=== PATIENT | female | born 1990 | race African-American/Black ===

== ENCOUNTER 2016-03-27 11:50 | Emergency (ER) | payer OTHER ==
[2016-03-27] MEDS ORDERED: ONDANSETRON 4MG/2ML VIAL (J2405) As Ordered ONE ×2 (12:36→14:13)
[2016-03-27] MEDS ORDERED: KETOROLAC 30 MG/ML VIAL (J1885) As Ordered ONE (12:36)
[2016-03-27 12:37] LABS: BASO % 0.3 % (0.0-1.0); EOS # 0.4 K/mm3 (0.0-0.50); EOS % 2.6 % (0.0-3.0); LARGE UNSTAINED CELL # 0.1 K/mm3 (0.0-0.4); LARGE UNSTAINED CELL % 0.9 % (0.0-4.0); LYMPH # 2.3 K/mm3 (1.5-6.5); LYMPH % 16.1 % (24.0-44.0); MEAN CORPUSCULAR HGB CONC 33.2 g/dl (32.0-36.5); MEAN CORPUSCULAR VOLUME 84.2 fl (80.0-96.0); MONO # 0.5 K/mm3 (0.0-0.8); MONO % 3.5 % (0.0-5.0); NEUTROPHILS % 76.8 % (36.0-66.0); PLATELET COUNT, AUTOMATED 315 k/mm3 (150-450); RED CELL DISTRIBUTION WIDTH 13.2 % (11.5-14.5); WHITE BLOOD COUNT 14.3 K/mm3 (4.0-10.0)
[2016-03-27 12:59] LABS: ALBUMIN 3.8 GM/DL (3.2-5.2); ALBUMIN/GLOBULIN RATIO 1.06 (1.00-1.93); ALKALINE PHOSPHATASE 76 U/L (45-117); ALT/SGPT 15 U/L (12-78); ANION GAP 9 MEQ/L (8-16); AST/SGOT 14 U/L (15-37); BILIRUBIN,DIRECT < 0.1 MG/DL (0.0-0.2); BILIRUBIN,TOTAL 0.2 MG/DL (0.2-1.0); BLOOD UREA NITROGEN 16 MG/DL (7-18); CARBON DIOXIDE LEVEL 25 MEQ/L (21-32); CHLORIDE LEVEL 108 MEQ/L (98-107); CREATININE FOR GFR 0.92 MG/DL (0.55-1.02); GLOMERULAR FILTRATION RATE > 60.0 (>60); GLUCOSE, FASTING 122 MG/DL (70-105); POTASSIUM SERUM 4.3 MEQ/L (3.5-5.1); SODIUM LEVEL 142 MEQ/L (136-145); TOTAL PROTEIN 7.4 GM/DL (6.4-8.2)
[2016-03-27] MEDS ORDERED: METOCLOPRAMIDE INJ 10MG/2ML VIAL (J2765) As Ordered ONE (13:33)
[2016-03-27] MEDS ORDERED: diphenhydrAMINE INJ 50MG/ML VIAL (J1200) As Ordered ONE (13:34)
[2016-03-27] MEDS ORDERED: ISOVUE-370 76% 100ML VIAL (Q9967) As Ordered ONE (14:10)
--- NOTE | 2016-03-27 15:43 | EDDOCDS ---
Physician Documentation [facility] Name: Jean Escalante Age: 26 yrs Sex: Female : 1990 Arrival Date: 03/27/2016 Time: 11:50 Bed I4 / M4 Private MD: Thao Carnes Disposition: 03/27/16 15:21 Discharged to Home/Self Care. Impression: Nausea and vomiting, Diarrhea, unspecified. - Condition is Stable. - Discharge Instructions: Diarrhea, Irritable Bowel Syndrome, Adult, Nausea and Vomiting. - Prescriptions for Compazine 10 mg Oral Tablet - take 1 tablet by ORAL route every 8 hours As needed; 20 tablet. - Medication Reconciliation, Local Pharmacy Hours form. - Follow up: Emergency Department; When: As needed. Follow up: Thao Carnes; When: Call to arrange an appointment; Reason: Wound/Symptom Recheck, Recheck today's complaints, Worsening of conditions, Continuance of care. - Problem is an acute exacerbation. - Symptoms have improved. Historical: - Allergies: Latex; - Home Meds: 1. Reglan 10 mg Oral tab 1 tab as needed (Last dose: 03/27/2016 08:30) 2. Singulair 10 mg Oral tab 1 tab once daily (Last dose: 03/27/2016 08:30) 3. Zofran (as hydrochloride) 4 mg Oral tab as needed (Last dose: 03/27/2016 08:00) 4. Zyrtec 10 mg Oral cap 10 mg daily (Last dose: 03/27/2016 08:30) 5. Ventolin INH daily (Last dose: Unknown) - PMHx: Bipolar disorder; Celiac disease; IBS; Scoliosis; Seasonal Allergies; Asthma; - PSHx: none; - Social history: Smoking status: Patient states was never smoker of tobacco. No barriers to communication noted, The patient speaks fluent Italian, Speaks appropriately for age. - Family history: Not pertinent. - : The pt / caregiver states he / she is not on anticoagulants. Home medication list is obtained from family members. - Exposure Risk Screening:: None identified. 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 3 in. (160.02 cm) (R); Pain 10/10; 15:30 BP 119 / 77; Pulse 64; Resp 18; Temp 98.0(TE); Pulse Ox 100% ; Pain 10/10; rn1 11:52 Body Mass Index 35.43 (90.72 kg, 160.02 cm) dem1 MDM: 12:18 NS 0.9% 1000 ml IV at bolus once ordered. cc10 12:18 Ondansetron 4 mg IVP once ordered. cc10 12:18 ketorolac 30 mg IVP once ordered. cc10 12:18 IV Saline Lock ordered. cc10 12:18 Undress patient appropriately for examination ordered. cc10 12:19 Basic Metabolic Profile Ordered. EDMS 12:19 CBC with Diff Ordered. EDMS 12:19 Lipase Ordered. EDMS 12:19 Liver Profile Ordered. EDMS 12:19 Urinalysis Ordered. EDMS 12:19 NOTHING BY MOUTH+DIET ordered. EDMS 12:26 Financial registration complete. jp5 12:38 [facility] Payment Agreement was scanned into [employer] and attached to record. jp5 13:32 Basic Metabolic Profile Reviewed. cc10 13:32 CBC with Diff Reviewed. cc10 13:32 Liver Profile Reviewed. cc10 13:32 Urinalysis Reviewed. cc10 13:32 Lipase Reviewed. cc10 13:33 diphenhydrAMINE 25 mg IVP once ordered. cc10 13:33 Metoclopramide 10 mg IV at 40 mg/hr once over 15 mins ordered. cc10 13:34 CT ABD & PELVIS: IV Contrast Only Ordered. EDMS 14:07 Ondansetron 8 mg IVP once ordered. cc10 Administered Medications: 12:44 Drug: NS 0.9% 1000 ml [sodium chloride 0.9 % intravenous solution] Route: IV; Rate: rs3 bolus; Site: right antecubital; 15:39 Follow up: IV Status: Completed infusion rs3 12:44 Drug: Ondansetron 4 mg [ondansetron HCl 2 mg/mL intravenous solution (2 mL)] Route: rs3 IVP; Site: right antecubital; 12:44 Drug: ketorolac 30 mg [ketorolac 30 mg/mL (1 mL) injection solution (1 mL)] Route: IVP; rs3 Site: right antecubital; 15:39 Follow up: Response: No significant change. rs3 13:35 Drug: diphenhydrAMINE 25 mg [diphenhydramine 50 mg/mL injection solution (0.5 mL)] ttb Route: IVP; Site: right antecubital; 13:40 Drug: Metoclopramide 10 mg [metoclopramide 5 mg/mL injection solution] Route: IV; Rate: ttb 40 mg/hr; Infused Over: 15 mins; Site: right antecubital; Delivery: Syringe pump; 15:39 Follow up: IV Status: Completed infusion rs3 14:28 Drug: Ondansetron 8 mg [ondansetron HCl 2 mg/mL intravenous solution (3.75 mL)] Route: ttb IVP; Site: right antecubital; Signatures: Dispatcher [employer] Lauren Kang RN RN rs3 Aisha Flores RN RN dsf Conner, Teresa, RN RN ttb Jose Elizondo PA-C PASandi cc10 Jorge Gil jp5 The chart was reviewed and I authenticate all verbal orders and agree with the evaluation and treatment provided.Attachments: 12:38 [facility] Payment Agreement jp5 MTDD
--- NOTE | 2016-03-27 15:43 | EDDOCDS ---
Nurse's Notes [facility] Name: Jean Escalante Age: 26 yrs Sex: Female : 1990 Arrival Date: 03/27/2016 Time: 11:50 Bed I4 / M4 Private MD: Thao Carnes Diagnosis: Nausea and vomiting;Diarrhea, unspecified Presentation: 03/27 11:55 Presenting complaint: Significant other states: pt has celiac disease. pt has been dsf vomiting, dry heaves, abdominal pain and diarrhea for the past 3-4 hours. Adult Sepsis Screening: The patient does not have new or worsening altered mentation. Patient's respiratory rate is less than 22. Systolic blood pressure is greater than 100. Patient has a qSOFA score of 0- Negative Sepsis Screen. Suicide/Homicide risk assessment- the patient denies having any suicidal and/or homicidal ideations and does not present with any other emotional, behavioral or mental health complaints. Status: Patient is not a slitter service and setter or dependent. Transition of care: patient was not received from another setting of care. 11:55 Acuity: [place] Level 3 dsf 11:55 Method Of Arrival: Wheelchair dsf Triage Assessment: 11:57 General: Appears distressed, ill, uncomfortable, Behavior is crying. Pain: Location: dsf abdomen Pain currently is 10 out of 10 on a pain scale. HIV screening NA for this visit Offered previously. GI: Reports diarrhea, nausea, vomiting, Pain is 10 out of 10 on a pain scale. 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 Reglan 10 mg Oral tab 1 tab as needed (Last dose: 03/27/2016 08:30) 2. Singulair 10 mg Oral tab 1 tab once daily (Last dose: 03/27/2016 08:30) 3. Zofran (as hydrochloride) 4 mg Oral tab as needed (Last dose: 03/27/2016 08:00) 4. Zyrtec 10 mg Oral cap 10 mg daily (Last dose: 03/27/2016 08:30) 5. Ventolin INH daily (Last dose: Unknown) - PMHx: Bipolar disorder; Celiac disease; IBS; Scoliosis; Seasonal Allergies; Asthma; - PSHx: none; - Social history: Smoking status: Patient states was never smoker of tobacco. No barriers to communication noted, The patient speaks fluent Nicaraguan, Speaks appropriately for age. - Family history: Not pertinent. - : The pt / caregiver states he / she is not on anticoagulants. Home medication list is obtained from family members. - Exposure Risk Screening:: None identified. Screenin:28 Screening information is obtained from the patient. Fall risk: No risks identified. ttb Assistance ADL's: requires no assistance with activities of daily living. Abuse/DV Screen: The patient / caregiver reports he/she is: not in a situation that causes fear, pain or injury. Nutritional screening: No deficits noted. Advance Directives: Currently, there is no health care proxy. home support is adequate. Assessment: 12:32 General: Appears in no apparent distress, Behavior is appropriate for age, cooperative. rs3 Pain: Location: abdomen. GI: Abdomen is non- distended Bowel sounds present X 4 quads. Abd is soft and non tender X 4 quads. Reports upper abd pain, nausea. Derm: Skin is pink, warm & dry. 13:41 Reassessment: Patient states symptoms have not improved. pt continues to lay on ttb stretcher, moaning and facing the wall. Pt encouraged to talk to me to given name and ....pt did with encouragement. Meds given. No active vomiting noted.. Neurological: Level of Consciousness is awake, alert. Respiratory: No deficits noted. Airway is patent Respiratory effort is even, unlabored. 14:28 Reassessment: Patient states symptoms have not improved. pt continues to roll around on ttb stretcher, dry heaving, stating it is from the pain. When asked what pt usually gets for pain -- she states, "dilautin". Pt aware she is getting zofran for nausea and is encouraged to relax. Friend at bedside. . Pain: Location: upper abd. Neurological: Level of Consciousness is awake, alert. Cardiovascular: Chest pain is denied. Respiratory: No deficits noted. Airway is patent Respiratory effort is even, unlabored. GI: other dry heaving -- no vomit noted. 15:39 Reassessment: Patient appears in no apparent distress at this time. Patient states rs3 feeling better. Patient states symptoms have improved. Vital Signs: 11:52 BP 126 / 98; Pulse 82; Resp 16; Temp 96.7(T); Pulse Ox 100% on R/A; Weight 90.72 kg dem1 (R); Height 5 ft. 3 in. (160.02 cm) (R); Pain 10/10; 15:30 BP 119 / 77; Pulse 64; Resp 18; Temp 98.0(TE); Pulse Ox 100% ; Pain 10/10; rn1 11:52 Body Mass Index 35.43 (90.72 kg, 160.02 cm) [facility] Vitals: 11:52 Log In Time: March 27, 2016 at 11:50. [facility] ED Course: 11:52 Patient visited by Katelin Cruz. dem1 11:52 Thao Canres is Private Physician. dem1 11:52 Patient moved to Waiting dem1 11:54 Patient moved to Pre RCE dem1 11:56 Triage Initiated dsf 11:58 Patient moved to I4 / M4 dsf 11:59 Jose Elizondo PA-C is [facility]. cc10 11:59 Tesha Grullon MD is Attending Physician. cc10 11:59 Patient visited by Jose Elizondo PA-C. cc10 11:59 Patient visited by Jose Elizondo PA-C. cc10 12:31 Patient visited by Lauren Junior RN. rs3 12:31 Liver Profile Sent. rs3 12:31 Lipase Sent. rs3 12:31 CBC with Diff Sent. rs3 12:31 Basic Metabolic Profile Sent. rs3 12:38 [facility] [place] was scanned into [employer] and attached to record. jp5 12:40 Inserted saline lock: 20 gauge in right antecubital area and blood collected. The rs3 patient tolerated the procedure well. 12:45 Urinalysis Sent. rs3 13:19 Patient visited by Lauren Junior,VALERIE. rs3 13:42 Patient visited by Madhavi Guidry RN. ttb 14:28 The patient / caregiver is instructed regarding the plan of care and ED course. ttb Accompanied by Friend, Patient has correct armband on for positive identification. Placed in gown. Bed in low position. Call light in reach. Side rails up X 1. 14:28 Labs drawn. (by ED staff). Urine collected. Clean catch specimen. ttb 14:31 Patient visited by Madhavi Guidry RN. ttb 15:20 Thao Carnes is Referral Physician. cc10 15:39 No procedures done that require assistance. rs3 Administered Medications: 12:44 Drug: NS 0.9% 1000 ml [sodium chloride 0.9 % intravenous solution] Route: IV; Rate: rs3 bolus; Site: right antecubital; 15:39 Follow up: IV Status: Completed infusion rs3 12:44 Drug: Ondansetron 4 mg [ondansetron HCl 2 mg/mL intravenous solution (2 mL)] Route: rs3 IVP; Site: right antecubital; 12:44 Drug: ketorolac 30 mg [ketorolac 30 mg/mL (1 mL) injection solution (1 mL)] Route: IVP; rs3 Site: right antecubital; 15:39 Follow up: Response: No significant change. rs3 13:35 Drug: diphenhydrAMINE 25 mg [diphenhydramine 50 mg/mL injection solution (0.5 mL)] ttb Route: IVP; Site: right antecubital; 13:40 Drug: Metoclopramide 10 mg [metoclopramide 5 mg/mL injection solution] Route: IV; Rate: ttb 40 mg/hr; Infused Over: 15 mins; Site: right antecubital; Delivery: Syringe pump; 15:39 Follow up: IV Status: Completed infusion rs3 14:28 Drug: Ondansetron 8 mg [ondansetron HCl 2 mg/mL intravenous solution (3.75 mL)] Route: ttb IVP; Site: right antecubital; Order Results: Lab Order: Basic Metabolic Profile; SPEC'M 03/27/16 12:29 Test: GLUCOSE, FASTING; Value: 122; Range: 70-105; Abnormal: Above high normal; Units: MG/DL; Status: F Test: BLOOD UREA NITROGEN; Value: 16; Range: 7-18; Units: MG/DL; Status: F Test: CREATININE FOR GFR; Value: 0.92; Range: 0.55-1.02; Units: MG/DL; Status: F Test: GLOMERULAR FILTRATION RATE; Value: > 60.0; Range: >60; Status: F Test: SODIUM LEVEL; Value: 142; Range: 136-145; Units: MEQ/L; Status: F Test: POTASSIUM SERUM; Value: 4.3; Range: 3.5-5.1; Units: MEQ/L; Status: F Test: CHLORIDE LEVEL; Value: 108; Range: 98-107; Abnormal: Above high normal; Units: MEQ/L; Status: F Test: CARBON DIOXIDE LEVEL; Value: 25; Range: 21-32; Units: MEQ/L; Status: F Test: ANION GAP; Value: 9; Range: 8-16; Units: MEQ/L; Status: F Test: CALCIUM LEVEL; Value: 9.0; Range: 8.5-10.1; Units: MG/DL; Status: F Test Note: ; Units are mL/min/1.73 m2 Chronic Kidney Disease Staging per NKF: Stage I & II GFR >=60 Normal to Mildly Decreased Stage III GFR 30-59 Moderately Decreased Stage IV GFR 15-29 Severely Decreased Stage V GFR <15 Very Little GFR Left ESRD GFR <15 on CUSTOMER RESOURCE SPECIALIST Lab Order: CBC with Diff; SPEC'M 03/27/16 12:29 Test: WHITE BLOOD COUNT; Value: 14.3; Range: 4.0-10.0; Abnormal: Above high normal; Units: K/mm3; Status: F Test: RED BLOOD COUNT; Value: 4.80; Range: 4.00-5.40; Units: M/mm3; Status: F Test: HEMOGLOBIN; Value: 13.4; Range: 12.0-16.0; Units: g/dl; Status: F Test: HEMATOCRIT; Value: 40.4; Range: 36.0-47.0; Units: %; Status: F Test: MEAN CORPUSCULAR VOLUME; Value: 84.2; Range: 80.0-96.0; Units: fl; Status: F Test: MEAN CORPUSCULAR HEMOGLOBIN; Value: 28.0; Range: 27.0-33.0; Units: pg; Status: F Test: MEAN CORPUSCULAR HGB CONC; Value: 33.2; Range: 32.0-36.5; Units: g/dl; Status: F Test: RED CELL DISTRIBUTION WIDTH; Value: 13.2; Range: 11.5-14.5; Units: %; Status: F Test: PLATELET COUNT, AUTOMATED; Value: 315; Range: 150-450; Units: k/mm3; Status: F Test: NEUTROPHILS %; Value: 76.8; Range: 36.0-66.0; Abnormal: Above high normal; Units: %; Status: F Test: LYMPH %; Value: 16.1; Range: 24.0-44.0; Abnormal: Below low normal; Units: %; Status: F Test: MONO %; Value: 3.5; Range: 0.0-5.0; Units: %; Status: F Test: EOS %; Value: 2.6; Range: 0.0-3.0; Units: %; Status: F Test: BASO %; Value: 0.3; Range: 0.0-1.0; Units: %; Status: F Test: LARGE UNSTAINED CELL %; Value: 0.9; Range: 0.0-4.0; Units: %; Status: F Test: NEUTROPHILS #; Value: 11.0; Range: 1.8-7.7; Abnormal: Above high normal; Units: K/mm3; Status: F Test: LYMPH #; Value: 2.3; Range: 1.5-6.5; Units: K/mm3; Status: F Test: MONO #; Value: 0.5; Range: 0.0-0.8; Units: K/mm3; Status: F Test: EOS #; Value: 0.4; Range: 0.0-0.50; Units: K/mm3; Status: F Test: BASO #; Value: 0.0; Range: 0.0-0.2; Units: K/mm3; Status: F Test: LARGE UNSTAINED CELL #; Value: 0.1; Range: 0.0-0.4; Units: K/mm3; Status: F Lab Order: Lipase; SPEC'M 03/27/16 12:29 Test: LIPASE; Value: 88; Range: 73-393; Units: U/L; Status: F Lab Order: Liver Profile; SPEC'M 03/27/16 12:29 Test: AST/SGOT; Value: 14; Range: 15-37; Abnormal: Below low normal; Units: U/L; Status: F Test: ALT/SGPT; Value: 15; Range: 12-78; Units: U/L; Status: F Test: ALKALINE PHOSPHATASE; Value: 76; Range: 45-117; Units: U/L; Status: F Test: BILIRUBIN,TOTAL; Value: 0.2; Range: 0.2-1.0; Units: MG/DL; Status: F Test: BILIRUBIN,DIRECT; Value: < 0.1; Range: 0.0-0.2; Units: MG/DL; Status: F Test: TOTAL PROTEIN; Value: 7.4; Range: 6.4-8.2; Units: GM/DL; Status: F Test: ALBUMIN; Value: 3.8; Range: 3.2-5.2; Units: GM/DL; Status: F Test: ALBUMIN/GLOBULIN RATIO; Value: 1.06; Range: 1.00-1.93; Status: F Lab Order: Urinalysis; SPEC'M 03/27/16 12:42 Test: APPEARANCE, URINE; Value: CLEAR; Range: CLEAR; Status: F Test: COLOR, URINE; Value: YELLOW; Range: YELLOW; Status: F Test: PH,URINE; Value: 9.0; Range: 5.0-9.0; Units: UNITS; Status: F Test: SPECIFIC GRAVITY URINE AUTO; Value: 1.023; Range: 1.002-1.035; Status: F Test: PROTEIN, URINE AUTO; Value: 1+; Range: NEGATIVE; Abnormal: Above high normal; Units: mg/dL; Status: F Test: GLUCOSE, URINE (UA) AUTO; Value: NEGATIVE; Range: NEGATIVE; Units: mg/dL; Status: F Test: KETONE, URINE AUTO; Value: TRACE; Range: NEGATIVE; Abnormal: Above high normal; Units: mg/dL; Status: F Test: UROBILINOGEN, URINE AUTO; Value: 0.2; Range: 0.0-2.0; Units: mg/dL; Status: F Test: BILIRUBIN, URINE AUTO; Value: NEGATIVE; Range: NEGATIVE; Status: F Test: NITRITE, URINE AUTO; Value: NEGATIVE; Range: NEGATIVE; Status: F Test: LEUKOCYTE ESTERASE, URINE AUTO; Value: NEGATIVE; Range: NEGATIVE; Status: F Test: BLOOD, URINE BLOOD; Value: NEGATIVE; Range: NEGATIVE; Status: F Test: WBC, URINE AUTO; Value: 0; Range: 0-3; Units: /HPF; Status: F Test: RBC, URINE AUTO; Value: 3; Range: 0-3; Units: /HPF; Status: F Test: BACTERIA, URINE AUTO; Value: NEGATIVE; Range: NEGATIVE; Status: F Test: SQUAMOUS EPITHELIAL CELL UR AU; Value: 2; Range: 0-6; Units: /HPF; Status: F Test: HYALINE CAST, URINE AUTO; Value: 0; Range: 0-1; Units: /LPF; Status: F Outcome: 14:28 CT Study completed. ttb 15:21 Discharge ordered by Provider. cc10 15:41 Discharge Assessment: patient administered narcotics - no. The following High Risk rs3 Discharge criteria are identified: None. Discharged to home with family. Condition: stable. Discharge instructions given to patient, Instructed on discharge instructions, follow up and referral plans. medication usage, Demonstrated understanding of instructions, medications, Pt was receptive of discharge instructions/ teaching. Prescriptions given X 1. Property :Personal belongings accompany Pt. 15:42 Patient left the ED. rs3 Signatures: Lauren JuniorRN RN rs3 Aisha Flores,RN RN dsKatelin Mitchell Teresa RN RN ttb Jose Elizondo, PA-C PA-C Jordan Frederick rn1 Jorge Gil jp5 MTDD
--- NOTE | 2016-03-29 14:26 | REP ---
CT of abdomen and pelvis with IV contrast 03/27/2016 Indication: Abdominal pain Comparison: CT abdomen pelvis 12/04/2015 performed with IV contrast Technique: Following IV injection of 100 ml Isovue 370 mg/ml, 3 mm continuous spiral axial sections were performed through the abdomen and pelvis Findings: Lung bases are clear bilaterally. The liver spleen pancreas gallbladder adrenal glands are normal. Kidneys are without hydronephrosis or obstructing ureteral calculi bilaterally. There are no intrarenal masses or cysts. The stomach and small bowel are within normal limits. The terminal ileum and appendix are without inflammation. Abdominal aorta is of normal course and caliber.. Contrast is identified within the common iliac and external iliac veins, left greater than right Bladder, uterus and adnexa are within normal limits. There is generalized under distension seen throughout the entire colon as can be seen with spasm. Mild colitis may be considered in the appropriate clinical setting. There is no free air or ascites. Impression: Generalized under distension seen throughout the entire colon as can be seen with spasm. Mild colitis may be considered in the appropriate clinical setting. Mild asymmetric perfusion within the common and external iliac veins, left greater than right. This likely is secondary to flow related artifact. Pelvic DVT involving the right side would be considered much less likely. Signed by Irish Whaley MD 03/29/2016 02:17 P
--- NOTE | 2016-03-29 16:42 | EDDOCDS ---
Physician Documentation [facility] Name: Jean Escalante Age: 26 yrs Sex: Female : 1990 Arrival Date: 03/27/2016 Time: 11:50 Bed I4 / M4 Private MD: Thao Carnes Disposition: 03/27/16 15:21 Discharged to Home/Self Care. Impression: Nausea and vomiting, Diarrhea, unspecified. - Condition is Stable. - Discharge Instructions: Diarrhea, Irritable Bowel Syndrome, Adult, Nausea and Vomiting. - Prescriptions for Compazine 10 mg Oral Tablet - take 1 tablet by ORAL route every 8 hours As needed; 20 tablet. - Medication Reconciliation, Local Pharmacy Hours form. - Follow up: Emergency Department; When: As needed. Follow up: Thao Carnes; When: Call to arrange an appointment; Reason: Wound/Symptom Recheck, Recheck today's complaints, Worsening of conditions, Continuance of care. - Problem is an acute exacerbation. - Symptoms have improved. Historical: - Allergies: Latex; - Home Meds: 1. Reglan 10 mg Oral tab 1 tab as needed (Last dose: 03/27/2016 08:30) 2. Singulair 10 mg Oral tab 1 tab once daily (Last dose: 03/27/2016 08:30) 3. Zofran (as hydrochloride) 4 mg Oral tab as needed (Last dose: 03/27/2016 08:00) 4. Zyrtec 10 mg Oral cap 10 mg daily (Last dose: 03/27/2016 08:30) 5. Ventolin INH daily (Last dose: Unknown) - PMHx: Bipolar disorder; Celiac disease; IBS; Scoliosis; Seasonal Allergies; Asthma; - PSHx: none; - Social history: Smoking status: Patient states was never smoker of tobacco. No barriers to communication noted, The patient speaks fluent Maltese, Speaks appropriately for age. - Family history: Not pertinent. - : The pt / caregiver states he / she is not on anticoagulants. Home medication list is obtained from family members. - Exposure Risk Screening:: None identified. 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 3 in. (160.02 cm) (R); Pain 10/10; 15:30 BP 119 / 77; Pulse 64; Resp 18; Temp 98.0(TE); Pulse Ox 100% ; Pain 10/10; rn1 11:52 Body Mass Index 35.43 (90.72 kg, 160.02 cm) dem1 MDM: 12:18 NS 0.9% 1000 ml IV at bolus once ordered. cc10 12:18 Ondansetron 4 mg IVP once ordered. cc10 12:18 ketorolac 30 mg IVP once ordered. cc10 12:18 IV Saline Lock ordered. cc10 12:18 Undress patient appropriately for examination ordered. cc10 12:19 Basic Metabolic Profile Ordered. EDMS 12:19 CBC with Diff Ordered. EDMS 12:19 Lipase Ordered. EDMS 12:19 Liver Profile Ordered. EDMS 12:19 Urinalysis Ordered. EDMS 12:19 NOTHING BY MOUTH+DIET ordered. EDMS 12:26 Financial registration complete. jp5 12:38 [facility] Payment Agreement was scanned into [employer] and attached to record. jp5 13:32 Basic Metabolic Profile Reviewed. cc10 13:32 CBC with Diff Reviewed. cc10 13:32 Liver Profile Reviewed. cc10 13:32 Urinalysis Reviewed. cc10 13:32 Lipase Reviewed. cc10 13:33 diphenhydrAMINE 25 mg IVP once ordered. cc10 13:33 Metoclopramide 10 mg IV at 40 mg/hr once over 15 mins ordered. cc10 13:34 CT ABD & PELVIS: IV Contrast Only Ordered. EDMS 14:07 Ondansetron 8 mg IVP once ordered. cc10 03/28 07:04 T-Sheet-- Draft Copy was scanned into [employer] and attached to record. gb Administered Medications: 03/27 12:44 Drug: NS 0.9% 1000 ml [sodium chloride 0.9 % intravenous solution] Route: IV; Rate: rs3 bolus; Site: right antecubital; 15:39 Follow up: IV Status: Completed infusion rs3 12:44 Drug: Ondansetron 4 mg [ondansetron HCl 2 mg/mL intravenous solution (2 mL)] Route: rs3 IVP; Site: right antecubital; 12:44 Drug: ketorolac 30 mg [ketorolac 30 mg/mL (1 mL) injection solution (1 mL)] Route: IVP; rs3 Site: right antecubital; 15:39 Follow up: Response: No significant change. rs3 13:35 Drug: diphenhydrAMINE 25 mg [diphenhydramine 50 mg/mL injection solution (0.5 mL)] ttb Route: IVP; Site: right antecubital; 13:40 Drug: Metoclopramide 10 mg [metoclopramide 5 mg/mL injection solution] Route: IV; Rate: ttb 40 mg/hr; Infused Over: 15 mins; Site: right antecubital; Delivery: Syringe pump; 15:39 Follow up: IV Status: Completed infusion rs3 14:28 Drug: Ondansetron 8 mg [ondansetron HCl 2 mg/mL intravenous solution (3.75 mL)] Route: ttb IVP; Site: right antecubital; Signatures: Dispatcher [employer] EDShari Abdalla, Reg Reg Lauren Ruffin RN RN rs3 Aisha Flores RN RN dsMadhavi Mccullough RN RN ttb Jose Elizondo PA-C PASandi cc10 Jorge Gil jp5 The chart was reviewed and I authenticate all verbal orders and agree with the evaluation and treatment provided.Attachments: 12:38 [facility] Payment Agreement jp5 03/28 07:04 T-Sheet-- Draft Copy gb Chart Complete MTDD
--- NOTE | 2016-03-29 16:43 | EDDOCDS ---
[facility]ation [facility] Name: Jean Escalante Age: 26 yrs Sex: Female : 1990 Arrival Date: 03/27/2016 Time: 11:50 Bed I4 / M4 Private MD: Thao Carnes Disposition: 03/27/16 15:21 Discharged to Home/Self Care. Impression: Nausea and vomiting, Diarrhea, unspecified. - Condition is Stable. - Discharge Instructions: Diarrhea, Irritable Bowel Syndrome, Adult, Nausea and Vomiting. - Prescriptions for Compazine 10 mg Oral Tablet - take 1 tablet by ORAL route every 8 hours As needed; 20 tablet. - Medication Reconciliation, Local Pharmacy Hours form. - Follow up: Emergency Department; When: As needed. Follow up: Thao Carnes; When: Call to arrange an appointment; Reason: Wound/Symptom Recheck, Recheck today's complaints, Worsening of conditions, Continuance of care. - Problem is an acute exacerbation. - Symptoms have improved. Historical: - Allergies: Latex; - Home Meds: 1. Reglan 10 mg Oral tab 1 tab as needed (Last dose: 03/27/2016 08:30) 2. Singulair 10 mg Oral tab 1 tab once daily (Last dose: 03/27/2016 08:30) 3. Zofran (as hydrochloride) 4 mg Oral tab as needed (Last dose: 03/27/2016 08:00) 4. Zyrtec 10 mg Oral cap 10 mg daily (Last dose: 03/27/2016 08:30) 5. Ventolin INH daily (Last dose: Unknown) - PMHx: Bipolar disorder; Celiac disease; IBS; Scoliosis; Seasonal Allergies; Asthma; - PSHx: none; - Social history: Smoking status: Patient states was never smoker of tobacco. No barriers to communication noted, The patient speaks fluent Maori, Speaks appropriately for age. - Family history: Not pertinent. - : The pt / caregiver states he / she is not on anticoagulants. Home medication list is obtained from family members. - Exposure Risk Screening:: None identified. 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 3 in. (160.02 cm) (R); Pain 10/10; 15:30 BP 119 / 77; Pulse 64; Resp 18; Temp 98.0(TE); Pulse Ox 100% ; Pain 10/10; rn1 11:52 Body Mass Index 35.43 (90.72 kg, 160.02 cm) dem1 MDM: 12:18 NS 0.9% 1000 ml IV at bolus once ordered. cc10 12:18 Ondansetron 4 mg IVP once ordered. cc10 12:18 ketorolac 30 mg IVP once ordered. cc10 12:18 IV Saline Lock ordered. cc10 12:18 Undress patient appropriately for examination ordered. cc10 12:19 Basic Metabolic Profile Ordered. EDMS 12:19 CBC with Diff Ordered. EDMS 12:19 Lipase Ordered. EDMS 12:19 Liver Profile Ordered. EDMS 12:19 Urinalysis Ordered. EDMS 12:19 NOTHING BY MOUTH+DIET ordered. EDMS 12:26 Financial registration complete. jp5 12:38 [facility] Payment Agreement was scanned into [employer] and attached to record. jp5 13:32 Basic Metabolic Profile Reviewed. cc10 13:32 CBC with Diff Reviewed. cc10 13:32 Liver Profile Reviewed. cc10 13:32 Urinalysis Reviewed. cc10 13:32 Lipase Reviewed. cc10 13:33 diphenhydrAMINE 25 mg IVP once ordered. cc10 13:33 Metoclopramide 10 mg IV at 40 mg/hr once over 15 mins ordered. cc10 13:34 CT ABD & PELVIS: IV Contrast Only Ordered. EDMS 14:07 Ondansetron 8 mg IVP once ordered. cc10 03/28 07:04 T-Sheet-- Draft Copy was scanned into [employer] and attached to record. gb Administered Medications: 03/27 12:44 Drug: NS 0.9% 1000 ml [sodium chloride 0.9 % intravenous solution] Route: IV; Rate: rs3 bolus; Site: right antecubital; 15:39 Follow up: IV Status: Completed infusion rs3 12:44 Drug: Ondansetron 4 mg [ondansetron HCl 2 mg/mL intravenous solution (2 mL)] Route: rs3 IVP; Site: right antecubital; 12:44 Drug: ketorolac 30 mg [ketorolac 30 mg/mL (1 mL) injection solution (1 mL)] Route: IVP; rs3 Site: right antecubital; 15:39 Follow up: Response: No significant change. rs3 13:35 Drug: diphenhydrAMINE 25 mg [diphenhydramine 50 mg/mL injection solution (0.5 mL)] ttb Route: IVP; Site: right antecubital; 13:40 Drug: Metoclopramide 10 mg [metoclopramide 5 mg/mL injection solution] Route: IV; Rate: ttb 40 mg/hr; Infused Over: 15 mins; Site: right antecubital; Delivery: Syringe pump; 15:39 Follow up: IV Status: Completed infusion rs3 14:28 Drug: Ondansetron 8 mg [ondansetron HCl 2 mg/mL intravenous solution (3.75 mL)] Route: ttb IVP; Site: right antecubital; Signatures: Dispatcher [employer] EDShari Abdalla, Reg Reg Lauren Ruffin RN RN rs3 Aisha Flores RN RN dsMadhavi Mccullough RN RN ttb Jose Elizondo PA-C PASandi cc10 Jorge Gil jp5 The chart was reviewed and I authenticate all verbal orders and agree with the evaluation and treatment provided.Attachments: 12:38 [facility] Payment Agreement jp5 03/28 07:04 T-Sheet-- Draft Copy gb Chart Complete MTDD
--- NOTE | 2016-03-29 16:43 | EDDOCDS ---
Nurse's Notes [facility] Name: Jean Escalante Age: 26 yrs Sex: Female : 1990 Arrival Date: 03/27/2016 Time: 11:50 Bed I4 / M4 Private MD: Thao Carnes Diagnosis: Nausea and vomiting;Diarrhea, unspecified Presentation: 03/27 11:55 Presenting complaint: Significant other states: pt has celiac disease. pt has been dsf vomiting, dry heaves, abdominal pain and diarrhea for the past 3-4 hours. Adult Sepsis Screening: The patient does not have new or worsening altered mentation. Patient's respiratory rate is less than 22. Systolic blood pressure is greater than 100. Patient has a qSOFA score of 0- Negative Sepsis Screen. Suicide/Homicide risk assessment- the patient denies having any suicidal and/or homicidal ideations and does not present with any other emotional, behavioral or mental health complaints. Status: Patient is not a director financial services or dependent. Transition of care: patient was not received from another setting of care. 11:55 Acuity: [place] Level 3 dsf 11:55 Method Of Arrival: Wheelchair dsf Triage Assessment: 11:57 General: Appears distressed, ill, uncomfortable, Behavior is crying. Pain: Location: dsf abdomen Pain currently is 10 out of 10 on a pain scale. HIV screening NA for this visit Offered previously. GI: Reports diarrhea, nausea, vomiting, Pain is 10 out of 10 on a pain scale. 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 Reglan 10 mg Oral tab 1 tab as needed (Last dose: 03/27/2016 08:30) 2. Singulair 10 mg Oral tab 1 tab once daily (Last dose: 03/27/2016 08:30) 3. Zofran (as hydrochloride) 4 mg Oral tab as needed (Last dose: 03/27/2016 08:00) 4. Zyrtec 10 mg Oral cap 10 mg daily (Last dose: 03/27/2016 08:30) 5. Ventolin INH daily (Last dose: Unknown) - PMHx: Bipolar disorder; Celiac disease; IBS; Scoliosis; Seasonal Allergies; Asthma; - PSHx: none; - Social history: Smoking status: Patient states was never smoker of tobacco. No barriers to communication noted, The patient speaks fluent Nauruan, Speaks appropriately for age. - Family history: Not pertinent. - : The pt / caregiver states he / she is not on anticoagulants. Home medication list is obtained from family members. - Exposure Risk Screening:: None identified. Screenin:28 Screening information is obtained from the patient. Fall risk: No risks identified. ttb Assistance ADL's: requires no assistance with activities of daily living. Abuse/DV Screen: The patient / caregiver reports he/she is: not in a situation that causes fear, pain or injury. Nutritional screening: No deficits noted. Advance Directives: Currently, there is no health care proxy. home support is adequate. Assessment: 12:32 General: Appears in no apparent distress, Behavior is appropriate for age, cooperative. rs3 Pain: Location: abdomen. GI: Abdomen is non- distended Bowel sounds present X 4 quads. Abd is soft and non tender X 4 quads. Reports upper abd pain, nausea. Derm: Skin is pink, warm & dry. 13:41 Reassessment: Patient states symptoms have not improved. pt continues to lay on ttb stretcher, moaning and facing the wall. Pt encouraged to talk to me to given name and ....pt did with encouragement. Meds given. No active vomiting noted.. Neurological: Level of Consciousness is awake, alert. Respiratory: No deficits noted. Airway is patent Respiratory effort is even, unlabored. 14:28 Reassessment: Patient states symptoms have not improved. pt continues to roll around on ttb stretcher, dry heaving, stating it is from the pain. When asked what pt usually gets for pain -- she states, "dilautin". Pt aware she is getting zofran for nausea and is encouraged to relax. Friend at bedside. . Pain: Location: upper abd. Neurological: Level of Consciousness is awake, alert. Cardiovascular: Chest pain is denied. Respiratory: No deficits noted. Airway is patent Respiratory effort is even, unlabored. GI: other dry heaving -- no vomit noted. 15:39 Reassessment: Patient appears in no apparent distress at this time. Patient states rs3 feeling better. Patient states symptoms have improved. Vital Signs: 11:52 BP 126 / 98; Pulse 82; Resp 16; Temp 96.7(T); Pulse Ox 100% on R/A; Weight 90.72 kg dem1 (R); Height 5 ft. 3 in. (160.02 cm) (R); Pain 10/10; 15:30 BP 119 / 77; Pulse 64; Resp 18; Temp 98.0(TE); Pulse Ox 100% ; Pain 10/10; rn1 11:52 Body Mass Index 35.43 (90.72 kg, 160.02 cm) [facility] Vitals: 11:52 Log In Time: March 27, 2016 at 11:50. [facility] ED Course: 11:52 Patient visited by Katelin Cruz. dem1 11:52 Thao Carnse is Private Physician. dem1 11:52 Patient moved to Waiting dem1 11:54 Patient moved to Pre RCE dem1 11:56 Triage Initiated dsf 11:58 Patient moved to I4 / M4 dsf 11:59 Jose Elizondo [facility] cc10 11:59 Tesha Grullon MD is Attending Physician. cc10 11:59 Patient visited by Jose Elizondo PA-C. cc10 11:59 Patient visited by Jose Elizondo PA-C. cc10 12:31 Patient visited by Lauren Junior RN. rs3 12:31 Liver Profile Sent. rs3 12:31 Lipase Sent. rs3 12:31 CBC with Diff Sent. rs3 12:31 Basic Metabolic Profile Sent. rs3 12:38 [facility] [place] was [place] into [employer] and attached to record. jp5 12:40 Inserted saline lock: 20 gauge in right antecubital area and blood collected. The rs3 patient tolerated the procedure well. 12:45 Urinalysis Sent. rs3 13:19 Patient visited by Lauren Junior,VALERIE. rs3 13:42 Patient visited by Madhavi Guidry RN. ttb 14:28 The patient / caregiver is instructed regarding the plan of care and ED course. ttb Accompanied by Friend, Patient has correct armband on for positive identification. Placed in gown. Bed in low position. Call light in reach. Side rails up X 1. 14:28 Labs drawn. (by ED staff). Urine collected. Clean catch specimen. ttb 14:31 Patient visited by Madhavi Guidry RN. ttb 15:20 Thao Carnes is Referral Physician. cc10 15:39 No procedures done that require assistance. rs3 03/28 07:04 T-Sheet-- Draft Copy was scanned into [employer] and attached to record. gb 03/29 14:30 CT ABD & PELVIS: IV Contrast Only Returned. EDMS Administered Medications: 03/27 12:44 Drug: NS 0.9% 1000 ml [sodium chloride 0.9 % intravenous solution] Route: IV; Rate: rs3 bolus; Site: right antecubital; 15:39 Follow up: IV Status: Completed infusion rs3 12:44 Drug: Ondansetron 4 mg [ondansetron HCl 2 mg/mL intravenous solution (2 mL)] Route: rs3 IVP; Site: right antecubital; 12:44 Drug: ketorolac 30 mg [ketorolac 30 mg/mL (1 mL) injection solution (1 mL)] Route: IVP; rs3 Site: right antecubital; 15:39 Follow up: Response: No significant change. rs3 13:35 Drug: diphenhydrAMINE 25 mg [diphenhydramine 50 mg/mL injection solution (0.5 mL)] ttb Route: IVP; Site: right antecubital; 13:40 Drug: Metoclopramide 10 mg [metoclopramide 5 mg/mL injection solution] Route: IV; Rate: ttb 40 mg/hr; Infused Over: 15 mins; Site: right antecubital; Delivery: Syringe pump; 15:39 Follow up: IV Status: Completed infusion rs3 14:28 Drug: Ondansetron 8 mg [ondansetron HCl 2 mg/mL intravenous solution (3.75 mL)] Route: ttb IVP; Site: right antecubital; Order Results: Lab Order: Basic Metabolic Profile; SPEC'M 03/27/16 12:29 Test: GLUCOSE, FASTING; Value: 122; Range: 70-105; Abnormal: Above high normal; Units: MG/DL; Status: F Test: BLOOD UREA NITROGEN; Value: 16; Range: 7-18; Units: MG/DL; Status: F Test: CREATININE FOR GFR; Value: 0.92; Range: 0.55-1.02; Units: MG/DL; Status: F Test: GLOMERULAR FILTRATION RATE; Value: > 60.0; Range: >60; Status: F Test: SODIUM LEVEL; Value: 142; Range: 136-145; Units: MEQ/L; Status: F Test: POTASSIUM SERUM; Value: 4.3; Range: 3.5-5.1; Units: MEQ/L; Status: F Test: CHLORIDE LEVEL; Value: 108; Range: 98-107; Abnormal: Above high normal; Units: MEQ/L; Status: F Test: CARBON DIOXIDE LEVEL; Value: 25; Range: 21-32; Units: MEQ/L; Status: F Test: ANION GAP; Value: 9; Range: 8-16; Units: MEQ/L; Status: F Test: CALCIUM LEVEL; Value: 9.0; Range: 8.5-10.1; Units: MG/DL; Status: F Test Note: ; Units are mL/min/1.73 m2 Chronic Kidney Disease Staging per NKF: Stage I & II GFR >=60 Normal to Mildly Decreased Stage III GFR 30-59 Moderately Decreased Stage IV GFR 15-29 Severely Decreased Stage V GFR <15 Very Little GFR Left ESRD GFR <15 on [employer] Lab Order: CBC with Diff; SPEC'M 03/27/16 12:29 Test: WHITE BLOOD COUNT; Value: 14.3; Range: 4.0-10.0; Abnormal: Above high normal; Units: K/mm3; Status: F Test: RED BLOOD COUNT; Value: 4.80; Range: 4.00-5.40; Units: M/mm3; Status: F Test: HEMOGLOBIN; Value: 13.4; Range: 12.0-16.0; Units: g/dl; Status: F Test: HEMATOCRIT; Value: 40.4; Range: 36.0-47.0; Units: %; Status: F Test: MEAN CORPUSCULAR VOLUME; Value: 84.2; Range: 80.0-96.0; Units: fl; Status: F Test: MEAN CORPUSCULAR HEMOGLOBIN; Value: 28.0; Range: 27.0-33.0; Units: pg; Status: F Test: MEAN CORPUSCULAR HGB CONC; Value: 33.2; Range: 32.0-36.5; Units: g/dl; Status: F Test: RED CELL DISTRIBUTION WIDTH; Value: 13.2; Range: 11.5-14.5; Units: %; Status: F Test: PLATELET COUNT, AUTOMATED; Value: 315; Range: 150-450; Units: k/mm3; Status: F Test: NEUTROPHILS %; Value: 76.8; Range: 36.0-66.0; Abnormal: Above high normal; Units: %; Status: F Test: LYMPH %; Value: 16.1; Range: 24.0-44.0; Abnormal: Below low normal; Units: %; Status: F Test: MONO %; Value: 3.5; Range: 0.0-5.0; Units: %; Status: F Test: EOS %; Value: 2.6; Range: 0.0-3.0; Units: %; Status: F Test: BASO %; Value: 0.3; Range: 0.0-1.0; Units: %; Status: F Test: LARGE UNSTAINED CELL %; Value: 0.9; Range: 0.0-4.0; Units: %; Status: F Test: NEUTROPHILS #; Value: 11.0; Range: 1.8-7.7; Abnormal: Above high normal; Units: K/mm3; Status: F Test: LYMPH #; Value: 2.3; Range: 1.5-6.5; Units: K/mm3; Status: F Test: MONO #; Value: 0.5; Range: 0.0-0.8; Units: K/mm3; Status: F Test: EOS #; Value: 0.4; Range: 0.0-0.50; Units: K/mm3; Status: F Test: BASO #; Value: 0.0; Range: 0.0-0.2; Units: K/mm3; Status: F Test: LARGE UNSTAINED CELL #; Value: 0.1; Range: 0.0-0.4; Units: K/mm3; Status: F Lab Order: Lipase; SPEC'M 03/27/16 12:29 Test: LIPASE; Value: 88; Range: 73-393; Units: U/L; Status: F Lab Order: Liver Profile; SPEC'M 03/27/16 12:29 Test: AST/SGOT; Value: 14; Range: 15-37; Abnormal: Below low normal; Units: U/L; Status: F Test: ALT/SGPT; Value: 15; Range: 12-78; Units: U/L; Status: F Test: ALKALINE PHOSPHATASE; Value: 76; Range: 45-117; Units: U/L; Status: F Test: BILIRUBIN,TOTAL; Value: 0.2; Range: 0.2-1.0; Units: MG/DL; Status: F Test: BILIRUBIN,DIRECT; Value: < 0.1; Range: 0.0-0.2; Units: MG/DL; Status: F Test: TOTAL PROTEIN; Value: 7.4; Range: 6.4-8.2; Units: GM/DL; Status: F Test: ALBUMIN; Value: 3.8; Range: 3.2-5.2; Units: GM/DL; Status: F Test: ALBUMIN/GLOBULIN RATIO; Value: 1.06; Range: 1.00-1.93; Status: F Lab Order: Urinalysis; SPEC'M 03/27/16 12:42 Test: APPEARANCE, URINE; Value: CLEAR; Range: CLEAR; Status: F Test: COLOR, URINE; Value: YELLOW; Range: YELLOW; Status: F Test: PH,URINE; Value: 9.0; Range: 5.0-9.0; Units: UNITS; Status: F Test: SPECIFIC GRAVITY URINE AUTO; Value: 1.023; Range: 1.002-1.035; Status: F Test: PROTEIN, URINE AUTO; Value: 1+; Range: NEGATIVE; Abnormal: Above high normal; Units: mg/dL; Status: F Test: GLUCOSE, URINE (UA) AUTO; Value: NEGATIVE; Range: NEGATIVE; Units: mg/dL; Status: F Test: KETONE, URINE AUTO; Value: TRACE; Range: NEGATIVE; Abnormal: Above high normal; Units: mg/dL; Status: F Test: UROBILINOGEN, URINE AUTO; Value: 0.2; Range: 0.0-2.0; Units: mg/dL; Status: F Test: BILIRUBIN, URINE AUTO; Value: NEGATIVE; Range: NEGATIVE; Status: F Test: NITRITE, URINE AUTO; Value: NEGATIVE; Range: NEGATIVE; Status: F Test: LEUKOCYTE ESTERASE, URINE AUTO; Value: NEGATIVE; Range: NEGATIVE; Status: F Test: BLOOD, URINE BLOOD; Value: NEGATIVE; Range: NEGATIVE; Status: F Test: WBC, URINE AUTO; Value: 0; Range: 0-3; Units: /HPF; Status: F Test: RBC, URINE AUTO; Value: 3; Range: 0-3; Units: /HPF; Status: F Test: BACTERIA, URINE AUTO; Value: NEGATIVE; Range: NEGATIVE; Status: F Test: SQUAMOUS EPITHELIAL CELL UR AU; Value: 2; Range: 0-6; Units: /HPF; Status: F Test: HYALINE CAST, URINE AUTO; Value: 0; Range: 0-1; Units: /LPF; Status: F Radiology Order: CT ABD & PELVIS: IV Contrast Only Test: CT ABD & PELVIS: IV Contrast Only REASON FOR EXAMINATION: Abdomen Pain; CT of abdomen and pelvis with IV contrast 03/27/2016; ; Indication: Abdominal pain; ; Comparison: CT abdomen pelvis 12/04/2015 performed with IV contrast; ; Technique: Following IV injection of 100 ml Isovue 370 mg/ml, 3 mm continuous; spiral axial sections were performed through the abdomen and pelvis; ; Findings: Lung bases are clear bilaterally. The liver spleen pancreas; gallbladder adrenal glands are normal. Kidneys are without hydronephrosis or; obstructing ureteral calculi bilaterally. There are no intrarenal masses or; cysts. The stomach and small bowel are within normal limits. The terminal ileum; and appendix are without inflammation. Abdominal aorta is of normal course and; caliber.. Contrast is identified within the common iliac and external iliac; veins, left greater than right; ; Bladder, uterus and adnexa are within normal limits. There is generalized under; distension seen throughout the entire colon as can be seen with spasm. Mild; colitis may be considered in the appropriate clinical setting.; ; There is no free air or ascites.; ; Impression:; ; Generalized under distension seen throughout the entire colon as can be seen with; spasm. Mild colitis may be considered in the appropriate clinical setting.; ; Mild asymmetric perfusion within the common and external iliac veins, left; greater than right. This likely is secondary to flow related artifact. Pelvic; DVT involving the right side would be considered much less likely.; ; ; Signed by; Irish Whaley MD 03/29/2016 02:17 P; Outcome: 14:28 CT Study completed. ttb 15:21 Discharge ordered by Provider. cc10 15:41 Discharge Assessment: patient administered narcotics - no. The following High Risk rs3 Discharge criteria are identified: None. Discharged to home with family. Condition: stable. Discharge instructions given to patient, Instructed on discharge instructions, follow up and referral plans. medication usage, Demonstrated understanding of instructions, medications, Pt was receptive of discharge instructions/ teaching. Prescriptions given X 1. Property :Personal belongings accompany Pt. 15:42 Patient left the ED. rs3 Signatures: Dispatcher [employer] EDMS Shari Vitale, Reg Reg gb Lauren Junior,RN RN rs3 Aisha FloresRN RN dsf Katelin Cruz1 Madhavi Guidry RN RN yanyb Jose Elizondo PA-C PASandi poon10 Jordan Leija rn1 Jorge Gil jp5 Chart Complete MTDNeris
== END 2016-03-27 15:42 | disposition home or self-care (01) ==
LOC: M ED 11:50
DX: R11.2 Nausea with vomiting, unspecified (principal); K58.0 Irritable bowel syndrome with diarrhea; K90.0 Celiac disease; F31.9 Bipolar disorder, unspecified; J45.909 Unspecified asthma, uncomplicated; M41.9 Scoliosis, unspecified; Z79.51 Long term (current) use of inhaled steroids; Z79.899 Other long term (current) drug therapy; Z91.040 Latex allergy status
CPT/HCPCS: 36415; 74177; 80048; 80076; 81001; 83690; 85025; 96361; 96365; 96366; 96375; 96376; 99284; J1200; J1885; J2405; J2765; Q9967

== ENCOUNTER 2016-04-25 12:45 | Emergency (ER) | payer OTHER ==
[2016-04-25] MEDS ORDERED: PROMETHAZINE INJ 25 MG/ML VIAL (J2550) As Ordered ONE (13:59)
[2016-04-25] MEDS ORDERED: DICYCLOMINE INJ 20MG/2ML (J0500) As Ordered ONE (13:59)
[2016-04-25 14:05] LABS: BASO % 0.1 % (0.0-1.0); EOS # 0.1 K/mm3 (0.0-0.50); EOS % 0.7 % (0.0-3.0); LARGE UNSTAINED CELL # 0.1 K/mm3 (0.0-0.4); LARGE UNSTAINED CELL % 0.7 % (0.0-4.0); LYMPH # 1.7 K/mm3 (1.5-6.5); LYMPH % 12.5 % (24.0-44.0); MEAN CORPUSCULAR HEMOGLOBIN 27.6 pg (27.0-33.0); MEAN CORPUSCULAR HGB CONC 32.9 g/dl (32.0-36.5); MEAN CORPUSCULAR VOLUME 83.8 fl (80.0-96.0); MONO # 0.5 K/mm3 (0.0-0.8); MONO % 3.4 % (0.0-5.0); NEUTROPHILS % 82.6 % (36.0-66.0); PLATELET COUNT, AUTOMATED 339 k/mm3 (150-450); RED CELL DISTRIBUTION WIDTH 13.4 % (11.5-14.5); WHITE BLOOD COUNT 13.4 K/mm3 (4.0-10.0)
[2016-04-25 14:25] LABS: ALBUMIN/GLOBULIN RATIO 1.11 (1.00-1.93); ALKALINE PHOSPHATASE 65 U/L (45-117); ALT/SGPT 20 U/L (12-78); AMYLASE 32 U/L (25-115); ANION GAP 9 MEQ/L (8-16); AST/SGOT 13 U/L (15-37); BILIRUBIN,DIRECT 0.1 MG/DL (0.0-0.2); BILIRUBIN,TOTAL 0.4 MG/DL (0.2-1.0); BLOOD UREA NITROGEN 8 MG/DL (7-18); CALCIUM LEVEL 8.8 MG/DL (8.5-10.1); CARBON DIOXIDE LEVEL 26 MEQ/L (21-32); CHLORIDE LEVEL 101 MEQ/L (98-107); GLOMERULAR FILTRATION RATE > 60.0 (>60); GLUCOSE, FASTING 109 MG/DL (70-105); POTASSIUM SERUM 3.1 MEQ/L (3.5-5.1); SODIUM LEVEL 136 MEQ/L (136-145); TOTAL PROTEIN 7.6 GM/DL (6.4-8.2)
[2016-04-25] MEDS ORDERED: POTASSIUM CHLORIDE 10 MEQ SR TABLET As Ordered ONE (15:15)
--- NOTE | 2016-04-25 15:26 | EDDOCDS ---
Physician Documentation [facility] Name: Jean Escalante Age: 26 yrs Sex: Female : 1990 Arrival Date: 04/25/2016 Time: 12:45 Bed I4 / M4 Private MD: Thao Carnes Disposition: 04/25/16 14:51 Discharged to Home/Self Care. Impression: Nausea and vomiting, Irritable bowel syndrome, Hypokalemia - mild. - Condition is Stable. - Discharge Instructions: Irritable Bowel Syndrome, Adult, Nausea and Vomiting, Hypokalemia. - Prescriptions for Bentyl 20 mg Oral Tablet - take 1 tablet by ORAL route every 6 hours As needed; 20 tablet. Prilosec 20 mg Oral Capsule - take 1 capsule by ORAL route once daily; 10 capsule. promethazine 25 mg Oral Tablet - take 1 tablet by ORAL route every 6 hours As needed; 12 tablet. - Medication Reconciliation, Local Pharmacy Hours form. - Follow up: Thao Carnes; When: Call to arrange an appointment; Reason: Recheck today's complaints, Continuance of care. Follow up: David Kent; When: Call to arrange an appointment; Reason: To establish care. - Problem is new. - Symptoms have improved. - Notes: recommend follow up appointment with gastroenterology due to frequency and length of reported symptoms for further evaluation Historical: - Allergies: Latex; - Home Meds: 1. Reglan 10 mg Oral tab 1 tab as needed 2. Singulair 10 mg Oral tab 1 tab once daily 3. Ventolin INH daily 4. Zofran (as hydrochloride) 4 mg Oral tab as needed 5. Zyrtec 10 mg Oral cap 10 mg daily - PMHx: Asthma; Bipolar disorder; Celiac disease; IBS; Scoliosis; Seasonal Allergies; - PSHx: Tonsillectomy; Adenoidectomy; - Social history: Smoking status: Patient states was never smoker of tobacco. No barriers to communication noted, The patient speaks fluent [place] Citizen. - Family history: Not pertinent. - : The pt / caregiver states he / she is not on anticoagulants. Home medication list is obtained from the patient, [employer] import data. - Exposure Risk Screening:: None identified. 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 3 in. (160.02 cm) (R); Pain 10/10; 14:54 BP 112 / 65; Pulse 88; Resp 18; Temp 97.6(T); Pulse Ox 100% on R/A; Pain 7/10; dem1 12:47 Body Mass Index 33.66 (86.18 kg, 160.02 cm) ct3 MDM: 13:21 IV Saline Lock ordered. ar2 13:21 Undress patient appropriately for examination ordered. ar2 13:21 Promethazine 25 mg IM once ordered. ar2 13:21 NS 0.9% 1000 ml IV at bolus once ordered. ar2 13:21 UCG by Nursing ordered. ar2 13:23 Amylase Ordered. EDMS 13:23 Basic Metabolic Profile Ordered. EDMS 13:23 CBC with Diff Ordered. EDMS 13:23 Lipase Ordered. EDMS 13:23 Liver Profile Ordered. EDMS 13:23 UA Ordered. EDMS 13:26 NOTHING BY MOUTH+DIET ordered. EDMS 13:27 Bentyl 20 mg IM once ordered. ar2 14:01 Financial registration complete. lg 14:17 [facility] [place] Agreement was scanned into [employer] and attached to record. lg 14:35 Basic Metabolic Profile Reviewed. ar2 14:35 CBC with Diff Reviewed. ar2 14:35 Liver Profile Reviewed. ar2 14:35 UA Reviewed. ar2 14:35 Amylase Reviewed. ar2 14:35 Lipase Reviewed. ar2 14:55 Potassium Chloride Extended Release Tablet 40 mEq PO once ordered. ar2 15:00 Urine Culture Ordered. EDMS Point of Care Testing: Urine : 13:41 hCG Reading: Negative; Control Reading: Positive; jb5 Ranges: Administered Medications: 14:07 Drug: Promethazine 25 mg [promethazine 25 mg/mL injection solution (1 mL)] Route: IM; srm Site: right deltoid; 14:07 Drug: NS 0.9% 1000 ml [sodium chloride 0.9 % intravenous solution] Route: IV; Rate: srm bolus; Site: right antecubital; 14:08 Drug: Bentyl 20 mg [Bentyl 10 mg/mL intramuscular solution (2 mL)] Route: IM; Site: [facility] left deltoid; 15:23 Drug: Potassium Chloride 40 mEq [potassium chloride ER 10 mEq tablet,extended release kc3 (4 tabs)] Route: PO; Signatures: Dispatcher [employer] EDJessica Perez, RN RN srm Belinda Devlin, Reg Reg lg Joseph Robledo, PASammC PASandi ar2 Angeles Enamorado RN RN [id number] Rose Marie Liz RN RN kc3 The chart was reviewed and I authenticate all verbal orders and agree with the evaluation and treatment provided.Attachments: 14:17 [facility] Payment Agreement lg MTDD
--- NOTE | 2016-04-25 15:26 | EDDOCDS ---
Nurse's Notes [facility] Name: Jean Escalante Age: 26 yrs Sex: Female : 1990 Arrival Date: 04/25/2016 Time: 12:45 Bed I4 / M4 Private MD: Thao Carnes Diagnosis: Nausea and vomiting;Irritable bowel syndrome;Hypokalemia-mild Presentation: 04/25 12:49 Presenting complaint: Mother states: that the pt has been vomiting for 5 days. Pt is ms18 shaking with pain at this time, mother states that the pt can't stop retching. Adult Sepsis Screening: The patient does not have new or worsening altered mentation. Patient's respiratory rate is less than 22. Systolic blood pressure is greater than 100. Patient has a qSOFA score of 0- Negative Sepsis Screen. Suicide/Homicide risk assessment- the patient denies having any suicidal and/or homicidal ideations and does not present with any other emotional, behavioral or mental health complaints. Status: Patient is not a regional extension service specialist or dependent. Transition of care: patient was not received from another setting of care. 12:49 Acuity: LINCOL[place] Level 3 ms18 12:49 Method Of Arrival: Walkin/Carried/Asstd ms18 Triage Assessment: 12:52 General: Appears distressed, uncomfortable, Behavior is cooperative, crying. Pain: ms18 Location: abdomen Pain currently is 10 out of 10 on a pain scale. HIV screening NA for this visit Offered previously. Neurological: Level of Consciousness is awake, alert, obeys commands. Respiratory: Airway is patent Respiratory effort is even, unlabored. GI: Abdomen is non- distended Pt is actively vomiting bright red blood, Reports diarrhea, nausea, vomiting. Derm: Skin is pink, warm & dry. 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 Reglan 10 mg Oral tab 1 tab as needed 2. Singulair 10 mg Oral tab 1 tab once daily 3. Ventolin INH daily 4. Zofran (as hydrochloride) 4 mg Oral tab as needed 5. Zyrtec 10 mg Oral cap 10 mg daily - PMHx: Asthma; Bipolar disorder; Celiac disease; IBS; Scoliosis; Seasonal Allergies; - PSHx: Tonsillectomy; Adenoidectomy; - Social history: Smoking status: Patient states was never smoker of tobacco. No barriers to communication noted, The patient speaks fluent Martiniquais. - Family history: Not pertinent. - : The pt / caregiver states he / she is not on anticoagulants. Home medication list is obtained from the patient, [employer] [facility] import data. - Exposure Risk Screening:: None identified. Screenin:11 Screening information is obtained from the patient. Fall risk: No risks identified. srm Assistance ADL's: requires no assistance with activities of daily living. Abuse/DV Screen: The patient / caregiver reports he/she is: not in a situation that causes fear, pain or injury. Nutritional screening: No deficits noted. Advance Directives: There is no active DNR order. home support is adequate. Assessment: 14:11 General: Appears uncomfortable, Behavior is appropriate for age, cooperative. srm Neurological: No deficits noted. Respiratory: Airway is patent Respiratory effort is even, unlabored, Breath sounds are clear bilaterally. GI: Bowel sounds present X 4 quads. Abd is soft X 4 quads Abd is tender to palpation in epigastric area, right upper quadrant and left upper quadrant. Derm: Skin is pale. 15:23 General: Appears in no apparent distress, comfortable, Behavior is appropriate for age, kc3 cooperative. Neurological: No deficits noted. Respiratory: Airway is patent Respiratory effort is even, unlabored. GI: No deficits noted. Derm: Skin is pink, warm & dry. Vital Signs: 12:47 BP 134 / 86; Pulse 81; Resp 18; Temp 97.9(TE); Pulse Ox 100% on R/A; Weight 86.18 kg ct3 (R); Height 5 ft. 3 in. (160.02 cm) (R); Pain 10/10; 14:54 BP 112 / 65; Pulse 88; Resp 18; Temp 97.6(T); Pulse Ox 100% on R/A; Pain 7/10; dem1 12:47 Body Mass Index 33.66 (86.18 kg, 160.02 cm) ct3 Vitals: 12:47 Log In Time: April 25, 2016 at 12:45. ct3 12:47 RN notified that patient meets Red Flag criteria. ct3 ED Course: 12:46 Patient visited by Madelyn Cabrera PCA. ct3 12:46 Patient moved to Waiting ct3 12:47 Thao Carnes is Private Physician. ct3 12:49 Patient visited by Madelyn Cabrera PCA. ct3 12:49 Angeles Enamorado,RN is Primary Nurse. ms18 12:49 Patient moved to Pre RCE ct3 12:51 Triage Initiated ms18 12:54 Patient visited by Angeles Enamorado,VALERIE. ms18 12:59 Patient moved to Triage 2 ttb 13:06 Joseph Robledo PA-C is PHCP. ar2 13:07 Shaka Pandya MD is Attending Physician. ar2 13:07 Patient visited by Joseph Robledo PA-C. ar2 13:33 Patient moved to I4 / M4 jb5 13:39 UA Sent. jb5 13:40 Patient visited by Natty Sales PCA. jb5 13:41 Patient visited by Natty Sales PCA. jb5 13:56 The patient / caregiver is instructed regarding the plan of care and ED course. srm Accompanied by Family Member, Patient has correct armband on for positive identification. Placed in gown. Bed in low position. Call light in reach. 13:56 Inserted saline lock: 20 gauge in right antecubital area and blood collected. srm 13:57 Amylase Sent. srm 13:57 Basic Metabolic Profile Sent. srm 13:57 CBC with Diff Sent. srm 13:57 Lipase Sent. srm 13:57 Liver Profile Sent. srm 14:13 Patient visited by Jessica Michelle RN. srm 14:17 [facility] Payment Agreement was scanned into [email or web address] and attached to record. lg 14:50 Thao Carnes is Referral Physician. ar2 14:51 David Kent is Referral Physician. ar2 14:55 Patient visited by Katelin Cruz. dem1 15:24 Discontinued IV lock intact, bleeding controlled, pressure dressing applied, No kc3 redness/swelling at site. No procedures done that require assistance. Administered Medications: 14:07 Drug: Promethazine 25 mg [promethazine 25 mg/mL injection solution (1 mL)] Route: IM; srm Site: right deltoid; 14:07 Drug: NS 0.9% 1000 ml [sodium chloride 0.9 % intravenous solution] Route: IV; Rate: srm bolus; Site: right antecubital; 14:08 Drug: Bentyl 20 mg [Bentyl 10 mg/mL intramuscular solution (2 mL)] Route: IM; Site: [facility] left deltoid; 15:23 Drug: Potassium Chloride 40 mEq [potassium chloride ER 10 mEq tablet,extended release kc3 (4 tabs)] Route: PO; Point of Care Testing: Urine : 13:41 hCG Reading: Negative; Control Reading: Positive; jb5 Ranges: Order Results: Lab Order: Amylase; SPEC'M 04/25/16 13:56 Test: AMYLASE; Value: 32; Range: 25-115; Units: U/L; Status: F Lab Order: Basic Metabolic Profile; SPEC'M 04/25/16 13:56 Test: GLUCOSE, FASTING; Value: 109; Range: 70-105; Abnormal: Above high normal; Units: MG/DL; Status: F Test: BLOOD UREA NITROGEN; Value: 8; Range: 7-18; Units: MG/DL; Status: F Test: CREATININE FOR GFR; Value: 0.80; Range: 0.55-1.02; Units: MG/DL; Status: F Test: GLOMERULAR FILTRATION RATE; Value: > 60.0; Range: >60; Status: F Test: SODIUM LEVEL; Value: 136; Range: 136-145; Units: MEQ/L; Status: F Test: POTASSIUM SERUM; Value: 3.1; Range: 3.5-5.1; Abnormal: Below low normal; Units: MEQ/L; Status: F Test: CHLORIDE LEVEL; Value: 101; Range: 98-107; Units: MEQ/L; Status: F Test: CARBON DIOXIDE LEVEL; Value: 26; Range: 21-32; Units: MEQ/L; Status: F Test: ANION GAP; Value: 9; Range: 8-16; Units: MEQ/L; Status: F Test: CALCIUM LEVEL; Value: 8.8; Range: 8.5-10.1; Units: MG/DL; Status: F Test Note: ; Units are mL/min/1.73 m2 Chronic Kidney Disease Staging per NKF: Stage I & II GFR >=60 Normal to Mildly Decreased Stage III GFR 30-59 Moderately Decreased Stage IV GFR 15-29 Severely Decreased Stage V GFR <15 Very Little GFR Left ESRD GFR <15 on LOGISTICS TEAM LEADER Lab Order: CBC with Diff; SPEC'M 02/03/17 13:56 Test: WHITE BLOOD COUNT; Value: 13.4; Range: 4.0-10.0; Abnormal: Above high normal; Units: K/mm3; Status: F Test: RED BLOOD COUNT; Value: 4.90; Range: 4.00-5.40; Units: M/mm3; Status: F Test: HEMOGLOBIN; Value: 13.5; Range: 12.0-16.0; Units: g/dl; Status: F Test: HEMATOCRIT; Value: 41.1; Range: 36.0-47.0; Units: %; Status: F Test: MEAN CORPUSCULAR VOLUME; Value: 83.8; Range: 80.0-96.0; Units: fl; Status: F Test: MEAN CORPUSCULAR HEMOGLOBIN; Value: 27.6; Range: 27.0-33.0; Units: pg; Status: F Test: MEAN CORPUSCULAR HGB CONC; Value: 32.9; Range: 32.0-36.5; Units: g/dl; Status: F Test: RED CELL DISTRIBUTION WIDTH; Value: 13.4; Range: 11.5-14.5; Units: %; Status: F Test: PLATELET COUNT, AUTOMATED; Value: 339; Range: 150-450; Units: k/mm3; Status: F Test: NEUTROPHILS %; Value: 82.6; Range: 36.0-66.0; Abnormal: Above high normal; Units: %; Status: F Test: LYMPH %; Value: 12.5; Range: 24.0-44.0; Abnormal: Below low normal; Units: %; Status: F Test: MONO %; Value: 3.4; Range: 0.0-5.0; Units: %; Status: F Test: EOS %; Value: 0.7; Range: 0.0-3.0; Units: %; Status: F Test: BASO %; Value: 0.1; Range: 0.0-1.0; Units: %; Status: F Test: LARGE UNSTAINED CELL %; Value: 0.7; Range: 0.0-4.0; Units: %; Status: F Test: NEUTROPHILS #; Value: 11.0; Range: 1.8-7.7; Abnormal: Above high normal; Units: K/mm3; Status: F Test: LYMPH #; Value: 1.7; Range: 1.5-6.5; Units: K/mm3; Status: F Test: MONO #; Value: 0.5; Range: 0.0-0.8; Units: K/mm3; Status: F Test: EOS #; Value: 0.1; Range: 0.0-0.50; Units: K/mm3; Status: F Test: BASO #; Value: 0.0; Range: 0.0-0.2; Units: K/mm3; Status: F Test: LARGE UNSTAINED CELL #; Value: 0.1; Range: 0.0-0.4; Units: K/mm3; Status: F Lab Order: Lipase; [facility] 04/25/16 13:56 Test: LIPASE; Value: 156; Range: 73-393; Units: U/L; Status: F Lab Order: Liver Profile; [facility] 04/25/16 13:56 Test: AST/SGOT; Value: 13; Range: 15-37; Abnormal: Below low normal; Units: U/L; Status: F Test: ALT/SGPT; Value: 20; Range: 12-78; Units: U/L; Status: F Test: ALKALINE PHOSPHATASE; Value: 65; Range: 45-117; Units: U/L; Status: F Test: BILIRUBIN,TOTAL; Value: 0.4; Range: 0.2-1.0; Units: MG/DL; Status: F Test: BILIRUBIN,DIRECT; Value: 0.1; Range: 0.0-0.2; Units: MG/DL; Status: F Test: TOTAL PROTEIN; Value: 7.6; Range: 6.4-8.2; Units: GM/DL; Status: F Test: ALBUMIN; Value: 4.0; Range: 3.2-5.2; Units: GM/DL; Status: F Test: ALBUMIN/GLOBULIN RATIO; Value: 1.11; Range: 1.00-1.93; Status: F Lab Order: UA; [facility] 04/25/16 13:35 Test: APPEARANCE, URINE; Value: HAZY; Range: CLEAR; Status: F Test: COLOR, URINE; Value: YELLOW; Range: YELLOW; Status: F Test: PH,URINE; Value: 6.0; Range: 5.0-9.0; Units: UNITS; Status: F Test: SPECIFIC GRAVITY URINE AUTO; Value: 1.023; Range: 1.002-1.035; Status: F Test: PROTEIN, URINE AUTO; Value: 2+; Range: NEGATIVE; Abnormal: Above high normal; Units: mg/dL; Status: F Test: GLUCOSE, URINE (UA) AUTO; Value: NEGATIVE; Range: NEGATIVE; Units: mg/dL; Status: F Test: KETONE, URINE AUTO; Value: 2+; Range: NEGATIVE; Abnormal: Above high normal; Units: mg/dL; Status: F Test: UROBILINOGEN, URINE AUTO; Value: 2.0; Range: 0.0-2.0; Abnormal: Above high normal; Units: mg/dL; Status: F Test: BILIRUBIN, URINE AUTO; Value: NEGATIVE; Range: NEGATIVE; Status: F Test: NITRITE, URINE AUTO; Value: NEGATIVE; Range: NEGATIVE; Status: F Test: LEUKOCYTE ESTERASE, URINE AUTO; Value: 2+; Range: NEGATIVE; Abnormal: Above high normal; Status: F Test: BLOOD, URINE BLOOD; Value: 3+; Range: NEGATIVE; Abnormal: Above high normal; Status: F Test: WBC, URINE AUTO; Value: 16; Range: 0-3; Abnormal: Above high normal; Units: /HPF; Status: F Test: RBC, URINE AUTO; Value: 79; Range: 0-3; Abnormal: Above high normal; Units: /HPF; Status: F Test: BACTERIA, URINE AUTO; Value: NEGATIVE; Range: NEGATIVE; Status: F Test: SQUAMOUS EPITHELIAL CELL UR AU; Value: 7; Range: 0-6; Units: /HPF; Status: F Test: MUCUS, URINE; Value: SMALL; Range: NEGATIVE; Status: F Test: HYALINE CAST, URINE AUTO; Value: 0; Range: 0-1; Units: /LPF; Status: F Outcome: 14:51 Discharge ordered by Provider. ar2 15:24 Discharge Assessment: Patient awake, alert and oriented x 3. No cognitive and/or kc3 functional deficits noted. Patient verbalized understanding of disposition instructions. patient administered narcotics - no. The following High Risk Discharge criteria are identified: None. Discharged to home ambulatory. Condition: stable. Discharge instructions given to patient, Instructed on discharge instructions, follow up and referral plans. medication usage, Demonstrated understanding of instructions, medications, Pt was receptive of discharge instructions/ teaching. Prescriptions given X 3. No special radiology studies were completed. Property :Personal belongings accompany Pt. 15:25 Patient left the ED. kc3 Signatures: Jessica Michelle, RN RN srm Belinda Devlin, Reg Reg lg Natty Sales, TACK CUTTER TACK CUTTER jb5 Joseph Robledo, PASandi PASandi ar2 Madelyn Cabrera, TACK CUTTER TACK CUTTER ct3 Katelin Cruz1 Madhavi Guidry RN RN ttb Angeles Enamorado RN RN ms18 Rose Marie Liz RN RN kc3 Corrections: (The following items were deleted from the chart) 12:52 12:47 BP 134 / 86; Pulse 81bpm; Resp 18bpm; Pulse Ox 100% RA; 86.18 kg Reported; Height ct3 5 ft. 3 in. Reported; BMI: 33.6; Pain 10/10; ct3 MTDD
--- NOTE | 2016-04-27 16:26 | EDDOCDS ---
Physician Documentation [facility] Name: Jean Escalante Age: 26 yrs Sex: Female : 1990 Arrival Date: 04/25/2016 Time: 12:45 Bed I4 / M4 Private MD: Thao Carnes Disposition: 04/25/16 14:51 Discharged to Home/Self Care. Impression: Nausea and vomiting, Irritable bowel syndrome, Hypokalemia - mild. - Condition is Stable. - Discharge Instructions: Irritable Bowel Syndrome, Adult, Nausea and Vomiting, Hypokalemia. - Prescriptions for Bentyl 20 mg Oral Tablet - take 1 tablet by ORAL route every 6 hours As needed; 20 tablet. Prilosec 20 mg Oral Capsule - take 1 capsule by ORAL route once daily; 10 capsule. promethazine 25 mg Oral Tablet - take 1 tablet by ORAL route every 6 hours As needed; 12 tablet. - Medication Reconciliation, Local Pharmacy Hours form. - Follow up: Thao Carnes; When: Call to arrange an appointment; Reason: Recheck today's complaints, Continuance of care. Follow up: David Kent; When: Call to arrange an appointment; Reason: To establish care. - Problem is new. - Symptoms have improved. - Notes: recommend follow up appointment with gastroenterology due to frequency and length of reported symptoms for further evaluation Historical: - Allergies: Latex; - Home Meds: 1. Reglan 10 mg Oral tab 1 tab as needed 2. Singulair 10 mg Oral tab 1 tab once daily 3. Ventolin INH daily 4. Zofran (as hydrochloride) 4 mg Oral tab as needed 5. Zyrtec 10 mg Oral cap 10 mg daily - PMHx: Asthma; Bipolar disorder; Celiac disease; IBS; Scoliosis; Seasonal Allergies; - PSHx: Tonsillectomy; Adenoidectomy; - Social history: Smoking status: Patient states was never smoker of tobacco. No barriers to communication noted, The patient speaks fluent Stateless. - Family history: Not pertinent. - : The pt / caregiver states he / she is not on anticoagulants. Home medication list is obtained from the patient, [employer] import data. - Exposure Risk Screening:: None identified. 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 3 in. (160.02 cm) (R); Pain 10/10; 14:54 BP 112 / 65; Pulse 88; Resp 18; Temp 97.6(T); Pulse Ox 100% on R/A; Pain 7/10; dem1 12:47 Body Mass Index 33.66 (86.18 kg, 160.02 cm) ct3 MDM: 13:21 IV Saline Lock ordered. ar2 13:21 Undress patient appropriately for examination ordered. ar2 13:21 Promethazine 25 mg IM once ordered. ar2 13:21 NS 0.9% 1000 ml IV at bolus once ordered. ar2 13:21 UCG by Nursing ordered. ar2 13:23 Amylase Ordered. EDMS 13:23 Basic Metabolic Profile Ordered. EDMS 13:23 CBC with Diff Ordered. EDMS 13:23 Lipase Ordered. EDMS 13:23 Liver Profile Ordered. EDMS 13:23 UA Ordered. EDMS 13:26 NOTHING BY MOUTH+DIET ordered. EDMS 13:27 Bentyl 20 mg IM once ordered. ar2 14:01 Financial registration complete. lg 14:17 [facility] [place] was [place] into [employer] and attached to record. lg 14:35 Basic Metabolic Profile Reviewed. ar2 14:35 CBC with Diff Reviewed. ar2 14:35 Liver Profile Reviewed. ar2 14:35 UA Reviewed. ar2 14:35 Amylase Reviewed. ar2 14:35 Lipase Reviewed. ar2 14:55 Potassium Chloride Extended Release Tablet 40 mEq PO once ordered. ar2 15:00 Urine Culture Ordered. EDMS 17:19 T-Sheet-- Draft Copy was scanned into [employer] and attached to record. klr Point of Care Testing: Urine : 13:41 hCG Reading: Negative; Control Reading: Positive; jb5 Ranges: Administered Medications: 14:07 Drug: Promethazine 25 mg [promethazine 25 mg/mL injection solution (1 mL)] Route: IM; srm Site: right deltoid; 14:07 Drug: NS 0.9% 1000 ml [sodium chloride 0.9 % intravenous solution] Route: IV; Rate: srm bolus; Site: right antecubital; 14:08 Drug: Bentyl 20 mg [Bentyl 10 mg/mL intramuscular solution (2 mL)] Route: IM; Site: [facility] left deltoid; 15:23 Drug: Potassium Chloride 40 mEq [potassium chloride ER 10 mEq tablet,extended release kc3 (4 tabs)] Route: PO; Signatures: Dispatcher [employer] EDJessica Perez RN RN srm Belinda Devlin, Reg Reg lg Joseph Robledo PA-C PASandi ar2 Angeles Enamorado RN RN ms18 Rose Marie Liz RN RN kc3 Shayna Bowen klr The chart was reviewed and I authenticate all verbal orders and agree with the evaluation and treatment provided.Attachments: 14:17 [facility] [place] Agreement lg 17:19 T-Sheet-- Draft Copy klr Chart Complete MTDD
--- NOTE | 2016-04-27 16:26 | EDDOCDS ---
Physician Documentation [facility] Name: Jean Escalante Age: 26 yrs Sex: Female : 1990 Arrival Date: 04/25/2016 Time: 12:45 Bed I4 / M4 Private MD: Thao Carnes Disposition: 04/25/16 14:51 Discharged to Home/Self Care. Impression: Nausea and vomiting, Irritable bowel syndrome, Hypokalemia - mild. - Condition is Stable. - Discharge Instructions: Irritable Bowel Syndrome, Adult, Nausea and Vomiting, Hypokalemia. - Prescriptions for Bentyl 20 mg Oral Tablet - take 1 tablet by ORAL route every 6 hours As needed; 20 tablet. Prilosec 20 mg Oral Capsule - take 1 capsule by ORAL route once daily; 10 capsule. promethazine 25 mg Oral Tablet - take 1 tablet by ORAL route every 6 hours As needed; 12 tablet. - Medication Reconciliation, Local Pharmacy Hours form. - Follow up: Thao Carnes; When: Call to arrange an appointment; Reason: Recheck today's complaints, Continuance of care. Follow up: David Kent; When: Call to arrange an appointment; Reason: To establish care. - Problem is new. - Symptoms have improved. - Notes: recommend follow up appointment with gastroenterology due to frequency and length of reported symptoms for further evaluation Historical: - Allergies: Latex; - Home Meds: 1. Reglan 10 mg Oral tab 1 tab as needed 2. Singulair 10 mg Oral tab 1 tab once daily 3. Ventolin INH daily 4. Zofran (as hydrochloride) 4 mg Oral tab as needed 5. Zyrtec 10 mg Oral cap 10 mg daily - PMHx: Asthma; Bipolar disorder; Celiac disease; IBS; Scoliosis; Seasonal Allergies; - PSHx: Tonsillectomy; Adenoidectomy; - Social history: Smoking status: Patient states was never smoker of tobacco. No barriers to communication noted, The patient speaks fluent Indian. - Family history: Not pertinent. - : The pt / caregiver states he / she is not on anticoagulants. Home medication list is obtained from the patient, [employer] import data. - Exposure Risk Screening:: None identified. 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 3 in. (160.02 cm) (R); Pain 10/10; 14:54 BP 112 / 65; Pulse 88; Resp 18; Temp 97.6(T); Pulse Ox 100% on R/A; Pain 7/10; dem1 12:47 Body Mass Index 33.66 (86.18 kg, 160.02 cm) ct3 MDM: 13:21 IV Saline Lock ordered. ar2 13:21 Undress patient appropriately for examination ordered. ar2 13:21 Promethazine 25 mg IM once ordered. ar2 13:21 NS 0.9% 1000 ml IV at bolus once ordered. ar2 13:21 UCG by Nursing ordered. ar2 13:23 Amylase Ordered. EDMS 13:23 Basic Metabolic Profile Ordered. EDMS 13:23 CBC with Diff Ordered. EDMS 13:23 Lipase Ordered. EDMS 13:23 Liver Profile Ordered. EDMS 13:23 UA Ordered. EDMS 13:26 NOTHING BY MOUTH+DIET ordered. EDMS 13:27 Bentyl 20 mg IM once ordered. ar2 14:01 Financial registration complete. lg 14:17 [facility] [place] was scanned into [employer] and attached to record. lg 14:35 Basic Metabolic Profile Reviewed. ar2 14:35 CBC with Diff Reviewed. ar2 14:35 Liver Profile Reviewed. ar2 14:35 UA Reviewed. ar2 14:35 Amylase Reviewed. ar2 14:35 Lipase Reviewed. ar2 14:55 Potassium Chloride Extended Release Tablet 40 mEq PO once ordered. ar2 15:00 Urine Culture Ordered. EDMS 17:19 T-Sheet-- Draft Copy was scanned into [employer] and attached to record. klr Point of Care Testing: Urine : 13:41 hCG Reading: Negative; Control Reading: Positive; jb5 Ranges: Administered Medications: 14:07 Drug: Promethazine 25 mg [promethazine 25 mg/mL injection solution (1 mL)] Route: IM; srm Site: right deltoid; 14:07 Drug: NS 0.9% 1000 ml [sodium chloride 0.9 % intravenous solution] Route: IV; Rate: srm bolus; Site: right antecubital; 14:08 Drug: Bentyl 20 mg [Bentyl 10 mg/mL intramuscular solution (2 mL)] Route: IM; Site: [facility] left deltoid; 15:23 Drug: Potassium Chloride 40 mEq [potassium chloride ER 10 mEq tablet,extended release kc3 (4 tabs)] Route: PO; Signatures: Dispatcher [employer] EDJessica Perez RN RN srm Belinda Devlin, Reg Reg lg Joseph Robledo PA-C PASandi ar2 Angeles Enamorado RN RN ms18 Rose Marie Liz RN RN kc3 Shayna Bowen klr The chart was reviewed and I authenticate all verbal orders and agree with the evaluation and treatment provided.Attachments: 14:17 [place] [place] lg 17:19 T-Sheet-- Draft Copy klr Chart Complete MTDD
--- NOTE | 2016-04-27 16:26 | EDDOCDS ---
Nurse's Notes [facility] Name: Jean Escalante Age: 26 yrs Sex: Female : 1990 Arrival Date: 04/25/2016 Time: 12:45 Bed I4 / M4 Private MD: Thao Carnes Diagnosis: Nausea and vomiting;Irritable bowel syndrome;Hypokalemia-mild Presentation: 04/25 12:49 Presenting complaint: Mother states: that the pt has been vomiting for 5 days. Pt is ms18 shaking with pain at this time, mother states that the pt can't stop retching. Adult Sepsis Screening: The patient does not have new or worsening altered mentation. Patient's respiratory rate is less than 22. Systolic blood pressure is greater than 100. Patient has a qSOFA score of 0- Negative Sepsis Screen. Suicide/Homicide risk assessment- the patient denies having any suicidal and/or homicidal ideations and does not present with any other emotional, behavioral or mental health complaints. 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 Transition of care: patient was not received from another setting of care. 12:49 Acuity: [place]COL[place] Level 3 ms18 12:49 Method Of Arrival: Walkin/Carried/Asstd ms18 Triage Assessment: 12:52 General: Appears distressed, uncomfortable, Behavior is cooperative, crying. Pain: ms18 Location: abdomen Pain currently is 10 out of 10 on a pain scale. HIV screening NA for this visit Offered previously. Neurological: Level of Consciousness is awake, alert, obeys commands. Respiratory: Airway is patent Respiratory effort is even, unlabored. GI: Abdomen is non- distended Pt is actively vomiting bright red blood, Reports diarrhea, nausea, vomiting. Derm: Skin is pink, warm & dry. HANDS PARTER: 12:52 LMP N/A - Irregular menses ms18 Historical: - Allergies: Latex; - Home Meds: 1. Reglan 10 mg Oral tab 1 tab as needed 2. Singulair 10 mg Oral tab 1 tab once daily 3. Ventolin INH daily 4. Zofran (as hydrochloride) 4 mg Oral tab as needed 5. Zyrtec 10 mg Oral cap 10 mg daily - PMHx: Asthma; Bipolar disorder; Celiac disease; IBS; Scoliosis; Seasonal Allergies; - PSHx: Tonsillectomy; Adenoidectomy; - Social history: Smoking status: Patient states was never smoker of tobacco. No barriers to communication noted, The patient speaks fluent Malian. - Family history: Not pertinent. - : The pt / caregiver states he / she is not on anticoagulants. Home medication list is obtained from the patient, Travel [employer] import data. - Exposure Risk Screening:: None identified. Screenin:11 Screening information is obtained from the patient. Fall risk: No risks identified. srm Assistance ADL's: requires no assistance with activities of daily living. Abuse/DV Screen: The patient / caregiver reports he/she is: not in a situation that causes fear, pain or injury. Nutritional screening: No deficits noted. Advance Directives: There is no active DNR order. home support is adequate. Assessment: 14:11 General: Appears uncomfortable, Behavior is appropriate for age, cooperative. srm Neurological: No deficits noted. Respiratory: Airway is patent Respiratory effort is even, unlabored, Breath sounds are clear bilaterally. GI: Bowel sounds present X 4 quads. Abd is soft X 4 quads Abd is tender to palpation in epigastric area, right upper quadrant and left upper quadrant. Derm: Skin is pale. 15:23 General: Appears in no apparent distress, comfortable, Behavior is appropriate for age, kc3 cooperative. Neurological: No deficits noted. Respiratory: Airway is patent Respiratory effort is even, unlabored. GI: No deficits noted. Derm: Skin is pink, warm & dry. Vital Signs: 12:47 BP 134 / 86; Pulse 81; Resp 18; Temp 97.9(TE); Pulse Ox 100% on R/A; Weight 86.18 kg ct3 (R); Height 5 ft. 3 in. (160.02 cm) (R); Pain 10/10; 14:54 BP 112 / 65; Pulse 88; Resp 18; Temp 97.6(T); Pulse Ox 100% on R/A; Pain 7/10; dem1 12:47 Body Mass Index 33.66 (86.18 kg, 160.02 cm) ct3 Vitals: 12:47 Log In Time: April 25, 2016 at 12:45. ct3 12:47 RN notified that patient meets Red Flag criteria. ct3 ED Course: 12:46 Patient visited by Madelyn Cabrera PCA. ct3 12:46 Patient moved to Waiting ct3 12:47 Thao Carnes is Private Physician. ct3 12:49 Patient visited by Madelyn Cabrera PCA. ct3 12:49 Angeles Enamorado,RN is Primary Nurse. ms18 12:49 Patient moved to Pre RCE ct3 12:51 Triage Initiated ms18 12:54 Patient visited by Angeles Enamorado,VALERIE. ms18 12:59 Patient moved to Triage 2 ttb 13:06 Joseph Robledo PA-C is PHCP. ar2 13:07 Shaka Pandya MD is Attending Physician. ar2 13:07 Patient visited by Joseph Robledo PA-C. ar2 13:33 Patient moved to I4 / M4 jb5 13:39 UA Sent. jb5 13:40 Patient visited by Natty Sales PCA. jb5 13:41 Patient visited by Natty Sales PCA. jb5 13:56 The patient / caregiver is instructed regarding the plan of care and ED course. srm Accompanied by Family Member, Patient has correct armband on for positive identification. Placed in gown. Bed in low position. Call light in reach. 13:56 Inserted saline lock: 20 gauge in right antecubital area and blood collected. srm 13:57 Amylase Sent. srm 13:57 Basic Metabolic Profile Sent. srm 13:57 CBC with Diff Sent. srm 13:57 Lipase Sent. srm 13:57 Liver Profile Sent. srm 14:13 Patient visited by Jessica Michelle RN. srm 14:17 [facility] Payment Agreement was scanned into [employer] and attached to record. lg 14:50 Thao Carnes is Referral Physician. ar2 14:51 David Kent is Referral Physician. ar2 14:55 Patient visited by Katelin Cruz. dem1 15:24 Discontinued IV lock intact, bleeding controlled, pressure dressing applied, No kc3 redness/swelling at site. No procedures done that require assistance. 17:19 T-Sheet-- Draft Copy was scanned into [employer] and attached to record. klr Administered Medications: 14:07 Drug: Promethazine 25 mg [promethazine 25 mg/mL injection solution (1 mL)] Route: IM; srm Site: right deltoid; 14:07 Drug: NS 0.9% 1000 ml [sodium chloride 0.9 % intravenous solution] Route: IV; Rate: srm bolus; Site: right antecubital; 14:08 Drug: Bentyl 20 mg [Bentyl 10 mg/mL intramuscular solution (2 mL)] Route: IM; Site: [facility] left deltoid; 15:23 Drug: Potassium Chloride 40 mEq [potassium chloride ER 10 mEq tablet,extended release kc3 (4 tabs)] Route: PO; Point of Care Testing: Urine : 13:41 hCG Reading: Negative; Control Reading: Positive; jb5 Ranges: Order Results: Lab Order: Amylase; SPEC'M 04/25/16 13:56 Test: AMYLASE; Value: 32; Range: 25-115; Units: U/L; Status: F Lab Order: Basic Metabolic Profile; SPEC'M 04/25/16 13:56 Test: GLUCOSE, FASTING; Value: 109; Range: 70-105; Abnormal: Above high normal; Units: MG/DL; Status: F Test: BLOOD UREA NITROGEN; Value: 8; Range: 7-18; Units: MG/DL; Status: F Test: CREATININE FOR GFR; Value: 0.80; Range: 0.55-1.02; Units: MG/DL; Status: F Test: GLOMERULAR FILTRATION RATE; Value: > 60.0; Range: >60; Status: F Test: SODIUM LEVEL; Value: 136; Range: 136-145; Units: MEQ/L; Status: F Test: POTASSIUM SERUM; Value: 3.1; Range: 3.5-5.1; Abnormal: Below low normal; Units: MEQ/L; Status: F Test: CHLORIDE LEVEL; Value: 101; Range: 98-107; Units: MEQ/L; Status: F Test: CARBON DIOXIDE LEVEL; Value: 26; Range: 21-32; Units: MEQ/L; Status: F Test: ANION GAP; Value: 9; Range: 8-16; Units: MEQ/L; Status: F Test: CALCIUM LEVEL; Value: 8.8; Range: 8.5-10.1; Units: MG/DL; Status: F Test Note: ; Units are mL/min/1.73 m2 Chronic Kidney Disease Staging per NKF: Stage I & II GFR >=60 Normal to Mildly Decreased Stage III GFR 30-59 Moderately Decreased Stage IV GFR 15-29 Severely Decreased Stage V GFR <15 Very Little GFR Left ESRD GFR <15 on COAL TRAM DRIVER Lab Order: CBC with Diff; TEDDY'Judit 04/25/16 13:56 Test: WHITE BLOOD COUNT; Value: 13.4; Range: 4.0-10.0; Abnormal: Above high normal; Units: K/mm3; Status: F Test: RED BLOOD COUNT; Value: 4.90; Range: 4.00-5.40; Units: M/mm3; Status: F Test: HEMOGLOBIN; Value: 13.5; Range: 12.0-16.0; Units: g/dl; Status: F Test: HEMATOCRIT; Value: 41.1; Range: 36.0-47.0; Units: %; Status: F Test: MEAN CORPUSCULAR VOLUME; Value: 83.8; Range: 80.0-96.0; Units: fl; Status: F Test: MEAN CORPUSCULAR HEMOGLOBIN; Value: 27.6; Range: 27.0-33.0; Units: pg; Status: F Test: MEAN CORPUSCULAR HGB CONC; Value: 32.9; Range: 32.0-36.5; Units: g/dl; Status: F Test: RED CELL DISTRIBUTION WIDTH; Value: 13.4; Range: 11.5-14.5; Units: %; Status: F Test: PLATELET COUNT, AUTOMATED; Value: 339; Range: 150-450; Units: k/mm3; Status: F Test: NEUTROPHILS %; Value: 82.6; Range: 36.0-66.0; Abnormal: Above high normal; Units: %; Status: F Test: LYMPH %; Value: 12.5; Range: 24.0-44.0; Abnormal: Below low normal; Units: %; Status: F Test: MONO %; Value: 3.4; Range: 0.0-5.0; Units: %; Status: F Test: EOS %; Value: 0.7; Range: 0.0-3.0; Units: %; Status: F Test: BASO %; Value: 0.1; Range: 0.0-1.0; Units: %; Status: F Test: LARGE UNSTAINED CELL %; Value: 0.7; Range: 0.0-4.0; Units: %; Status: F Test: NEUTROPHILS #; Value: 11.0; Range: 1.8-7.7; Abnormal: Above high normal; Units: K/mm3; Status: F Test: LYMPH #; Value: 1.7; Range: 1.5-6.5; Units: K/mm3; Status: F Test: MONO #; Value: 0.5; Range: 0.0-0.8; Units: K/mm3; Status: F Test: EOS #; Value: 0.1; Range: 0.0-0.50; Units: K/mm3; Status: F Test: BASO #; Value: 0.0; Range: 0.0-0.2; Units: K/mm3; Status: F Test: LARGE UNSTAINED CELL #; Value: 0.1; Range: 0.0-0.4; Units: K/mm3; Status: F Lab Order: Lipase; [facility] 04/25/16 13:56 Test: LIPASE; Value: 156; Range: 73-393; Units: U/L; Status: F Lab Order: Liver Profile; [facility] 04/25/16 13:56 Test: AST/SGOT; Value: 13; Range: 15-37; Abnormal: Below low normal; Units: U/L; Status: F Test: ALT/SGPT; Value: 20; Range: 12-78; Units: U/L; Status: F Test: ALKALINE PHOSPHATASE; Value: 65; Range: 45-117; Units: U/L; Status: F Test: BILIRUBIN,TOTAL; Value: 0.4; Range: 0.2-1.0; Units: MG/DL; Status: F Test: BILIRUBIN,DIRECT; Value: 0.1; Range: 0.0-0.2; Units: MG/DL; Status: F Test: TOTAL PROTEIN; Value: 7.6; Range: 6.4-8.2; Units: GM/DL; Status: F Test: ALBUMIN; Value: 4.0; Range: 3.2-5.2; Units: GM/DL; Status: F Test: ALBUMIN/GLOBULIN RATIO; Value: 1.11; Range: 1.00-1.93; Status: F Lab Order: UA; [facility] 04/25/16 13:35 Test: APPEARANCE, URINE; Value: HAZY; Range: CLEAR; Status: F Test: COLOR, URINE; Value: YELLOW; Range: YELLOW; Status: F Test: PH,URINE; Value: 6.0; Range: 5.0-9.0; Units: UNITS; Status: F Test: SPECIFIC GRAVITY URINE AUTO; Value: 1.023; Range: 1.002-1.035; Status: F Test: PROTEIN, URINE AUTO; Value: 2+; Range: NEGATIVE; Abnormal: Above high normal; Units: mg/dL; Status: F Test: GLUCOSE, URINE (UA) AUTO; Value: NEGATIVE; Range: NEGATIVE; Units: mg/dL; Status: F Test: KETONE, URINE AUTO; Value: 2+; Range: NEGATIVE; Abnormal: Above high normal; Units: mg/dL; Status: F Test: UROBILINOGEN, URINE AUTO; Value: 2.0; Range: 0.0-2.0; Abnormal: Above high normal; Units: mg/dL; Status: F Test: BILIRUBIN, URINE AUTO; Value: NEGATIVE; Range: NEGATIVE; Status: F Test: NITRITE, URINE AUTO; Value: NEGATIVE; Range: NEGATIVE; Status: F Test: LEUKOCYTE ESTERASE, URINE AUTO; Value: 2+; Range: NEGATIVE; Abnormal: Above high normal; Status: F Test: BLOOD, URINE BLOOD; Value: 3+; Range: NEGATIVE; Abnormal: Above high normal; Status: F Test: WBC, URINE AUTO; Value: 16; Range: 0-3; Abnormal: Above high normal; Units: /HPF; Status: F Test: RBC, URINE AUTO; Value: 79; Range: 0-3; Abnormal: Above high normal; Units: /HPF; Status: F Test: BACTERIA, URINE AUTO; Value: NEGATIVE; Range: NEGATIVE; Status: F Test: SQUAMOUS EPITHELIAL CELL UR AU; Value: 7; Range: 0-6; Units: /HPF; Status: F Test: MUCUS, URINE; Value: SMALL; Range: NEGATIVE; Status: F Test: HYALINE CAST, URINE AUTO; Value: 0; Range: 0-1; Units: /LPF; Status: F Lab Order: Urine Culture; SPEC'M 04/25/16 13:32 Test: URINE CULTURE; Value: <EXTERNAL COMMENT eCWMed> FULL REPORT IN LAB NOTES (eCW and Medent).; Status: F Test: URINE CULTURE; Value: URINE CULTURE RESULT NO GROWTH; Status: F Outcome: 14:51 Discharge ordered by Provider. ar2 15:24 Discharge Assessment: Patient awake, alert and oriented x 3. No cognitive and/or kc3 functional deficits noted. Patient verbalized understanding of disposition instructions. patient administered narcotics - no. The following High Risk Discharge criteria are identified: None. Discharged to home ambulatory. Condition: stable. Discharge instructions given to patient, Instructed on discharge instructions, follow up and referral plans. medication usage, Demonstrated understanding of instructions, medications, Pt was receptive of discharge instructions/ teaching. Prescriptions given X 3. No special radiology studies were completed. Property :Personal belongings accompany Pt. 15:25 Patient left the ED. kc3 Signatures: Jessica Michelle, RN RN srm Claus, Belinda, Reg Reg lg Natty Sales, OPEN END SPINNING OPERATOR OPEN END SPINNING OPERATOR jb5 Joseph Robledo PA-C PA-C ar2 Madelyn Cabrera, OPEN END SPINNING OPERATOR OPEN END SPINNING OPERATOR ct3 Katelin Cruz dem1 Madhavi Guidry RN RN yanyb Angeles Enamorado RN RN ms18 Rose Marie Liz RN RN kc3 Shayna Bowen Corrections: (The following items were deleted from the chart) 12:52 12:47 BP 134 / 86; Pulse 81bpm; Resp 18bpm; Pulse Ox 100% RA; 86.18 kg Reported; Height ct3 5 ft. 3 in. Reported; BMI: 33.6; Pain 10/10; ct3 Chart Complete MTDD
== END 2016-04-25 15:25 | disposition home or self-care (01) ==
LOC: M ED 12:45
DX: K58.9 Irritable bowel syndrome, unspecified (principal); R11.2 Nausea with vomiting, unspecified; R19.7 Diarrhea, unspecified; E87.6 Hypokalemia; J45.909 Unspecified asthma, uncomplicated; F31.9 Bipolar disorder, unspecified; K90.0 Celiac disease; M41.9 Scoliosis, unspecified; Z79.899 Other long term (current) drug therapy; Z91.040 Latex allergy status
CPT/HCPCS: 36415; 80048; 80076; 81001; 81025; 82150; 83690; 85025; 87086; 96372; 99284; J0500

== ENCOUNTER → 2016-06-19 | Outpatient (CLI) | payer OTHER ==
[2016-06-19 14:42] LABS: ALBUMIN 3.8 GM/DL (3.2-5.2); ALBUMIN/GLOBULIN RATIO 1.15 (1.00-1.93); ALKALINE PHOSPHATASE 68 U/L (45-117); ALT/SGPT 20 U/L (12-78); ANION GAP 5 MEQ/L (8-16); AST/SGOT 14 U/L (15-37); BILIRUBIN,TOTAL 0.2 MG/DL (0.2-1.0); BLOOD UREA NITROGEN 5 MG/DL (7-18); CALCIUM LEVEL 8.7 MG/DL (8.5-10.1); CARBON DIOXIDE LEVEL 30 MEQ/L (21-32); CHLORIDE LEVEL 107 MEQ/L (98-107); CHOLESTEROL LEVEL 153 MG/DL (<200); CREATININE FOR GFR 0.82 MG/DL (0.55-1.02); GLOMERULAR FILTRATION RATE > 60.0 (>60); GLUCOSE, FASTING 104 MG/DL (70-105); POTASSIUM SERUM 4.1 MEQ/L (3.5-5.1); SODIUM LEVEL 142 MEQ/L (136-145); TOTAL PROTEIN 7.1 GM/DL (6.4-8.2); TRIGLYCERIDES LEVEL 58 MG/DL (<150)
[2016-06-19 14:43] LABS: BASO % 0.3 % (0.0-1.0); EOS # 0.4 K/mm3 (0.0-0.50); EOS % 4.8 % (0.0-3.0); LARGE UNSTAINED CELL # 0.2 K/mm3 (0.0-0.4); LARGE UNSTAINED CELL % 1.9 % (0.0-4.0); LYMPH # 2.7 K/mm3 (1.5-6.5); LYMPH % 29.6 % (24.0-44.0); MEAN CORPUSCULAR HEMOGLOBIN 27.6 pg (27.0-33.0); MEAN CORPUSCULAR HGB CONC 31.4 g/dl (32.0-36.5); MONO # 0.5 K/mm3 (0.0-0.8); MONO % 5.2 % (0.0-5.0); NEUTROPHILS # 5.2 K/mm3 (1.8-7.7); NEUTROPHILS % 58.1 % (36.0-66.0); PLATELET COUNT, AUTOMATED 338 k/mm3 (150-450); RED CELL DISTRIBUTION WIDTH 13.6 % (11.5-14.5)
== END ==
LOC: M LAB 13:04
DX: F64.9 Gender identity disorder, unspecified (principal)

== ENCOUNTER 2016-10-19 05:31 | Observation (INO) | payer OTHER ==
[~2016-10-19] VITALS: Ht 160 cm; Wt 80.5 kg
[2016-10-19] MEDS ORDERED: BENT10CA PO (05:45)
[2016-10-19] MEDS ORDERED: SUCR1TA PO (05:45)
[2016-10-19] MEDS ORDERED: TEST1INJ3 IM (05:47)
[2016-10-19] MEDS ORDERED: LORazepam 2 MG/ML VIAL (J2060) IV STA (06:19)
[2016-10-19] MEDS ORDERED: PROMETHAZINE INJ 25 MG/ML VIAL (J2550) IV ONE (06:30)
[2016-10-19] MEDS ORDERED: DICYCLOMINE INJ 20MG/2ML (J0500) IM ONE (06:30)
[2016-10-19] MEDS ORDERED: NS 500 ML IV ONE (06:30)
[2016-10-19] MEDS ORDERED: PANTOPRAZOLE 40MG INJ (PROTONIX) (C9113) IV ONE (06:30)
[2016-10-19 06:35] LABS: BASO % 0.2 % (0.0-1.0); EOS # 0.1 K/mm3 (0.0-0.50); EOS % 0.6 % (0.0-3.0); LARGE UNSTAINED CELL # 0.1 K/mm3 (0.0-0.4); LARGE UNSTAINED CELL % 0.5 % (0.0-4.0); LYMPH # 1.7 K/mm3 (1.5-6.5); LYMPH % 7.4 % (24.0-44.0); MEAN CORPUSCULAR HEMOGLOBIN 26.9 pg (27.0-33.0); MEAN CORPUSCULAR HGB CONC 32.6 g/dl (32.0-36.5); MEAN CORPUSCULAR VOLUME 82.6 fl (80.0-96.0); MONO # 0.5 K/mm3 (0.0-0.8); MONO % 2.2 % (0.0-5.0); NEUTROPHILS # 18.9 K/mm3 (1.8-7.7); NEUTROPHILS % 89.2 % (36.0-66.0); PLATELET COUNT, AUTOMATED 395 k/mm3 (150-450); WHITE BLOOD COUNT 21.2 K/mm3 (4.0-10.0)
[2016-10-19 06:43] LABS: ALKALINE PHOSPHATASE 75 U/L (45-117); ALT/SGPT 24 U/L (12-78); ANION GAP 12 MEQ/L (8-16); AST/SGOT 17 U/L (15-37); BILIRUBIN,DIRECT < 0.1 MG/DL (0.0-0.2); BILIRUBIN,TOTAL 0.2 MG/DL (0.2-1.0); BLOOD UREA NITROGEN 9 MG/DL (7-18); CALCIUM LEVEL 9.4 MG/DL (8.5-10.1); CARBON DIOXIDE LEVEL 24 MEQ/L (21-32); CHLORIDE LEVEL 107 MEQ/L (98-107); CREATININE FOR GFR 0.85 MG/DL (0.55-1.02); GLOMERULAR FILTRATION RATE > 60.0 (>60); GLUCOSE, FASTING 111 MG/DL (70-105); POTASSIUM SERUM 4.1 MEQ/L (3.5-5.1); SODIUM LEVEL 143 MEQ/L (136-145)
[2016-10-19] MEDS ORDERED: NS 1,000 ML IV ONE ×3 (07:15→19:00)
[2016-10-19] MEDS ORDERED: MORPHINE 4 MG/ML 1ML SYRINGE IV ONE (07:15)
[2016-10-19] MEDS ORDERED: MORPHINE 2 MG/ML 1ML SYRINGE IV ONE (08:00)
[2016-10-19] MEDS ORDERED: PANTOPRAZOLE 40MG INJ (PROTONIX) (C9113) IV SCH (09:00)
[2016-10-19 09:31] LABS: BASO % 0.1 % (0.0-1.0); EOS # 0.1 K/mm3 (0.0-0.50); EOS % 0.5 % (0.0-3.0); LARGE UNSTAINED CELL # 0.1 K/mm3 (0.0-0.4); LARGE UNSTAINED CELL % 0.4 % (0.0-4.0); LYMPH # 1.2 K/mm3 (1.5-6.5); LYMPH % 6.9 % (24.0-44.0); MEAN CORPUSCULAR HEMOGLOBIN 27.3 pg (27.0-33.0); MEAN CORPUSCULAR HGB CONC 32.9 g/dl (32.0-36.5); MEAN CORPUSCULAR VOLUME 82.9 fl (80.0-96.0); MONO # 0.4 K/mm3 (0.0-0.8); MONO % 2.1 % (0.0-5.0); NEUTROPHILS # 15.7 K/mm3 (1.8-7.7); NEUTROPHILS % 90.1 % (36.0-66.0); WHITE BLOOD COUNT 17.4 K/mm3 (4.0-10.0)
[2016-10-19 09:46] LABS: PLATELET COUNT, AUTOMATED 292 k/mm3 (150-450)
[2016-10-19] MEDS ORDERED: ONDANSETRON 4MG/2ML VIAL (J2405) IV ONE (10:15)
[2016-10-19] MEDS ORDERED: D5W/0.45% SODIUM CHLORIDE 1,000 ML IV ONE (10:15)
[2016-10-19] MEDS ORDERED: ISOVUE-370 76% 100ML VIAL (Q9967) As Ordered ONE (10:25)
[2016-10-19] MEDS ORDERED: CETI10TA PO (11:20)
[2016-10-19] MEDS ORDERED: QUET1TAB10 PO (11:20)
[2016-10-19] MEDS ORDERED: RANI150T PO (11:20)
[2016-10-19] MEDS ORDERED: LORA10TA2 PO (11:20)
[2016-10-19] MEDS ORDERED: OMEP40CA2 PO (11:20)
[2016-10-19] MEDS ORDERED: ALBUTEROL SULFATE 2.5 MG/0.5 ML INH NEB SOLN NEB PRN (11:30)
[2016-10-19] MEDS ORDERED: diphenhydrAMINE INJ 50MG/ML VIAL (J1200) IV PRN (12:00)
--- NOTE | 2016-10-19 12:02 | REP ---
REASON: Abdominal pain and leukocytosis. COMPARISON: 08/10/2016 The lung bases show minimal subsegmental atelectatic changes in the dependent portions. There are no pleural or pericardial effusions. The liver, gallbladder, spleen, pancreas, adrenal glands, and kidneys are normal. The abdominal aorta and para-aortic regions are normal. The bowel loops and their mesenteries are within normal limits. There is no free fluid or free air in the abdomen. There is no intra-abdominal mass or adenopathy. CT PELVIS: The bowel loops and their mesenteries are within normal limits. There is no mass or adenopathy. There is no free fluid or free air. The osseous structures are stable and intact. IMPRESSION: CT findings are within normal limits. Signed by Johnson Luis DO 10/19/2016 12:42 P
[2016-10-19] MEDS: METOCLOPRAMIDE INJ 10MG/2ML VIAL (J2765) IV SCH ×3 (12:06→21:12)
[2016-10-19] MEDS: NS 1,000 ML IV SCH ×2 (12:06→22:48)
[2016-10-19 12:34] VITALS: BP 117/63
[2016-10-19] MEDS ORDERED: DICYCLOMINE 10 MG CAP PO PRN (13:45)
[2016-10-19] MEDS: PROCHLORPERAZINE 10 MG/2 ML VIAL (J0780) IV SCH ×2 (14:14→18:08)
[2016-10-19] MEDS: SUCRALFATE 1 GM TAB PO SCH ×4 (14:15→22:48)
[2016-10-19] MEDS: PANTOPRAZOLE 40MG INJ (PROTONIX) (C9113) IV SCH (18:08)
[2016-10-19 18:29] VITALS: BP 178/99
[2016-10-19 20:00] VITALS: BP 135/93
--- NOTE | 2016-10-19 20:09 | HPE ---
DATE OF ADMISSION: 10/19/2016 PRIMARY CARE PROVIDER: Jose Carnes MD CHIEF COMPLAINT: Intractable nausea, vomiting and abdominal pain. Unable to keep anything down by mouth. PAST MEDICAL HISTORY: 1. Irritable bowel syndrome. 2. Mild persistent asthma . 3. 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 4. Chronic marijuana use. HISTORY OF PRESENT ILLNESS: This is a 26-year-old female to male transgender patient presented to the emergency room with one day history of intractable vomiting, retching, nausea and abdominal pain and diarrhea. The patient had a CT scan of the abdomen done, which was negative for acute pathology. The patient was given Phenergan, dicyclomine, lorazepam, morphine and IV fluids and Zofran in the emergency room without resolution of symptoms, so the patient is being admitted to the hospitalist service for intractable nausea and vomiting. PAST SURGICAL HISTORY: Surgery for transgender from female to male. Endoscopy and colonoscopy in the past. ALLERGIES: AMOXICILLIN AND LATEX. HOME MEDICATIONS: - Phenergan 10 mg by mouth daily - dicyclomine 10 mg by mouth every 6 hours as needed pain - loratadine 10 mg by mouth daily - omeprazole 40 mg by mouth twice a day - quetiapine 300 mg at bedtime - ranitidine one tablet by mouth twice a day - sucralfate 1 gram by mouth before meals (ac) and at bedtime (hs) - testosterone 25 mg injection intramuscular (IM) once a week on Fridays REVIEW OF SYSTEMS: A 10-point review of systems was negative except those mentioned in the history of present illness. SOCIAL HISTORY: The patient is a transgender female to male. Does not smoke, but uses marijuana. No history of drug abuse FAMILY HISTORY: Nothing significant. PHYSICAL EXAMINATION: VITAL SIGNS: Temperature 90.6, pulse 93, respiratory rate 18, blood pressure 117/63, pulse oximetry 98% on room air. GENERAL: The patient awake, alert, oriented times three, lying down in bed in no acute. HEENT: Normocephalic, atraumatic. Moist mucous membranes. Anicteric eyes. CHEST: Clear to auscultation. CARDIOVASCULAR: S1, S2 regular. No rub, murmur or gallop. ABDOMEN: Soft, mildly tender, generalized. Bowel sounds present. EXTREMITIES: No edema. LABORATORY DATA: White blood count (WBC) 17.4, hemoglobin 12.7, platelets 292. Sodium 143, potassium 4.1, chloride 107, bicarbonate 24, BUN 9, creatine 0.8, glucose 111, calcium 9.4. Liver function tests are normal. Lipase 58. CT of abdomen and pelvis: No acute abnormalities detected. ASSESSMENT AND PLAN: This is a 26-year-old transgender male admitted for intractable nausea, vomiting, abdominal pain and diarrhea, possibly related to irritable bowel syndrome flareup. 1. Irritable bowel syndrome. Will continue the patient on prochlorperazine and Reglan for nausea and vomiting. Will continue with dicyclomine if the patient has abdominal pain and diarrhea. Will monitor for diarrhea. The patient should be fibers at home. The patient will probably need a referral to software tools engineer on discharge. The patient did have an endoscopy and a colonoscopy done in 2014, which was negative for celiac disease. Did reveal a few diverticula. 2. Mild persistent asthma. Will continue the patient on albuterol as needed. 3. Small hiatal hernia. Will continue the patient on pantoprazole. 4. Deep vein thrombosis (DVT) prophylaxis has been ordered. 5. Gastrointestinal (GI) prophylaxis has been ordered.
[2016-10-19] MEDS ORDERED: QUEtiapine FUMARATE 100 MG TAB PO SCH (21:00)
[2016-10-20] MEDS: NS 1,000 ML IV SCH (05:51)
[2016-10-20] MEDS: PANTOPRAZOLE 40MG INJ (PROTONIX) (C9113) IV SCH (05:51)
[2016-10-20 06:00] VITALS: BP 117/67
[2016-10-20] MEDS: SUCRALFATE 1 GM TAB PO SCH ×2 (08:47→15:08)
[2016-10-20] MEDS: METOCLOPRAMIDE INJ 10MG/2ML VIAL (J2765) IV SCH (08:47)
[2016-10-20] MEDS: PROCHLORPERAZINE 10 MG/2 ML VIAL (J0780) IV SCH (08:47)
[2016-10-20 09:34] LABS: BASO % 0.2 % (0.0-1.0); EOS # 0.1 K/mm3 (0.0-0.50); EOS % 0.6 % (0.0-3.0); LARGE UNSTAINED CELL # 0.2 K/mm3 (0.0-0.4); LARGE UNSTAINED CELL % 1.3 % (0.0-4.0); LYMPH # 3.7 K/mm3 (1.5-6.5); LYMPH % 26.2 % (24.0-44.0); MEAN CORPUSCULAR HEMOGLOBIN 27.1 pg (27.0-33.0); MEAN CORPUSCULAR HGB CONC 32.7 g/dl (32.0-36.5); MEAN CORPUSCULAR VOLUME 82.9 fl (80.0-96.0); MONO # 0.6 K/mm3 (0.0-0.8); MONO % 4.5 % (0.0-5.0); NEUTROPHILS # 9.5 K/mm3 (1.8-7.7); NEUTROPHILS % 67.1 % (36.0-66.0); PLATELET COUNT, AUTOMATED 301 k/mm3 (150-450); RED CELL DISTRIBUTION WIDTH 14.1 % (11.5-14.5); WHITE BLOOD COUNT 14.1 K/mm3 (4.0-10.0)
[2016-10-20 10:03] LABS: ANION GAP 10 MEQ/L (8-16); BLOOD UREA NITROGEN 6 MG/DL (7-18); CALCIUM LEVEL 8.3 MG/DL (8.5-10.1); CARBON DIOXIDE LEVEL 26 MEQ/L (21-32); CHLORIDE LEVEL 109 MEQ/L (98-107); CREATININE FOR GFR 0.82 MG/DL (0.55-1.02); GLOMERULAR FILTRATION RATE > 60.0 (>60); GLUCOSE, FASTING 102 MG/DL (70-105); POTASSIUM SERUM 3.5 MEQ/L (3.5-5.1); SODIUM LEVEL 145 MEQ/L (136-145)
--- NOTE | 2016-10-20 10:26 | IPNPDOC ---
Subjective Date Seen The patient was seen on 10/20/16. Subjective Chief Complaint/HPI The patient is a 26-year-old female admitted with a reason for visit of Leukocytosis,Nauea And Vomiting. Events since last encounter last vomiting last evening , no further nausea or vomiting this am . continues to have abdominal pain but that is chronic he says not any worse than usual. no fever or chills, no chest pain or sob. tolerated full liquids which he says is mostly waht he takes at home , Wants to go home and wants to do the gastric emptying study as an outpatient. Patient advised to follow up with Dr Mullins. Pateint will be discharged home today. Objective Physical Examination General Exam: Positive: Alert, Cooperative, No Acute Distress Eye Exam: Positive: PERRLA, Conjunctiva & lids normal, EOMI, Negative: Sclera icteric ENT Exam: Positive: Atraumatic, Mucous membr. moist/pink, Pharynx Normal Neck Exam: Positive: Supple, Negative: JVD, thyromegaly Chest Exam: Positive: Clear to auscultation, Normal air movement Heart Exam: Positive: Rate Normal, Regular Rhythm, Normal S1, Normal S2, Negative: Murmurs, Rubs Abdomen Exam: Positive: Normal bowel sounds, Soft, Negative: Tenderness, Hepatospenomegaly Extremity Exam: Positive: Normal pulses, Negative: Clubbing, Cyanosis, Edema Skin Exam: Positive: Nl turgor and temperature, Negative: Rash, Breakdown Assessment /Plan Problems (1) IBS (irritable bowel syndrome) Status: Resolved Problem Text: acute episode of vomiting , diarrhea and abdominal pain now improving will continue with reglan and prochorperazine will get gastric emptying study Had egd and colonoscopy in 2014 small bowel biopsy was negative for celiac disease. (2) Excessive weight loss Status: Acute Problem Text: says has loss 60 lbs over the last 6 months unintentionally Needs to follow up with GI as outpatient Had EGD and colonoscopy in 2015 with no major findings. (3) Transgender Status: Chronic Problem Text: female to male (4) Nausea and vomiting Status: Resolved (5) Abdominal pain Status: Chronic Problem Text: continue dicyclomine (6) Leukocytosis Status: Acute Response to Treatment: Improving Problem Text: reactive improving. no signs of infection Plan/VTE VTE Prophylaxis Ordered?: Yes Disposition discharge home. VS, I&O, 24H, [facility] Vital Signs/I&O Vital Signs Date Time Temp Pulse Resp B/P (MAP) Pulse Ox O2 Delivery O2 Flow Rate FiO2 10/20/16 06:00 98.3 75 19 117/67 (84) 98 Room Air I&O- Last 24 Hours up to 6 AM 10/20/16 06:00 Intake Total 4545 ml Output Total 400 ml Balance 4145 ml Laboratory Data 24H LABS Laboratory Tests 2 10/20/16 09:17: White Blood Count 14.1H, Red Blood Count 4.57, Hemoglobin 12.4, Hematocrit 37.9 , Mean Corpuscular Volume 82.9, Mean Corpuscular Hemoglobin 27.1, Mean Corpuscular Hemoglobin Concent 32.7, Red Cell Distribution Width 14.1, Platelet Count 301, Neutrophils (%) (Auto) 67.1H, Lymphocytes (%) (Auto) 26.2, Monocytes (%) (Auto) 4.5, Eosinophils (%) (Auto) 0.6, Basophils (%) (Auto) 0.2, Neutrophils # (Auto) 9.5H, Lymphocytes # (Auto) 3.7, Monocytes # (Auto) 0.6, Eosinophils # (Auto) 0.1, Basophils # (Auto) 0.0, Large Unclassified Cells % 1.3 , Large Unclassified Cells # 0.2, Anion Gap 10, Glomerular Filtration Rate > 60.0, Blood Urea Nitrogen 6L, Creatinine 0.82, Sodium Level 145, Potassium Level 3.5, Chloride Level 109H, Carbon Dioxide Level 26, Calcium Level 8.3L CBC/BMP Laboratory Tests 10/20/16 09:17 Red Blood Count 4.57, Mean Corpuscular Volume 82.9, Mean Corpuscular Hemoglobin 27.1, Mean Corpuscular Hemoglobin Concent 32.7, Red Cell Distribution Width 14.1 , Neutrophils (%) (Auto) 67.1 H, Lymphocytes (%) (Auto) 26.2, Monocytes (%) ( Auto) 4.5, Eosinophils (%) (Auto) 0.6, Basophils (%) (Auto) 0.2, Neutrophils # ( Auto) 9.5 H, Lymphocytes # (Auto) 3.7, Monocytes # (Auto) 0.6, Eosinophils # ( Auto) 0.1, Basophils # (Auto) 0.0, Calcium Level 8.3 L MARA SORENSEN MD Oct 20, 2016 10:26
[2016-10-20] MEDS ORDERED: METO10TA2 PO (13:04)
[2016-10-20] MEDS: METOCLOPRAMIDE 10 MG TAB PO SCH ×2 (13:09→15:22)
[2016-10-20 14:00] VITALS: BP 136/73
[2016-10-20] MEDS: PROCHLORPERAZINE 5 MG TAB (S0183) PO SCH ×2 (15:09→15:23)
[2016-10-20] MEDS ORDERED: PANTOPRAZOLE 40MG TAB (PROTONIX) PO SCH (21:00)
== END 2016-10-20 16:22 | disposition home or self-care (01) ==
LOC: M ED 05:31 → M ED INP 11:17 → M MSPAV 12:50
PROVIDERS: ADMIT Internal Medicine Nephrology; ATTEND Internal Medicine Nephrology
DX: K58.0 Irritable bowel syndrome with diarrhea (principal); R11.2 Nausea with vomiting, unspecified; R10.9 Unspecified abdominal pain; G89.29 Other chronic pain; R63.4 Abnormal weight loss; D72.829 Elevated white blood cell count, unspecified; J45.30 Mild persistent asthma, uncomplicated; F12.90 Cannabis use, unspecified, uncomplicated; F64.0 Transsexualism; Z87.890 Personal history of sex reassignment; K44.9 Diaphragmatic hernia without obstruction or gangrene; Z79.899 Other long term (current) drug therapy; Z88.0 Allergy status to penicillin; Z91.040 Latex allergy status
CPT/HCPCS: 36415; 74177; 80048; 80076; 83690; 85025; 94640; 96361; 96372; 96374; 96375; 96376; 99284; C9113; J0500; J0780; J2060; J2405; J2765; Q9967

== ENCOUNTER → 2017-02-04 | Outpatient (CLI) | payer OTHER ==
[~2017-02-04] MED LIST: BENT10CA PO; CETI10TA PO; LORA10TA2 PO; METO10TA2 PO; OMEP40CA2 PO; QUET1TAB10 PO; RANI150T PO; SUCR1TA PO; TEST1INJ3 IM
[2017-02-04 12:49] LABS: BASO % 0.3 % (0.0-1.0); EOS # 0.5 10^3/uL (0.0-0.50); EOS % 5.1 % (0.0-3.0); IMMATURE GRANULOCYTE % 0.3 % (0-0); LYMPH # 2.5 10^3/uL (1.5-6.5); LYMPH % 27.2 % (24.0-44.0); MEAN CORPUSCULAR HEMOGLOBIN 26.8 pg (27.0-33.0); MEAN CORPUSCULAR HGB CONC 31.4 g/dl (32.0-36.5); MEAN CORPUSCULAR VOLUME 85.4 fl (80.0-96.0); MONO # 0.6 10^3/uL (0.0-0.8); MONO % 6.5 % (0.0-5.0); NEUTROPHILS # 5.5 10^3/uL (1.8-7.7); NEUTROPHILS % 60.6 % (36.0-66.0); PLATELET COUNT, AUTOMATED 287 10^3/uL (150-450); RED CELL DISTRIBUTION WIDTH 14.4 % (11.5-14.5); WHITE BLOOD COUNT 9.1 10^3/uL (4.0-10.0)
[2017-02-04 13:18] LABS: VITAMIN B12 LEVEL 336 PG/ML (247-911)
[2017-02-04 13:24] LABS: ALBUMIN 3.6 GM/DL (3.2-5.2); ALBUMIN/GLOBULIN RATIO 1.03 (1.00-1.93); ALKALINE PHOSPHATASE 73 U/L (45-117); ALT/SGPT 17 U/L (12-78); ANION GAP 5 MEQ/L (8-16); AST/SGOT 6 U/L (7-37); BILIRUBIN,TOTAL 0.3 MG/DL (0.2-1.0); BLOOD UREA NITROGEN 8 MG/DL (7-18); CALCIUM LEVEL 8.5 MG/DL (8.5-10.1); CARBON DIOXIDE LEVEL 30 MEQ/L (21-32); CHLORIDE LEVEL 107 MEQ/L (98-107); CHOLESTEROL LEVEL 154 MG/DL (<200); CREATININE FOR GFR 0.85 MG/DL (0.55-1.02); GLOMERULAR FILTRATION RATE > 60.0 (>60); GLUCOSE, FASTING 85 MG/DL (70-105); POTASSIUM SERUM 4.1 MEQ/L (3.5-5.1); SODIUM LEVEL 142 MEQ/L (136-145); TOTAL PROTEIN 7.1 GM/DL (6.4-8.2); TRIGLYCERIDES LEVEL 59 MG/DL (<150)
== END ==
LOC: M LAB 12:05
PROVIDERS: ATTEND Registered Nurse Psychiatric/Mental Health
DX: F06.4 Anxiety disorder due to known physiological condition (principal)

== ENCOUNTER → 2017-06-23 | Outpatient (REF) | payer OTHER ==
[2017-06-23 19:39] LABS: TESTOSTERONE 34 NG/DL (14-76)
[2017-06-23 19:40] LABS: ALBUMIN 3.9 GM/DL (3.2-5.2); ALBUMIN/GLOBULIN RATIO 1.05 (1.00-1.93); ALKALINE PHOSPHATASE 79 U/L (45-117); ALT/SGPT 15 U/L (12-78); ANION GAP 4 MEQ/L (8-16); AST/SGOT 12 U/L (7-37); BILIRUBIN,TOTAL 0.3 MG/DL (0.2-1.0); BLOOD UREA NITROGEN 8 MG/DL (7-18); CALCIUM LEVEL 8.8 MG/DL (8.5-10.1); CARBON DIOXIDE LEVEL 29 MEQ/L (21-32); CHLORIDE LEVEL 109 MEQ/L (98-107); GLOMERULAR FILTRATION RATE > 60.0 (>60); GLUCOSE, FASTING 86 MG/DL (70-100); POTASSIUM SERUM 3.9 MEQ/L (3.5-5.1); SODIUM LEVEL 142 MEQ/L (136-145); TOTAL PROTEIN 7.6 GM/DL (6.4-8.2)
== END ==
LOC: M LAB REF 18:48
DX: Z79.890 Hormone replacement therapy (principal)

== ENCOUNTER → 2017-09-29 | Outpatient (REF) | payer OTHER, MEDICAID ==
[2017-09-29 14:39] LABS: TESTOSTERONE 324 NG/DL (14-76)
== END ==
LOC: M LAB REF 13:47
DX: Z51.81 Encounter for therapeutic drug level monitoring (principal); Z79.890 Hormone replacement therapy
CPT/HCPCS: 84403

== ENCOUNTER → 2018-02-03 | Outpatient (REF) | payer OTHER, MEDICAID ==
[2018-02-03 18:29] LABS: ALBUMIN 3.5 GM/DL (3.2-5.2); ALBUMIN/GLOBULIN RATIO 1.06 (1.00-1.93); ALKALINE PHOSPHATASE 81 U/L (45-117); ALT/SGPT 22 U/L (12-78); ANION GAP 4 MEQ/L (8-16); AST/SGOT 13 U/L (7-37); BILIRUBIN,TOTAL 0.2 MG/DL (0.2-1.0); BLOOD UREA NITROGEN 13 MG/DL (7-18); CALCIUM LEVEL 8.9 MG/DL (8.5-10.1); CARBON DIOXIDE LEVEL 30 MEQ/L (21-32); CHLORIDE LEVEL 104 MEQ/L (98-107); CREATININE FOR GFR 1.01 MG/DL (0.55-1.30); GLOMERULAR FILTRATION RATE > 60.0 (>60); GLUCOSE, FASTING 97 MG/DL (70-100); POTASSIUM SERUM 4.3 MEQ/L (3.5-5.1); SODIUM LEVEL 138 MEQ/L (136-145); TOTAL PROTEIN 6.8 GM/DL (6.4-8.2)
[2018-02-03 18:38] LABS: TESTOSTERONE 187 NG/DL (14-76)
[2018-02-03 18:48] LABS: RUBELLA IgG QUALITATIVE IMMUNE (IMMUNE)
[2018-02-03 19:18] LABS: HIV 1&2 SCREEN CENTAUR NEGATIVE (NEGATIVE)
[2018-02-05 08:06] LABS: HEPATITIS A IgG TOTAL Negative (Negative); MUMPS VIRUS IgG ANTIBODY 94.3 AU/mL (Immune >10.9); RUBEOLA IgG ANTIBODY >300.0 AU/mL (Immune >29.9)
[2018-02-05 08:06] LABS: HERPES ZOSTER, VARICELLA IgG 285 index (Immune >165)
[2018-02-05 09:40] LABS: HEPATITIS B SURFACE ANTIBODY POSITIVE (POSITIVE)
[2018-02-05 09:51] LABS: HEPATITIS B SURFACE ANTIGEN NEGATIVE (NEGATIVE)
== END ==
LOC: M LAB REF 17:38
DX: Z01.84 Encounter for antibody response examination (principal)

== ENCOUNTER → 2018-07-02 | Outpatient (CLI) | payer OTHER ==
[~2018-07-02] MED LIST changes: +DICY1CAP8 PO; +HYDR-643 PO; +LORA-243 PO; -LORA10TA2 PO; +SING10TA32 PO; +TRAM50TA2 PO
--- NOTE | 2018-07-02 12:01 | REP ---
CHEST: Two views. There is no evidence of acute infiltrate. No pleural effusion is seen. The heart is normal in size. The mediastinal silhouette is unremarkable. The visualized osseous structures are intact. IMPRESSION: No acute pulmonary disease. Electronically Signed by Rafa Solis MD 07/02/2018 05:03 P
[2018-07-02 12:12] LABS: BASO # 0.1 10^3/uL (0.0-0.2); BASO % 0.5 % (0.0-1.0); EOS # 0.5 10^3/uL (0.0-0.50); EOS % 5.6 % (0.0-3.0); HEMATOCRIT 48.2 % (42.0-52.0); HEMOGLOBIN 15.2 g/dl (13.5-17.5); LYMPH # 2.7 10^3/uL (1.5-6.5); LYMPH % 27.6 % (24.0-44.0); MEAN CORPUSCULAR HEMOGLOBIN 27.4 pg (27.0-33.0); MEAN CORPUSCULAR HGB CONC 31.5 g/dl (32.0-36.5); MEAN CORPUSCULAR VOLUME 86.8 fl (80.0-96.0); MONO # 0.7 10^3/uL (0.0-0.8); NEUTROPHILS # 5.7 10^3/uL (1.8-7.7); NEUTROPHILS % 58.9 % (36.0-66.0); PLATELET COUNT, AUTOMATED 291 10^3/uL (150-450); RED BLOOD COUNT 5.55 10^6/uL (4.30-6.10); WHITE BLOOD COUNT 9.7 10^3/uL (4.0-10.0)
[2018-07-02 12:21] LABS: INR 1.05; PROTHROMBIN TIME 13.8 SECONDS (12.1-14.4)
[2018-07-02 12:22] LABS: PARTIAL THROMBOPLASTIN TIME 33.7 SECONDS (25.4-37.6)
[2018-07-02 12:34] LABS: ALBUMIN 3.9 GM/DL (3.2-5.2); ALT/SGPT 21 U/L (12-78); BILIRUBIN,TOTAL 0.3 MG/DL (0.2-1.0); BLOOD UREA NITROGEN 9 MG/DL (7-18); CALCIUM LEVEL 8.8 MG/DL (8.5-10.1); CARBON DIOXIDE LEVEL 30 MEQ/L (21-32); CHLORIDE LEVEL 105 MEQ/L (98-107); CREATININE FOR GFR 1.02 MG/DL (0.70-1.30); GLOMERULAR FILTRATION RATE > 60.0 (>60); GLUCOSE, FASTING 82 MG/DL (70-100); POTASSIUM SERUM 4.1 MEQ/L (3.5-5.1); SODIUM LEVEL 141 MEQ/L (136-145); TESTOSTERONE 679 NG/DL (241-827); TOTAL PROTEIN 7.2 GM/DL (6.4-8.2)
[2018-07-02 14:54] LABS: HCG, SERUM QUALITATIVE NEGATIVE
--- NOTE | 2018-07-02 17:00 | ECGEPIP ---
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
== END ==
LOC: EDSEX → MERGE 10:15 → EDSEX 10:15 → M LAB 10:15
PROVIDERS: ATTEND Nurse Practitioner Adult Health
DX: Z01.818 Encounter for other preprocedural examination (principal); J45.30 Mild persistent asthma, uncomplicated; Z79.890 Hormone replacement therapy; F64.0 Transsexualism

== ENCOUNTER 2018-07-20 08:04 | Observation (INO) | payer OTHER ==
[~2018-07-20] VITALS: Ht 160 cm; Wt 92.0 kg
[2018-07-20] VITALS (7 sets, daily range): BP systolic 133–165; BP diastolic 84–90
[2018-07-20] MEDS ORDERED: CLINDAMYCIN 600 MG in APPROPRIATE DILUENT 1 EA IV ONE (08:45)
[2018-07-20] MEDS ORDERED: LR 1,000 ML IV ONE (09:15)
[2018-07-20] MEDS ORDERED: fentaNYL 250 MCG/5 ML INJECTION (J3010) As Ordered ONE (09:26)
[2018-07-20] MEDS ORDERED: ONDANSETRON 4MG/2ML VIAL (J2405) As Ordered ONE ×2 (09:26→13:08)
[2018-07-20] MEDS ORDERED: ROCURONIUM BROMIDE 50 MG/5 ML VIAL As Ordered ONE ×2 (09:26→11:31)
[2018-07-20] MEDS ORDERED: PROPOFOL 200 MG/20 ML VIAL As Ordered ONE (09:26)
[2018-07-20] MEDS ORDERED: MIDAZOLAM INJ 2 MG/2 ML VIAL (J2250) As Ordered ONE (09:26)
[2018-07-20] MEDS ORDERED: dexameTHASONE 4 MG/ML 1ML VIAL (J1100) As Ordered ONE (09:26)
[2018-07-20] MEDS ORDERED: LIDOCAINE 2% INJ 100 MG/5 ML SDV (FOR ANES.) As Ordered ONE (09:26)
[2018-07-20] MEDS ORDERED: BACITRACIN PWD 50,000 UNITS VIAL As Ordered ONE (09:28)
[2018-07-20] MEDS ORDERED: LIDOCAINE 1% MDV 20ML VIAL As Ordered ONE (09:28)
[2018-07-20] MEDS ORDERED: EPINEPHrine INJ 1 MG/ML 1ML AMP As Ordered ONE (09:28)
[2018-07-20] MEDS ORDERED: ACETAMINOPHEN 1000MG 100ML IV BTL (OFIRMEV) (J0131 PER 10MG) As Ordered ONE (11:27)
[2018-07-20] MEDS ORDERED: HYDROmorphone HCL 2 MG/ML 1ML VIAL (J1170) As Ordered ONE (11:45)
[2018-07-20] MEDS ORDERED: GLYCOPYRROLATE INJ 0.2 MG/ML 2 ML VIAL As Ordered ONE (12:15)
[2018-07-20] MEDS ORDERED: NEOSTIGMINE 10 MG/10 ML VIAL (J2710) As Ordered ONE (12:15)
[2018-07-20] MEDS ORDERED: KETOROLAC 60 MG/2 ML VIAL (J1885) As Ordered ONE (13:08)
[2018-07-20] MEDS ORDERED: METOCLOPRAMIDE INJ 10MG/2ML VIAL (J2765) As Ordered ONE (13:10)
--- NOTE | 2018-07-20 14:08 | POST-OPPD ---
Postoperative Procedure Note Date Of Procedure: Jul 20, 2018 PREOPERATIVE DIAGNOSIS: Female chest, gender dysphoria POSTOPERATIVE DIAGNOSIS: same FINDINGS: Large ptotic breasts. PROCEDURE: Chest masculinization through subcutaneous mastectomies, suction assisted lipectomy and free nipple graft. SURGEON: Dr Escobar ANESTHESIA: general SPECIMENS: right breast, left breast, liposuction contents 400cc ESTIMATED BLOOD LOSS: 100cc REPLACED: none DRAINS: 10 mm GATO x 2 COMPLICATIONS: none POSTOPERATIVE CONDITION: stable BRITTANI ESCOBAR DO Jul 20, 2018 14:08
[2018-07-20] MEDS ORDERED: LR 1,000 ML IV SCH (14:45)
[2018-07-20] MEDS ORDERED: MORPHINE 4 MG/ML 1ML VIAL/SYRINGE (J2270) IV PRN (14:45)
[2018-07-20] MEDS ORDERED: fentaNYL 100 MCG/2 ML INJECTION (J3010) IV PRN (14:45)
[2018-07-20] MEDS ORDERED: HYDROMORPHONE HCL 0.5 MG/ 0.5 ML SYRINGE (J1170 PER 1) IV PRN (14:45)
[2018-07-20] MEDS ORDERED: ONDANSETRON 4MG/2ML VIAL (J2405) IV PRN ×2 (14:45)
[2018-07-20] MEDS ORDERED: PERCOCET 5MG/325MG TAB PO PRN (14:45)
[2018-07-20] MEDS: PERCOCET 5MG/325MG TAB PO PRN ×2 (14:55→20:47)
[2018-07-20] MEDS: HumuLIN R (REGULAR) INSULIN (NovoLIN R) **100U/ML** PER UNIT SC SCH (17:30)
[2018-07-20] MEDS: LR 1,000 ML IV SCH ×2 (18:01→20:48)
[2018-07-20] MEDS ORDERED: ENTER DRUG NAME HERE (PATIENT'S OWN MED) PO PRN ×3 (18:45)
[2018-07-20] MEDS: SUCRALFATE 1 GM TAB PO SCH (20:46)
[2018-07-20] MEDS: DICYCLOMINE 10 MG CAP PO PRN (20:46)
[2018-07-20] MEDS ORDERED: HumuLIN R (REGULAR) INSULIN (NovoLIN R) **100U/ML** PER UNIT SC SCH (21:00)
[2018-07-21 02:00] VITALS: BP 148/90
[2018-07-21] MEDS: PROMETHAZINE 25 MG TAB PO PRN ×2 (02:11→07:40)
[2018-07-21 06:00] VITALS: BP 123/74
[2018-07-21] MEDS: HumuLIN R (REGULAR) INSULIN (NovoLIN R) **100U/ML** PER UNIT SC SCH (07:30)
[2018-07-21] MEDS: DICYCLOMINE 10 MG CAP PO PRN (07:40)
[2018-07-21] MEDS: SUCRALFATE 1 GM TAB PO SCH (07:40)
[2018-07-21] MEDS: PERCOCET 5MG/325MG TAB PO PRN (07:41)
--- NOTE | 2018-07-21 08:11 | IPNPDOC ---
Subjective General Date/Time Seen The patient was seen on 07/21/18 at 08:08. Subject Chief Complaint/History The patient is a 28-year-old male admitted with a reason for visit of Vinh Breast Hypertrophy, Gender Identity Disorder. Here s/p chest masculinization procedure. POD 1. Doing well. Current Medications Current Medications Current Medications Dicyclomine HCl (Bentyl) 10 mg QIDP PRN PO CRAMPS Last administered on 07/21/18at 07:40; Start 07/20/18 at 19:15 Fentanyl Citrate (Sublimaze) 25 mcg Q5MP PRN IV MODERATE PAIN (PS 4-7); Start 07/20/18 at 14:45; Stop 07/20/18 at 15:45; Status DC Hydromorphone HCl (Dilaudid) 0.4 mg Q5MP PRN IV MODERATE/SEVERE PAIN (PS 5-10); Start 07/20/18 at 14:45; Stop 07/20/18 at 15:45; Status DC Insulin Human Regular (HumuLIN R INSULIN) SEE SLIDING SCALE AC SC ; Start 07/20/18 at 17:30 Insulin Human Regular (HumuLIN R INSULIN) SEE SLIDING SCALE QHS SC ; Start 07/20/18 at 21:00 Lactated Ringer's 1,000 ml @ 75 mls/hr [id number] IV Last administered on 07/20/18at 20:48; Start 07/20/18 at 14:45 Lactated Ringer's 1,000 ml @ 100 mls/hr Q10H IV ; Start 07/20/18 at 14:45; Stop 07/20/18 at 15:45; Status DC Morphine Sulfate (Morphine Sulfate Inj) 4 mg Q4H PRN IV PAIN Last administered on 07/21/18at 02:12; Start 07/20/18 at 14:45 Ondansetron HCl (ZOFRAN INJection) 4 mg Q4HP PRN IV NAUSEA OR VOMITING; Start 07/20/18 at 14:45; Stop 07/20/18 at 15:45; Status DC Ondansetron HCl (ZOFRAN INJection) 4 mg Q6H PRN IV NAUSEA; Start 07/20/18 at 14:45 Oxycodone/ Acetaminophen (Percocet 5mg/ 325mg Tablet) 1 tab ASDIRECTED PRN PO MILD/MODERATE PAIN (PS 1-7); Start 07/20/18 at 14:45; Stop 07/20/18 at 15:45; Status DC Oxycodone/ Acetaminophen (Percocet 5mg/ 325mg Tablet) 2 tab Q4H PRN PO MODERATE PAIN (PS 5-7) Last administered on 07/21/18at 07:41; Start 07/20/18 at 14:45 Patient Own Medication (Patient'S Own Med) dicyclomine 10 po mg qid ... QIDP PRN PO cramping; Start 07/20/18 at 18:45; Stop 07/20/18 at 19:09; Status DC Patient Own Medication (Patient'S Own Med) patient may take ... QIDP PRN PO stomach cramps; Start 07/20/18 at 18:45; Stop 07/20/18 at 19:09; Status DC Patient Own Medication (Patient'S Own Med) promethazine 25 mg po qid ... QIDP PRN PO nausea; Start 07/20/18 at 18:45; Stop 07/20/18 at 19:09; Status DC Promethazine HCl (Phenergan) 25 mg QIDP PRN PO NAUSEA OR VOMITING Last administered on 07/21/18at 07:40; Start 07/20/18 at 19:15 Sucralfate (Carafate) 1 gm ACHS PO Last administered on 07/21/18at 07:40; Start 07/20/18 at 21:00 Allergies Coded Allergies: bee venom protein (honey bee) (Verified Allergy, Severe, anaphylaxis, 07/05/18) latex (Verified Allergy, Severe, resp issues, 07/05/18) amoxicillin (Verified Allergy, Intermediate, infections, rash, 07/05/18) Objective Physical Examination Examination GENERAL APPEARANCE:Patient seen, laying in bed, awake, alert, and oriented. Comfortable, in no acute distress. SKIN: Warm and moist. Breast: flaps viable, warm. Post op ecchymosis lateral eric st. NAC with bolster dressings. HEENT: Normocephalic, atraumatic. [place] palpebral conjunctiva, anicteric sclerae. Lips and mucosa appear moist. NECK: Supple, no thyromegaly. No obvious jugular venous distention. LUNGS: Clear to auscultation bilaterally. No wheezing appreciated. HEART: No chest wall abnormalities. Regular rate and rhythm with no murmurs appreciated. Vital Signs Vital Signs Date Time Temp Pulse Resp B/P (MAP) Pulse Ox O2 Delivery O2 Flow Rate FiO2 07/21/18 07:41 18 07/21/18 06:00 97.4 82 123/74 (90) 96 07/20/18 14:15 2 I&Os I&O- Last 24 Hours up to 6 AM 07/21/18 06:00 Intake Total 2260 ml Output Total 180 ml Balance 2080 ml Laboratory Data Labs 24H Laboratory Tests 2 07/20/18 17:28: Bedside Glucose (Misc Panel) 116H 07/20/18 20:34: Bedside Glucose (Misc Panel) 128H A-FIB/CHADSVASC A-FIB History Current/History of A-Fib/PAF?: No Current Oral Anticoagulant The: No Impression S/p chest masculinization procedure. Tolerating diet, liquids, ambulating. Pain controlled with PO meds Stable for discharge Monitor GATO F/up plastic surgery Instructions given Plan / VTE VTE Prophylaxis Ordered?: Yes BRITTANI ESCOBAR DO July 21, 2018 08:11
[2018-07-21] MEDS ORDERED: PERCOCET PO (08:15)
--- NOTE | 2018-07-21 13:09 | RO ---
DATE OF PROCEDURE: 07/20/2018 PREOPERATIVE DIAGNOSIS: Female chest, gender dysphoria. POSTOPERATIVE DIAGNOSIS: Female chest, gender dysphoria. PROCEDURE: Chest masculinization through subcutaneous mastectomies, suction-assisted lipectomy and free nipple graft. GENERAL SURGEON: Dr. De La Rosa PUNCH PRESS SETTER: ANESTHESIA: General. SPECIMENS SENT: Right and left breast, liposuction contents. ESTIMATED BLOOD LOSS: 100 mL. REPLACEMENT: None. DRAINS: 10 mm GATO drains times two. COMPLICATIONS: No complications. PROCEDURE: This is a 28-year-old transgender male who was seen in our office complaining of significant ptosis bilateral breasts. The patient has full grown breasts and he would like to have the chest masculinization procedure done. The risks and benefits were discussed with the patient in detail. He is a good candidate, so he was scheduled to have masculinization procedure done. On the day of surgery, all the risks and benefits and alternatives were discussed with the patient again and he was marked in an upright position in the preop holding area. He was brought into the operating room, placed in supine position. Preoperative antibiotics were given. Sequential stockings placed on the lower calves. We have given 5000 units of subcu heparin and we will start our procedures on the right side. General anesthesia is induced. He was prepped and draped in the usual sterile fashion. We started our procedure on the right side. A small stab incision was made in the lateral chest. Tumescent solution was infiltrated to the lateral chest, 300 mL, then the ultrasound assisted lipectomy was done for 3 minutes, then a conventional liposuction was utilized to remove the remaining liposuction fluid. Then we made our incision, which we are doing a single incision mastectomy, so the inferior IMF crease incision was carried out as well as the corresponding superior incision. The breast tissue was excised using electrocautery. Superior portion of the chest had a minimal amount of fat and no breast tissue. So we did not need to undermine all the way up to the clavicle. After the breast was removed, the flap was then tailored to the inframammary line and was loosely closed and suction assisted lipectomy dry was done for the superior pole of the chest. Then continued closing with interrupted #0 Vicryl and #3-0 Monocryl sutures to close the incision, which closed without any excess skin. A 10 mm Enrike-Baumann drain was placed through a separate stab incision. Total breast on the right 850 grams. Then we turned out attention to the left side which is in addition to the right side. The nipple areolar complex was underlying at 28 mm in diameter and there it was removed from the specimen and it was left on the back table in sterile condition in a moist lap. Then we did the left side which was a mirror procedure to the right. The single mastectomy incision was made along the inframammary line. The breast was removed using electrocautery. Hemostasis was obtained. The superior pole was not undermined and left in place. Then after the initial sutures were placed with #0 Vicryl along the inframammary line for closing the flap, dissection assisted lipectomy was done through the superior portion to even out the chest. Then a 10 mm Enrike-Baumann drain was placed through a separate stab incision, sutured in place and then we continued the closure of the inframammary line. Again, the nipple areolar complex from the left breast was also marked out at 20 mm in diameter. It was removed off the specimen and kept on the back table. Now, at this point, we have made two 28 mm in diameter openings for the new nipple areolar complex which was outlined and then the dermis was removed using a 10 blade and then the nipple areolar complex which was previously deepithelialized by Sharma scissors was sutured in place with running #4-0 chromic suture, and then the same procedure done on the right side. The nipple areolar complex new area was marked out at 28 mm in diameter and the dermis was excised and deepithelized and the nipple areolar complex was sutured in place with #4-0 chromic sutures. Both dressings were applied, pressure dressings, and Toni dressings. The patient was extubated in the operating room without any difficulties and transferred to the recovery room in stable condition. Edited 07/21/2018 @ [id number] reese
== END 2018-07-21 09:40 | disposition home or self-care (01) ==
LOC: EDSEX → M SDC 08:04 → MERGE 10:00 → M MS5PR 15:30 → M SDC 15:30 → M MS5PR 15:30 → M SDC 07-21 09:40
PROVIDERS: ADMIT Plastic Surgery Surgery of the Hand; ATTEND Plastic Surgery Surgery of the Hand
DX: F64.9 Gender identity disorder, unspecified (principal); N62 Hypertrophy of breast; F32.9 Major depressive disorder, single episode, unspecified; J45.909 Unspecified asthma, uncomplicated; G43.909 Migraine, unspecified, not intractable, without status migrainosus; K21.9 Gastro-esophageal reflux disease without esophagitis; K50.90 Crohn's disease, unspecified, without complications; M19.041 Primary osteoarthritis, right hand; F41.9 Anxiety disorder, unspecified; Z91.040 Latex allergy status; Z88.0 Allergy status to penicillin; Z91.030 Bee allergy status; Z79.899 Other long term (current) drug therapy; Z79.51 Long term (current) use of inhaled steroids; Z79.890 Hormone replacement therapy; Z80.3 Family history of malignant neoplasm of breast
CPT/HCPCS: 19304; 88300; 88305; 96374; J0131; J1100; J1170; J1885; J2250; J2270; J2405; J2710; J2765; J3010

== ENCOUNTER 2018-12-08 14:43 | Emergency (ER) | payer OTHER ==
[~2018-12-08] VITALS: Ht 162.6 cm; Wt 86.4 kg
[~2018-12-08 14:43] MED LIST changes: +PERCOCET PO
[2018-12-08 16:20] LABS: BASO # 0.1 10^3/uL (0.0-0.2); BASO % 0.4 % (0.0-1.0); EOS # 0.3 10^3/uL (0.0-0.5); EOS % 1.6 % (0.0-3.0); HEMATOCRIT 40.9 % (42.0-52.0); HEMOGLOBIN 13.6 g/dl (13.5-17.5); LYMPH # 1.9 10^3/uL (1.5-5.0); LYMPH % 11.6 % (24.0-44.0); MEAN CORPUSCULAR HEMOGLOBIN 27.7 pg (27.0-33.0); MEAN CORPUSCULAR HGB CONC 33.3 g/dl (32.0-36.5); MEAN CORPUSCULAR VOLUME 83.3 fl (80.0-96.0); MONO # 0.8 10^3/uL (0.0-0.8); NEUTROPHILS # 13.4 10^3/uL (1.5-8.5); PLATELET COUNT, AUTOMATED 333 10^3/uL (150-450); RED BLOOD COUNT 4.91 10^6/uL (4.30-6.10); WHITE BLOOD COUNT 16.5 10^3/uL (4.0-10.0)
[2018-12-08] MEDS ORDERED: PROMETHAZINE INJ 25 MG/ML VIAL (J2550) IV ONE (16:30)
[2018-12-08] MEDS: HYDROMORPHONE HCL 0.5 MG/ 0.5 ML SYRINGE (J1170 PER 1) IV PRN ×2 (16:37→17:18)
[2018-12-08 16:48] LABS: ALBUMIN 3.9 GM/DL (3.2-5.2); ALT/SGPT 19 U/L (12-78); AMYLASE 44 U/L (25-115); BILIRUBIN,DIRECT < 0.1 MG/DL (0.0-0.2); BILIRUBIN,TOTAL 0.2 MG/DL (0.2-1.0); BLOOD UREA NITROGEN 5 MG/DL (7-18); CALCIUM LEVEL 9.2 MG/DL (8.5-10.1); CARBON DIOXIDE LEVEL 25 MEQ/L (21-32); CHLORIDE LEVEL 109 MEQ/L (98-107); CREATININE FOR GFR 1.03 MG/DL (0.70-1.30); GLOMERULAR FILTRATION RATE > 60.0 (>60); GLUCOSE, FASTING 107 MG/DL (70-100); LIPASE 61 U/L (73-393); POTASSIUM SERUM 3.6 MEQ/L (3.5-5.1); SODIUM LEVEL 141 MEQ/L (136-145); TOTAL PROTEIN 6.9 GM/DL (6.4-8.2)
[2018-12-08] MEDS ORDERED: ISOVUE-370 76% 100ML VIAL (Q9967) As Ordered ONE (16:59)
--- NOTE | 2018-12-08 17:35 | REPVR ---
PROCEDURE INFORMATION: Exam: CT Abdomen and Pelvis With Contrast Exam date and time: 12/08/2018 5:15 PM Clinical history: 28 years old, female; Abdominal pain; Additional info: Pain/n/v/d TECHNIQUE: Imaging protocol: Computed tomography of the abdomen and pelvis with intravenous contrast. Radiation optimization: All CT scans at this facility use at least one of these dose optimization techniques: automated exposure control; mA and/or kV adjustment per patient size (includes targeted exams where dose is matched to clinical indication); or iterative reconstruction. Contrast material: ISO 370; Contrast volume: 100 ml; Contrast route: IV; COMPARISON: CT ABD PELVIS WITH CONTRAST 10/19/2016 10:42 AM FINDINGS: Liver: There is a diffuse decrease in hepatic parenchymal density, consistent with fatty infiltration. Gallbladder and bile ducts: Normal. No calcified stones. No ductal dilation. Pancreas: Normal. No ductal dilation. Spleen: Normal. No splenomegaly. Adrenals: Normal. No mass. Kidneys and ureters: Normal. No hydronephrosis. Stomach and bowel: Lobular gastric contour without a visible lumen likely related to nondistention. Mild diverticulosis is present in the distal colon. No diverticulitis. Appendix: No evidence of appendicitis. Intraperitoneal space: Unremarkable. No free air. No significant fluid collection. Vasculature: Unremarkable. No abdominal aortic aneurysm. Lymph nodes: Unremarkable. No enlarged lymph nodes. Bladder: Unremarkable as visualized. Reproductive: Unremarkable as visualized. Bones/joints: Unremarkable. No acute fracture. Soft tissues: Unremarkable. IMPRESSION: 1. There is a diffuse decrease in hepatic parenchymal density, consistent with fatty infiltration. 2. Lobular gastric contour without a visible lumen likely related to nondistention. Clinical correlation to exclude other pathology suggested. 3. Mild diverticulosis is present in the distal colon. No diverticulitis. Electronically signed by: Aguilar May On 12/08/2018 17:35:19 PM
[2018-12-08] MEDS ORDERED: PROC10TA4 PO (19:21)
[2018-12-08] MEDS ORDERED: OXYC1TAB23 PO ×2 (19:21→19:23)
[2018-12-08 19:45] VITALS: BP 136/73
== END 2018-12-08 19:59 | disposition home or self-care (01) ==
LOC: EDBD 14:43 → M ED 14:43
DX: K58.0 Irritable bowel syndrome with diarrhea (principal); R10.9 Unspecified abdominal pain; R11.2 Nausea with vomiting, unspecified; F32.9 Major depressive disorder, single episode, unspecified; J45.909 Unspecified asthma, uncomplicated; G43.909 Migraine, unspecified, not intractable, without status migrainosus; Z88.0 Allergy status to penicillin; Z91.040 Latex allergy status; Z91.030 Bee allergy status; Z79.899 Other long term (current) drug therapy
CPT/HCPCS: 74177; 80048; 80076; 82150; 83690; 85025; 87507; 93041; 96374; 96375; 96376; 99284; J1170; Q9967

== ENCOUNTER → 2019-01-12 | Outpatient (REF) | payer OTHER ==
[~2019-01-12] MED LIST changes: -OMEP40CA2 PO; +OMEP40CA97 PO; +OXYC1TAB23 PO; +PROC10TA4 PO
[2019-01-12 17:42] LABS: BASO % 0.3 % (0.0-1.0); EOS # 0.3 10^3/uL (0.0-0.5); EOS % 2.8 % (0.0-3.0); HEMATOCRIT 45.9 % (42.0-52.0); HEMOGLOBIN 14.4 g/dl (13.5-17.5); LYMPH # 2.8 10^3/uL (1.5-5.0); LYMPH % 23.8 % (24.0-44.0); MEAN CORPUSCULAR HEMOGLOBIN 27.2 pg (27.0-33.0); MEAN CORPUSCULAR HGB CONC 31.4 g/dl (32.0-36.5); MEAN CORPUSCULAR VOLUME 86.8 fl (80.0-96.0); MONO # 0.7 10^3/uL (0.0-0.8); MONO % 5.5 % (0.0-5.0); NEUTROPHILS % 67.3 % (36.0-66.0); PLATELET COUNT, AUTOMATED 351 10^3/uL (150-450); RED BLOOD COUNT 5.29 10^6/uL (4.30-6.10); WHITE BLOOD COUNT 11.9 10^3/uL (4.0-10.0)
[2019-01-12 17:54] LABS: HEMOGLOBIN A1c 5.7 %
[2019-01-12 17:56] LABS: ALBUMIN 3.9 GM/DL (3.2-5.2); ALT/SGPT 27 U/L (12-78); BILIRUBIN,TOTAL 0.2 MG/DL (0.2-1.0); BLOOD UREA NITROGEN 8 MG/DL (7-18); CARBON DIOXIDE LEVEL 29 MEQ/L (21-32); CHLORIDE LEVEL 108 MEQ/L (98-107); CHOLESTEROL LEVEL 190 MG/DL (<200); CHOLESTEROL RISK RATIO 4.634 (<5); CREATININE FOR GFR 1.08 MG/DL (0.70-1.30); GLOMERULAR FILTRATION RATE > 60.0 (>60); GLUCOSE, FASTING 94 MG/DL (70-100); HDL CHOLESTEROL 41 MG/DL (>40); LDL CHOLESTEROL 132 MG/DL (<100); NON-HDL-C 149 MG/DL; POTASSIUM SERUM 4.5 MEQ/L (3.5-5.1); SODIUM LEVEL 142 MEQ/L (136-145); TESTOSTERONE 407 NG/DL (241-827); TOTAL PROTEIN 7.5 GM/DL (6.4-8.2); TRIGLYCERIDES LEVEL 87 MG/DL (<150)
== END ==
LOC: M LAB REF 16:44
PROVIDERS: ATTEND Nurse Practitioner Adult Health
DX: Z79.890 Hormone replacement therapy (principal)

== ENCOUNTER 2019-03-25 00:52 | Observation (INO) | payer OTHER, SELFPAY ==
[~2019-03-25] VITALS: Ht 162.6 cm; Wt 81.8 kg
[2019-03-25 01:42] LABS: BASO # 0.1 10^3/uL (0.0-0.2); BASO % 0.4 % (0.0-1.0); EOS # 0.6 10^3/uL (0.0-0.5); EOS % 4.6 % (0.0-3.0); HEMATOCRIT 45.8 % (42.0-52.0); HEMOGLOBIN 14.4 g/dl (13.5-17.5); LYMPH # 3.8 10^3/uL (1.5-5.0); LYMPH % 29.3 % (24.0-44.0); MEAN CORPUSCULAR HEMOGLOBIN 26.9 pg (27.0-33.0); MEAN CORPUSCULAR HGB CONC 31.4 g/dl (32.0-36.5); MEAN CORPUSCULAR VOLUME 85.4 fl (80.0-96.0); MONO # 0.7 10^3/uL (0.0-0.8); MONO % 5.4 % (0.0-5.0); NEUTROPHILS # 7.7 10^3/uL (1.5-8.5); NEUTROPHILS % 59.8 % (36.0-66.0); PLATELET COUNT, AUTOMATED 261 10^3/uL (150-450); RED BLOOD COUNT 5.36 10^6/uL (4.30-6.10); WHITE BLOOD COUNT 12.8 10^3/uL (4.0-10.0)
[2019-03-25 02:07] LABS: ALT/SGPT 20 U/L (12-78); BILIRUBIN,DIRECT 0.1 MG/DL (0.0-0.2); BILIRUBIN,TOTAL 0.2 MG/DL (0.2-1.0); BLOOD UREA NITROGEN 11 MG/DL (7-18); CALCIUM LEVEL 9.5 MG/DL (8.5-10.1); CARBON DIOXIDE LEVEL 23 MEQ/L (21-32); CHLORIDE LEVEL 106 MEQ/L (98-107); CREATININE FOR GFR 1.17 MG/DL (0.70-1.30); GLOMERULAR FILTRATION RATE > 60.0 (>60); GLUCOSE, FASTING 99 MG/DL (70-100); LIPASE 92 U/L (73-393); POTASSIUM SERUM 3.7 MEQ/L (3.5-5.1); SODIUM LEVEL 141 MEQ/L (136-145); TOTAL PROTEIN 7.7 GM/DL (6.4-8.2)
[2019-03-25] MEDS ORDERED: PROMETHAZINE INJ 25 MG/ML VIAL (J2550) IV ONE ×2 (02:45→19:00)
[2019-03-25] MEDS ORDERED: ISOVUE-370 76% 100ML VIAL (Q9967) As Ordered ONE (02:49)
[2019-03-25] MEDS ORDERED: NS 1,000 ML IV ONE (03:45)
[2019-03-25] MEDS: MORPHINE 4 MG/ML 1ML VIAL/SYRINGE (J2270) IV PRN ×2 (03:45→06:34)
[2019-03-25 04:50] LABS: AMPHETAMINES LEVEL URINE NEGATIVE (NEGATIVE); BARBITURATES URINE NEGATIVE (NEGATIVE); BENZODIAZEPINES URINE NEGATIVE (NEGATIVE); CANNABINOIDS URINE POSITIVE (NEGATIVE); COCAINE METABOLITE URINE NEGATIVE (NEGATIVE); METHADONE URINE NEGATIVE (NEGATIVE); OPIATES URINE POSITIVE (NEGATIVE); PHENCYCLIDINE URINE NEGATIVE (NEGATIVE)
[2019-03-25] MEDS ORDERED: HALOPERIDOL 5 MG/ML VIAL (J1630) IV ONE ×2 (06:00→18:15)
--- NOTE | 2019-03-25 06:08 | REPVR ---
PROCEDURE INFORMATION: Exam: CT Abdomen And Pelvis With Contrast Exam date and time: 03/25/2019 2:43 AM Age: 29 years old Clinical indication: Vomiting; Additional info: Generalized abd pain, intractable vomiting TECHNIQUE: Imaging protocol: Computed tomography of the abdomen and pelvis with intravenous contrast. Radiation optimization: All CT scans at this facility use at least one of these dose optimization techniques: automated exposure control; mA and/or kV adjustment per patient size (includes targeted exams where dose is matched to clinical indication); or iterative reconstruction. Contrast material: ISO; Contrast volume: 100 ml; Contrast route: HAND; COMPARISON: CT ABD/PEL W/IV CONTRAST ONLY 2018-12-08 17:03 FINDINGS: Liver: Normal. No mass. Gallbladder and bile ducts: Normal. No calcified stones. No ductal dilation. Pancreas: Normal. No ductal dilation. Spleen: Normal. No splenomegaly. Adrenals: Normal. No mass. Kidneys and ureters: Normal. No hydronephrosis. Stomach and bowel: Irregular and thickened gastric cardia region with apparent mass measuring 6.6 x 4 cm near the gastroesophageal junction with contraction of the stomach, recommend upper GI fluoroscopic study and GI consultation. Subtly irregular gastroesophageal junction. Couple small colonic diverticula. Appendix: No evidence of appendicitis. Intraperitoneal space: Unremarkable. No free air. No significant fluid collection. Vasculature: Unremarkable. No abdominal aortic aneurysm. Lymph nodes: Unremarkable. No enlarged lymph nodes. Bladder: Unremarkable as visualized. Reproductive: Unremarkable as visualized. Bones/joints: Small L5-S1 central disc extrusion. Soft tissues: Unremarkable. IMPRESSION: Irregular and thickened gastric cardia region with apparent mass measuring 6.6 x 4 cm near the gastroesophageal junction with contraction of the stomach, recommend upper GI fluoroscopic study and GI consultation. Electronically signed by: Christian Jones On 03/25/2019 06:07:29 AM
[2019-03-25] MEDS ORDERED: TEST200I14 IM (07:27)
[2019-03-25] MEDS ORDERED: ONDA4TAB5 PO (07:58)
[2019-03-25] MEDS ORDERED: VENTAER INH (07:58)
[2019-03-25] MEDS ORDERED: PROM25TA12 PO (07:58)
[2019-03-25] MEDS ORDERED: OMEP-172 PO (07:58)
[2019-03-25] MEDS ORDERED: PROC10TA4 PO (09:20)
[2019-03-25] MEDS ORDERED: QUET200T2 PO (09:20)
[2019-03-25] MEDS ORDERED: QUET1TAB8 PO (09:20)
[2019-03-25] MEDS ORDERED: PROCHLORPERAZINE 5 MG TAB (S0183) PO PRN (10:00)
[2019-03-25] MEDS: NS 1,000 ML IV SCH ×2 (10:33→20:09)
[2019-03-25] MEDS: DICYCLOMINE 10 MG CAP PO SCH ×4 (10:33→20:08)
[2019-03-25] MEDS: METOCLOPRAMIDE INJ 10MG/2ML VIAL (J2765) IV SCH ×2 (11:00→16:37)
[2019-03-25] MEDS ORDERED: E-Z-GAS II EFFERVESCENT PACKET (SODIUM BICARB./CITRIC ACID/SIMETHICONE) As Ordered ONE (11:10)
[2019-03-25] MEDS ORDERED: E-Z-PAQUE 96% w/w SUSP 176GM BTL As Ordered ONE (11:10)
[2019-03-25] MEDS ORDERED: E-Z-HD 98% w/w 340GM SUSP BTL As Ordered ONE (11:11)
--- NOTE | 2019-03-25 11:44 | HPEPDOC ---
[facility] Medical History & Physical Date of Admission Mar 25, 2019 Date of Service: Mar 25, 2019 Attending Physician: VERA GÓMEZ MD History and Physical CHIEF COMPLAINT: abdominal pain, nausea/vomiting/diarrhea HISTORY OF PRESENT ILLNESS: Matthew Escalante is a 29 YO transgender F to M with history of Crohn's disease and current marijuana use who presents with about 4-5 days of abdominal pain, intractable vomiting, nausea and diarrhea. He reports that he was seen at [facility] on the 03/21/19 where he had an abdominal CT scan which was found to be normal. He has not been able to keep any food or drink down and he reports that the pain in his belly is 10/10 at its worst. He has tried taking Zofran at home, which does not work for him. He denies any fevers, chills at this time. He does report that he seldom gets Crohn's flares (his last was over a year ago) and he treats these flares with marijuana and hot baths. PAST MEDICAL HISTORY: 1. Crohn's disease 2. Celiac disease 3. Lactose intolerance 4. Asthma 5. Bipolar disorder 6. Depression/Anxiety 7. PTSD PAST SURGICAL HISTORY: 1. Tonsillectomy 2. Adenoidectomy 3. Chest masculinization procedure (July 2018) SOCIAL HISTORY: Smokes marijuana 3-4x/week Denies EtOH Denies other drug use FAMILY HISTORY: Maternal aunt with Inflammatory bowel disease, unspecified ALLERGIES: Please see below. REVIEW OF SYSTEMS: CONSTITUTIONAL: feels subjectively warm/sweaty HEENT: denies vision changes, no sinus problems, denies any trouble swallowing CARDIOVASCULAR: no palpitations RESPIRATORY: Denies any shortness of breath GENITOURINARY: No dysuria MUSCULOSKELETAL: Denies any joint/muscle pain GASTROINTESTINAL: Reports abdominal pain and nausea, diarrhea SKIN: No new rashes or lesions NEUROLOGICAL: No loss of sensation PSYCHIATRIC: Reports normal mood, no delusions or hallucinations ENDOCRINE: No hot/cold intolerance HEMATOLOGIC/LYMPHATIC: No easy bruising, no lumps/bumps ALLERGIC/IMMUNOLOGIC: No sinus symptoms HOME MEDICATIONS: Please see below. PHYSICAL EXAMINATION: VITAL SIGNS: Please see below. GENERAL APPEARANCE: Laying in bed, appears stated age, no acute distress, calm, cooperative HEENT: EOMI, PERRLA, neck is supple with no thyromegaly or lymphadenopathy, patient has nose and lip rings RESPIRATORY: Lungs are clear to auscultation bilaterally with no adventitious breath sounds appreciated CARDIOVASCULAR: no JVD, RRR,no murmurs/rubs/gallops ABDOMEN: Soft, nontender to deep palpation in all four quadrants, no masses/o rganomegaly, +BS EXTREMITIES: no clubbing, cyanosis or edema noted NEUROLOGICAL: No obvious focal deficits PSYCHIATRIC: normal mood/affect Skin: No rashes or ulcers. LN: No significant cervical or inguinal lymphadenopathy LABORATORY DATA: See below. IMAGING: CT ABD/PEL W/IV CONTRAST (03/25/2019): IMPRESSION: Irregular and thickened gastric cardia region with apparent mass measuring 6.6 x 4 cm near the gastroesophageal junction with contraction of the stomach, recommend upper GI fluoroscopic study and GI consultation. MICROBIOLOGY: Please see below. ASSESSMENT: This is a 29-year-old male with history of Crohn's disease and marijuana use who presents with intractable nausea, vomiting, likely secondary to Crohn's flare versus cyclic vomiting syndrome for marijuana use. . PLAN: 1. Intractable nausea/vomiting: Patient reports marijuana use 3-4 times per week and was found to be positive on tox screen. His last Crohn's flare was over a year ago. He does not currently follow with any GI doctor in [facility]. -CT abdomen performed in ED, concerning for thickening at the GE junction with contraction of the stomach. This is been discussed with Dr. Carmona of general surgery, and plan is to have upper GI and small bowel follow-through for further evaluation. -Patient will be started on IV fluids, Bentyl, Reglan for symptomatic control -Will upgrade diet as tolerated -Minimally elevated white blood cell count at 12.8. We will trend no indication for antibiotic treatment at this time -Metabolic panel within normal limits 2. Crohn's disease: -Patient needs to reestablish with gastroenterology after discharge for possible EGD/colonoscopy -He is not currently on any maintenance medication for his Crohn's disease, but does experience flares, which she treats symptomatically 3. Marijuana use and possible cyclic vomiting syndrome: -Will need to be educated on signs and symptoms of disease, will follow with gastroenterology DVT ppx: TEDs/SCDs DISPO: Pending result of abdominal x-ray with small bowel follow-through, tolerance of diet. Vital Signs Vital Signs Date Time Temp Pulse Resp B/P (MAP) Pulse Ox O2 Delivery O2 Flow Rate FiO2 03/25/19 10:38 100 20 133/81 (98) 100 Room Air 03/25/19 07:45 97.0 Laboratory Data Labs 24H Laboratory Tests 2 03/25/19 01:28: Immature Granulocyte % (Auto) 0.5, Neutrophils (%) (Auto) 59.8, Lymphocytes (%) (Auto) 29.3, Monocytes (%) (Auto) 5.4H, Eosinophils (%) (Auto) 4.6H, Basophils (%) (Auto) 0.4, Neutrophils # (Auto) 7.7, Lymphocytes # (Auto) 3.8, Monocytes # (Auto) 0.7, Eosinophils # (Auto) 0.6H, Basophils # (Auto) 0.1, Nucleated Red Blood Cells % (auto) 0.0, Anion Gap 12, Glomerular Filtration Rate > 60.0, Calcium Level 9.5, Total Bilirubin 0.2, Direct Bilirubin 0.1, Aspartate Amino Transf (AST/SGOT) 20, Alanine Aminotransferase (ALT/SGPT) 20, Alkaline Phosphatase 87, Total Protein 7.7, Albumin 4.0, Albumin/Globulin Ratio 1.08, Lipase 92 03/25/19 04:10: Urine Color STRAW, Urine Appearance CLEAR, Urine pH 9.0, Urine Specific [place] 1.048, Urine Protein NEGATIVE, Urine Glucose (UA) NEGATIVE, Urine Ketones 1+H, Urine Blood NEGATIVE, Urine Nitrite NEGATIVE, Urine Bilirubin NEGATIVE, Urine Urobilinogen 0.2, Urine Leukocyte Esterase NEGATIVE, Urine WBC (Auto) 1, Urine RBC (Auto) 1, Urine Hyaline Casts (Auto) 0, Urine Bacteria (Auto) NEGATIVE, Urine Squamous Epithelial Cells 1, Urine Mucus (Auto) SMALL, Urine Sperm (Auto) , Urine Opiates Screen POSITIVEH, Urine Methadone Screen NEGATIVE, Urine Barbiturates Screen NEGATIVE, Urine Phencyclidine Screen NEGATIVE, Urine Amphetamines Screen NEGATIVE, Urine Benzodiazepines Screen NEGATIVE, Urine Cocaine Metabolite Screen NEGATIVE, Urine Cannabinoids Screen POSITIVEH 03/25/19 05:40: POC Beta HCG, Quantitative < 5.0 CBC/BMP Laboratory Tests 03/25/19 01:28 Home Medications Scheduled Cetirizine HCl (Cetirizine HCl) 10 Mg Tab, 10 MG PO DAILY PT TAKES WITH LORATADINE Dicyclomine HCl (Dicyclomine HCl) 10 Mg Capsule, 10 MG PO QID Loratadine (Loratadine) 10 Mg Tab, 10 MG PO DAILY PT TAKES WITH CETIRIZINE Montelukast Sodium (Singulair) 10 Mg Tablet, 10 MG PO DAILY Omeprazole (Omeprazole) 20 Mg Capsule.dr, 20 MG PO BID Quetiapine Fumarate (Quetiapine Fumarate) 200 Mg Tablet, 200 MG PO QHS TAKES WITH 100MG DOSE FOR 300MG TOTAL AT HS Quetiapine Fumarate (Quetiapine Fumarate) 100 Mg Tablet, 100 MG PO QHS TAKES WITH 200MG DOSE FOR 300MG TOTAL AT HS Sucralfate (Sucralfate) 1 Gm Tab, 1 GM PO ACHS Testosterone Cypionate (Testosterone Cypionate) 200 Mg/1 Ml Vial, 0.5 M IM QWEEK WEDNESDAYS Scheduled PRN Albuterol Sulfate (Ventolin Hfa) 18 Gm Hfa.aer.ad, 2 PUFF INH QID PRN for SHORTNESS OF BREATH Hydroxyzine HCl (Hydroxyzine HCl) 10 Mg Tablet, 10 MG PO BID PRN for ANXIETY Ondansetron HCl (Ondansetron HCl) 4 Mg Tablet, 4 MG PO Q8H PRN for NAUSEA OR VOMITING Prochlorperazine Maleate (Prochlorperazine Maleate) 10 Mg Tablet, 10 MG PO Q6H PRN for NAUSEA OR VOMITING Promethazine HCl (Promethazine HCl) 25 Mg Tablet, 25 MG PO Q6HP PRN for NAUSEA Allergies Coded Allergies: bee venom protein (honey bee) (Verified Allergy, Severe, anaphylaxis, 07/05/18) latex (Verified Allergy, Severe, resp issues, 07/05/18) amoxicillin (Verified Allergy, Intermediate, infections, rash, 07/05/18) A-FIB/CHADSVASC A-FIB History Current/History of A-Fib/PAF?: No GME ATTESTATION GME ATTESTATION My faculty preceptor for this patient encounter was physically present during the encounter and was fully available. All aspects of the patient interview, examination, medical decision making process, and medical care plan development were reviewed and approved by the faculty preceptor. The faculty preceptor is aware and concurs with the plan as stated in the body of this note and will attest to such by his/her cosignature. ATTENDING NOTE I, Vera Gómez, have independently examined this patient and performed my own physical exam, as well as reviewed the documentation and edited where necessary. I have discussed in detail with the resident / student the findings and plan of treatment as documented by the resident / student and edited their note. I agree with their findings and treatment plan and have edited their documentation. I will continue to follow the patient during this hospital stay. FRANNY XIAO MD Mar 25, 2019 11:44 VERA GÓMEZ MD Mar 26, 2019 12:59
[2019-03-25] MEDS ORDERED: MORPHINE 4 MG/ML 1ML VIAL/SYRINGE (J2270) IV PRN (13:45)
[2019-03-25 14:04] VITALS: BP 130/78
[2019-03-25] MEDS ORDERED: METOCLOPRAMIDE INJ 10MG/2ML VIAL (J2765) IV PRN (18:00)
[2019-03-25] MEDS ORDERED: ONDANSETRON 4MG/2ML VIAL (J2405) IV PRN (18:45)
--- NOTE | 2019-03-25 18:53 | REP ---
Upper GI Air Contrast with SBFT The procedure was performed by VANE Frost, under the the direct supervision of [ ]. The images were reviewed with [ ]. The junk removal specialist film shows no organomegaly or pathological masses. The intestinal gas pattern appears normal. Liquid barium and gas producing crystals were given in the erect position as well as liquid barium in the prone position in order to perform a double contrast upper GI examination. The oral and pharyngeal stages of deglutition were unremarkable. Esophageal transport is efficient and there is no esophagitis, stricture, or mucosal ring noted. There is no hiatal hernia. Gastroesophageal reflux as visualized to the level the hanna. The stomach andrews are normally outlined. The rugal folds are smooth and regular. There is no gastritis, neoplasm, or ulcer disease noted. The duodenal andrews are normally outlined. The mucosal folds are smooth and regular. There is no duodenitis, peptic ulcer disease, or neoplasm noted. The visualized portion of the proximal small bowel appears normal in course and caliber. The barium column was followed through the small bowel to the level of the terminal ileum. Small bowel transit time was approximately 220 minutes. During fluoroscopy gentle palpation shows all loops are freely mobile and pliable. There are no fixed or angulated loops. The small bowel mucosal pattern is normal in course and caliber. There is no transition to set suggest a partial small-bowel obstruction. Spot filming of the terminal ileum shows it to be unremarkable. Impression: 1. Gastroesophageal reflux to the level of the hanna. 1.0 minutes of fluoroscopy time was utilized for this procedure. Some fluoroscopic images are performed with last image hold technology. These images require no additional radiation. Reviewed by VANE Aparicio 03/25/2019 05:27 P Electronically Signed by Jude Tate MD 03/25/2019 06:44 P
[2019-03-25 22:00] VITALS: BP 137/84
[2019-03-26 06:00] VITALS: BP 144/87
[2019-03-26 08:14] LABS: BASO # 0.1 10^3/uL (0.0-0.2); BASO % 0.4 % (0.0-1.0); EOS # 0.2 10^3/uL (0.0-0.5); EOS % 1.7 % (0.0-3.0); HEMATOCRIT 46.3 % (42.0-52.0); LYMPH # 3.1 10^3/uL (1.5-5.0); LYMPH % 24.3 % (24.0-44.0); MEAN CORPUSCULAR HGB CONC 32.4 g/dl (32.0-36.5); MEAN CORPUSCULAR VOLUME 86.4 fl (80.0-96.0); MONO # 0.8 10^3/uL (0.0-0.8); MONO % 6.1 % (0.0-5.0); NEUTROPHILS # 8.4 10^3/uL (1.5-8.5); NEUTROPHILS % 66.9 % (36.0-66.0); PLATELET COUNT, AUTOMATED 283 10^3/uL (150-450); RED BLOOD COUNT 5.36 10^6/uL (4.30-6.10); WHITE BLOOD COUNT 12.6 10^3/uL (4.0-10.0)
[2019-03-26 08:39] LABS: BLOOD UREA NITROGEN 8 MG/DL (7-18); CALCIUM LEVEL 8.6 MG/DL (8.5-10.1); CARBON DIOXIDE LEVEL 25 MEQ/L (21-32); CHLORIDE LEVEL 107 MEQ/L (98-107); CREATININE FOR GFR 0.98 MG/DL (0.70-1.30); GLOMERULAR FILTRATION RATE > 60.0 (>60); GLUCOSE, FASTING 108 MG/DL (70-100); POTASSIUM SERUM 3.7 MEQ/L (3.5-5.1); SODIUM LEVEL 139 MEQ/L (136-145)
[2019-03-26] MEDS: DICYCLOMINE 10 MG CAP PO SCH (08:43)
--- NOTE | 2019-03-26 10:23 | DS.PDOC ---
Discharge Summary General Date of Admission Mar 25, 2019 at 00:53 Date of Discharge March 26, 2019 Attending Physician: VERA MARIN MD Discharge Summary PROCEDURES PERFORMED DURING STAY: NONE ADMITTING DIAGNOSES: 1. Intractable nausea/vomiting 2. Crohns disease DISCHARGE DIAGNOSES: 1. Possible cyclic vomiting syndrome 2. Crohns disease COMPLICATIONS/CHIEF COMPLAINT: Cyclic Vomiting Syndrome. HISTORY OF PRESENT ILLNESS: Matthew Escalante is a 29 YO transgender F to M with history of Crohn's disease and current marijuana use who presents with about 4-5 days of abdominal pain, intractable vomiting, nausea and diarrhea. He reports that he was seen at [facility] on the 03/21/19 where he had an abdominal CT scan which was found to be normal. He has not been able to keep any food or drink down and he reports that the pain in his belly is 10/10 at its worst. He has tried taking Zofran at home, which does not work for him. He denies any fevers, chills at this time. He does report that he seldom gets Crohn's flares (his last was over a year ago) and he treats these flares with marijuana and hot baths. HOSPITAL COURSE: Patient was admitted for symptomatic treatment of cyclic vomiting syndrome vs crohns flare. He was started on IV morphine for pain, Bentyl, reglan, compazine, and IVF with bowel rest. His initial CT abd/pelvis read was concerning for mass at the GE junction so case and imaging were reviewed with General surgery attending senior sustainability consultant. An upper GI XR with small bowel follow through was ordered and was found to be normal. The patient did have some abdominal pain and nausea on hospital day #1 which was relieved by aforementioned medications. On hospital day #2 the patient was tolerating a full diet and no longer complained of abdominal pain or nausea. He was sent home with plan to follow up with Gastroenterology within 2 weeks. DISCHARGE MEDICATIONS: Please see below. ALLERGIES: Please see below. PHYSICAL EXAMINATION ON DISCHARGE: GENERAL APPEARANCE: Laying in bed, appears stated age, no acute distress, calm, cooperative HEENT: EOMI, PERRLA, neck is supple with no thyromegaly or lymphadenopathy, patient has nose and lip rings RESPIRATORY: Lungs are clear to auscultation bilaterally with no adventitious breath sounds appreciated CARDIOVASCULAR: no JVD, RRR,no murmurs/rubs/gallops ABDOMEN: Soft, nontender to deep palpation in all four quadrants, no masses/organomegaly, +BS EXTREMITIES: no clubbing, cyanosis or edema noted NEUROLOGICAL: No obvious focal deficits PSYCHIATRIC: normal mood/affect Skin: No rashes or ulcers. LN: No significant cervical or inguinal lymphadenopathy LABORATORY DATA: Please see below. IMAGING: CT ABD/PEL W/IV CONTRAST (03/25/2019): IMPRESSION: Irregular and thickened gastric cardia region with apparent mass measuring 6.6 x 4 cm near the gastroesophageal junction with contraction of the stomach, recommend upper GI fluoroscopic study and GI consultation. UPPER GI & SMALL BOWEL XR (03/25/19): The barium column was followed through the small bowel to the level of the terminal ileum. Small bowel transit time was approximately 220 minutes. During fluoroscopy gentle palpation shows all loops are freely mobile and pliable. There are no fixed or angulated loops. The small bowel mucosal pattern is normal in course and caliber. There is no transition to set suggest a partial small-bowel obstruction. Spot filming of the terminal ileum shows it to be unremarkable. Impression: 1. Gastroesophageal reflux to the level of the hanna. PROGNOSIS: fair ACTIVITY: [As tolerated]. DIET: as tolerated DISCHARGE PLAN: Home DISPOSITION: 01 Home, Self-Care. DISCHARGE INSTRUCTIONS: 1. Follow up with GI within 2 weeks 2. Return to the ER if you experience any problems ITEMS TO FOLLOWUP ON ON OUTPATIENT: 1. none DISCHARGE CONDITION: [Stable]. Vital Signs/I&Os Vital Signs Date Time Temp Pulse Resp B/P (MAP) Pulse Ox O2 Delivery O2 Flow Rate FiO2 03/26/19 06:00 98.5 65 19 144/87 (106) 98 Room Air I&O- Last 24 Hours up to 6 AM 03/26/19 05:59 Intake Total 1630 ml Output Total 500 ml Balance 1130 ml Laboratory Data Labs 24H Laboratory Tests 2 03/26/19 08:01: Immature Granulocyte % (Auto) 0.6, Neutrophils (%) (Auto) 66.9H, Lymphocytes (%) (Auto) 24.3, Monocytes (%) (Auto) 6.1H, Eosinophils (%) (Auto) 1.7, Basophils (%) (Auto) 0.4, Neutrophils # (Auto) 8.4, Lymphocytes # (Auto) 3.1, Monocytes # (Auto) 0.8, Eosinophils # (Auto) 0.2, Basophils # (Auto) 0.1, Nucleated Red Blood Cells % (auto) 0.0, Anion Gap 7L, Glomerular Filtration Rate > 60.0, Calcium Level 8.6 CBC/BMP Laboratory Tests 03/26/19 08:01 Discharge Medications Scheduled Cetirizine HCl (Cetirizine HCl) 10 Mg Tab, 10 MG PO DAILY, (Reported) PT TAKES WITH LORATADINE Dicyclomine HCl (Dicyclomine HCl) 10 Mg Capsule, 10 MG PO QID, (Reported) Loratadine (Loratadine) 10 Mg Tab, 10 MG PO DAILY, (Reported) PT TAKES WITH CETIRIZINE Montelukast Sodium (Singulair) 10 Mg Tablet, 10 MG PO DAILY, (Reported) Omeprazole (Omeprazole) 20 Mg Capsule.dr, 20 MG PO BID, (Reported) Quetiapine Fumarate (Quetiapine Fumarate) 200 Mg Tablet, 200 MG PO QHS, (Reported) TAKES WITH 100MG DOSE FOR 300MG TOTAL AT HS Quetiapine Fumarate (Quetiapine Fumarate) 100 Mg Tablet, 100 MG PO QHS, (Reported) TAKES WITH 200MG DOSE FOR 300MG TOTAL AT HS Sucralfate (Sucralfate) 1 Gm Tab, 1 GM PO ACHS, (Reported) Testosterone Cypionate (Testosterone Cypionate) 200 Mg/1 Ml Vial, 0.5 M IM QWEEK, (Reported) WEDNESDAYS Scheduled PRN Albuterol Sulfate (Ventolin Hfa) 18 Gm Hfa.aer.ad, 2 PUFF INH QID PRN for SHORTNESS OF BREATH, (Reported) Hydroxyzine HCl (Hydroxyzine HCl) 10 Mg Tablet, 10 MG PO BID PRN for ANXIETY, (Reported) Ondansetron HCl (Ondansetron HCl) 4 Mg Tablet, 4 MG PO Q8H PRN for NAUSEA OR VOMITING, (Reported) Prochlorperazine Maleate (Prochlorperazine Maleate) 10 Mg Tablet, 10 MG PO Q6H PRN for NAUSEA OR VOMITING, (Reported) Promethazine HCl (Promethazine HCl) 25 Mg Tablet, 25 MG PO Q6HP PRN for NAUSEA, (Reported) Allergies Coded Allergies: bee venom protein (honey bee) (Verified Allergy, Severe, anaphylaxis, 07/05/18) latex (Verified Allergy, Severe, resp issues, 07/05/18) amoxicillin (Verified Allergy, Intermediate, infections, rash, 07/05/18) GME ATTESTATION GME ATTESTATION My faculty preceptor for this patient encounter was physically present during the encounter and was fully available. All aspects of the patient interview, e xamination, medical decision making process, and medical care plan development were reviewed and approved by the faculty preceptor. The faculty preceptor is aware and concurs with the plan as stated in the body of this note and will attest to such by his/her cosignature. ATTENDING NOTE I, Vera Marin, have independently examined this patient and performed my own physical exam, as well as reviewed the documentation and edited where necessary. I have discussed in detail with the resident / student the findings and plan of treatment as documented by the resident / student and edited their note. I agree with their findings and treatment plan and have edited their documentation. I will continue to follow the patient during this hospital stay. Time spent on discharge 23 minutes FRANNY XIAO MD Mar 26, 2019 10:22 VERA MARIN MD Mar 26, 2019 13:17
== END 2019-03-26 10:00 | disposition home or self-care (01) ==
LOC: M ED 00:52 → M ED INP 00:53 → ENRESERV 10:36 → M MS5PR 13:36
PROVIDERS: ADMIT Internal Medicine; ATTEND Internal Medicine
DX: R11.15 Cyclical vomiting syndrome unrelated to migraine (principal); K50.90 Crohn's disease, unspecified, without complications; F12.10 Cannabis abuse, uncomplicated; K90.0 Celiac disease; E73.9 Lactose intolerance, unspecified; J45.909 Unspecified asthma, uncomplicated; F31.9 Bipolar disorder, unspecified; F43.10 Post-traumatic stress disorder, unspecified; Z91.030 Bee allergy status; Z91.040 Latex allergy status; Z79.899 Other long term (current) drug therapy
CPT/HCPCS: 36415; 74177; 74248; 80048; 80076; 80307; 81001; 83690; 84702; 85025; 96361; 96374; 96375; 96376; 99285; J1630; J2270; J2765; Q9967

== ENCOUNTER 2019-04-12 23:05 | Emergency (ER) | payer SELFPAY ==
[~2019-04-12] VITALS: Ht 162.6 cm; Wt 83.6 kg
[~2019-04-12 23:05] MED LIST changes: +OMEP1CAP73 PO; +ONDA-83 PO; +PROM25TA12 PO; +QUET1TAB8 PO; +QUET200T2 PO; +TEST200I14 IM; +VENTAER INH
[2019-04-13] MEDS ORDERED: MORPHINE 4 MG/ML 1ML VIAL/SYRINGE (J2270) IV ONE (03:45)
[2019-04-13 04:14] VITALS: BP 122/67
== END 2019-04-13 04:16 | disposition home or self-care (01) ==
LOC: M ED 23:05
DX: G43.909 Migraine, unspecified, not intractable, without status migrainosus (principal); J45.909 Unspecified asthma, uncomplicated; F31.9 Bipolar disorder, unspecified; Z79.899 Other long term (current) drug therapy; Z88.0 Allergy status to penicillin; Z91.030 Bee allergy status; Z91.040 Latex allergy status
CPT/HCPCS: 96374; 99283; J2270

== ENCOUNTER 2019-05-23 14:39 | Emergency (ER) | payer MEDICAID, SELFPAY ==
[~2019-05-23] VITALS: Ht 162.6 cm; Wt 87.1 kg
[~2019-05-23 14:39] MED LIST changes: +QUET100T2 PO; -QUET1TAB8 PO
[2019-05-23 15:22] LABS: BASO % 0.2 % (0.0-1.0); EOS # 0.1 10^3/uL (0.0-0.5); EOS % 0.5 % (0.0-3.0); HEMATOCRIT 43.3 % (42.0-52.0); HEMOGLOBIN 14.3 g/dl (13.5-17.5); LYMPH # 1.5 10^3/uL (1.5-5.0); LYMPH % 11.8 % (24.0-44.0); MEAN CORPUSCULAR HEMOGLOBIN 28.5 pg (27.0-33.0); MEAN CORPUSCULAR VOLUME 86.3 fl (80.0-96.0); MONO # 0.5 10^3/uL (0.0-0.8); MONO % 3.8 % (0.0-5.0); NEUTROPHILS # 10.4 10^3/uL (1.5-8.5); NEUTROPHILS % 83.2 % (36.0-66.0); PLATELET COUNT, AUTOMATED 250 10^3/uL (150-450); RED BLOOD COUNT 5.02 10^6/uL (4.30-6.10); WHITE BLOOD COUNT 12.5 10^3/uL (4.0-10.0)
[2019-05-23] MEDS ORDERED: ONDANSETRON 4MG/2ML VIAL (J2405) IV ONE (15:45)
[2019-05-23] MEDS ORDERED: NS 1,000 ML IV ONE (15:45)
[2019-05-23 15:51] LABS: AMORPHOUS SEDIMENT SMALL (NEGATIVE); APPEARANCE, URINE CLOUDY (CLEAR); BACTERIA, URINE AUTO 1+ (NEGATIVE); BILIRUBIN, URINE AUTO NEGATIVE (NEGATIVE); BLOOD, URINE BLOOD NEGATIVE (NEGATIVE); COLOR, URINE YELLOW (YELLOW); GLUCOSE, URINE (UA) AUTO NEGATIVE (NEGATIVE); KETONE, URINE AUTO NEGATIVE (NEGATIVE); LEUKOCYTE ESTERASE, URINE AUTO TRACE (NEGATIVE); NITRITE, URINE AUTO NEGATIVE (NEGATIVE); PROTEIN, URINE AUTO 1+ mg/dL (NEGATIVE); RBC, URINE AUTO 5 /HPF (0-3); SPECIFIC GRAVITY URINE AUTO 1.027 (1.002-1.035); SQUAMOUS EPITHELIAL CELL UR AU 11 /HPF (0-6); UROBILINOGEN, URINE AUTO 0.2 mg/dL (0.0-2.0); WBC, URINE AUTO 0 /HPF (0-3)
[2019-05-23 15:54] LABS: ALBUMIN 3.9 GM/DL (3.2-5.2); ALT/SGPT 21 U/L (12-78); BILIRUBIN,DIRECT < 0.1 MG/DL (0.0-0.2); BILIRUBIN,TOTAL 0.3 MG/DL (0.2-1.0); BLOOD UREA NITROGEN 12 MG/DL (7-18); CARBON DIOXIDE LEVEL 24 MEQ/L (21-32); CHLORIDE LEVEL 110 MEQ/L (98-107); CREATININE FOR GFR 0.94 MG/DL (0.70-1.30); GLOMERULAR FILTRATION RATE > 60.0 (>60); GLUCOSE, FASTING 89 MG/DL (70-100); LIPASE 58 U/L (73-393); POTASSIUM SERUM 4.8 MEQ/L (3.5-5.1); SODIUM LEVEL 139 MEQ/L (136-145); TOTAL PROTEIN 7.4 GM/DL (6.4-8.2)
[2019-05-23] MEDS ORDERED: KETOROLAC 30 MG/ML VIAL (J1885) IV ONE (17:00)
[2019-05-23] MEDS ORDERED: DICYCLOMINE INJ 20MG/2ML (J0500) IM ONE (17:30)
[2019-05-23] MEDS ORDERED: ONDA4TAB6 PO (18:05)
[2019-05-23] MEDS ORDERED: DICY20TA11 PO (18:05)
[2019-05-23 18:19] VITALS: BP 131/75
[2019-05-24] MEDS ORDERED: PROC5TA PO (21:58)
[2019-05-24] MEDS ORDERED: FLAG500T PO (21:58)
[2019-05-24] MEDS ORDERED: CIPR-249 PO (21:58)
== END 2019-05-23 18:20 | disposition home or self-care (01) ==
LOC: M ED 14:39
DX: K52.9 Noninfective gastroenteritis and colitis, unspecified (principal); R11.2 Nausea with vomiting, unspecified; R19.7 Diarrhea, unspecified; J45.909 Unspecified asthma, uncomplicated; Z79.890 Hormone replacement therapy; Z79.899 Other long term (current) drug therapy; Z88.0 Allergy status to penicillin; Z91.040 Latex allergy status; Z91.030 Bee allergy status
CPT/HCPCS: 36415; 80048; 80076; 81001; 83690; 85025; 87507; 96361; 96372; 96374; 96375; 99284; J0500; J1885; J2405

== ENCOUNTER 2019-05-24 16:52 | Emergency (ER) | payer MEDICAID ==
[~2019-05-24] VITALS: Ht 160 cm; Wt 84.1 kg
[~2019-05-24 16:52] MED LIST changes: +DICY20TA11 PO; +ONDA4TAB6 PO
[2019-05-24] MEDS ORDERED: PANTOPRAZOLE 40MG INJ (PROTONIX) (C9113) IV ONE (17:15)
[2019-05-24] MEDS ORDERED: NS 1,000 ML IV ONE ×2 (17:15→18:45)
[2019-05-24] MEDS ORDERED: ONDANSETRON 4MG/2ML VIAL (J2405) IV ONE (17:15)
[2019-05-24] MEDS ORDERED: MORPHINE 4 MG/ML 1ML VIAL/SYRINGE (J2270) IV ONE ×2 (17:15→19:30)
[2019-05-24] MEDS ORDERED: fentaNYL 100 MCG/2 ML INJECTION (J3010) IV ONE (18:15)
[2019-05-24 18:16] LABS: BASO % 0.3 % (0.0-1.0); EOS # 0.1 10^3/uL (0.0-0.5); EOS % 0.7 % (0.0-3.0); HEMATOCRIT 42.1 % (42.0-52.0); HEMOGLOBIN 13.8 g/dl (13.5-17.5); LYMPH # 2.3 10^3/uL (1.5-5.0); LYMPH % 15.5 % (24.0-44.0); MEAN CORPUSCULAR HEMOGLOBIN 28.1 pg (27.0-33.0); MEAN CORPUSCULAR HGB CONC 32.8 g/dl (32.0-36.5); MEAN CORPUSCULAR VOLUME 85.7 fl (80.0-96.0); MONO # 0.5 10^3/uL (0.0-0.8); MONO % 3.2 % (0.0-5.0); NEUTROPHILS # 11.8 10^3/uL (1.5-8.5); NEUTROPHILS % 79.8 % (36.0-66.0); PLATELET COUNT, AUTOMATED 284 10^3/uL (150-450); RED BLOOD COUNT 4.91 10^6/uL (4.30-6.10); WHITE BLOOD COUNT 14.8 10^3/uL (4.0-10.0)
[2019-05-24] MEDS ORDERED: ISOVUE-370 76% 100ML VIAL (Q9967) As Ordered ONE (18:23)
[2019-05-24] MEDS ORDERED: PROCHLORPERAZINE 10 MG/2 ML VIAL (J0780) IV STA (18:38)
[2019-05-24 18:49] LABS: ALBUMIN 4.1 GM/DL (3.2-5.2); ALT/SGPT 25 U/L (12-78); BILIRUBIN,DIRECT 0.1 MG/DL (0.0-0.2); BILIRUBIN,TOTAL 0.3 MG/DL (0.2-1.0); CPK CREATINE PHOSPHOKINASE 1270 U/L (39-308); LIPASE 148 U/L (73-393); MB/CK RELATIVE INDEX 0.16 (< OR =4); TOTAL PROTEIN 7.4 GM/DL (6.4-8.2); TROPONIN I < 0.02 NG/ML (< 0.10)
[2019-05-24 20:42] LABS: INFLUENZA A AMPLIFICATION NEGATIVE (NEGATIVE); INFLUENZA B AMPLIFICATION NEGATIVE (NEGATIVE)
[2019-05-24] MEDS ORDERED: FLAG500T PO (21:58)
[2019-05-24] MEDS ORDERED: PROC5TA PO (21:58)
[2019-05-24] MEDS ORDERED: CIPR-249 PO (21:58)
[2019-05-24] MEDS ORDERED: CIPROFLOXACIN 500 MG TAB PO ONE (22:15)
[2019-05-24] MEDS ORDERED: metroNIDAZOLE (FLAGYL) 500 MG TAB PO ONE (22:15)
[2019-05-24 22:26] VITALS: BP 131/79
--- NOTE | 2019-05-25 09:41 | REP ---
CT ABDOMEN AND PELVIS WITH IV CONTRAST BUT WITHOUT ORAL CONTRAST: REPEAT DICTATION. HISTORY: Abdomen pain generalized. Nausea/vomiting. History of celiac disease. Preliminary report is provided at the time of exam by [facility]. Comparison CT study is from March 25, 2019. CT CONTRAST DOSE: 100 mL of intravenous Isovue [address] FINDINGS: Preliminary digital experimental display builder radiograph demonstrates an unremarkable bowel gas pattern. The lung bases are clear. There is mild diffuse fatty infiltration of the liver. No focal liver lesion is seen. Spleen is unremarkable. Normal adrenal glands are observed. No abnormality is noted in the pancreas or in the gallbladder. No retroperitoneal mass or adenopathy is seen. There is a radiopaque undigested capsule in the cecum lumen. Small and large bowel loops are unremarkable in the upper abdomen. Normal appendix is visible in the right lower quadrant. No abdominal wall defect is seen. No uterine or ovarian abnormality is observed in this transgender male. A sliver of fluid is seen in the cul-de-sac likely physiologic. Urinary bladder is unremarkable. No pelvic mass or adenopathy is seen. Bone window settings show no bony destructive lesion. IMPRESSION: Mild fatty infiltration of the liver. Sliver of physiologic fluid in the cul-de-sac. No acute intra-abdominal or pelvic abnormality. Electronically Signed by Jude Tate MD 05/25/2019 02:28 P
--- NOTE | 2019-05-26 06:35 | ECGEPIP ---
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
== END 2019-05-24 22:30 | disposition home or self-care (01) ==
LOC: M ED 16:52
DX: K52.9 Noninfective gastroenteritis and colitis, unspecified (principal); R79.89 Other specified abnormal findings of blood chemistry; D72.829 Elevated white blood cell count, unspecified; K90.0 Celiac disease; M41.9 Scoliosis, unspecified; Z79.899 Other long term (current) drug therapy; Z88.0 Allergy status to penicillin; Z91.030 Bee allergy status; Z91.040 Latex allergy status
CPT/HCPCS: 36415; 74177; 80047; 80076; 81001; 82550; 82553; 83605; 83690; 84702; 85025; 87040; 87502; 93005; 94760; 96361; 96374; 96375; 96376; 99284; C9113; J0780; J2270; J2405; J3010; Q9967

== ENCOUNTER 2019-05-27 08:19 | Emergency (ER) | payer MEDICAID ==
[~2019-05-27] VITALS: Ht 162.6 cm; Wt 84.1 kg
[~2019-05-27 08:19] MED LIST changes: +CIPR-249 PO; +FLAG500T PO; +PROC5TA PO
[2019-05-27] MEDS ORDERED: diphenhydrAMINE INJ 50MG/ML VIAL (J1200) IV ONE (08:45)
[2019-05-27] MEDS ORDERED: FAMOTIDINE INJ 20MG/2ML VIAL (S0028) IVP ONE (08:45)
[2019-05-27] MEDS ORDERED: methylPREDNISolone INJ 125 MG/2 ML VIAL (J2930) IV ONE (08:45)
[2019-05-27] MEDS ORDERED: HALOPERIDOL 5 MG/ML VIAL (J1630) IV ONE (09:30)
[2019-05-27 10:35] VITALS: BP 127/72
== END 2019-05-27 10:39 | disposition home or self-care (01) ==
LOC: M ED 08:19 → EDBD 08:19 → M ED 10:39
DX: T78.40XA Allergy, unspecified, initial encounter (principal); G43.A0 Cyclical vomiting, in migraine, not intractable; K58.9 Irritable bowel syndrome, unspecified; Z79.890 Hormone replacement therapy; Z79.899 Other long term (current) drug therapy; Z88.0 Allergy status to penicillin; Z91.030 Bee allergy status; Z91.040 Latex allergy status
CPT/HCPCS: 96374; 96375; 99284; J1200; J1630; J2930

== ENCOUNTER 2019-06-02 09:59 | Emergency (ER) | payer MEDICAID, OTHER ==
[~2019-06-02] VITALS: Ht 162.6 cm; Wt 82.2 kg
[2019-06-02] MEDS ORDERED: REGL10TA6 PO (10:11)
[2019-06-02] MEDS ORDERED: SERO1TAB PO (10:11)
[2019-06-02] MEDS ORDERED: ACETAMINOPHEN 325 MG TAB PO ONE (11:00)
[2019-06-02] MEDS ORDERED: ONDANSETRON 4MG/2ML VIAL (J2405) IV ONE (11:00)
[2019-06-02 11:58] LABS: BASO % 0.3 % (0.0-1.0); EOS # 0.3 10^3/uL (0.0-0.5); EOS % 2.4 % (0.0-3.0); HEMATOCRIT 44.2 % (42.0-52.0); HEMOGLOBIN 14.5 g/dl (13.5-17.5); LYMPH % 24.3 % (24.0-44.0); MEAN CORPUSCULAR HEMOGLOBIN 28.4 pg (27.0-33.0); MEAN CORPUSCULAR HGB CONC 32.8 g/dl (32.0-36.5); MEAN CORPUSCULAR VOLUME 86.5 fl (80.0-96.0); MONO # 0.7 10^3/uL (0.0-0.8); MONO % 5.3 % (0.0-5.0); NEUTROPHILS # 8.3 10^3/uL (1.5-8.5); NEUTROPHILS % 67.2 % (36.0-66.0); PLATELET COUNT, AUTOMATED 339 10^3/uL (150-450); RED BLOOD COUNT 5.11 10^6/uL (4.30-6.10); WHITE BLOOD COUNT 12.3 10^3/uL (4.0-10.0)
[2019-06-02] MEDS: GASTROGRAFIN SOLUTION 30ML PO SCH ×2 (12:02→12:43)
[2019-06-02 12:18] LABS: INR 1.04; PROTHROMBIN TIME 13.3 SECONDS (11.8-14.0)
[2019-06-02 12:23] LABS: ALBUMIN 3.9 GM/DL (3.2-5.2); ALT/SGPT 20 U/L (12-78); BILIRUBIN,DIRECT < 0.1 MG/DL (0.0-0.2); BILIRUBIN,TOTAL 0.3 MG/DL (0.2-1.0); BLOOD UREA NITROGEN 11 MG/DL (7-18); CARBON DIOXIDE LEVEL 25 MEQ/L (21-32); CHLORIDE LEVEL 108 MEQ/L (98-107); CREATININE FOR GFR 0.79 MG/DL (0.70-1.30); GLOMERULAR FILTRATION RATE > 60.0 (>60); GLUCOSE, FASTING 95 MG/DL (70-100); LIPASE 84 U/L (73-393); POTASSIUM SERUM 5.1 MEQ/L (3.5-5.1); SODIUM LEVEL 140 MEQ/L (136-145); TOTAL PROTEIN 7.4 GM/DL (6.4-8.2)
[2019-06-02] MEDS ORDERED: ISOVUE-370 76% 100ML VIAL (Q9967) As Ordered ONE (12:45)
--- NOTE | 2019-06-02 13:40 | REP ---
CT abdomen and pelvis. The the the The head and 98 bowel contrast: Comparison is 05/24/2019. The visualized lung rea are unremarkable. The hepatic parenchyma, gallbladder, pancreas and spleen are unremarkable. The adrenals, kidneys and abdominal aorta are unremarkable. There is no periaortic adenopathy or mass. There is wall thickening of the proximal portion of the duodenal loop. This is nonspecific and could be inflammation or neoplasm. There is no bowel distension or wall thickening., otherwise. The terminal ileum is unremarkable. There is no ascites or adenopathy. Pelvis: The appendix and terminal ileum are unremarkable. There are 2 or 3 diverticula in the descending colon without CT evidence of diverticulitis. There is mild wall thickening of the descending colon and sigmoid colon. This is nonspecific but could represent infectious versus inflammatory colitis in the appropriate clinical setting. The uterus, adnexa and bladder are unremarkable. There is no ascites or adenopathy. Impression: There is wall thickening of the proximal portion of the duodenal loop, nonspecific, inflammation versus neoplasm. There is wall thickening of the descending colon and sigmoid colon, nonspecific, could represent infectious versus inflammatory colitis in the appropriate clinical setting. There are two or three diverticula in the descending colon without CT evidence of diverticulitis. There is no ascites, adenopathy or mass. Otherwise, negative CT of the abdomen and pelvis. Electronically Signed by Rafa Jurado MD 06/02/2019 01:32 P
[2019-06-02] MEDS ORDERED: IBUP200C29 PO (14:18)
[2019-06-02] MEDS ORDERED: PRED20TA PO (18:22)
[2019-06-02 18:37] VITALS: BP 122/77
--- NOTE | 2019-06-05 19:00 | ED PDOC ---
Post-Departure Follow-Up mago garland and dr vincent faxed formal report of ct abd/p for fu Suman Marroquin MD Jun 05, 2019 19:00
== END 2019-06-02 18:51 | disposition home or self-care (01) ==
LOC: M ED 09:59
DX: K92.1 Melena (principal); R19.7 Diarrhea, unspecified; K64.9 Unspecified hemorrhoids; K27.9 Peptic ulcer, site unspecified, unspecified as acute or chronic, without hemorrhage or perforation; J45.909 Unspecified asthma, uncomplicated; G43.909 Migraine, unspecified, not intractable, without status migrainosus; F41.9 Anxiety disorder, unspecified; F32.9 Major depressive disorder, single episode, unspecified; K90.0 Celiac disease; K58.9 Irritable bowel syndrome, unspecified; Z88.0 Allergy status to penicillin; Z91.030 Bee allergy status; Z91.040 Latex allergy status; Z79.899 Other long term (current) drug therapy
CPT/HCPCS: 74177; 80048; 80076; 83690; 85025; 85610; 85730; 86850; 86900; 86901; 87040; 87507; 96374; 99284; J2405; Q9963; Q9967

== ENCOUNTER 2019-06-17 02:31 | Emergency (ER) | payer MEDICAID ==
[~2019-06-17] VITALS: Ht 162.6 cm; Wt 86.4 kg
[~2019-06-17 02:31] MED LIST changes: +IBUP200C29 PO; +PRED20TA PO; +REGL10TA6 PO; +SERO1TAB PO
[2019-06-17 02:45] VITALS: BP 144/66
[2019-06-17 02:53] LABS: BASO # 0.1 10^3/uL (0.0-0.2); BASO % 0.4 % (0.0-1.0); EOS # 0.6 10^3/uL (0.0-0.5); EOS % 3.6 % (0.0-3.0); HEMATOCRIT 41.3 % (42.0-52.0); HEMOGLOBIN 13.4 g/dl (13.5-17.5); LYMPH # 3.2 10^3/uL (1.5-5.0); LYMPH % 19.7 % (24.0-44.0); MEAN CORPUSCULAR HEMOGLOBIN 28.4 pg (27.0-33.0); MEAN CORPUSCULAR HGB CONC 32.4 g/dl (32.0-36.5); MEAN CORPUSCULAR VOLUME 87.5 fl (80.0-96.0); MONO % 5.9 % (0.0-5.0); NEUTROPHILS # 11.2 10^3/uL (1.5-8.5); PLATELET COUNT, AUTOMATED 275 10^3/uL (150-450); RED BLOOD COUNT 4.72 10^6/uL (4.30-6.10); WHITE BLOOD COUNT 16.1 10^3/uL (4.0-10.0)
[2019-06-17] MEDS ORDERED: NS 1,000 ML IV ONE (03:00)
[2019-06-17] MEDS ORDERED: HALOPERIDOL 5 MG/ML VIAL (J1630) IV ONE (03:00)
[2019-06-17 03:48] LABS: ALBUMIN 3.5 GM/DL (3.2-5.2); ALT/SGPT 24 U/L (12-78); BILIRUBIN,DIRECT < 0.1 MG/DL (0.0-0.2); BILIRUBIN,TOTAL 0.2 MG/DL (0.2-1.0); LIPASE 105 U/L (73-393)
[2019-06-17] MEDS ORDERED: LORazepam 2 MG/ML VIAL (J2060) IV STA (05:31)
== END 2019-06-17 06:48 | disposition home or self-care (01) ==
LOC: M ED 02:31
DX: R11.15 Cyclical vomiting syndrome unrelated to migraine (principal); R00.0 Tachycardia, unspecified; F41.9 Anxiety disorder, unspecified; Z79.899 Other long term (current) drug therapy; Z79.52 Long term (current) use of systemic steroids
CPT/HCPCS: 36415; 80047; 80076; 83690; 84702; 85025; 96374; 96375; 99284; J1630; J2060

== ENCOUNTER 2019-06-27 03:21 | Emergency (ER) | payer MEDICAID ==
[~2019-06-27] VITALS: Ht 162.6 cm; Wt 81.8 kg
[2019-06-27] MEDS ORDERED: NS 1,000 ML IV ONE (03:30)
[2019-06-27] MEDS ORDERED: KETOROLAC 30 MG/ML VIAL (J1885) IV ONE (03:30)
[2019-06-27] MEDS ORDERED: CAPSAICIN 0.025% CR 60 GM TOP ONE (03:30)
[2019-06-27] MEDS ORDERED: HALOPERIDOL 5 MG/ML VIAL (J1630) IV ONE (03:30)
[2019-06-27 03:47] LABS: BASO # 0.1 10^3/uL (0.0-0.2); BASO % 0.4 % (0.0-1.0); EOS # 0.4 10^3/uL (0.0-0.5); EOS % 2.2 % (0.0-3.0); HEMATOCRIT 42.2 % (42.0-52.0); HEMOGLOBIN 13.9 g/dl (13.5-17.5); LYMPH # 2.4 10^3/uL (1.5-5.0); LYMPH % 14.4 % (24.0-44.0); MEAN CORPUSCULAR HEMOGLOBIN 28.4 pg (27.0-33.0); MEAN CORPUSCULAR HGB CONC 32.9 g/dl (32.0-36.5); MEAN CORPUSCULAR VOLUME 86.1 fl (80.0-96.0); MONO # 0.8 10^3/uL (0.0-0.8); MONO % 4.6 % (0.0-5.0); PLATELET COUNT, AUTOMATED 333 10^3/uL (150-450); WHITE BLOOD COUNT 16.6 10^3/uL (4.0-10.0)
[2019-06-27 04:09] LABS: ALT/SGPT 17 U/L (12-78); BILIRUBIN,DIRECT < 0.1 MG/DL (0.0-0.2); BILIRUBIN,TOTAL 0.3 MG/DL (0.2-1.0); LIPASE 195 U/L (73-393); TOTAL PROTEIN 7.5 GM/DL (6.4-8.2)
[2019-06-27] MEDS ORDERED: ISOVUE-370 76% 100ML VIAL (Q9967) As Ordered ONE (04:21)
[2019-06-27 05:08] VITALS: BP 140/65
--- NOTE | 2019-06-27 08:50 | REP ---
REPEAT DICTATION CT ABDOMEN AND PELVIS WITH IV BUT WITHOUT ORAL CONTRAST: HISTORY: Abdomen pain. Intractable vomiting. Preliminary report is provided by [employer]. COMPARISON STUDY: June 02, 2019. CT CONTRAST DOSE: 100 mL of intravenous Isovue 370. CT FINDINGS: Preliminary digital circuit designer radiograph demonstrates an unremarkable bowel gas pattern. The lung bases are clear on axial CT images. The liver and the spleen are normal in size homogeneous in texture. No adrenal lesion is seen. Gallbladder and pancreas are unremarkable. The kidneys enhance symmetrically and are morphologically intact. Normal caliber aorta. No retroperitoneal mass is seen. Small and large intestinal bowel loops are unremarkable in the upper abdomen. There are several right lower quadrant mesenteric lymph nodes. These may be very slightly more prominent than on the most recent prior study of June 02, 2019. The largest of these measures 9 mm in short axis dimension, previously 7.6 mm. There is no CT evidence of appendicitis. No mass or abscess is seen. No uterine or ovarian abnormality is seen. Scattered left colonic diverticulosis is again seen. IMPRESSION: No acute intra-abdominal abnormality. Electronically Signed by Jude Tate MD 06/27/2019 09:13 A
== END 2019-06-27 05:12 | disposition home or self-care (01) ==
LOC: M ED 03:21 → EDBD 03:21 → M ED 05:12
DX: R11.15 Cyclical vomiting syndrome unrelated to migraine (principal); K50.90 Crohn's disease, unspecified, without complications; K90.0 Celiac disease; F17.200 Nicotine dependence, unspecified, uncomplicated; Z91.030 Bee allergy status; Z88.0 Allergy status to penicillin; Z91.040 Latex allergy status; Z90.13 Acquired absence of bilateral breasts and nipples; Z79.899 Other long term (current) drug therapy; Z79.52 Long term (current) use of systemic steroids; F12.90 Cannabis use, unspecified, uncomplicated
CPT/HCPCS: 74177; 80047; 80076; 83690; 84702; 85025; 96374; 96375; 99284; J1630; J1885; Q9967

== ENCOUNTER → 2019-08-24 | Outpatient (REF) | payer OTHER ==
[2019-08-24 16:53] LABS: BASO % 0.6 % (0.0-1.0); EOS # 0.4 10^3/uL (0.0-0.5); EOS % 5.8 % (0.0-3.0); HEMOGLOBIN 13.9 g/dl (13.5-17.5); LYMPH # 2.5 10^3/uL (1.5-5.0); LYMPH % 34.6 % (24.0-44.0); MEAN CORPUSCULAR HGB CONC 31.6 g/dl (32.0-36.5); MEAN CORPUSCULAR VOLUME 88.7 fl (80.0-96.0); MONO # 0.6 10^3/uL (0.0-0.8); MONO % 7.6 % (0.0-5.0); NEUTROPHILS # 3.7 10^3/uL (1.5-8.5); NEUTROPHILS % 51.1 % (36.0-66.0); PLATELET COUNT, AUTOMATED 282 10^3/uL (150-450); RED BLOOD COUNT 4.96 10^6/uL (4.30-6.10); WHITE BLOOD COUNT 7.2 10^3/uL (4.0-10.0)
[2019-08-24 16:56] LABS: ALBUMIN 3.7 GM/DL (3.2-5.2); ALT/SGPT 21 U/L (12-78); BILIRUBIN,TOTAL 0.3 MG/DL (0.2-1.0); BLOOD UREA NITROGEN 7 MG/DL (7-18); CALCIUM LEVEL 8.5 MG/DL (8.5-10.1); CARBON DIOXIDE LEVEL 28 MEQ/L (21-32); CHLORIDE LEVEL 105 MEQ/L (98-107); CHOLESTEROL LEVEL 186 MG/DL (<200); CREATININE FOR GFR 0.94 MG/DL (0.70-1.30); GLOMERULAR FILTRATION RATE > 60.0 (>60); GLUCOSE, FASTING 85 MG/DL (70-100); HDL CHOLESTEROL 31 MG/DL (>40); LDL CHOLESTEROL 117 MG/DL (<100); NON-HDL-C 155 MG/DL; POTASSIUM SERUM 3.9 MEQ/L (3.5-5.1); SODIUM LEVEL 140 MEQ/L (136-145); TOTAL PROTEIN 6.9 GM/DL (6.4-8.2); TRIGLYCERIDES LEVEL 190 MG/DL (<150)
[2019-08-24 17:04] LABS: TESTOSTERONE 415 NG/DL (241-827)
[2019-08-24 17:11] LABS: HEMOGLOBIN A1c 5.4 %
== END ==
LOC: M LAB REF 16:12
PROVIDERS: ATTEND Nurse Practitioner Adult Health
DX: Z79.890 Hormone replacement therapy (principal)

== ENCOUNTER 2019-09-13 01:10 | Emergency (ER) | payer OTHER ==
[~2019-09-13] VITALS: Ht 162.6 cm; Wt 86.4 kg
[2019-09-13] MEDS ORDERED: NS 1,000 ML IV ONE (01:45)
[2019-09-13 01:50] LABS: BASO # 0.1 10^3/uL (0.0-0.2); BASO % 0.3 % (0.0-1.0); EOS # 0.2 10^3/uL (0.0-0.5); EOS % 0.9 % (0.0-3.0); HEMATOCRIT 42.9 % (42.0-52.0); HEMOGLOBIN 13.7 g/dl (13.5-17.5); LYMPH # 2.9 10^3/uL (1.5-5.0); LYMPH % 12.1 % (24.0-44.0); MEAN CORPUSCULAR HEMOGLOBIN 27.9 pg (27.0-33.0); MEAN CORPUSCULAR HGB CONC 31.9 g/dl (32.0-36.5); MEAN CORPUSCULAR VOLUME 87.4 fl (80.0-96.0); MONO # 1.1 10^3/uL (0.0-0.8); MONO % 4.7 % (0.0-5.0); NEUTROPHILS # 19.5 10^3/uL (1.5-8.5); NEUTROPHILS % 81.4 % (36.0-66.0); PLATELET COUNT, AUTOMATED 398 10^3/uL (150-450); RED BLOOD COUNT 4.91 10^6/uL (4.30-6.10)
[2019-09-13] MEDS ORDERED: CAPSAICIN 0.025% CR 60 GM TOP ONE (02:00)
[2019-09-13] MEDS ORDERED: HALOPERIDOL 5MG/ML VIAL (J1630 PER 1) IV ONE (02:00)
[2019-09-13] MEDS ORDERED: KETOROLAC 30 MG/ML 1ML VIAL IV ONE (02:00)
[2019-09-13 02:20] LABS: ALBUMIN 4.2 GM/DL (3.2-5.2); BILIRUBIN,DIRECT 0.1 MG/DL (0.0-0.2); BILIRUBIN,TOTAL 0.3 MG/DL (0.2-1.0); TOTAL PROTEIN 7.5 GM/DL (6.4-8.2)
[2019-09-13 05:46] VITALS: BP 135/90
== END 2019-09-13 05:56 | disposition home or self-care (01) ==
LOC: M ED 01:10
DX: R11.15 Cyclical vomiting syndrome unrelated to migraine (principal); F12.188 Cannabis abuse with other cannabis-induced disorder; Z88.1 Allergy status to other antibiotic agents; Z91.030 Bee allergy status; Z91.040 Latex allergy status; Z79.899 Other long term (current) drug therapy
CPT/HCPCS: 80047; 80076; 83690; 84702; 85025; 93041; 96361; 96374; 96375; 99285; J1630; J1885

== ENCOUNTER 2019-09-30 19:14 | Emergency (ER) | payer OTHER ==
[~2019-09-30] VITALS: Ht 160 cm; Wt 86.4 kg
[~2019-09-30 19:14] MED LIST changes: -PROC5TA PO; +PROC5TAB57 PO
[2019-09-30] MEDS ORDERED: KETOROLAC 30 MG/ML 1ML VIAL IV ONE (20:00)
[2019-09-30] MEDS ORDERED: HALOPERIDOL 5MG/ML VIAL (J1630 PER 1) IV ONE (20:00)
[2019-09-30] MEDS ORDERED: NS 1,000 ML IV ONE (20:00)
[2019-09-30 20:44] LABS: BASO # 0.1 10^3/uL (0.0-0.2); BASO % 0.3 % (0.0-1.0); EOS # 0.4 10^3/uL (0.0-0.5); EOS % 2.1 % (0.0-3.0); HEMATOCRIT 42.8 % (42.0-52.0); HEMOGLOBIN 13.9 g/dl (13.5-17.5); LYMPH # 2.7 10^3/uL (1.5-5.0); MEAN CORPUSCULAR HEMOGLOBIN 28.3 pg (27.0-33.0); MEAN CORPUSCULAR HGB CONC 32.5 g/dl (32.0-36.5); MONO # 1.2 10^3/uL (0.0-0.8); MONO % 6.3 % (0.0-5.0); NEUTROPHILS # 14.5 10^3/uL (1.5-8.5); NEUTROPHILS % 76.7 % (36.0-66.0); PLATELET COUNT, AUTOMATED 330 10^3/uL (150-450); RED BLOOD COUNT 4.92 10^6/uL (4.30-6.10)
[2019-09-30 21:09] LABS: ALBUMIN 4.2 GM/DL (3.2-5.2); ALT/SGPT 24 U/L (12-78); BILIRUBIN,DIRECT < 0.1 MG/DL (0.0-0.2); BILIRUBIN,TOTAL 0.2 MG/DL (0.2-1.0); BLOOD UREA NITROGEN 6 MG/DL (7-18); CALCIUM LEVEL 9.5 MG/DL (8.5-10.1); CARBON DIOXIDE LEVEL 23 MEQ/L (21-32); CHLORIDE LEVEL 107 MEQ/L (98-107); CREATININE FOR GFR 1.04 MG/DL (0.70-1.30); GLOMERULAR FILTRATION RATE > 60.0 (>60); GLUCOSE, FASTING 100 MG/DL (70-100); LIPASE 201 U/L (73-393); POTASSIUM SERUM 3.6 MEQ/L (3.5-5.1); SODIUM LEVEL 137 MEQ/L (136-145); TOTAL PROTEIN 7.5 GM/DL (6.4-8.2)
[2019-09-30 22:00] VITALS: BP 105/55
== END 2019-09-30 22:08 | disposition home or self-care (01) ==
LOC: M ED 19:14
DX: R11.15 Cyclical vomiting syndrome unrelated to migraine (principal); J45.909 Unspecified asthma, uncomplicated; Z79.51 Long term (current) use of inhaled steroids; Z79.890 Hormone replacement therapy; Z79.899 Other long term (current) drug therapy; Z88.1 Allergy status to other antibiotic agents; Z91.030 Bee allergy status; Z91.040 Latex allergy status
CPT/HCPCS: 80048; 80076; 83690; 85025; 96361; 96374; 99284; J1630; J1885

== ENCOUNTER 2019-10-07 00:14 | Emergency (ER) | payer OTHER ==
[~2019-10-07] VITALS: Ht 160 cm; Wt 86.4 kg
[2019-10-07] MEDS ORDERED: KETOROLAC 30 MG/ML 1ML VIAL IV ONE (01:45)
[2019-10-07] MEDS ORDERED: HALOPERIDOL 5MG/ML VIAL (J1630 PER 1) IV ONE (01:45)
[2019-10-07 01:56] LABS: BASO # 0.1 10^3/uL (0.0-0.2); BASO % 0.4 % (0.0-1.0); EOS # 0.8 10^3/uL (0.0-0.5); EOS % 3.9 % (0.0-3.0); HEMATOCRIT 44.7 % (42.0-52.0); HEMOGLOBIN 14.8 g/dl (13.5-17.5); LYMPH # 3.5 10^3/uL (1.5-5.0); LYMPH % 17.7 % (24.0-44.0); MEAN CORPUSCULAR HEMOGLOBIN 28.8 pg (27.0-33.0); MEAN CORPUSCULAR HGB CONC 33.1 g/dl (32.0-36.5); MONO % 5.2 % (0.0-5.0); NEUTROPHILS # 14.5 10^3/uL (1.5-8.5); NEUTROPHILS % 72.4 % (36.0-66.0); PLATELET COUNT, AUTOMATED 367 10^3/uL (150-450); RED BLOOD COUNT 5.14 10^6/uL (4.30-6.10)
[2019-10-07 02:45] LABS: ALBUMIN 4.3 GM/DL (3.2-5.2); ALT/SGPT 20 U/L (12-78); BILIRUBIN,DIRECT < 0.1 MG/DL (0.0-0.2); BILIRUBIN,TOTAL 0.2 MG/DL (0.2-1.0); LIPASE 160 U/L (73-393)
[2019-10-07 05:30] VITALS: BP 134/83
== END 2019-10-07 05:35 | disposition home or self-care (01) ==
LOC: M ED 00:14
DX: G43.A0 Cyclical vomiting, in migraine, not intractable (principal); K90.0 Celiac disease; F64.0 Transsexualism; F17.200 Nicotine dependence, unspecified, uncomplicated; Z98.890 Other specified postprocedural states
CPT/HCPCS: 80047; 80076; 83690; 84702; 85025; 93041; 96374; 96375; 99285; J1630; J1885

== ENCOUNTER 2019-11-15 03:44 | Emergency (ER) | payer OTHER ==
[2019-11-15] MEDS ORDERED: ONDANSETRON 4MG/2ML VIAL IV ONE ×2 (04:00→06:45)
[2019-11-15] MEDS ORDERED: ONDANSETRON 4MG/2ML VIAL As Ordered ONE (04:01)
[2019-11-15 04:14] LABS: BASO # 0.1 10^3/uL (0.0-0.2); BASO % 0.2 % (0.0-1.0); EOS # 0.3 10^3/uL (0.0-0.5); EOS % 1.6 % (0.0-3.0); HEMATOCRIT 41.5 % (42.0-52.0); LYMPH # 3.3 10^3/uL (1.5-5.0); LYMPH % 15.9 % (24.0-44.0); MEAN CORPUSCULAR HEMOGLOBIN 29.5 pg (27.0-33.0); MEAN CORPUSCULAR HGB CONC 33.7 g/dl (32.0-36.5); MEAN CORPUSCULAR VOLUME 87.4 fl (80.0-96.0); NEUTROPHILS # 15.8 10^3/uL (1.5-8.5); NEUTROPHILS % 76.8 % (36.0-66.0); PLATELET COUNT, AUTOMATED 355 10^3/uL (150-450); RED BLOOD COUNT 4.75 10^6/uL (4.30-6.10); WHITE BLOOD COUNT 20.6 10^3/uL (4.0-10.0)
[2019-11-15 04:47] LABS: ALBUMIN 4.2 GM/DL (3.2-5.2); ALT/SGPT 20 U/L (12-78); BILIRUBIN,DIRECT 0.1 MG/DL (0.0-0.2); BILIRUBIN,TOTAL 0.2 MG/DL (0.2-1.0); BLOOD UREA NITROGEN 8 MG/DL (7-18); CALCIUM LEVEL 8.9 MG/DL (8.5-10.1); CARBON DIOXIDE LEVEL 26 MEQ/L (21-32); CHLORIDE LEVEL 109 MEQ/L (98-107); CREATININE FOR GFR 0.87 MG/DL (0.70-1.30); GLOMERULAR FILTRATION RATE > 60.0 (>60); GLUCOSE, FASTING 114 MG/DL (70-100); LIPASE 98 U/L (73-393); POTASSIUM SERUM 3.8 MEQ/L (3.5-5.1); SODIUM LEVEL 144 MEQ/L (136-145); TOTAL PROTEIN 7.7 GM/DL (6.4-8.2)
[2019-11-15] MEDS ORDERED: NS 1,000 ML IV ONE ×2 (05:00→07:30)
[2019-11-15] MEDS ORDERED: HALOPERIDOL 5MG/ML VIAL (J1630 PER 1) IV ONE (05:00)
[2019-11-15] MEDS ORDERED: diphenhydrAMINE 50MG/ML VIAL (J1200) IV ONE (05:00)
[2019-11-15] MEDS ORDERED: ISOVUE-370 76% 100ML VIAL As Ordered ONE (05:03)
--- NOTE | 2019-11-15 05:57 | REPVR ---
PROCEDURE INFORMATION: Exam: CT Abdomen And Pelvis With Contrast Exam date and time: 11/15/2019 4:55 AM Age: 29 years old Clinical indication: Abdominal pain; Generalized; Additional info: Gen abd pain/vomiting TECHNIQUE: Imaging protocol: Computed tomography of the abdomen and pelvis with intravenous contrast. Radiation optimization: All CT scans at this facility use at least one of these dose optimization techniques: automated exposure control; mA and/or kV adjustment per patient size (includes targeted exams where dose is matched to clinical indication); or iterative reconstruction. Contrast material: ISO; Contrast volume: 100 ml; Contrast route: INTRAVENOUS (IV); COMPARISON: 1. CT ABD/PEL W/IV CONTRAST ONLY 06/27/2019 4:[address] ABD/PEL W/IV ORAL CONTRAS 06/02/2019 12:48:19 PM FINDINGS: Lungs: There is a small amount of focal, somewhat rounded ground-glass opacity in the left lung base. Liver: There are no focal liver lesions present. Gallbladder and bile ducts: The gallbladder is normal with no stones or biliary ductal dilation. Pancreas: The pancreas is normal with no ductal dilation. Spleen: The spleen is normal. Adrenals: The adrenal glands are normal. Kidneys and ureters: The kidneys are unremarkable. There are no ureteral stones or hydronephrosis. Stomach and bowel: A few diverticula are again seen within the left colon and sigmoid colon.There is no dilation or thickening of the colon. The small bowel appears unremarkable. Appendix: A normal appendix is identified. Intraperitoneal space: There is no evidence of free intraperitoneal or pelvic fluid. There is no free intraperitoneal air. Vasculature: No aortic aneurysm. Lymph nodes: There are mildly enlarged mesenteric lymph nodes in the right lower quadrant, which appear similar to the prior exams. No lymphadenopathy is seen otherwise. Bladder: The bladder is unremarkable. No stones identified. Reproductive: The prostate gland appears normal. Bones/joints: No suspicious osseous lesions. No acute fractures or dislocations. Soft tissues: The soft tissues appear unremarkable. IMPRESSION: 1. No definite acute abnormality identified in the abdomen and pelvis. 2. Mildly enlarged mesenteric lymph nodes in the right lower quadrant are nonspecific and appear similar to the 2 prior exams. 3. No evidence of appendicitis. 4. Small amount of focal, somewhat rounded ground-glass opacity in the left lower lobe, not present previously. Imaging features can be seen with COVID-19 pneumonia, though are nonspecific and can occur with a variety of infectious and noninfectious processes. REFERENCES: Zachary Dave, et al., [employer] Society of [place] Expert Consensus Statement on Reporting Chest CT Findings Related to COVID-19. Endorsed by the Society of Thoracic Radiology, the [place], and RSNA. Published June 15, 2019. Electronically signed by: Carmina Zuniga On 11/15/2019 05:58:26 AM
[2019-11-15 08:25] VITALS: BP 135/71
== END 2019-11-15 08:26 | disposition home or self-care (01) ==
LOC: M ED 03:44
DX: R11.10 Vomiting, unspecified (principal); R10.9 Unspecified abdominal pain; D72.829 Elevated white blood cell count, unspecified; K50.90 Crohn's disease, unspecified, without complications; K90.0 Celiac disease; J45.909 Unspecified asthma, uncomplicated; F32.9 Major depressive disorder, single episode, unspecified; F43.10 Post-traumatic stress disorder, unspecified; Z91.011 Allergy to milk products; Z88.0 Allergy status to penicillin; Z91.030 Bee allergy status; Z91.040 Latex allergy status; Z79.899 Other long term (current) drug therapy
CPT/HCPCS: 74177; 80048; 80076; 83690; 85025; 87486; 87581; 87633; 87798; 93041; 96361; 96374; 96375; 96376; 99284; J1200; J1630; J2405; Q9967

== ENCOUNTER → 2019-11-24 | Outpatient (REF) | payer OTHER ==
[2019-11-24 18:59] LABS: BASO % 0.4 % (0.0-1.0); EOS # 0.8 10^3/uL (0.0-0.5); EOS % 7.3 % (0.0-3.0); HEMATOCRIT 46.9 % (42.0-52.0); HEMOGLOBIN 14.8 g/dl (13.5-17.5); LYMPH # 2.8 10^3/uL (1.5-5.0); LYMPH % 26.7 % (24.0-44.0); MEAN CORPUSCULAR HEMOGLOBIN 28.7 pg (27.0-33.0); MEAN CORPUSCULAR HGB CONC 31.6 g/dl (32.0-36.5); MEAN CORPUSCULAR VOLUME 90.9 fl (80.0-96.0); MONO # 0.6 10^3/uL (0.0-0.8); MONO % 5.6 % (0.0-5.0); NEUTROPHILS # 6.2 10^3/uL (1.5-8.5); NEUTROPHILS % 59.5 % (36.0-66.0); PLATELET COUNT, AUTOMATED 282 10^3/uL (150-450); RED BLOOD COUNT 5.16 10^6/uL (4.30-6.10); WHITE BLOOD COUNT 10.4 10^3/uL (4.0-10.0)
== END ==
LOC: M LAB REF 15:27 → M LABDRWAD 15:27
PROVIDERS: ATTEND Nurse Practitioner Adult Health
DX: D72.829 Elevated white blood cell count, unspecified (principal)

== ENCOUNTER 2020-02-21 06:01 | Emergency (ER) | payer OTHER ==
[~2020-02-21] VITALS: Ht 160 cm; Wt 86.5 kg
[2020-02-21] MEDS ORDERED: HALOPERIDOL 5MG/ML VIAL (J1630 PER 1) IM STA (06:08)
[2020-02-21] MEDS ORDERED: ONDANSETRON 4MG/2ML VIAL IV ONE (06:15)
[2020-02-21] MEDS ORDERED: NS 1,000 ML IV ONE (06:15)
[2020-02-21] MEDS ORDERED: FAMOTIDINE INJ 20MG/2ML VIAL (S0028 PER 1) IVP ONE (06:15)
[2020-02-21 06:37] LABS: BASO # 0.1 10^3/uL (0.0-0.2); BASO % 0.5 % (0.0-1.0); EOS # 0.8 10^3/uL (0.0-0.5); EOS % 6.1 % (0.0-3.0); HEMATOCRIT 44.4 % (42.0-52.0); HEMOGLOBIN 14.4 g/dl (13.5-17.5); LYMPH # 2.8 10^3/uL (1.5-5.0); LYMPH % 21.3 % (24.0-44.0); MEAN CORPUSCULAR HEMOGLOBIN 29.5 pg (27.0-33.0); MEAN CORPUSCULAR HGB CONC 32.4 g/dl (32.0-36.5); MONO # 0.7 10^3/uL (0.0-0.8); MONO % 5.3 % (0.0-5.0); NEUTROPHILS # 8.7 10^3/uL (1.5-8.5); NEUTROPHILS % 66.3 % (36.0-66.0); RED BLOOD COUNT 4.88 10^6/uL (4.30-6.10); WHITE BLOOD COUNT 13.1 10^3/uL (4.0-10.0)
[2020-02-21 06:55] LABS: ALBUMIN 3.8 GM/DL (3.2-5.2); ALT/SGPT 16 U/L (12-78); BILIRUBIN,TOTAL 0.1 MG/DL (0.2-1.0); BLOOD UREA NITROGEN 12 MG/DL (7-18); CALCIUM LEVEL 8.6 MG/DL (8.5-10.1); CARBON DIOXIDE LEVEL 23 MEQ/L (21-32); CHLORIDE LEVEL 108 MEQ/L (98-107); CREATININE FOR GFR 0.96 MG/DL (0.70-1.30); GLOMERULAR FILTRATION RATE > 60.0 (>60); GLUCOSE, FASTING 110 MG/DL (70-100); POTASSIUM SERUM 4.1 MEQ/L (3.5-5.1); SODIUM LEVEL 139 MEQ/L (136-145); TOTAL PROTEIN 7.1 GM/DL (6.4-8.2)
[2020-02-21 07:08] LABS: AMPHETAMINES LEVEL URINE NEGATIVE (NEGATIVE); BARBITURATES URINE NEGATIVE (NEGATIVE); BENZODIAZEPINES URINE NEGATIVE (NEGATIVE); CANNABINOIDS URINE POSITIVE (NEGATIVE); COCAINE METABOLITE URINE NEGATIVE (NEGATIVE); METHADONE URINE NEGATIVE (NEGATIVE); OPIATES URINE NEGATIVE (NEGATIVE); PHENCYCLIDINE URINE NEGATIVE (NEGATIVE)
[2020-02-21] MEDS ORDERED: KETOROLAC 30 MG/ML 1ML VIAL IV ONE (07:30)
[2020-02-21] MEDS ORDERED: ONDA4TAB6 PO (09:17)
[2020-02-21] MEDS ORDERED: PROMETHAZINE INJ 25 MG/ML VIAL (J2550) IV ONE (09:45)
[2020-02-21 10:29] VITALS: BP 115/62
== END 2020-02-21 10:32 | disposition home or self-care (01) ==
LOC: M ED 06:01
DX: R11.15 Cyclical vomiting syndrome unrelated to migraine (principal); K50.90 Crohn's disease, unspecified, without complications; F12.10 Cannabis abuse, uncomplicated; J45.909 Unspecified asthma, uncomplicated; F31.9 Bipolar disorder, unspecified; F43.10 Post-traumatic stress disorder, unspecified; Z79.899 Other long term (current) drug therapy; Z88.0 Allergy status to penicillin; Z91.030 Bee allergy status; Z91.040 Latex allergy status
CPT/HCPCS: 80053; 80307; 85025; 96361; 96372; 96374; 96375; 99284; J1630; J1885; J2405

== ENCOUNTER 2020-03-15 04:05 | Emergency (ER) | payer OTHER ==
[~2020-03-15] VITALS: Ht 160 cm; Wt 81.8 kg
[2020-03-15] MEDS ORDERED: HALOPERIDOL 5MG/ML VIAL (J1630 PER 1) IM STA (04:26)
[2020-03-15 04:34] LABS: HEMATOCRIT 43.3 % (42.0-52.0); HEMOGLOBIN 14.1 g/dl (13.5-17.5); MEAN CORPUSCULAR HGB CONC 32.6 g/dl (32.0-36.5); MEAN CORPUSCULAR VOLUME 89.1 fl (80.0-96.0); PLATELET COUNT, AUTOMATED 280 10^3/uL (150-450); RED BLOOD COUNT 4.86 10^6/uL (4.30-6.10); WHITE BLOOD COUNT 16.4 10^3/uL (4.0-10.0)
[2020-03-15 04:57] LABS: ALT/SGPT 24 U/L (12-78); BILIRUBIN,TOTAL 0.1 MG/DL (0.2-1.0); BLOOD UREA NITROGEN 17 MG/DL (7-18); CALCIUM LEVEL 8.6 MG/DL (8.5-10.1); CARBON DIOXIDE LEVEL 23 MEQ/L (21-32); CHLORIDE LEVEL 107 MEQ/L (98-107); CREATININE FOR GFR 1.13 MG/DL (0.70-1.30); GLOMERULAR FILTRATION RATE > 60.0 (>60); GLUCOSE, FASTING 110 MG/DL (70-100); POTASSIUM SERUM 3.7 MEQ/L (3.5-5.1); SODIUM LEVEL 140 MEQ/L (136-145); TOTAL PROTEIN 7.3 GM/DL (6.4-8.2)
[2020-03-15 07:45] VITALS: BP 128/85
[2020-03-15] MEDS ORDERED: PROM25SU3 PR (20:04)
== END 2020-03-15 07:50 | disposition home or self-care (01) ==
LOC: M ED 04:05
DX: R11.10 Vomiting, unspecified (principal); F31.9 Bipolar disorder, unspecified; F43.10 Post-traumatic stress disorder, unspecified; J45.909 Unspecified asthma, uncomplicated; K50.90 Crohn's disease, unspecified, without complications; K90.0 Celiac disease; Z88.0 Allergy status to penicillin; Z91.030 Bee allergy status; Z91.040 Latex allergy status; Z79.899 Other long term (current) drug therapy
CPT/HCPCS: 36415; 80053; 85027; 96372; 99284; J1630

== ENCOUNTER 2020-03-15 16:58 | Emergency (ER) | payer OTHER ==
[~2020-03-15] VITALS: Ht 170.2 cm; Wt 77.3 kg
[2020-03-15] MEDS ORDERED: PROMETHAZINE INJ 25 MG/ML VIAL (J2550) IV ONE (18:15)
[2020-03-15] MEDS ORDERED: PROMETHAZINE 25MG SUPP PR ONE ×2 (18:30→20:15)
[2020-03-15 19:24] LABS: BASO % 0.1 % (0.0-1.0); EOS % 0.1 % (0.0-3.0); HEMOGLOBIN 14.4 g/dl (13.5-17.5); LYMPH # 1.6 10^3/uL (1.5-5.0); LYMPH % 9.6 % (24.0-44.0); MEAN CORPUSCULAR HEMOGLOBIN 28.6 pg (27.0-33.0); MEAN CORPUSCULAR VOLUME 89.5 fl (80.0-96.0); MONO # 0.5 10^3/uL (0.0-0.8); MONO % 2.8 % (0.0-5.0); NEUTROPHILS # 14.2 10^3/uL (1.5-8.5); NEUTROPHILS % 86.9 % (36.0-66.0); PLATELET COUNT, AUTOMATED 336 10^3/uL (150-450); RED BLOOD COUNT 5.03 10^6/uL (4.30-6.10); WHITE BLOOD COUNT 16.3 10^3/uL (4.0-10.0)
[2020-03-15 19:52] LABS: BLOOD UREA NITROGEN 12 MG/DL (7-18); CARBON DIOXIDE LEVEL 25 MEQ/L (21-32); CHLORIDE LEVEL 106 MEQ/L (98-107); CREATININE FOR GFR 0.81 MG/DL (0.70-1.30); GLOMERULAR FILTRATION RATE > 60.0 (>60); GLUCOSE, FASTING 100 MG/DL (70-100); POTASSIUM SERUM 3.8 MEQ/L (3.5-5.1); SODIUM LEVEL 140 MEQ/L (136-145)
[2020-03-15] MEDS ORDERED: PROM25SU3 PR (20:04)
[2020-03-15 20:32] VITALS: BP 122/68
== END 2020-03-15 20:45 | disposition home or self-care (01) ==
LOC: M ED 16:58
DX: R11.2 Nausea with vomiting, unspecified (principal); D72.829 Elevated white blood cell count, unspecified; J45.909 Unspecified asthma, uncomplicated; R51.9 Headache, unspecified; K90.0 Celiac disease; Z88.0 Allergy status to penicillin; Z91.030 Bee allergy status; Z91.040 Latex allergy status; Z79.899 Other long term (current) drug therapy

== ENCOUNTER 2020-06-21 17:08 | Emergency (ER) | payer OTHER ==
[~2020-06-21] VITALS: Ht 162.6 cm; Wt 81.8 kg
[~2020-06-21 17:08] MED LIST changes: +PROM25SU3 PR; -QUET1TAB10 PO; +QUET300T2 PO
[2020-06-21] MEDS ORDERED: HALOPERIDOL 5MG/ML VIAL (J1630 PER 1) IV STA (17:19)
[2020-06-21] MEDS ORDERED: NS 1,000 ML IV ONE ×2 (17:20→19:10)
[2020-06-21 18:03] LABS: BASO # 0.1 10^3/uL (0.0-0.2); BASO % 0.4 % (0.0-1.0); EOS # 0.2 10^3/uL (0.0-0.5); EOS % 1.4 % (0.0-3.0); HEMATOCRIT 43.3 % (42.0-52.0); HEMOGLOBIN 14.2 g/dl (13.5-17.5); LYMPH # 2.1 10^3/uL (1.5-5.0); LYMPH % 12.8 % (24.0-44.0); MEAN CORPUSCULAR HEMOGLOBIN 28.6 pg (27.0-33.0); MEAN CORPUSCULAR HGB CONC 32.8 g/dl (32.0-36.5); MEAN CORPUSCULAR VOLUME 87.3 fl (80.0-96.0); MONO # 0.6 10^3/uL (0.0-0.8); MONO % 3.9 % (2.0-8.0); NEUTROPHILS # 13.1 10^3/uL (1.5-8.5); NEUTROPHILS % 80.9 % (36.0-66.0); PLATELET COUNT, AUTOMATED 313 10^3/uL (150-450); RED BLOOD COUNT 4.96 10^6/uL (4.30-6.10); WHITE BLOOD COUNT 16.2 10^3/uL (4.0-10.0)
[2020-06-21 18:26] LABS: ALBUMIN 4.6 GM/DL (3.2-5.2); BILIRUBIN,DIRECT 0.1 MG/DL (0.0-0.2); BILIRUBIN,TOTAL 0.3 MG/DL (0.2-1.0); TOTAL PROTEIN 7.8 GM/DL (6.4-8.2)
--- NOTE | 2020-06-21 20:05 | REP ---
INDICATION: abdominal pain; r/o obstruction. COMPARISON: CHEST 07/02/2018. TECHNIQUE: SUPINE AND ERECT VIEWS THE ABDOMEN, FRONTAL VIEW CHEST. FINDINGS: There is no evidence of free intraperitoneal air or obstructive bowel gas pattern. No dilated bowel loops are seen. No abnormal calcifications are seen. The visualized osseous structures are unremarkable. There is no acute infiltrate in either lung. The heart and mediastinum are within normal limits. IMPRESSION: Negative abdominal series. <Electronically signed by Rafa Solis > 06/21/202000
[2020-06-21] MEDS ORDERED: ONDANSETRON 4MG/2ML VIAL IV ONE (20:35)
[2020-06-21] MEDS ORDERED: ONDA4TAB6 PO (22:40)
[2020-06-21 22:52] VITALS: BP 129/74
== END 2020-06-21 23:04 | disposition home or self-care (01) ==
LOC: M ED 17:08
DX: F12.188 Cannabis abuse with other cannabis-induced disorder (principal); R11.10 Vomiting, unspecified; R10.9 Unspecified abdominal pain; Z88.1 Allergy status to other antibiotic agents; Z91.040 Latex allergy status; Z91.030 Bee allergy status
CPT/HCPCS: 74021; 80047; 80076; 83690; 85025; 93041; 96361; 96374; 96375; 99284; J1630; J2405

== ENCOUNTER 2020-06-27 00:53 | Emergency (ER) | payer OTHER ==
[2020-06-27 04:19] LABS: BASO # 0.1 10^3/uL (0.0-0.2); BASO % 0.3 % (0.0-1.0); EOS # 0.3 10^3/uL (0.0-0.5); EOS % 1.9 % (0.0-3.0); HEMATOCRIT 41.3 % (42.0-52.0); HEMOGLOBIN 13.6 g/dl (13.5-17.5); LYMPH # 2.3 10^3/uL (1.5-5.0); LYMPH % 15.3 % (24.0-44.0); MEAN CORPUSCULAR HEMOGLOBIN 28.4 pg (27.0-33.0); MEAN CORPUSCULAR HGB CONC 32.9 g/dl (32.0-36.5); MEAN CORPUSCULAR VOLUME 86.2 fl (80.0-96.0); MONO # 0.9 10^3/uL (0.0-0.8); MONO % 6.2 % (2.0-8.0); NEUTROPHILS # 11.3 10^3/uL (1.5-8.5); NEUTROPHILS % 75.8 % (36.0-66.0); PLATELET COUNT, AUTOMATED 325 10^3/uL (150-450); RED BLOOD COUNT 4.79 10^6/uL (4.30-6.10); WHITE BLOOD COUNT 14.9 10^3/uL (4.0-10.0)
[2020-06-27 04:21] LABS: ALBUMIN 4.2 GM/DL (3.2-5.2); ALT/SGPT 22 U/L (12-78); BILIRUBIN,DIRECT < 0.1 MG/DL (0.0-0.2); BILIRUBIN,TOTAL 0.2 MG/DL (0.2-1.0); BLOOD UREA NITROGEN 12 MG/DL (7-18); CALCIUM LEVEL 9.4 MG/DL (8.5-10.1); CARBON DIOXIDE LEVEL 22 MEQ/L (21-32); CHLORIDE LEVEL 108 MEQ/L (98-107); CREATININE FOR GFR 1.08 MG/DL (0.70-1.30); GLOMERULAR FILTRATION RATE > 60.0 (>60); GLUCOSE, FASTING 97 MG/DL (70-100); HCG, SERUM QUALITATIVE NEGATIVE; LIPASE 63 U/L (73-393); POTASSIUM SERUM 3.7 MEQ/L (3.5-5.1); SODIUM LEVEL 140 MEQ/L (136-145); TOTAL PROTEIN 7.5 GM/DL (6.4-8.2)
== END 2020-06-27 05:19 | disposition home or self-care (01) ==
LOC: M ED 00:53
DX: T40.7X1A Poisoning by cannabis (derivatives), accidental (unintentional), initial encounter (principal); R11.10 Vomiting, unspecified; Z79.899 Other long term (current) drug therapy; Z88.0 Allergy status to penicillin; Z91.040 Latex allergy status; Z91.030 Bee allergy status

== ENCOUNTER 2020-08-24 14:21 | Emergency (ER) | payer OTHER ==
[~2020-08-24] VITALS: Ht 160 cm; Wt 85.5 kg
[2020-08-24] MEDS ORDERED: HALOPERIDOL 5MG/ML VIAL (J1630 PER 1) IV ONE (15:15)
[2020-08-24 17:26] VITALS: BP 130/82
== END 2020-08-24 17:39 | disposition home or self-care (01) ==
LOC: EDBD 14:21 → M ED 14:21
DX: F12.188 Cannabis abuse with other cannabis-induced disorder (principal); R11.10 Vomiting, unspecified; Z88.1 Allergy status to other antibiotic agents; Z91.040 Latex allergy status; Z91.030 Bee allergy status
CPT/HCPCS: 80047; 96374; 99284; J1630

== ENCOUNTER 2020-11-04 12:57 | Inpatient (IN) | payer OTHER ==
[~2020-11-04] VITALS: Ht 160 cm; Wt 90.2 kg
[~2020-11-04 12:57] MED LIST changes: +OMEP40CA4 PO; -OMEP40CA97 PO
[2020-11-04] MEDS ORDERED: NS 1,000 ML IV ONE (13:25)
[2020-11-04] MEDS ORDERED: ONDANSETRON 4MG/2ML VIAL IV ONE ×2 (13:25→14:20)
[2020-11-04 13:32] LABS: BASO # 0.1 10^3/uL (0.0-0.2); BASO % 0.4 % (0.0-1.0); EOS # 0.4 10^3/uL (0.0-0.5); EOS % 2.2 % (0.0-3.0); HEMATOCRIT 45.7 % (42.0-52.0); LYMPH # 2.4 10^3/uL (1.5-5.0); MEAN CORPUSCULAR HEMOGLOBIN 28.7 pg (27.0-33.0); MEAN CORPUSCULAR HGB CONC 32.8 g/dl (32.0-36.5); MEAN CORPUSCULAR VOLUME 87.4 fl (80.0-96.0); MONO # 0.9 10^3/uL (0.0-0.8); MONO % 5.5 % (2.0-8.0); NEUTROPHILS # 12.3 10^3/uL (1.5-8.5); NEUTROPHILS % 76.3 % (36.0-66.0); PLATELET COUNT, AUTOMATED 312 10^3/uL (150-450); RED BLOOD COUNT 5.23 10^6/uL (4.30-6.10); WHITE BLOOD COUNT 16.1 10^3/uL (4.0-10.0)
[2020-11-04 13:58] LABS: ALBUMIN 4.1 GM/DL (3.2-5.2); ALT/SGPT 28 U/L (12-78); BILIRUBIN,DIRECT < 0.1 MG/DL (0.0-0.2); BILIRUBIN,TOTAL 0.2 MG/DL (0.2-1.0); BLOOD UREA NITROGEN 10 MG/DL (7-18); CALCIUM LEVEL 9.4 MG/DL (8.5-10.1); CARBON DIOXIDE LEVEL 23 MEQ/L (21-32); CHLORIDE LEVEL 107 MEQ/L (98-107); CREATININE FOR GFR 1.09 MG/DL (0.70-1.30); GLOMERULAR FILTRATION RATE > 60.0 (>60); GLUCOSE, FASTING 106 MG/DL (70-100); LIPASE 76 U/L (73-393); POTASSIUM SERUM 4.4 MEQ/L (3.5-5.1); SODIUM LEVEL 139 MEQ/L (136-145); TOTAL PROTEIN 7.7 GM/DL (6.4-8.2)
[2020-11-04] MEDS ORDERED: ISOVUE-370 76% 100ML VIAL As Ordered ONE (14:16)
[2020-11-04] MEDS ORDERED: PROMETHAZINE INJ 25 MG/ML VIAL (J2550) IV ONE (14:50)
[2020-11-04] MEDS ORDERED: LORazepam 2 MG/ML VIAL IV STA (15:46)
--- NOTE | 2020-11-04 16:51 | REP ---
INDICATION: gen abd pain vomiting. COMPARISON: None. TECHNIQUE: Scans were obtained during contrast administration. FINDINGS: The lower lungs are clear. The liver shows normal size and attenuation. There is no evidence of mass or biliary tract dilatation. The gallbladder is fluid filled without evidence of gallstone. The pancreas, spleen, aorta and adrenal glands are unremarkable. The kidneys show normal size, shape and history rivera of contrast. There is no evidence of hydronephrosis, mass, cyst or calculus. The large and small bowel are unremarkable. The appendix is identified and shows no abnormality. The uterus and ovaries are unremarkable. There is no mass, adenopathy or inflammatory change in the abdomen or pelvis. IMPRESSION: Negative CT of the abdomen and pelvis. <Electronically signed by Vamsi Lao > 11/04/20 [id number]
[2020-11-04] MEDS ORDERED: PROCHLORPERAZINE 5 MG TAB (S0183) PO PRN (17:30)
[2020-11-04] MEDS ORDERED: ONDANSETRON 4MG/2ML VIAL IV PRN (17:30)
[2020-11-04] MEDS ORDERED: SUMAtriptan SUCCINATE 6 MG/0.5 ML VIAL SC ONE (17:30)
[2020-11-04] MEDS ORDERED: KETOROLAC 30 MG/ML 1ML VIAL IV PRN (17:35)
[2020-11-04] MEDS ORDERED: diphenhydrAMINE 50MG/ML VIAL (J1200) IM PRN (17:45)
[2020-11-04] MEDS ORDERED: PANT40TA29 PO (18:17)
[2020-11-04] MEDS ORDERED: diphenhydrAMINE 50MG/ML VIAL (J1200) IV PRN (18:45)
[2020-11-04] MEDS ORDERED: ALBUTEROL SULFATE 2.5 MG/0.5 ML INH NEB SOLN NEB PRN (18:50)
--- NOTE | 2020-11-04 18:50 | HPEPDOC ---
General Date of Admission Nov 04, 2020 at 17:20 Date of Service: Nov 04, 2020 Chief Complaint The patient is a 30-year-old male admitted with a reason for visit of Cannabinoid Hyperemesis Syndrome,Cyclic Vomiting. History of Present Illness Mr. Escalante is a 30 year old female to male transgender with cyclic vomiting syndrome who is here with with persistent nausea and vomiting. When I saw the patient, he cannot tell me very much due to the pain, nausea, and dry heaving. He was in distress rolling back and forth and moaning. I was able to figure out that this started around 9 AM this morning. His last use of marijuana was yesterday. With a thumbs up or thumbs down, he is able to tell me he had abdominal pain, nausea, dry heaving, and sore throat. Denies any fever, changes in vision, or dysuria. Patient is unable to tolerate a diet. Otherwise, lipase was negative. Creatinine and potassium within normal limits. CT abdomen pelvis with IV contrast only was negative. Patient will be admitted for intractable nausea and vomiting and inability to tolerate diet Home Medications Scheduled Cetirizine HCl (Cetirizine HCl) 10 Mg Tab, 10 MG PO DAILY, (Reported) Montelukast Sodium (Singulair) 10 Mg Tablet, 10 MG PO DAILY, (Reported) Pantoprazole Sodium (Pantoprazole Sodium) 40 Mg Tablet.dr, 40 MG PO DAILY, (Reported) Sucralfate (Sucralfate) 1 Gm Tab, 1 GM PO ACHS, (Reported) Testosterone Cypionate (Testosterone Cypionate) 200 Mg/1 Ml Vial, 0.5 ML IM QWEEK, (Reported) WEDNESDAYS Scheduled PRN Albuterol Sulfate (Ventolin Hfa) 18 Gm Hfa.aer.ad, 2 PUFF INH QID PRN for SHORTNESS OF BREATH, (Reported) Allergies Coded Allergies: bee venom protein (honey bee) (Verified Allergy, Severe, anaphylaxis, 08/24/20) latex (Verified Allergy, Severe, resp issues, 08/24/20) amoxicillin (Verified Allergy, Intermediate, infections, rash, 08/24/20) Past Medical History Medical History 1. Crohn's disease 2. Celiac disease 3. Lactose intolerance 4. Asthma 5. Bipolar disorder 6. Depression/Anxiety 7. PTSD 8. Cyclic vomiting disease/cannabis hyperemesis Surgical History 1. Tonsillectomy 2. Adenoidectomy 3. Chest masculinization procedure (July 2018) Family History Mother: History of hypertension, DM, CAD, and carcinoma Social History * Smoker: Denies Alcohol: Denies Drugs: marijuana A-FIB/CHADSVASC A-FIB History Current/History of A-Fib/PAF?: No Review of Systems Constitutional: Denies: Fever Eyes: Denies: Vision change ENT: Reports: Sore Throat (From dry heaving) Skin: Denies: Rash Pulmonary: Denies: Dyspnea, Cough Cardiovascular: Denies: Chest Pain Gastrointestinal: Reports: Nausea, Vomiting, Abdominal Pain Genitourinary: Denies: Dysuria Other systems Patient is in severe distress and continues to dry heave. ROS limited Physical Examination General Exam: Positive: Moderate Distress Eye Exam: Negative: Sclera icteric Neck Exam: Negative: Supple Chest Exam: Positive: Clear to auscultation Heart Exam: Positive: Tachycardic, Regular Rhythm Abdomen Exam: Positive: Normal bowel sounds Extremity Exam: Negative: Edema Neuro Exam: Positive: Other (Patient was in distress and continues to dry heave, unable to perform neurologic exam) Psych Exam: Positive: Anxiety Vital Signs Vital Signs Date Time Temp Pulse Resp B/P (MAP) Pulse Ox O2 Delivery O2 Flow Rate FiO2 11/04/20 14:15 92 20 116/79 (91) 99 Room Air 11/04/20 13:30 98.3 Laboratory Data Labs 24H Laboratory Tests 2 11/04/20 13:13: Immature Granulocyte % (Auto) 0.6, Neutrophils (%) (Auto) 76.3H, Lymphocytes (%) (Auto) 15.0L, Monocytes (%) (Auto) 5.5, Eosinophils (%) (Auto) 2.2, Basophils (%) (Auto) 0.4, Neutrophils # (Auto) 12.3H, Lymphocytes # (Auto) 2.4, Monocytes # (Auto) 0.9H, Eosinophils # (Auto) 0.4, Basophils # (Auto) 0.1, Nucleated Red Blood Cells % (auto) 0.0, Anion Gap 9, Glomerular Filtration Rate > 60.0, Calcium Level 9.4, Total Bilirubin 0.2, Direct Bilirubin < 0.1, Aspartate Amino Transf (AST/SGOT) 31, Alanine Aminotransferase (ALT/SGPT) 28, Alkaline Phosphatase 80, Total Protein 7.7, Albumin 4.1, Albumin/Globulin Ratio 1.1, Lipase 76 CBC/BMP Laboratory Tests 11/04/20 13:13 Microbiology Microbiology 11/04/20 Gastrointestinal Tract Panel (PCR) - Final, Complete Assessment/Plan Mr. Escalante is a 30 year old female to male transgender with cyclic vomiting syndrome who is here with with persistent nausea and vomiting. Suspecting that this is from cannabis use. He last used cannabis yesterday. Will provide IV fluids and supportive care. I will try a dose of sumatriptan subcutaneous to abort the nausea. If that does not work, patient can have as needed Compazine or as needed Zofran. Patient may have some benefit from as needed diphenhydramine as it may help with the nausea and provide sedated effects. Plan / VTE VTE Prophylaxis Ordered?: Yes Plan Plan 1. Cyclic vomiting syndrome/cannabis hyperemesis Last used cannabis yesterday IV fluids and supportive care Clear liquid diet We will try to abort with subcutaneous sumatriptan As needed Compazine and as needed Zofran Patient may benefit from diphenhydramine as it can help with nausea and provide sedative effects 2. Asthma Not in asthma exacerbation Albuterol as needed We will hold montelukast as patient cannot take orals at this time 3. GERD Patient unlikely to take orals Hold Carafate Change pantoprazole from PO to IV 4. DVT prophylaxis SCDs and teds Disposition: Pending clinical improvement KENNETH RAMIREZ DO Nov 04, 2020 18:50
[2020-11-04] MEDS ORDERED: HOME MED LIST COMPLETE! XX SCH (19:00)
[2020-11-04 19:59] LABS: RSV AMPLIFICATION NEGATIVE (NEGATIVE)
[2020-11-04] MEDS: SUCRALFATE 1 GM TAB PO SCH (21:00)
[2020-11-04] MEDS: NS 1,000 ML IV SCH (23:17)
[2020-11-04 23:30] VITALS: BP 134/92
[2020-11-05] MEDS ORDERED: QUEtiapine FUMARATE 50MG TAB PO ONE (00:25)
[2020-11-05] MEDS ORDERED: MAALOX 30 ML SUSP *UDC PO PRN (01:45)
[2020-11-05 03:08] LABS: AMPHETAMINES URINE REFLEX NEGATIVE (NEGATIVE); BARBITURATES URINE REFLEX NEGATIVE (NEGATIVE); BENZODIAZEPINES URINE REFLEX NEGATIVE (NEGATIVE); COCAINE METABOLITE URINE REFLE NEGATIVE (NEGATIVE); METHADONE URINE REFLEX NEGATIVE (NEGATIVE); OPIATES URINE REFLEX NEGATIVE (NEGATIVE); PHENCYCLIDINE URINE REFLEX NEGATIVE (NEGATIVE)
[2020-11-05 04:55] LABS: CANNABINOIDS URINE REFLEX PENDING CONFIRMATION (NEGATIVE)
[2020-11-05 06:00] VITALS: BP 121/73
[2020-11-05 06:36] LABS: HEMATOCRIT 40.3 % (42.0-52.0); HEMOGLOBIN 13.4 g/dl (13.5-17.5); MEAN CORPUSCULAR HEMOGLOBIN 28.4 pg (27.0-33.0); MEAN CORPUSCULAR HGB CONC 33.3 g/dl (32.0-36.5); MEAN CORPUSCULAR VOLUME 85.4 fl (80.0-96.0); PLATELET COUNT, AUTOMATED 287 10^3/uL (150-450); RED BLOOD COUNT 4.72 10^6/uL (4.30-6.10)
[2020-11-05 07:02] LABS: BLOOD UREA NITROGEN 8 MG/DL (7-18); CALCIUM LEVEL 8.8 MG/DL (8.5-10.1); CARBON DIOXIDE LEVEL 25 MEQ/L (21-32); CHLORIDE LEVEL 109 MEQ/L (98-107); CREATININE FOR GFR 0.82 MG/DL (0.70-1.30); GLOMERULAR FILTRATION RATE > 60.0 (>60); GLUCOSE, FASTING 118 MG/DL (70-100); MAGNESIUM LEVEL 2.3 MG/DL (1.8-2.4); POTASSIUM SERUM 3.6 MEQ/L (3.5-5.1); SODIUM LEVEL 141 MEQ/L (136-145)
[2020-11-05] MEDS: SUCRALFATE 1 GM TAB PO SCH ×2 (07:59→11:59)
[2020-11-05] MEDS ORDERED: PANT40TA29 PO (08:02)
[2020-11-05] MEDS ORDERED: ONDA4TAB6 PO (08:02)
[2020-11-05] MEDS ORDERED: CETIRIZINE (ZyrTEC) 10 MG TAB PO SCH (09:00)
[2020-11-05] MEDS ORDERED: MONTELUKAST 10 MG TAB PO SCH (09:00)
[2020-11-05] MEDS ORDERED: PANTOPRAZOLE 40MG VIAL (C9113 PER 1) IV SCH (09:00)
[2020-11-05] MEDS: NS 1,000 ML IV SCH (11:51)
--- NOTE | 2020-11-05 13:28 | DS.PDOC ---
Discharge Summary General Date of Admission Nov 04, 2020 at 17:20 Date of Discharge Nov 05, 2020 Discharge Summary PROCEDURES PERFORMED DURING STAY: None ADMITTING DIAGNOSES: 1. Cyclic vomiting syndrome/cannabis hyperemesis none 2. Asthma 3. GERD DISCHARGE DIAGNOSES: 1. Cyclic vomiting syndrome/cannabis hyperemesis none 2. Asthma 3. GERD COMPLICATIONS/CHIEF COMPLAINT: Cannabinoid Hyperemesis Syndrome,Cyclic Vomiting. HISTORY OF PRESENT ILLNESS: Mr. Escalante is a 30 year old female to male trans gender with cyclic vomiting syndrome who is here with with persistent nausea and vomiting. When I saw the patient, he cannot tell me very much due to the pain, nausea, and dry heaving. He was in distress rolling back and forth and moaning. I was able to figure out that this started around 9 AM this morning. His last use of marijuana was yesterday. With a thumbs up or thumbs down, he is able to tell me he had abdominal pain, nausea, dry heaving, and sore throat. Denies any fever, changes in vision, or dysuria. Patient is unable to tolerate a diet. Otherwise, lipase was negative. Creatinine and potassium within normal limits. CT abdomen pelvis with IV contrast only was negative. Patient will be admitted for intractable nausea and vomiting and inability to tolerate diet. HOSPITAL COURSE: Last night patient did receive sumatriptan subq as an abortive agent, patient continued to have nausea. This morning, he looked well and recovered faster than expected. He tells me that he chronically has nausea, and will have it at least once a day. He follows with GI to help manage his cyclical vomiting syndrome. He tells me that cannabis helps him with solid food, otherwise he is only on a liquid diet. He often drinks shakes and supplements such as Ensure. He tells me that he only comes to the ED if he cannot stop vomiting. Otherwise a week ago he ran out of his Protonix. He feels like he has a lot of acid in his throat. He tells me that he is at his baseline and he feels ready for home. I sent a prescription for Protonix to his pharmacy patient. Patient was discharged home today. DISCHARGE MEDICATIONS: Please see below. ALLERGIES: Please see below. PHYSICAL EXAMINATION ON DISCHARGE: VITAL SIGNS: Please see below. GENERAL: Comfortable, in no apparent distress. HEENT: Sclera clear. NECK: Supple. RESPIRATORY: Lungs clear to auscultation bilaterally, no rales, wheeze or rhonchi. CARDIOVASCULAR: Mildly tachycardic, but regular. ABDOMEN: Normal bowel sounds. MUSCLE SKELETAL: Muscle strength 5/5 in all extremities. PSYCHOLOGICAL: Normal mood and affect LABORATORY DATA: Please see below. IMAGING: Radiologist interpretation CT abdomen pelvis with IV contrast only Negative CT of the abdomen and pelvis. PROGNOSIS: Good ACTIVITY: As tolerated. DIET: As tolerated (patient tells me he generally only tolerates a liquid diet) DISCHARGE PLAN: Home DISPOSITION: 01 Home, Self-Care. DISCHARGE INSTRUCTIONS: 1. Follow-up with PCP in 1 week. 2. Keep appointment with GI ITEMS TO FOLLOWUP ON ON OUTPATIENT: 1. Cyclic vomiting disease DISCHARGE CONDITION: Stable Total time spent on discharge planning, discharge summary, and medication reconciliation: 45 minutes Vital Signs/I&Os Vital Signs Date Time Temp Pulse Resp B/P (MAP) Pulse Ox O2 Delivery O2 Flow Rate FiO2 11/05/20 06:00 98.8 107 20 121/73 (89) 98 Room Air I&O- Last 24 Hours up to 6 AM 11/05/20 05:59 Intake Total 0 ml Balance 0 ml Laboratory Data Labs 24H Laboratory Tests 2 11/04/20 19:16: Coronavirus (COVID-19)(PCR) NEGATIVE, Influenza Type A (RT-PCR) NEGATIVE, Influenza Type B (RT-PCR) NEGATIVE, Respiratory Syncytial Virus (PCR) NEGATIVE 11/05/20 02:52: Urine Opiates Screen NEGATIVE, Urine Methadone Screen NEGATIVE, Urine Barbiturates Screen NEGATIVE, Urine Phencyclidine Screen NEGATIVE, Urine Amphetamines Screen NEGATIVE, Urine Benzodiazepines Screen NEGATIVE, Urine Cocaine Metabolite Screen NEGATIVE, Urine Cannabinoids Screen PENDING CONFIRMATIONH 11/05/20 06:11: Nucleated Red Blood Cells % (auto) 0.0, Anion Gap 7L, Glomerular Filtration Rate > 60.0, Calcium Level 8.8, Magnesium Level 2.3 CBC/BMP Laboratory Tests 11/05/20 06:11 Microbiology Microbiology 11/04/20 Gastrointestinal Tract Panel (PCR) - Final, Complete Discharge Medications Scheduled Cetirizine HCl (Cetirizine HCl) 10 Mg Tab, 10 MG PO DAILY, (Reported) Montelukast Sodium (Singulair) 10 Mg Tablet, 10 MG PO DAILY, (Reported) Pantoprazole Sodium (Pantoprazole Sodium) 40 Mg Tablet.dr, 40 MG PO DAILY Sucralfate (Sucralfate) 1 Gm Tab, 1 GM PO ACHS, (Reported) Testosterone Cypionate (Testosterone Cypionate) 200 Mg/1 Ml Vial, 0.5 ML IM QWEEK, (Reported) WEDNESDAYS Scheduled PRN Albuterol Sulfate (Ventolin Hfa) 18 Gm Hfa.aer.ad, 2 PUFF INH QID PRN for SHORTN ESS OF BREATH, (Reported) Ondansetron (Ondansetron Odt) 4 Mg Tab.rapdis, 4 MG PO Q6HP PRN for nausea/vomiting Allergies Coded Allergies: bee venom protein (honey bee) (Verified Allergy, Severe, anaphylaxis, 08/24/20) latex (Verified Allergy, Severe, resp issues, 08/24/20) amoxicillin (Verified Allergy, Intermediate, infections, rash, 08/24/20) KENNETH RAMIREZ DO Nov 05, 2020 13:28
--- NOTE | 2020-11-05 16:15 | ECGEPIP ---
[facility] Test Date: 2020-11-05 Pat Name: JANET YATES Department: Room: [place] [address] Gender: Male Animal Nurse: CHRIS : 1990 Requested By: KENNETH Jamison Order Number: [id number] Reading MD: Christian Rodgers Measurements Intervals [place] Rate: 101 P: 60 CA: 154 QRS: 49 QRSD: 98 T: 34 QT: 352 QTc: 456 Interpretive Statements Sinus tachycardia Poor R wave progression. Increased heart rate compared with 05/24/2019. Electronically Signed on 11-05-2020 16:14:50 EDT by Christian Rodgers
[2020-11-06] MEDS ORDERED: PANT40TA29 PO (00:49)
[2020-11-06] MEDS ORDERED: PROM25TA12 PO (00:49)
== END 2020-11-05 12:52 | disposition home or self-care (01) | DRG 249 ==
LOC: M ED 12:57 → EDBD 12:57 → M ED INP 17:20 → ENRESERV 21:56 → M MSPAV 23:05
PROVIDERS: ADMIT Internal Medicine; ATTEND Internal Medicine
DX: R11.15 Cyclical vomiting syndrome unrelated to migraine (principal); F12.188 Cannabis abuse with other cannabis-induced disorder; J45.909 Unspecified asthma, uncomplicated; K21.9 Gastro-esophageal reflux disease without esophagitis; Z79.899 Other long term (current) drug therapy; Z91.030 Bee allergy status; Z91.040 Latex allergy status; Z88.8 Allergy status to other drugs, medicaments and biological substances; F43.10 Post-traumatic stress disorder, unspecified; F31.9 Bipolar disorder, unspecified; F41.9 Anxiety disorder, unspecified

== ENCOUNTER 2020-11-05 22:59 | Observation (INO) | payer OTHER ==
[~2020-11-05] VITALS: Ht 160 cm; Wt 79.5 kg
[~2020-11-05 22:59] MED LIST changes: +PANT40TA29 PO
[2020-11-05] MEDS ORDERED: KETOROLAC 30 MG/ML 1ML VIAL IV ONE (23:55)
[2020-11-05] MEDS ORDERED: NS 1,000 ML IV ONE (23:55)
[2020-11-05] MEDS ORDERED: HALOPERIDOL 5MG/ML VIAL (J1630 PER 1) IV ONE (23:55)
[2020-11-06 00:17] LABS: BASO # 0.1 10^3/uL (0.0-0.2); BASO % 0.3 % (0.0-1.0); EOS # 0.2 10^3/uL (0.0-0.5); EOS % 0.9 % (0.0-3.0); HEMATOCRIT 41.9 % (42.0-52.0); LYMPH # 3.5 10^3/uL (1.5-5.0); LYMPH % 19.2 % (24.0-44.0); MEAN CORPUSCULAR HEMOGLOBIN 28.3 pg (27.0-33.0); MEAN CORPUSCULAR HGB CONC 33.4 g/dl (32.0-36.5); MEAN CORPUSCULAR VOLUME 84.8 fl (80.0-96.0); MONO # 1.4 10^3/uL (0.0-0.8); MONO % 7.8 % (2.0-8.0); NEUTROPHILS # 12.9 10^3/uL (1.5-8.5); NEUTROPHILS % 71.4 % (36.0-66.0); PLATELET COUNT, AUTOMATED 320 10^3/uL (150-450); RED BLOOD COUNT 4.94 10^6/uL (4.30-6.10); WHITE BLOOD COUNT 18.1 10^3/uL (4.0-10.0)
[2020-11-06 00:45] LABS: ALBUMIN 4.1 GM/DL (3.2-5.2); BILIRUBIN,DIRECT 0.1 MG/DL (0.0-0.2); BILIRUBIN,TOTAL 0.3 MG/DL (0.2-1.0); TOTAL PROTEIN 7.3 GM/DL (6.4-8.2)
[2020-11-06] MEDS ORDERED: PROM25TA12 PO (00:49)
[2020-11-06] MEDS ORDERED: PANT40TA29 PO (00:49)
[2020-11-06] MEDS ORDERED: HOME MED LIST COMPLETE! XX SCH (00:50)
[2020-11-06] MEDS ORDERED: CAPSAICIN 0.025% CR 60 GM TOP ONE (00:50)
[2020-11-06] MEDS ORDERED: HALOPERIDOL 5MG/ML VIAL (J1630 PER 1) IV ONE (00:50)
[2020-11-06] MEDS ORDERED: PANTOPRAZOLE 40MG VIAL (C9113 PER 1) IV ONE (00:55)
[2020-11-06 02:11] LABS: RSV AMPLIFICATION NEGATIVE (NEGATIVE)
[2020-11-06] MEDS ORDERED: ONDANSETRON 4MG/2ML VIAL IV PRN (03:20)
--- NOTE | 2020-11-06 03:21 | HPEPDOC ---
[facility] Medical History & Physical Date of Admission Nov 06, 2020 Date of Service: Nov 06, 2020 Other Provider Demarcus Chowdhury Attending Physician: WILLIE ROBLES MD History and Physical TIME OF SERVICE: 515am CHIEF COMPLAINT: abdominal pain HISTORY OF PRESENT ILLNESS: is a 30 yr old M who presented w c/o mid non-radiating burning 10/10 in severity abdominal pain associated with bloody emesis and bloody diarrhea, feeling hot and chills. He denies having fevers. He was admitted w similar c/o on Nov 04, diagnosed with cyclic vomiting syndrome and discharged on the . Shortly after being discharged home he begun vomiting again. REVIEW OF SYSTEMS: 10-point review of systems negative except as listed in HPI PAST MEDICAL/ SURGICAL HISTORY: Asthma, GERD, Celiac disease, Lactose intolerance, Chronic Asthma, Bipolar disorder, Depression/Anxiety, PTSD, Cyclic vomiting disease/cannabis hyperemesis, Tonsillectomy with Adenoidectomy, FMT Chest masculinzation (as a part of gender confirmation surgery) SOCIAL HISTORY: He doesnt use tobacco products or alcohol but does smoke THC products FAMILY HISTORY: Mother: History of hypertension, DM, CAD, and carcinoma ALLERGIES: Please see below. HOME MEDICATIONS: Please see below. PHYSICAL EXAMINATION: Vital Signs Date Time Temp Pulse Resp B/P (MAP) Pulse Ox O2 Delivery O2 Flow Rate FiO2 11/05/20 22:59 98.2 88 24 99 Room Air 11/06/20 01:18 135/72 (93) GENERAL APPEARANCE: well nourished and developed / having violent chills HEENT: EOMI / MMM&P CARDIOVASCULAR: RRR/NMRG LUNGS: lungs CTAB on room air ABDOMEN: flat / soft & NT MUSCULOSKELETAL: NCAT / RU x 4 INTEGUMENT: flat keloid scars from chest masculinization surgery / multiple tattoos and piercings NEUROLOGICAL: CN 2-12 grossly intact /speech not dysarthric PSYCHIATRIC: A&Ox 3 LABORATORY DATA: Immature Granulocyte % (Auto) 0.4, Neutrophils (%) (Auto) 71.4H, Lymphocytes (%) (Auto) 19.2L, Monocytes (%) (Auto) 7.8, Eosinophils (%) (Auto) 0.9, Basophils (%) (Auto) 0.3, Neutrophils # (Auto) 12.9H, Lymphocytes # (Auto) 3.5, Monocytes # (Auto) 1.4H, Eosinophils # (Auto) 0.2, Basophils # (Auto) 0.1, Nucleated Red Blood Cells % (auto) 0.0, Total Bilirubin 0.3, Direct Bilirubin 0.1, Aspartate Amino Transf (AST/SGOT) 38H, Alanine Aminotransferase (ALT/SGPT) 29, Alkaline Phosphatase 68, Total Protein 7.3, Albumin 4.1, Albumin/Globulin Ratio 1.3, Lipase 97 11/06/20 01:16: Coronavirus (COVID-19)(PCR) NEGATIVE, Influenza Type A (RT-PCR) NEGATIVE, Influenza Type B (RT-PCR) NEGATIVE, Respiratory Syncytial Virus (PCR) NEGATIVE IMAGING: CT abd/pelvis IMPRESSION: Negative CT of the abdomen and pelvis MICROBIOLOGY: GI panel is neg ASSESSMENT: is a 30 yr M w a hx of Asthma, GERD, Celiac disease, Lactose intolerance, Chronic Asthma, Bipolar disorder, Depression/Anxiety, PTSD, & Cyclic vomiting disease/cannabis hyperemesis who is admitted for evaluation of suspected Sepsis & n/v/d. PLAN: 1 Bloody emesis w bloody Possibly due to gastroenteritis vs cyclic vomiting syndrome GI panel is neg Plan: admit to medical floor/ f/u serial HG/ IV PPI, abx/ Carafate / c/w phenergan , add IV Zofran / the day time team may consider GI consult 2 Suspected Sepsis SIRS criteria include HR of 106 with WBC # of 18 Possibly GI source vs bacteremia Plan: bc he has chills and I am suspecting he has bacteremia we will start him on Vancomycin and Meropenum pending blood cx and lactic acid 3 Class 1 Obesity complicates care DVT px w TEDs/SCDs (Vibha score is 2 points = low risk) Dispo: home after at least 2 midnights stay Home Medications Scheduled Cetirizine HCl (Cetirizine HCl) 10 Mg Tab, 10 MG PO QHS Montelukast Sodium (Singulair) 10 Mg Tablet, 10 MG PO DAILY Pantoprazole Sodium (Pantoprazole Sodium) 40 Mg Tablet.dr, 40 MG PO DAILY Sucralfate (Sucralfate) 1 Gm Tab, 1 GM PO ACHS Testosterone Cypionate (Testosterone Cypionate) 200 Mg/1 Ml Vial, 0.5 ML IM QWEEK WEDNESDAYS Scheduled PRN Albuterol Sulfate (Ventolin Hfa) 18 Gm Hfa.aer.ad, 2 PUFF INH QID PRN for SHORTNESS OF BREATH Promethazine HCl (Promethazine HCl) 25 Mg Tablet, 25 MG PO QID PRN for NAUSEA OR VOMITING Allergies Coded Allergies: bee venom protein (honey bee) (Verified Allergy, Severe, anaphylaxis, 08/24) latex (Verified Allergy, Severe, resp issues, 08/24/20) amoxicillin (Verified Allergy, Intermediate, infections, rash, 08/24/20) A-FIB/CHADSVASC A-FIB History Current/History of A-Fib/PAF?: No Current PO Anticoag Therapy: No WILLIE ROBLES MD Nov 06, 2020 03:21
[2020-11-06] MEDS: NS 1,000 ML IV SCH ×2 (05:02→11:40)
[2020-11-06] MEDS ORDERED: SODIUM CHLORIDE 0.9% 1000ML IV STA (05:25)
[2020-11-06] MEDS ORDERED: VANCOMYCIN HCL 1,000 MG, VIAL MATE ADAPTER 1 EACH in NS 250 ML IV SCH (05:55)
[2020-11-06] MEDS ORDERED: MEROPENEM INJ 1 GM in IV 1 EA IV SCH (06:00)
[2020-11-06 06:33] VITALS: BP 134/72
[2020-11-06] MEDS ORDERED: ALBUTEROL 90 MCG/ACT 8GM HFA INHALER INH PRN (06:45)
[2020-11-06] MEDS ORDERED: PROMETHAZINE 25 MG TAB PO PRN (06:45)
[2020-11-06] MEDS: SUCRALFATE 1 GM TAB PO SCH ×2 (06:57→12:35)
[2020-11-06] MEDS ORDERED: VANCOMYCIN HCL 1,000 MG, VIAL MATE ADAPTER 1 EACH in NS 250 ML IV ONE (08:00)
[2020-11-06] MEDS ORDERED: PANTOPRAZOLE 40MG TAB (PROTONIX) PO SCH (09:00)
[2020-11-06] MEDS ORDERED: MONTELUKAST 10 MG TAB PO SCH (09:00)
[2020-11-06] MEDS ORDERED: VANCOMYCIN HCL 750 MG, VIAL MATE ADAPTER 1 EACH in NS 250 ML IV ONE (09:00)
--- NOTE | 2020-11-06 09:16 | IPNPDOC ---
Text Note Date of Service The patient was seen on 11/06/20. Subjective: Pt was admitted overnight for cyclic vomiting syndrome - he had been admitted on 11/05 and discharged for the same condition. Patient was seen today he was lying supine in his bed. Patient had intense tremors some hyperventilation and was in extreme discomfort. Patient says that he has been sheikh ving 10+ vomiting episodes a day. Patient says that since 11/04 when the cyclic vomiting started he hasn't slept except 2 hours on 11/05 when he was discharged from the hospital the first time. review of systems: Patient says that he has chronic headaches that have been present during his vomiting episodes, Pt has severe N/V, Patient has abdominal discomfort since 11/04. Pt denies chest pain, palpitations, SOB, dyspnea, numbness, and tingling. Physical exam: General: Patient has tremors and body discomfort/chills but no fever. Psych: Pt is alert and oriented HEENT: No visible thyroid enlargement or lymph node enlargement Heart: Normal S1 and S2. no murmurs or extra heart sounds Lung: Lung sounds are clear and BL. Neuro: No numbness or tingling Extremities: pedal and posterior tibial pulses were 2/4 BL. Assessment: 30 year old transgender male with past medical history of IBS, Asthma, and extensive allergies. Patient came to the hospital with complaints of many bouts of vomiting and diarrhea that were also causing tremors and pain all over his body. When patient came in he said his dicomfort was a 10/10 now the discomfort is a 8/10. Plan: 1. Cyclic vomiting syndrome - Patient is on IV fluids - cause is unknown - Differential includes - Estrogen induced cyclic vomiting syndrome, lymphoma, bacteremia, Cannibis induced. - Ordered - Zofran (ondansetron), femergin (promethazine) for symptomatic relief. If patient does not get better will consider adding Haldol. - patient is hypokalemic from recurrent vomiting and diarrhea - we will continue to monitor the value and if indicated give IV K+. 2. Asthma - Montelukast and Albuterol will be continued. 3. GERD - sucralfate and pantoprazole will be continued. 4. Seasonal Allergies - Cetirizine will be continued. 5. DVT prophylaxis - TEDs and SCDs - some concern for GI bleed. VS,Fishbone, I+O VS, Fishbone, I+O Laboratory Tests 11/06/20 00:08 Vital Signs Date Time Temp Pulse Resp B/P (MAP) Pulse Ox O2 Delivery O2 Flow Rate FiO2 11/06/20 06:33 98.4 93 16 134/72 (92) 94 Room Air I&O- Last 24 Hours up to 6 AM 11/06/20 06:00 Intake Total 1000 ml Balance 1000 ml NASEEM MARIE OMS-3 Nov 06, 2020 09:16
[2020-11-06 09:27] LABS: HEMATOCRIT 37.7 % (42.0-52.0); HEMOGLOBIN 12.3 g/dl (13.5-17.5); MEAN CORPUSCULAR HEMOGLOBIN 28.6 pg (27.0-33.0); MEAN CORPUSCULAR HGB CONC 32.6 g/dl (32.0-36.5); MEAN CORPUSCULAR VOLUME 87.7 fl (80.0-96.0); PLATELET COUNT, AUTOMATED 248 10^3/uL (150-450); WHITE BLOOD COUNT 14.8 10^3/uL (4.0-10.0)
[2020-11-06 09:46] LABS: BLOOD UREA NITROGEN 10 MG/DL (7-18); CARBON DIOXIDE LEVEL 22 MEQ/L (21-32); CHLORIDE LEVEL 113 MEQ/L (98-107); CREATININE FOR GFR 0.78 MG/DL (0.70-1.30); GLOMERULAR FILTRATION RATE > 60.0 (>60); GLUCOSE, FASTING 90 MG/DL (70-100); POTASSIUM SERUM 3.7 MEQ/L (3.5-5.1); SODIUM LEVEL 142 MEQ/L (136-145)
--- NOTE | 2020-11-06 10:47 | DS.PDOC ---
Discharge Summary General Date of Admission Nov 05, 2020 at 23:00 Date of Discharge 11/06/20 Attending Physician: AMBROSE MCCULLOUGH MD Discharge Summary PROCEDURES PERFORMED DURING STAY: [None]. ADMITTING DIAGNOSES: 1. Cyclic vomiting syndrome 2. Asthma 3. GERD 4. Seasonal Allergies DISCHARGE DIAGNOSES: 1. Cyclic vomiting syndrome 2. Asthma 3. GERD 4. Seasonal Allergies COMPLICATIONS/CHIEF COMPLAINT: Cyclic Vomiting Syndrome. HISTORY OF PRESENT ILLNESS: Pt was admitted overnight for cyclic vomiting syndrome. Had Diarrhea and vomiting that was pretty extreme HOSPITAL COURSE: Pt was admitted overnight for cyclic vomiting syndrome - he had been admitted on 11/05 and discharged for the same condition. Patient was seen today he was lying supine in his bed. Patient had intense tremors some hyperventilation and was in extreme discomfort. Patient says that he has been having 10+ vomiting episodes a day. Patient says that since 11/04 when the cyclic vomiting started he hasn't slept except 2 hours on 11/05 when he was discharged from the hospital the first time. K+ was low on initial labs but it corrected today in the morning. DISCHARGE MEDICATIONS: Please see below. ALLERGIES: Please see below. review of systems: Patient says that he has chronic headaches that have been present during his vomiting episodes, Pt has severe N/V, Patient has abdominal discomfort since 11/04. Pt denies chest pain, palpitations, SOB, dyspnea, numbness, and tingling. Physical exam: General: Patient has tremors and body discomfort/chills but no fever. Psych: Pt is alert and oriented HEENT: No visible thyroid enlargement or lymph node enlargement Heart: Normal S1 and S2. no murmurs or extra heart sounds Lung: Lung sounds are clear and BL. Neuro: No numbness or tingling Extremities: pedal and posterior tibial pulses were 2/4 BL. Assessment: 30 year old transgender male with past medical history of IBS, Asthma, and extensive allergies. Patient came to the hospital with complaints of many bouts of vomiting and diarrhea that were also causing tremors and pain all over his body. When patient came in he said his dicomfort was a 10/10 now the discomfort is a 8/10. LABORATORY DATA: Please see below. New IMAGING: None PROGNOSIS: Good ACTIVITY: As tolerated. DIET: As tolerated - small, light meals DISCHARGE PLAN: 1. Patient has been educated on the affect of marijuana on his cyclic vomiting. 2. Patient has been instructed to continue home meds. 3. Patient has been instructed Taper marijuana use. DISPOSITION: good. DISCHARGE INSTRUCTIONS: 1. Patient has been educated on the affect of marijuana on his cyclic vomiting. 2. Patient has been instructed to continue home meds. 3. Patient has been instructed Taper marijuana use. ITEMS TO FOLLOWUP ON ON OUTPATIENT: 1. Follow up with PCP within 7 days. DISCHARGE CONDITION: Stable. TIME SPENT ON DISCHARGE: 45 minutes. Vital Signs/I&Os Vital Signs Date Time Temp Pulse Resp B/P (MAP) Pulse Ox O2 Delivery O2 Flow Rate FiO2 11/06/20 06:33 98.4 93 16 134/72 (92) 94 Room Air I&O- Last 24 Hours up to 6 AM 11/06/20 06:00 Intake Total 1000 ml Balance 1000 ml Laboratory Data Labs 24H Laboratory Tests 2 11/05/20 23:41: POC Glucose (Misc Panel) 114H, POC Sodium (Misc Panel) 142, POC Potassium (Misc Panel) 3.3L, POC Chloride (Misc Panel) 105, POC Total CO2 (Misc Panel) 18.0L, POC Blood Urea Nitrogen (Misc Panel 13, POC Ionized Calcium (Misc Panel) 4.3L, POC Creatinine (Misc Panel) 0.9, POC Hematocrit (Misc Panel) 43.0 11/06/20 00:08: Immature Granulocyte % (Auto) 0.4, Neutrophils (%) (Auto) 71.4H, Lymphocytes (%) (Auto) 19.2L, Monocytes (%) (Auto) 7.8, Eosinophils (%) (Auto) 0.9, Basophils (%) (Auto) 0.3, Neutrophils # (Auto) 12.9H, Lymphocytes # (Auto) 3.5, Monocytes # (Auto) 1.4H, Eosinophils # (Auto) 0.2, Basophils # (Auto) 0.1, Nucleated Red Blood Cells % (auto) 0.0, Total Bilirubin 0.3, Direct Bilirubin 0.1, Aspartate Amino Transf (AST/SGOT) 38H, Alanine Aminotransferase (ALT/SGPT) 29, Alkaline Phosphatase 68, Total Protein 7.3, Albumin 4.1, Albumin/Globulin Ratio 1.3, Lipase 97 11/06/20 01:16: Coronavirus (COVID-19)(PCR) NEGATIVE, Influenza Type A (RT-PCR) NEGATIVE, Influenza Type B (RT-PCR) NEGATIVE, Respiratory Syncytial Virus (PCR) NEGATIVE 11/06/20 05:45: Lactic Acid Level 1.4 11/06/20 08:31: Nucleated Red Blood Cells % (auto) 0.0, Differential Slide Review Report, Peripheral Blood Smear Path Consult PERIPHERAL SMEAR, Anion Gap 7L, Glomerular Filtration Rate > 60.0, Calcium Level 8.0L CBC/BMP Laboratory Tests 11/06/20 00:08 11/06/20 08:31 Microbiology Microbiology 11/06/20 Blood Culture, Received Pending 11/06/20 Blood Culture, Received Pending 11/06/20 Gastrointestinal Tract Panel (PCR) - Final, Complete Discharge Medications Scheduled Cetirizine HCl (Cetirizine HCl) 10 Mg Tab, 10 MG PO QHS, (Reported) Montelukast Sodium (Singulair) 10 Mg Tablet, 10 MG PO DAILY, (Reported) Pantoprazole Sodium (Pantoprazole Sodium) 40 Mg Tablet.dr, 40 MG PO DAILY, (Reported) Sucralfate (Sucralfate) 1 Gm Tab, 1 GM PO ACHS, (Reported) Testosterone Cypionate (Testosterone Cypionate) 200 Mg/1 Ml Vial, 0.5 ML IM QWEEK, (Reported) WEDNESDAYS Scheduled PRN Albuterol Sulfate (Ventolin Hfa) 18 Gm Hfa.aer.ad, 2 PUFF INH QID PRN for SHORTNESS OF BREATH, (Reported) Promethazine HCl (Promethazine HCl) 25 Mg Tablet, 25 MG PO QID PRN for NAUSEA OR VOMITING, (Reported) Allergies Coded Allergies: bee venom protein (honey bee) (Verified Allergy, Severe, anaphylaxis, 08/24/20) latex (Verified Allergy, Severe, resp issues, 08/24/20) amoxicillin (Verified Allergy, Intermediate, infections, rash, 08/24/20) GME ATTESTATION GME ATTESTATION My faculty preceptor for this patient encounter was physically present during the encounter and was fully available. All aspects of the patient interview, examination, medical decision making process, and medical care plan development were reviewed and approved by the faculty preceptor. The faculty preceptor is a quevedo and concurs with the plan as stated in the body of this note and will attest to such by his/her cosignature. ATTENDING NOTE I, Ambrose Mccullough MD, have independently examined this patient and performed my own physical exam, as well as reviewed the documentation and edited where necessary. I have discussed in detail with the resident / student the findings and plan of treatment as documented by the resident / student and edited their note. I agree with their findings and treatment plan and have edited their documentation. Total time spent on this discharge including coordination of care, review of chart, documentation and actual patient contact is around 40 minutes NASEEM MARIE OMS-3 Nov 06, 2020 10:47 AMBROSE MCCULLOUGH MD Nov 08, 2020 11:07
[2020-11-06 12:54] LABS: HEMATOCRIT 39.9 % (42.0-52.0); HEMOGLOBIN 13.3 g/dl (13.5-17.5)
[2020-11-06] MEDS ORDERED: CETIRIZINE (ZyrTEC) 10 MG TAB PO SCH (21:00)
== END 2020-11-06 14:00 | disposition home or self-care (01) ==
LOC: M ED 22:59 → M ED INP 23:00 → M MSPAV 11-06 06:33
PROVIDERS: ADMIT Internal Medicine; ATTEND Internal Medicine
DX: T40.7X1A Poisoning by cannabis (derivatives), accidental (unintentional), initial encounter (principal); R11.2 Nausea with vomiting, unspecified; J45.909 Unspecified asthma, uncomplicated; K21.9 Gastro-esophageal reflux disease without esophagitis; R19.7 Diarrhea, unspecified; K90.0 Celiac disease; R06.4 Hyperventilation; R25.1 Tremor, unspecified; K58.9 Irritable bowel syndrome, unspecified; E73.9 Lactose intolerance, unspecified; F32.9 Major depressive disorder, single episode, unspecified; F41.9 Anxiety disorder, unspecified; E66.9 Obesity, unspecified; Z79.899 Other long term (current) drug therapy; Z79.890 Hormone replacement therapy; Z88.0 Allergy status to penicillin; Z91.040 Latex allergy status; Z91.030 Bee allergy status
CPT/HCPCS: 36415; 80047; 80048; 80076; 83605; 83690; 85014; 85018; 85025; 85027; 87040; 87505; 87631; 96361; 96365; 96375; 96376; 99285; C9113; J1630; J1885; J2185; J3370

== ENCOUNTER 2020-11-12 01:55 | Emergency (ER) | payer OTHER ==
[~2020-11-12] VITALS: Ht 160 cm; Wt 80.0 kg
[2020-11-12] MEDS ORDERED: NS 1,000 ML IV ONE (07:40)
[2020-11-12] MEDS ORDERED: KETOROLAC 30 MG/ML 1ML VIAL IV ONE (07:40)
[2020-11-12] MEDS ORDERED: ONDANSETRON 4MG/2ML VIAL IV ONE (07:40)
[2020-11-12] MEDS ORDERED: ONDANSETRON 4 MG ORAL DISINTEGRATING TAB PO ONE (08:45)
[2020-11-12 09:12] LABS: BASO % 0.1 % (0.0-1.0); HEMATOCRIT 42.6 % (42.0-52.0); HEMOGLOBIN 14.3 g/dl (13.5-17.5); LYMPH # 1.3 10^3/uL (1.5-5.0); LYMPH % 8.3 % (24.0-44.0); MEAN CORPUSCULAR HEMOGLOBIN 28.5 pg (27.0-33.0); MEAN CORPUSCULAR HGB CONC 33.6 g/dl (32.0-36.5); MONO # 0.5 10^3/uL (0.0-0.8); MONO % 3.1 % (2.0-8.0); NEUTROPHILS % 87.7 % (36.0-66.0); PLATELET COUNT, AUTOMATED 290 10^3/uL (150-450); RED BLOOD COUNT 5.01 10^6/uL (4.30-6.10)
[2020-11-12] MEDS ORDERED: HALOPERIDOL 5MG/ML VIAL (J1630 PER 1) IM ONE (09:45)
[2020-11-12] MEDS ORDERED: CAPSAICIN 0.025% CR 60 GM TOP ONE (09:45)
[2020-11-12 10:01] LABS: ALBUMIN 3.8 GM/DL (3.2-5.2); ALT/SGPT 29 U/L (12-78); AMYLASE 48 U/L (25-115); BILIRUBIN,DIRECT < 0.1 MG/DL (0.0-0.2); BILIRUBIN,TOTAL 0.4 MG/DL (0.2-1.0); BLOOD UREA NITROGEN 9 MG/DL (7-18); CALCIUM LEVEL 8.9 MG/DL (8.5-10.1); CARBON DIOXIDE LEVEL 24 MEQ/L (21-32); CHLORIDE LEVEL 107 MEQ/L (98-107); CREATININE FOR GFR 0.95 MG/DL (0.70-1.30); GLOMERULAR FILTRATION RATE > 60.0 (>60); GLUCOSE, FASTING 104 MG/DL (70-100); LIPASE 68 U/L (73-393); POTASSIUM SERUM 4.5 MEQ/L (3.5-5.1); SODIUM LEVEL 140 MEQ/L (136-145); TOTAL PROTEIN 7.4 GM/DL (6.4-8.2)
[2020-11-12] MEDS ORDERED: PROM25TA12 PO (10:31)
[2020-11-12 10:36] VITALS: BP 144/80
== END 2020-11-12 10:40 | disposition home or self-care (01) ==
LOC: M ED 01:55
DX: F12.188 Cannabis abuse with other cannabis-induced disorder (principal); R11.2 Nausea with vomiting, unspecified; F64.0 Transsexualism; G43.909 Migraine, unspecified, not intractable, without status migrainosus; J45.909 Unspecified asthma, uncomplicated; K90.0 Celiac disease; M41.9 Scoliosis, unspecified; F41.9 Anxiety disorder, unspecified; F32.9 Major depressive disorder, single episode, unspecified; Z79.890 Hormone replacement therapy; Z79.899 Other long term (current) drug therapy; Z88.0 Allergy status to penicillin; Z91.030 Bee allergy status; Z91.040 Latex allergy status
CPT/HCPCS: 80048; 80076; 82150; 83690; 85025; 96372; 99284; J1630; Q0162

== ENCOUNTER 2020-12-24 14:16 | Emergency (ER) | payer OTHER ==
[~2020-12-24] VITALS: Ht 160 cm; Wt 81.8 kg
[2020-12-24] MEDS ORDERED: HALOPERIDOL 5MG/ML VIAL (J1630 PER 1) IV ONE (14:50)
[2020-12-24 17:34] VITALS: BP 143/77
== END 2020-12-24 17:36 | disposition home or self-care (01) ==
LOC: M ED 14:16
DX: F12.188 Cannabis abuse with other cannabis-induced disorder (principal); K58.9 Irritable bowel syndrome, unspecified; F31.9 Bipolar disorder, unspecified; F64.0 Transsexualism; Z79.890 Hormone replacement therapy; Z79.899 Other long term (current) drug therapy; Z88.0 Allergy status to penicillin; Z91.040 Latex allergy status; Z91.030 Bee allergy status
CPT/HCPCS: 96374; 99284; J1630

== ENCOUNTER 2021-01-01 01:16 | Emergency (ER) | payer OTHER ==
[~2021-01-01] VITALS: Ht 172.7 cm; Wt 84.1 kg
[2021-01-01] MEDS ORDERED: MORPHINE 2 MG/ML 1ML VIAL (J2270) IV ONE (03:20)
[2021-01-01] MEDS ORDERED: HALOPERIDOL 5MG/ML VIAL (J1630 PER 1) IV ONE (03:20)
[2021-01-01] MEDS ORDERED: ISOVUE-370 76% 100ML VIAL As Ordered ONE (03:25)
[2021-01-01 03:54] LABS: BASO # 0.1 10^3/uL (0.0-0.2); BASO % 0.4 % (0.0-1.0); EOS # 0.2 10^3/uL (0.0-0.5); EOS % 0.7 % (0.0-3.0); HEMATOCRIT 43.8 % (42.0-52.0); HEMOGLOBIN 14.5 g/dl (13.5-17.5); LYMPH # 2.2 10^3/uL (1.5-5.0); LYMPH % 10.4 % (24.0-44.0); MEAN CORPUSCULAR HEMOGLOBIN 28.6 pg (27.0-33.0); MEAN CORPUSCULAR HGB CONC 33.1 g/dl (32.0-36.5); MEAN CORPUSCULAR VOLUME 86.4 fl (80.0-96.0); MONO # 1.2 10^3/uL (0.0-0.8); MONO % 5.5 % (2.0-8.0); NEUTROPHILS # 17.3 10^3/uL (1.5-8.5); NEUTROPHILS % 82.4 % (36.0-66.0); PLATELET COUNT, AUTOMATED 323 10^3/uL (150-450); RED BLOOD COUNT 5.07 10^6/uL (4.30-6.10)
[2021-01-01 04:38] LABS: ALBUMIN 4.2 GM/DL (3.2-5.2); ALT/SGPT 18 U/L (12-78); BILIRUBIN,DIRECT < 0.1 MG/DL (0.0-0.2); BILIRUBIN,TOTAL 0.3 MG/DL (0.2-1.0); TOTAL PROTEIN 7.6 GM/DL (6.4-8.2)
--- NOTE | 2021-01-01 05:22 | REPVR ---
PROCEDURE INFORMATION: Exam: CT Abdomen And Pelvis With Contrast Exam date and time: 01/01/2021 3:18 AM Age: 30 years old Clinical indication: Nausea; Abdominal pain; Localized; Lower; Additional info: Nausea, hemoptysis, lower abdominal pain TECHNIQUE: Imaging protocol: Computed tomography of the abdomen and pelvis with contrast. Radiation optimization: All CT scans at this facility use at least one of these dose optimization techniques: automated exposure control; mA and/or kV adjustment per patient size (includes targeted exams where dose is matched to clinical indication); or iterative reconstruction. Contrast material: ISO; Contrast volume: 100 ml; Contrast route: INTRAVENOUS (IV); COMPARISON: 1. CT ABD/PEL W/IV CONTRAST ONLY 11/04/2020 4:[address] ABD/PEL W/IV CONTRAST ONLY 11/15/2019 5:15:51 AM FINDINGS: Lungs: There is a small area of nonspecific mild ground-glass opacity in the right lung base, not present previously. Subtle ground-glass opacity previously seen in the left lung base is not currently identified. Liver: The liver appears normal. Gallbladder and bile ducts: The gallbladder is normal with no stones or biliary ductal dilation. Pancreas: The pancreas is normal with no ductal dilation. Spleen: The spleen is normal. Adrenal glands: The adrenal glands are normal. Kidneys and ureters: The kidneys are unremarkable. There are no ureteral stones or hydronephrosis. Stomach and bowel: The small bowel appears unremarkable. A few scattered diverticula are seen in the distal colon. There is no dilation or thickening of the colon. Appendix: A normal appendix is identified. Intraperitoneal space: There is no evidence of free intraperitoneal or pelvic fluid. There is no free intraperitoneal air. Vasculature: No aortic aneurysm. Lymph nodes: There are again a few mildly enlarged mesenteric lymph nodes in the right lower quadrant, which appear similar to the prior exams. Urinary bladder: The bladder is unremarkable. No stones identified. Reproductive: The uterus is unremarkable. Bones/joints: No suspicious osseous lesions. No acute fractures. Soft tissues: The soft tissues appear unremarkable. IMPRESSION: 1. No definite acute abnormality identified. 2. A few distal colon diverticula without evidence of acute diverticulitis. 3. Mildly enlarged mesenteric lymph nodes in the right lower quadrant, unchanged from the 2 prior exams. 4. No evidence of appendicitis. 5. Small focus of nonspecific ground-glass opacity in the right lung base. Electronically signed by: Carmina Zuniga On 01/01/2021 05:21:51 AM
[2021-01-01 07:26] VITALS: BP 153/87
[2021-01-01] MEDS ORDERED: ZOFR4TAB16 PO (07:34)
[2021-01-01] MEDS ORDERED: PRED20TA PO (07:34)
== END 2021-01-01 07:55 | disposition home or self-care (01) ==
LOC: M ED 01:16
DX: K52.9 Noninfective gastroenteritis and colitis, unspecified (principal); R10.9 Unspecified abdominal pain; R11.2 Nausea with vomiting, unspecified; K21.9 Gastro-esophageal reflux disease without esophagitis; J45.909 Unspecified asthma, uncomplicated; F64.0 Transsexualism; K57.32 Diverticulitis of large intestine without perforation or abscess without bleeding; R59.0 Localized enlarged lymph nodes; Z79.899 Other long term (current) drug therapy; Z88.0 Allergy status to penicillin; Z91.030 Bee allergy status; Z91.040 Latex allergy status
CPT/HCPCS: 74177; 80047; 80076; 85025; 96374; 96375; 99284; J1630; J2270; Q9967

== ENCOUNTER 2021-01-04 18:25 | Emergency (ER) | payer OTHER ==
[~2021-01-04 18:25] MED LIST changes: -DICY20TA11 PO; +DICY20TA20 PO; -PROC10TA4 PO; +PROC10TA5 PO; +ZOFR4TAB16 PO
[2021-01-04] MEDS ORDERED: ONDANSETRON 4MG/2ML VIAL IV ONE (19:15)
[2021-01-04] MEDS ORDERED: GI COCKTAIL 50ML BTL(HYOSCYAMINE/MAALOX/LIDOCAINE VISCOUS)(1:3:1) PO ONE (19:50)
[2021-01-04] MEDS ORDERED: MORPHINE 4 MG/ML 1ML VIAL/SYRINGE (J2270) IV ONE (19:50)
[2021-01-04] MEDS ORDERED: HALOPERIDOL 5MG/ML VIAL (J1630 PER 1) IV ONE (20:35)
[2021-01-04] MEDS ORDERED: PANTOPRAZOLE 40MG VIAL (C9113 PER 1) IV SCH (21:00)
[2021-01-04 21:21] LABS: BASO # 0.1 10^3/uL (0.0-0.2); BASO % 0.3 % (0.0-1.0); HEMATOCRIT 44.4 % (42.0-52.0); HEMOGLOBIN 14.8 g/dl (13.5-17.5); LYMPH # 2.8 10^3/uL (1.5-5.0); LYMPH % 14.6 % (24.0-44.0); MEAN CORPUSCULAR HEMOGLOBIN 28.8 pg (27.0-33.0); MEAN CORPUSCULAR HGB CONC 33.3 g/dl (32.0-36.5); MEAN CORPUSCULAR VOLUME 86.4 fl (80.0-96.0); MONO # 1.6 10^3/uL (0.0-0.8); MONO % 8.2 % (2.0-8.0); NEUTROPHILS # 14.5 10^3/uL (1.5-8.5); NEUTROPHILS % 76.1 % (36.0-66.0); PLATELET COUNT, AUTOMATED 333 10^3/uL (150-450); RED BLOOD COUNT 5.14 10^6/uL (4.30-6.10); WHITE BLOOD COUNT 19.1 10^3/uL (4.0-10.0)
[2021-01-04] MEDS: GASTROGRAFIN SOLUTION 30ML PO SCH ×2 (22:14→22:49)
[2021-01-04] MEDS ORDERED: LR 1,000 ML IV SCH (22:50)
[2021-01-04] MEDS ORDERED: MEROPENEM INJ 2 GM in NS 100 ML IV SCH (22:50)
[2021-01-04] MEDS ORDERED: MORPHINE 2 MG/ML 1ML VIAL (J2270) IV PRN (22:50)
[2021-01-04] MEDS ORDERED: ONDA-83 PO (23:26)
[2021-01-04] MEDS ORDERED: QUET50TA4 PO (23:26)
[2021-01-04] MEDS ORDERED: LEXA1TAB PO (23:26)
[2021-01-04] MEDS ORDERED: PRED20TA PO (23:26)
[2021-01-04] MEDS ORDERED: HOME MED LIST COMPLETE! XX SCH ×2 (23:30→23:35)
[2021-01-05] MEDS ORDERED: MEROPENEM INJ 1 GM in IV 1 EA IV SCH ×2
[2021-01-05] MEDS ORDERED: ISOVUE-370 76% 100ML VIAL As Ordered ONE (00:09)
[2021-01-05 00:16] LABS: INR 1.05; PROTHROMBIN TIME 14.1 SECONDS (12.7-14.5)
[2021-01-05 00:17] LABS: PARTIAL THROMBOPLASTIN TIME 25.9 SECONDS (25.9-37.0)
[2021-01-05 00:19] LABS: RSV AMPLIFICATION NEGATIVE (NEGATIVE)
[2021-01-05 00:29] LABS: ALBUMIN 4.1 GM/DL (3.2-5.2); ALT/SGPT 22 U/L (12-78); BILIRUBIN,TOTAL 0.3 MG/DL (0.2-1.0); BLOOD UREA NITROGEN 9 MG/DL (7-18); CALCIUM LEVEL 8.8 MG/DL (8.5-10.1); CARBON DIOXIDE LEVEL 29 MEQ/L (21-32); CHLORIDE LEVEL 105 MEQ/L (98-107); CREATININE FOR GFR 1.11 MG/DL (0.70-1.30); GLOMERULAR FILTRATION RATE > 60.0 (>60); GLUCOSE, FASTING 100 MG/DL (70-100); POTASSIUM SERUM 3.7 MEQ/L (3.5-5.1); SODIUM LEVEL 140 MEQ/L (136-145); TOTAL PROTEIN 7.6 GM/DL (6.4-8.2)
[2021-01-05 00:38] LABS: ALBUMIN 4.1 GM/DL (3.2-5.2); ALT/SGPT 21 U/L (12-78); BILIRUBIN,DIRECT < 0.1 MG/DL (0.0-0.2); BILIRUBIN,TOTAL 0.3 MG/DL (0.2-1.0); BLOOD UREA NITROGEN 9 MG/DL (7-18); CALCIUM LEVEL 8.8 MG/DL (8.5-10.1); CARBON DIOXIDE LEVEL 28 MEQ/L (21-32); CHLORIDE LEVEL 105 MEQ/L (98-107); CK-MB VALUE MASS 1.1 NG/ML (<3.6); CPK CREATINE PHOSPHOKINASE 266 U/L (39-308); CREATININE FOR GFR 1.13 MG/DL (0.70-1.30); GLOMERULAR FILTRATION RATE > 60.0 (>60); GLUCOSE, FASTING 98 MG/DL (70-100); MAGNESIUM LEVEL 1.8 MG/DL (1.8-2.4); MB/CK RELATIVE INDEX 0.41 (< OR =4); POTASSIUM SERUM 3.7 MEQ/L (3.5-5.1); SODIUM LEVEL 141 MEQ/L (136-145); TOTAL PROTEIN 7.5 GM/DL (6.4-8.2); TROPONIN I < 0.02 NG/ML (< 0.10)
[2021-01-05 03:54] LABS: AMPHETAMINES LEVEL URINE NEGATIVE (NEGATIVE); BARBITURATES URINE NEGATIVE (NEGATIVE); BENZODIAZEPINES URINE NEGATIVE (NEGATIVE); CANNABINOIDS URINE POSITIVE (NEGATIVE); COCAINE METABOLITE URINE NEGATIVE (NEGATIVE); METHADONE URINE NEGATIVE (NEGATIVE); OPIATES URINE POSITIVE (NEGATIVE); PHENCYCLIDINE URINE NEGATIVE (NEGATIVE)
[2021-01-05 04:45] VITALS: BP 142/88
== END 2021-01-05 05:01 | disposition home or self-care (01) ==
LOC: M ED 18:25 → M ED INP 22:50 → UNDOADMIN 22:50 → UNDODISIN 01-05 05:01
DX: F12.188 Cannabis abuse with other cannabis-induced disorder (principal); K21.9 Gastro-esophageal reflux disease without esophagitis; J45.909 Unspecified asthma, uncomplicated; K57.30 Diverticulosis of large intestine without perforation or abscess without bleeding; Z79.899 Other long term (current) drug therapy; Z88.0 Allergy status to penicillin; Z91.030 Bee allergy status; Z91.040 Latex allergy status
CPT/HCPCS: 71045; 74177; 80053; 80307; 81001; 82248; 82550; 82553; 83605; 83735; 85018; 85025; 85610; 85730; 86850; 86900; 86901; 87040; 87631; 93005; 99285; J1630; J2270; Q9963; Q9967

== ENCOUNTER 2021-06-18 15:33 | Emergency (ER) | payer OTHER ==
[~2021-06-18] VITALS: Ht 160 cm; Wt 81.8 kg
[~2021-06-18 15:33] MED LIST changes: +LEXA1TAB PO; +QUET50TA4 PO
[2021-06-18] MEDS ORDERED: HALOPERIDOL 5MG/ML VIAL (J1630 PER 1) IV ONE (15:45)
[2021-06-18] MEDS ORDERED: diphenhydrAMINE 50MG/ML VIAL (J1200) IV ONE (15:45)
[2021-06-18 18:26] VITALS: BP 138/82
== END 2021-06-18 18:31 | disposition home or self-care (01) ==
LOC: EDBD 15:33 → M ED 15:33
DX: F12.188 Cannabis abuse with other cannabis-induced disorder (principal); R11.10 Vomiting, unspecified; Z88.1 Allergy status to other antibiotic agents; Z91.030 Bee allergy status; Z91.040 Latex allergy status
CPT/HCPCS: 96374; 99284; J1200; J1630

== ENCOUNTER 2021-06-21 23:41 | Emergency (ER) | payer OTHER ==
[~2021-06-21] VITALS: Ht 160 cm; Wt 81.8 kg
[2021-06-22] MEDS ORDERED: KETOROLAC 30 MG/ML 1ML VIAL IV ONE (00:10)
[2021-06-22] MEDS ORDERED: HALOPERIDOL 5MG/ML VIAL (J1630 PER 1) IV ONE (00:10)
[2021-06-22 00:36] LABS: BASO # 0.1 10^3/uL (0.0-0.2); BASO % 0.5 % (0.0-1.0); EOS # 0.7 10^3/uL (0.0-0.5); EOS % 3.9 % (0.0-3.0); HEMOGLOBIN 14.2 g/dl (13.5-17.5); LYMPH # 3.2 10^3/uL (1.5-5.0); LYMPH % 18.3 % (24.0-44.0); MEAN CORPUSCULAR HEMOGLOBIN 28.9 pg (27.0-33.0); MEAN CORPUSCULAR HGB CONC 33.8 g/dl (32.0-36.5); MEAN CORPUSCULAR VOLUME 85.4 fl (80.0-96.0); MONO # 1.1 10^3/uL (0.0-0.8); MONO % 6.4 % (2.0-8.0); NEUTROPHILS # 12.4 10^3/uL (1.5-8.5); NEUTROPHILS % 70.4 % (36.0-66.0); PLATELET COUNT, AUTOMATED 337 10^3/uL (150-450); RED BLOOD COUNT 4.92 10^6/uL (4.30-6.10); WHITE BLOOD COUNT 17.6 10^3/uL (4.0-10.0)
[2021-06-22 01:12] LABS: ALBUMIN 4.2 GM/DL (3.2-5.2); BILIRUBIN,DIRECT 0.1 MG/DL (0.0-0.2); BILIRUBIN,TOTAL 0.3 MG/DL (0.2-1.0); TOTAL PROTEIN 7.3 GM/DL (6.4-8.2)
[2021-06-22] MEDS ORDERED: PROMETHAZINE 25MG/ML 1ML VIAL IV ONE (01:15)
[2021-06-22 05:40] VITALS: BP 136/88
== END 2021-06-22 05:50 | disposition home or self-care (01) ==
LOC: M ED 23:41
DX: F12.288 Cannabis dependence with other cannabis-induced disorder (principal); K58.8 Other irritable bowel syndrome; Z88.1 Allergy status to other antibiotic agents; Z91.030 Bee allergy status; Z91.040 Latex allergy status; Z79.899 Other long term (current) drug therapy
CPT/HCPCS: 80076; 83605; 83690; 84702; 85025; 93041; 96374; 96375; 99284; J1630; J1885; J2550

== ENCOUNTER 2021-08-05 12:26 | Emergency (ER) | payer OTHER ==
[~2021-08-05] VITALS: Ht 160 cm; Wt 77.3 kg
[2021-08-05] MEDS ORDERED: PROMETHAZINE 25MG SUPP PR ONE (12:55)
[2021-08-05 13:20] LABS: BASO % 0.3 % (0.0-1.0); EOS # 0.4 10^3/uL (0.0-0.5); EOS % 3.2 % (0.0-3.0); HEMATOCRIT 41.8 % (42.0-52.0); HEMOGLOBIN 13.9 g/dl (13.5-17.5); LYMPH # 2.1 10^3/uL (1.5-5.0); MEAN CORPUSCULAR HGB CONC 33.3 g/dl (32.0-36.5); MEAN CORPUSCULAR VOLUME 87.3 fl (80.0-96.0); MONO # 0.7 10^3/uL (0.0-0.8); MONO % 5.5 % (2.0-8.0); NEUTROPHILS # 9.9 10^3/uL (1.5-8.5); NEUTROPHILS % 74.5 % (36.0-66.0); PLATELET COUNT, AUTOMATED 305 10^3/uL (150-450); RED BLOOD COUNT 4.79 10^6/uL (4.30-6.10); WHITE BLOOD COUNT 13.3 10^3/uL (4.0-10.0)
[2021-08-05 14:12] LABS: ALT/SGPT 19 U/L (12-78); BILIRUBIN,DIRECT < 0.1 MG/DL (0.0-0.2); BILIRUBIN,TOTAL 0.2 MG/DL (0.2-1.0); LIPASE 76 U/L (73-393); TOTAL PROTEIN 7.1 GM/DL (6.4-8.2)
[2021-08-05] MEDS ORDERED: HALOPERIDOL 5MG/ML VIAL (J1630 PER 1) IV ONE ×2 (14:45→16:00)
[2021-08-05] MEDS ORDERED: ISOVUE-370 76% 100ML VIAL As Ordered ONE (15:39)
[2021-08-05 18:12] VITALS: BP 139/85
== END 2021-08-05 18:13 | disposition home or self-care (01) ==
LOC: M ED 12:26
DX: R11.2 Nausea with vomiting, unspecified (principal); R19.7 Diarrhea, unspecified; Z88.1 Allergy status to other antibiotic agents; Z91.030 Bee allergy status; Z91.040 Latex allergy status; J45.909 Unspecified asthma, uncomplicated; Z79.899 Other long term (current) drug therapy
CPT/HCPCS: 74177; 80047; 80076; 83605; 83690; 85025; 96374; 96376; 99284; J1630; Q9967

== ENCOUNTER 2021-09-30 12:50 | Emergency (ER) | payer OTHER ==
[2021-09-30] MEDS ORDERED: KETOROLAC 30 MG/ML 1ML VIAL IV ONE (15:10)
[2021-09-30] MEDS ORDERED: PROMETHAZINE 25MG/ML 1ML VIAL IV ONE (15:10)
[2021-09-30] MEDS ORDERED: NS 1,000 ML IV ONE (15:10)
[2021-09-30] MEDS ORDERED: HALOPERIDOL 5MG/ML VIAL (J1630 PER 1) IV ONE (15:15)
[2021-09-30] MEDS ORDERED: MORPHINE 2 MG/ML 1ML VIAL IV ONE (17:10)
[2021-09-30 17:45] LABS: ALBUMIN 4.1 GM/DL (3.2-5.2); ALT/SGPT 21 U/L (12-78); BILIRUBIN,DIRECT 0.1 MG/DL (0.0-0.2); BILIRUBIN,TOTAL 0.5 MG/DL (0.2-1.0); BLOOD UREA NITROGEN 8 MG/DL (7-18); CARBON DIOXIDE LEVEL 20 MEQ/L (21-32); CHLORIDE LEVEL 108 MEQ/L (98-107); GLOMERULAR FILTRATION RATE > 60.0 (>60); GLUCOSE, FASTING 105 MG/DL (70-100); LIPASE 56 U/L (73-393); POTASSIUM SERUM 4.5 MEQ/L (3.5-5.1); SODIUM LEVEL 136 MEQ/L (136-145); TOTAL PROTEIN 7.5 GM/DL (6.4-8.2)
[2021-09-30 18:23] LABS: BASO # 0.1 10^3/uL (0.0-0.2); BASO % 0.2 % (0.0-1.0); HEMATOCRIT 44.6 % (42.0-52.0); HEMOGLOBIN 14.4 g/dl (13.5-17.5); LYMPH # 1.2 10^3/uL (1.5-5.0); LYMPH % 5.7 % (24.0-44.0); MEAN CORPUSCULAR HEMOGLOBIN 28.5 pg (27.0-33.0); MEAN CORPUSCULAR HGB CONC 32.3 g/dl (32.0-36.5); MEAN CORPUSCULAR VOLUME 88.1 fl (80.0-96.0); MONO # 1.1 10^3/uL (0.0-0.8); NEUTROPHILS # 18.5 10^3/uL (1.5-8.5); NEUTROPHILS % 88.5 % (36.0-66.0); PLATELET COUNT, AUTOMATED 225 10^3/uL (150-450); RED BLOOD COUNT 5.06 10^6/uL (4.30-6.10); WHITE BLOOD COUNT 20.9 10^3/uL (4.0-10.0)
[2021-09-30] MEDS ORDERED: ONDANSETRON 4MG ORAL DISINTEGRATING TAB PO ONE (18:35)
[2021-09-30] MEDS ORDERED: ONDA4TAB6 PO (18:38)
[2021-09-30 18:39] VITALS: BP 140/88
== END 2021-09-30 19:24 | disposition home or self-care (01) ==
LOC: M ED 12:50
DX: F12.188 Cannabis abuse with other cannabis-induced disorder (principal); R11.10 Vomiting, unspecified; D72.829 Elevated white blood cell count, unspecified; Z63.4 Disappearance and death of family member; Z91.040 Latex allergy status; Z91.030 Bee allergy status; Z88.1 Allergy status to other antibiotic agents
CPT/HCPCS: 80048; 80076; 83605; 83690; 85025; 96361; 96374; 96375; 99284; J1630; J1885; J2550

== ENCOUNTER 2021-12-31 02:00 | Emergency (ER) | payer OTHER ==
[~2021-12-31] VITALS: Ht 160 cm; Wt 81.8 kg
[2021-12-31] MEDS ORDERED: PROMETHAZINE 25MG/ML 1ML VIAL IV ONE ×2 (02:15→04:30)
[2021-12-31] MEDS ORDERED: KETOROLAC 30 MG/ML 1ML VIAL IV ONE (02:15)
[2021-12-31] MEDS ORDERED: HALOPERIDOL 5MG/ML VIAL (J1630 PER 1) IV ONE ×2 (02:15→04:30)
[2021-12-31 02:31] LABS: BASO # 0.1 10^3/uL (0.0-0.2); BASO % 0.4 % (0.0-1.0); EOS # 0.4 10^3/uL (0.0-0.5); EOS % 1.6 % (0.0-3.0); HEMATOCRIT 42.5 % (42.0-52.0); LYMPH # 3.8 10^3/uL (1.5-5.0); LYMPH % 16.5 % (24.0-44.0); MEAN CORPUSCULAR HEMOGLOBIN 28.6 pg (27.0-33.0); MEAN CORPUSCULAR HGB CONC 32.9 g/dl (32.0-36.5); MEAN CORPUSCULAR VOLUME 86.7 fl (80.0-96.0); MONO # 1.4 10^3/uL (0.0-0.8); MONO % 5.9 % (2.0-8.0); NEUTROPHILS # 17.3 10^3/uL (1.5-8.5); NEUTROPHILS % 74.9 % (36.0-66.0); PLATELET COUNT, AUTOMATED 288 10^3/uL (150-450); WHITE BLOOD COUNT 23.1 10^3/uL (4.0-10.0)
[2021-12-31 03:01] LABS: ALBUMIN 3.9 GM/DL (3.2-5.2); ALT/SGPT 21 U/L (12-78); BILIRUBIN,DIRECT < 0.1 MG/DL (0.0-0.2); BILIRUBIN,TOTAL 0.3 MG/DL (0.2-1.0); BLOOD UREA NITROGEN 7 MG/DL (7-18); CARBON DIOXIDE LEVEL 26 MEQ/L (21-32); CHLORIDE LEVEL 106 MEQ/L (98-107); CREATININE FOR GFR 1.13 MG/DL (0.70-1.30); GLOMERULAR FILTRATION RATE > 60.0 (>60); GLUCOSE, FASTING 126 MG/DL (70-100); LIPASE 112 U/L (73-393); POTASSIUM SERUM 3.9 MEQ/L (3.5-5.1); SODIUM LEVEL 139 MEQ/L (136-145); TOTAL PROTEIN 7.1 GM/DL (6.4-8.2)
[2021-12-31] MEDS ORDERED: NS 1,000 ML IV ONE (04:50)
[2021-12-31 09:00] VITALS: BP 114/78
== END 2021-12-31 09:01 | disposition home or self-care (01) ==
LOC: M ED 02:00 → EDBD 02:00 → M ED 09:01
DX: R11.15 Cyclical vomiting syndrome unrelated to migraine (principal); F12.10 Cannabis abuse, uncomplicated; Z79.890 Hormone replacement therapy; Z79.899 Other long term (current) drug therapy; Z88.0 Allergy status to penicillin; Z91.040 Latex allergy status; Z91.030 Bee allergy status
CPT/HCPCS: 80048; 80076; 83690; 84702; 85025; 93041; 96361; 96374; 96375; 96376; 99285; J1630; J1885; J2550

== ENCOUNTER 2022-03-23 01:04 | Emergency (ER) | payer MEDICAID, OTHER ==
[~2022-03-23] VITALS: Ht 160 cm; Wt 75.0 kg
[2022-03-23 02:55] LABS: HEMATOCRIT 41.7 % (42.0-52.0); HEMOGLOBIN 13.8 g/dl (13.5-17.5); MEAN CORPUSCULAR HEMOGLOBIN 28.7 pg (27.0-33.0); MEAN CORPUSCULAR HGB CONC 33.1 g/dl (32.0-36.5); MEAN CORPUSCULAR VOLUME 86.7 fl (80.0-96.0); PLATELET COUNT, AUTOMATED 311 10^3/uL (150-450); RED BLOOD COUNT 4.81 10^6/uL (4.30-6.10); WHITE BLOOD COUNT 24.9 10^3/uL (4.0-10.0)
[2022-03-23 03:18] LABS: ALBUMIN 4.2 G/DL (3.2-5.2); ALKALINE PHOSPHATASE 66 U/L (46-116); ALT/SGPT 12 U/L (7.0-40); AST/SGOT 26 U/L (<34); BILIRUBIN,TOTAL 0.4 MG/DL (0.3-1.2); BLOOD UREA NITROGEN 8 MG/DL (9-23); CALCIUM LEVEL 9.2 MG/DL (8.5-10.1); CARBON DIOXIDE LEVEL 20 MMOL/L (20-31); CHLORIDE LEVEL 105 MMOL/L (98-107); CREATININE FOR GFR 0.87 MG/DL (0.70-1.30); GLOMERULAR FILTRATION RATE > 60.0 (>60); GLUCOSE, FASTING 106 MG/DL (60-100); POTASSIUM SERUM 3.8 MMOL/L (3.5-5.1); SODIUM LEVEL 139 MMOL/L (136-145)
[2022-03-23 05:01] LABS: APPEARANCE, URINE MANUAL CLEAR (CLEAR); COLOR, URINE MANUAL YELLOW (YELLOW); SPECIFIC GRAVITY,URINE MANUAL 1.024 (1.002-1.035)
[2022-03-23 05:03] LABS: BILIRUBIN, URINE MANUAL NEGATIVE (NEGATIVE); BLOOD URINE MANUAL NEGATIVE (NEGATIVE); GLUCOSE, URINE (UA) MANUAL NEGATIVE (NEGATIVE); KETONE, URINE MANUAL 3+ mg/dL (NEGATIVE); LEUKOCYTE ESTERASE, URINE MAN POSITIVE (NEGATIVE); NITRITE, URINE MANUAL NEGATIVE (NEGATIVE); PROTEIN, URINE MANUAL NEGATIVE (NEGATIVE); UROBILINOGEN, URINE MANUAL NORMAL (NORMAL)
[2022-03-23 05:12] LABS: SQUAMOUS EPITHELIAL CELL URINE MOD AMOUNT /hpf (SMALL AMT)
[2022-03-23 05:13] LABS: BACTERIA, URINE NONE SEEN; HYALINE CAST, URINE NONE SEEN /lpf (0-1); MUCUS, URINE MOD AMOUNT (NEGATIVE)
[2022-03-23 05:18] LABS: AMPHETAMINES LEVEL URINE NEGATIVE (NEGATIVE); BARBITURATES URINE NEGATIVE (NEGATIVE); BENZODIAZEPINES URINE NEGATIVE (NEGATIVE); COCAINE METABOLITE URINE NEGATIVE (NEGATIVE); METHADONE URINE NEGATIVE (NEGATIVE); OPIATES URINE NEGATIVE (NEGATIVE); PHENCYCLIDINE URINE NEGATIVE (NEGATIVE)
[2022-03-23 05:20] LABS: CANNABINOIDS URINE POSITIVE (NEGATIVE)
[2022-03-23] MEDS ORDERED: NS 1,000 ML IV ONE (07:00)
[2022-03-23] MEDS ORDERED: PROMETHAZINE 25MG/ML 1ML VIAL IV ONE (07:00)
[2022-03-23] MEDS ORDERED: HALOPERIDOL 5MG/ML 1ML VIAL IV ONE (07:00)
[2022-03-23 10:49] VITALS: BP 152/76
== END 2022-03-23 10:51 | disposition home or self-care (01) ==
LOC: M ED 01:04
DX: R11.2 Nausea with vomiting, unspecified (principal); R19.7 Diarrhea, unspecified; J45.909 Unspecified asthma, uncomplicated; F12.10 Cannabis abuse, uncomplicated; Z79.899 Other long term (current) drug therapy; Z88.0 Allergy status to penicillin; Z91.040 Latex allergy status; Z91.030 Bee allergy status
CPT/HCPCS: 80053; 80307; 81000; 81015; 85027; 96361; 96374; 96375; 99284; J1630; J2550

== ENCOUNTER → 2022-05-05 | Outpatient (REF) | payer OTHER ==
[2022-05-05 17:38] LABS: ALBUMIN 3.9 G/DL (3.2-5.2); ALKALINE PHOSPHATASE 64 U/L (46-116); ALT/SGPT 24 U/L (7.0-40); AST/SGOT 9 U/L (<34); BILIRUBIN,TOTAL 0.3 MG/DL (0.3-1.2); BLOOD UREA NITROGEN 6 MG/DL (9-23); CARBON DIOXIDE LEVEL 28 MMOL/L (20-31); CHLORIDE LEVEL 108 MMOL/L (98-107); CHOLESTEROL LEVEL 182 MG/DL (<200); CHOLESTEROL RISK RATIO 4.52 (<5); CREATININE FOR GFR 0.95 MG/DL (0.70-1.30); GLOMERULAR FILTRATION RATE > 60.0 (>60); GLUCOSE, FASTING 85 MG/DL (60-100); HDL CHOLESTEROL 40.2 MG/DL (>40); LDL CHOLESTEROL 121.4 MG/DL (<100); NON-HDL-C 142 MG/DL; POTASSIUM SERUM 4.6 MMOL/L (3.5-5.1); SODIUM LEVEL 140 MMOL/L (136-145); TOTAL PROTEIN 6.7 G/DL (5.7-8.2); TRIGLYCERIDES LEVEL 102 MG/DL (<150)
[2022-05-05 18:19] LABS: TESTOSTERONE 1624 NG/DL (241-827)
== END ==
LOC: M LAB REF 16:22
PROVIDERS: ATTEND Pediatrics
DX: E78.2 Mixed hyperlipidemia (principal); F64.0 Transsexualism

== ENCOUNTER 2022-06-02 03:40 | Emergency (ER) | payer OTHER ==
[~2022-06-02] VITALS: Ht 160 cm; Wt 80.0 kg
[~2022-06-02 03:40] MED LIST changes: +MONT-5 PO; -SING10TA32 PO
[2022-06-02] MEDS ORDERED: KETOROLAC 30 MG/ML 1ML VIAL IV ONE (03:55)
[2022-06-02] MEDS ORDERED: PROMETHAZINE 25MG/ML 1ML VIAL IV ONE ×2 (03:55→10:30)
[2022-06-02] MEDS ORDERED: HALOPERIDOL 5MG/ML 1ML VIAL IV ONE (03:55)
[2022-06-02 04:37] LABS: BASO # 0.1 10^3/uL (0.0-0.2); BASO % 0.5 % (0.0-1.0); EOS # 0.6 10^3/uL (0.0-0.5); EOS % 3.3 % (0.0-3.0); HEMOGLOBIN 14.1 g/dl (13.5-17.5); LYMPH # 2.7 10^3/uL (1.5-5.0); LYMPH % 15.9 % (24.0-44.0); MEAN CORPUSCULAR HEMOGLOBIN 28.6 pg (27.0-33.0); MEAN CORPUSCULAR HGB CONC 32.8 g/dl (32.0-36.5); MEAN CORPUSCULAR VOLUME 87.2 fl (80.0-96.0); MONO # 0.9 10^3/uL (0.0-0.8); MONO % 5.2 % (2.0-8.0); NEUTROPHILS # 12.8 10^3/uL (1.5-8.5); NEUTROPHILS % 74.7 % (36.0-66.0); PLATELET COUNT, AUTOMATED 294 10^3/uL (150-450); RED BLOOD COUNT 4.93 10^6/uL (4.30-6.10); WHITE BLOOD COUNT 17.1 10^3/uL (4.0-10.0)
[2022-06-02 05:01] LABS: LIPASE 30 U/L (12-53)
[2022-06-02 05:07] LABS: ALBUMIN 4.4 G/DL (3.2-5.2); ALKALINE PHOSPHATASE 70 U/L (46-116); ALT/SGPT 32 U/L (7.0-40); AST/SGOT 39 U/L (<34); BILIRUBIN,DIRECT 0.1 MG/DL (<0.4); BILIRUBIN,TOTAL 0.4 MG/DL (0.3-1.2); BLOOD UREA NITROGEN 8 MG/DL (9-23); CALCIUM LEVEL 9.2 MG/DL (8.5-10.1); CARBON DIOXIDE LEVEL 25 MMOL/L (20-31); CHLORIDE LEVEL 104 MMOL/L (98-107); CREATININE FOR GFR 0.95 MG/DL (0.70-1.30); GLOMERULAR FILTRATION RATE > 60.0 (>60); GLUCOSE, FASTING 107 MG/DL (60-100); SODIUM LEVEL 138 MMOL/L (136-145)
[2022-06-02 05:13] LABS: HCG, SERUM QUALITATIVE NEGATIVE
[2022-06-02] MEDS ORDERED: LORazepam 2 MG/ML 1ML VIAL IV STA (06:14)
[2022-06-02 08:23] LABS: AMPHETAMINES LEVEL URINE NEGATIVE (NEGATIVE); BARBITURATES URINE NEGATIVE (NEGATIVE); BENZODIAZEPINES URINE NEGATIVE (NEGATIVE); COCAINE METABOLITE URINE NEGATIVE (NEGATIVE); METHADONE URINE NEGATIVE (NEGATIVE); OPIATES URINE NEGATIVE (NEGATIVE); PHENCYCLIDINE URINE NEGATIVE (NEGATIVE)
[2022-06-02 08:33] LABS: CANNABINOIDS URINE POSITIVE (NEGATIVE)
[2022-06-02] MEDS ORDERED: ONDA4TAB6 PO (10:18)
[2022-06-02] MEDS ORDERED: CAPS42.54 TOP (10:18)
[2022-06-02 10:22] VITALS: BP 139/94
== END 2022-06-02 11:31 | disposition home or self-care (01) ==
LOC: M ED 03:40
DX: R11.10 Vomiting, unspecified (principal); T40.715A Adverse effect of cannabis, initial encounter; Z88.1 Allergy status to other antibiotic agents; Z91.040 Latex allergy status; Z91.030 Bee allergy status; Z79.899 Other long term (current) drug therapy
CPT/HCPCS: 80048; 80076; 80307; 81001; 83605; 83690; 84703; 85025; 93005; 93041; 96374; 96375; 96376; 99284; J1630; J1885; J2060; J2550

== ENCOUNTER 2022-07-28 06:39 | Emergency (ER) | payer OTHER ==
[~2022-07-28 06:39] MED LIST changes: +CAPS42.54 TOP
[2022-07-28] MEDS ORDERED: KETOROLAC 30 MG/ML 1ML VIAL IV ONE (06:45)
[2022-07-28] MEDS: ACETAMINOPHEN 500 MG TAB PO ONE ×2 (06:45→07:22)
[2022-07-28] MEDS ORDERED: diphenhydrAMINE 50MG/ML VIAL IV ONE (06:45)
[2022-07-28] MEDS ORDERED: NS 1,000 ML IV ONE (06:55)
[2022-07-28] MEDS ORDERED: HALOPERIDOL 5MG/ML 1ML VIAL IV ONE (07:00)
[2022-07-28 07:34] LABS: BASO # 0.1 10^3/uL (0.0-0.2); BASO % 0.5 % (0.0-1.0); EOS # 0.5 10^3/uL (0.0-0.5); EOS % 3.1 % (0.0-3.0); HEMATOCRIT 40.9 % (42.0-52.0); HEMOGLOBIN 14.1 g/dl (13.5-17.5); LYMPH # 2.7 10^3/uL (1.5-5.0); LYMPH % 18.3 % (24.0-44.0); MEAN CORPUSCULAR HEMOGLOBIN 29.4 pg (27.0-33.0); MEAN CORPUSCULAR HGB CONC 34.5 g/dl (32.0-36.5); MEAN CORPUSCULAR VOLUME 85.2 fl (80.0-96.0); MONO # 0.9 10^3/uL (0.0-0.8); MONO % 5.9 % (2.0-8.0); NEUTROPHILS # 10.5 10^3/uL (1.5-8.5); NEUTROPHILS % 71.9 % (36.0-66.0); PLATELET COUNT, AUTOMATED 301 10^3/uL (150-450); WHITE BLOOD COUNT 14.7 10^3/uL (4.0-10.0)
[2022-07-28] MEDS ORDERED: PANTOPRAZOLE 40MG VIAL IV ONE (07:40)
[2022-07-28 08:05] LABS: ALBUMIN 4.1 G/DL (3.2-5.2); ALKALINE PHOSPHATASE 62 U/L (46-116); ALT/SGPT 137 U/L (7.0-40); AST/SGOT 76 U/L (<34); BILIRUBIN,DIRECT 0.1 MG/DL (<0.4); BILIRUBIN,TOTAL 0.4 MG/DL (0.3-1.2); BLOOD UREA NITROGEN 10 MG/DL (9-23); CALCIUM LEVEL 9.4 MG/DL (8.5-10.1); CARBON DIOXIDE LEVEL 21 MMOL/L (20-31); CHLORIDE LEVEL 106 MMOL/L (98-107); CREATININE FOR GFR 0.96 MG/DL (0.70-1.30); GLOMERULAR FILTRATION RATE > 60.0 (>60); GLUCOSE, FASTING 119 MG/DL (60-100); LIPASE 28 U/L (12-53); POTASSIUM SERUM 4.8 MMOL/L (3.5-5.1); SODIUM LEVEL 138 MMOL/L (136-145)
[2022-07-28] MEDS ORDERED: ISOVUE-370 76% 100ML VIAL As Ordered ONE (08:19)
[2022-07-28 09:19] LABS: AMPHETAMINES LEVEL URINE NEGATIVE (NEGATIVE)
[2022-07-28 09:20] LABS: BARBITURATES URINE NEGATIVE (NEGATIVE); BENZODIAZEPINES URINE NEGATIVE (NEGATIVE); COCAINE METABOLITE URINE NEGATIVE (NEGATIVE); METHADONE URINE NEGATIVE (NEGATIVE); OPIATES URINE NEGATIVE (NEGATIVE); PHENCYCLIDINE URINE NEGATIVE (NEGATIVE)
[2022-07-28 09:21] LABS: CANNABINOIDS URINE POSITIVE (NEGATIVE)
[2022-07-28 11:00] VITALS: BP 168/77
[2022-07-28 11:15] LABS: ETHYL ALCOHOL (ETHANOL) 0.004 % (0.000-0.010)
[2022-07-28 11:16] LABS: ACETAMINOPHEN LEVEL < 2.0 UG/ML (10.0-20.0); SALICYLATE LEVEL < 3.0 MG/DL (<30)
== END 2022-07-28 11:12 | disposition left against medical advice (07) ==
LOC: M ED 06:39
DX: K92.0 Hematemesis (principal); F12.120 Cannabis abuse with intoxication, uncomplicated; F31.9 Bipolar disorder, unspecified; F32.A Depression, unspecified; F43.10 Post-traumatic stress disorder, unspecified; K21.9 Gastro-esophageal reflux disease without esophagitis; K90.0 Celiac disease; Z91.030 Bee allergy status; Z88.1 Allergy status to other antibiotic agents; Z91.040 Latex allergy status; Z79.899 Other long term (current) drug therapy; Z79.51 Long term (current) use of inhaled steroids
CPT/HCPCS: 74177; 80048; 80076; 80143; 80307; 81001; 82077; 83690; 84702; 85025; 86850; 86900; 86901; 87086; 93041; 96374; 96375; 99285; C9113; J1200; J1630; J1885; Q9967

== ENCOUNTER → 2022-09-17 | Outpatient (REF) | payer OTHER ==
[2022-09-17 18:36] LABS: BASO % 0.5 % (0.0-1.0); EOS # 0.6 10^3/uL (0.0-0.5); EOS % 7.3 % (0.0-3.0); HEMATOCRIT 44.2 % (42.0-52.0); HEMOGLOBIN 14.3 g/dl (13.5-17.5); LYMPH # 2.4 10^3/uL (1.5-5.0); LYMPH % 31.7 % (24.0-44.0); MEAN CORPUSCULAR HEMOGLOBIN 28.5 pg (27.0-33.0); MEAN CORPUSCULAR HGB CONC 32.4 g/dl (32.0-36.5); MEAN CORPUSCULAR VOLUME 88.2 fl (80.0-96.0); MONO # 0.6 10^3/uL (0.0-0.8); MONO % 7.4 % (2.0-8.0); PLATELET COUNT, AUTOMATED 288 10^3/uL (150-450); RED BLOOD COUNT 5.01 10^6/uL (4.30-6.10); WHITE BLOOD COUNT 7.6 10^3/uL (4.0-10.0)
[2022-09-17 18:38] LABS: CHOLESTEROL RISK RATIO 3.22 (<5); HDL CHOLESTEROL 39.7 MG/DL (>40); LDL CHOLESTEROL 75.7 MG/DL (<100); NON-HDL-C 88.3 MG/DL
== END ==
LOC: M LAB REF 16:23
PROVIDERS: ATTEND Pediatrics
DX: F64.0 Transsexualism (principal); E78.2 Mixed hyperlipidemia; K90.0 Celiac disease

== ENCOUNTER → 2022-10-20 | Outpatient (REF) | payer OTHER ==
[2022-10-20 17:19] LABS: FOLLICLE STIMULATING HORMONE 6.9 mIU/ML (1.4-18.1); HCG, SERUM QUALITATIVE NEGATIVE
[2022-10-20 17:20] LABS: TESTOSTERONE 95 NG/DL (241-827)
== END ==
LOC: M LAB REF 16:11
PROVIDERS: ATTEND Pediatrics
DX: F64.0 Transsexualism (principal)

== ENCOUNTER 2022-10-21 22:09 | Emergency (ER) | payer OTHER ==
[~2022-10-21] VITALS: Ht 160 cm; Wt 80.0 kg
[2022-10-21] MEDS ORDERED: NS 1,000 ML IV ONE (22:15)
[2022-10-21] MEDS ORDERED: HALOPERIDOL 5MG/ML 1ML VIAL IV ONE (22:15)
[2022-10-21 22:31] LABS: BASO # 0.1 10^3/uL (0.0-0.2); BASO % 0.5 % (0.0-1.0); EOS # 0.6 10^3/uL (0.0-0.5); EOS % 3.4 % (0.0-3.0); HEMATOCRIT 45.3 % (42.0-52.0); LYMPH # 2.5 10^3/uL (1.5-5.0); LYMPH % 13.9 % (24.0-44.0); MEAN CORPUSCULAR HEMOGLOBIN 29.1 pg (27.0-33.0); MEAN CORPUSCULAR HGB CONC 33.1 g/dl (32.0-36.5); MONO % 5.3 % (2.0-8.0); NEUTROPHILS # 13.6 10^3/uL (1.5-8.5); NEUTROPHILS % 76.4 % (36.0-66.0); PLATELET COUNT, AUTOMATED 240 10^3/uL (150-450); RED BLOOD COUNT 5.15 10^6/uL (4.30-6.10); WHITE BLOOD COUNT 17.8 10^3/uL (4.0-10.0)
[2022-10-21 22:55] LABS: C REACTIVE PROTEIN QUANTITATIV < 0.40 MG/DL (<1.0)
[2022-10-21 22:58] LABS: ALBUMIN 4.5 G/DL (3.2-5.2); ALKALINE PHOSPHATASE 65 U/L (46-116); ALT/SGPT 32 U/L (7.0-40); AST/SGOT 54 U/L (<34); BILIRUBIN,TOTAL 0.5 MG/DL (0.3-1.2); BLOOD UREA NITROGEN 11 MG/DL (9-23); CARBON DIOXIDE LEVEL 22 MMOL/L (20-31); CHLORIDE LEVEL 104 MMOL/L (98-107); CREATININE FOR GFR 0.99 MG/DL (0.70-1.30); GLOMERULAR FILTRATION RATE > 60.0 (>60); GLUCOSE, FASTING 110 MG/DL (60-100); MAGNESIUM LEVEL 1.9 MG/DL (1.8-2.4); POTASSIUM SERUM 4.9 MMOL/L (3.5-5.1); SODIUM LEVEL 138 MMOL/L (136-145); TOTAL PROTEIN 7.4 G/DL (5.7-8.2)
[2022-10-21] MEDS ORDERED: PROM25TA12 PO (23:04)
[2022-10-21 23:30] VITALS: BP 131/80; TEMP 98.1; O2SAT 100
== END 2022-10-21 23:41 | disposition home or self-care (01) ==
LOC: M ED 22:09
DX: R11.10 Vomiting, unspecified (principal); F12.10 Cannabis abuse, uncomplicated; Z88.0 Allergy status to penicillin; Z91.030 Bee allergy status; Z91.040 Latex allergy status; G43.909 Migraine, unspecified, not intractable, without status migrainosus; Z87.890 Personal history of sex reassignment; J45.909 Unspecified asthma, uncomplicated; F41.9 Anxiety disorder, unspecified; F32.A Depression, unspecified; Z79.899 Other long term (current) drug therapy; Z79.51 Long term (current) use of inhaled steroids; Z79.52 Long term (current) use of systemic steroids
CPT/HCPCS: 80053; 83735; 85025; 86140; 96374; 99284; J1630

== ENCOUNTER 2022-10-23 14:12 | Emergency (ER) | payer OTHER ==
[~2022-10-23] VITALS: Ht 160 cm; Wt 81.8 kg
[2022-10-23 14:19] VITALS: TEMP 97.2
[2022-10-23 16:48] LABS: BASO # 0.1 10^3/uL (0.0-0.2); BASO % 0.5 % (0.0-1.0); EOS # 0.1 10^3/uL (0.0-0.5); EOS % 0.8 % (0.0-3.0); HEMATOCRIT 40.6 % (42.0-52.0); HEMOGLOBIN 13.4 g/dl (13.5-17.5); LYMPH # 1.6 10^3/uL (1.5-5.0); LYMPH % 11.2 % (24.0-44.0); MEAN CORPUSCULAR HEMOGLOBIN 28.9 pg (27.0-33.0); MEAN CORPUSCULAR VOLUME 87.7 fl (80.0-96.0); MONO # 0.7 10^3/uL (0.0-0.8); MONO % 4.7 % (2.0-8.0); NEUTROPHILS # 11.4 10^3/uL (1.5-8.5); NEUTROPHILS % 82.3 % (36.0-66.0); PLATELET COUNT, AUTOMATED 290 10^3/uL (150-450); RED BLOOD COUNT 4.63 10^6/uL (4.30-6.10); WHITE BLOOD COUNT 13.8 10^3/uL (4.0-10.0)
[2022-10-23 17:08] LABS: LIPASE 25 U/L (12-53)
[2022-10-23 17:10] LABS: ALBUMIN 4.3 G/DL (3.2-5.2); ALKALINE PHOSPHATASE 71 U/L (46-116); ALT/SGPT 26 U/L (7.0-40); AST/SGOT 28 U/L (<34); BILIRUBIN,DIRECT 0.2 MG/DL (<0.4); BILIRUBIN,TOTAL 0.5 MG/DL (0.3-1.2); BLOOD UREA NITROGEN 11 MG/DL (9-23); CALCIUM LEVEL 9.2 MG/DL (8.5-10.1); CARBON DIOXIDE LEVEL 21 MMOL/L (20-31); CHLORIDE LEVEL 107 MMOL/L (98-107); GLOMERULAR FILTRATION RATE > 60.0 (>60); GLUCOSE, FASTING 115 MG/DL (60-100); SODIUM LEVEL 140 MMOL/L (136-145); TOTAL PROTEIN 7.1 G/DL (5.7-8.2)
[2022-10-23] MEDS ORDERED: NS 1,000 ML IV ONE (18:15)
[2022-10-23] MEDS ORDERED: ACETAMINOPHEN 1000MG 100ML IV BAG IV ONE (18:15)
[2022-10-23] MEDS: CAPSAICIN 0.025% CR 60 GM TOP ONE ×2 (18:15→19:17)
[2022-10-23] MEDS ORDERED: HALOPERIDOL 5MG/ML 1ML VIAL IV ONE (18:15)
[2022-10-23 18:52] LABS: AMPHETAMINES LEVEL URINE NEGATIVE (NEGATIVE); BARBITURATES URINE NEGATIVE (NEGATIVE); COCAINE METABOLITE URINE NEGATIVE (NEGATIVE); METHADONE URINE NEGATIVE (NEGATIVE); OPIATES URINE NEGATIVE (NEGATIVE); PHENCYCLIDINE URINE NEGATIVE (NEGATIVE)
[2022-10-23 18:53] LABS: BENZODIAZEPINES URINE NEGATIVE (NEGATIVE)
[2022-10-23 18:56] LABS: CANNABINOIDS URINE POSITIVE (NEGATIVE)
[2022-10-23] MEDS ORDERED: PROMETHAZINE 25MG/ML 1ML VIAL IV ONE (20:40)
[2022-10-23 22:32] VITALS: BP 172/96; O2SAT 100
== END 2022-10-23 22:35 | disposition home or self-care (01) ==
LOC: M ED 14:12
DX: R10.9 Unspecified abdominal pain (principal); R11.2 Nausea with vomiting, unspecified; R51.9 Headache, unspecified; J45.909 Unspecified asthma, uncomplicated; K90.0 Celiac disease; K58.9 Irritable bowel syndrome, unspecified; M41.9 Scoliosis, unspecified; F12.10 Cannabis abuse, uncomplicated; Z88.0 Allergy status to penicillin; Z91.030 Bee allergy status; Z91.040 Latex allergy status; Z79.899 Other long term (current) drug therapy; Z79.51 Long term (current) use of inhaled steroids; Z87.890 Personal history of sex reassignment
CPT/HCPCS: 80048; 80076; 80307; 83605; 83690; 85025; 96374; 96375; 99284; J0131; J1630; J2550

== ENCOUNTER 2022-12-29 03:38 | Emergency (ER) | payer OTHER ==
[~2022-12-29] VITALS: Ht 160 cm; Wt 84.1 kg
[2022-12-29] MEDS ORDERED: NS 1,000 ML IV ONE (03:55)
[2022-12-29] MEDS ORDERED: HALOPERIDOL 5MG/ML 1ML VIAL As Ordered ONE (04:00)
[2022-12-29] MEDS ORDERED: HALOPERIDOL 5MG/ML 1ML VIAL IV ONE (05:00)
[2022-12-29 05:06] LABS: BASO # 0.1 10^3/uL (0.0-0.2); BASO % 0.5 % (0.0-1.0); EOS # 1.3 10^3/uL (0.0-0.5); EOS % 8.9 % (0.0-3.0); HEMATOCRIT 41.9 % (42.0-52.0); HEMOGLOBIN 14.1 g/dl (13.5-17.5); LYMPH # 2.5 10^3/uL (1.5-5.0); LYMPH % 17.2 % (24.0-44.0); MEAN CORPUSCULAR HEMOGLOBIN 29.6 pg (27.0-33.0); MEAN CORPUSCULAR HGB CONC 33.7 g/dl (32.0-36.5); MEAN CORPUSCULAR VOLUME 87.8 fl (80.0-96.0); MONO # 0.8 10^3/uL (0.0-0.8); MONO % 5.4 % (2.0-8.0); NEUTROPHILS % 67.6 % (36.0-66.0); PLATELET COUNT, AUTOMATED 276 10^3/uL (150-450); RED BLOOD COUNT 4.77 10^6/uL (4.30-6.10); WHITE BLOOD COUNT 14.8 10^3/uL (4.0-10.0)
[2022-12-29 05:18] LABS: ALBUMIN 4.2 G/DL (3.2-5.2); ALKALINE PHOSPHATASE 85 U/L (46-116); ALT/SGPT 24 U/L (7.0-40); AST/SGOT 24 U/L (<34); BILIRUBIN,TOTAL 0.3 MG/DL (0.3-1.2); BLOOD UREA NITROGEN 12 MG/DL (9-23); CARBON DIOXIDE LEVEL 23 MMOL/L (20-31); CHLORIDE LEVEL 109 MMOL/L (98-107); CREATININE FOR GFR 1.07 MG/DL (0.70-1.30); GLOMERULAR FILTRATION RATE > 60.0 (>60); GLUCOSE, FASTING 106 MG/DL (60-100); POTASSIUM SERUM 4.4 MMOL/L (3.5-5.1); SODIUM LEVEL 143 MMOL/L (136-145); TOTAL PROTEIN 7.3 G/DL (5.7-8.2)
[2022-12-29] MEDS ORDERED: ONDANSETRON 4MG 2ML VIAL IV ONE (06:50)
[2022-12-29] MEDS ORDERED: ONDANSETRON 4MG 2ML VIAL As Ordered ONE (06:54)
[2022-12-29] MEDS ORDERED: KETOROLAC 30 MG/ML 1ML VIAL IV ONE (06:55)
[2022-12-29 07:00] VITALS: TEMP 97.8
[2022-12-29] MEDS ORDERED: ISOVUE-370 76% 100ML VIAL As Ordered ONE (07:17)
[2022-12-29 09:00] VITALS: BP 111/68; O2SAT 96
[2022-12-30] MEDS ORDERED: BUSP5TA PO (23:11)
== END 2022-12-29 09:07 | disposition home or self-care (01) ==
LOC: M ED 03:38
DX: R11.2 Nausea with vomiting, unspecified (principal); R19.7 Diarrhea, unspecified; I10 Essential (primary) hypertension; K50.90 Crohn's disease, unspecified, without complications; Z79.899 Other long term (current) drug therapy; Z88.0 Allergy status to penicillin; Z91.030 Bee allergy status; Z91.040 Latex allergy status
CPT/HCPCS: 74177; 80053; 83735; 85025; 96361; 96374; 96375; 99284; J1630; J1885; J2405; Q9967

== ENCOUNTER 2022-12-30 22:49 | Emergency (ER) | payer OTHER ==
[~2022-12-30] VITALS: Ht 160 cm; Wt 81.8 kg
[2022-12-30] MEDS ORDERED: HALOPERIDOL 5MG/ML 1ML VIAL IV ONE (23:00)
[2022-12-30] MEDS ORDERED: BUSP5TA PO (23:11)
[2022-12-31 00:37] VITALS: TEMP 98.4
[2022-12-31 01:00] VITALS: BP 113/65; O2SAT 96
== END 2022-12-31 01:32 | disposition home or self-care (01) ==
LOC: M ED 22:49
DX: F12.188 Cannabis abuse with other cannabis-induced disorder (principal); Z79.899 Other long term (current) drug therapy; Z88.0 Allergy status to penicillin; Z91.040 Latex allergy status; Z91.030 Bee allergy status
CPT/HCPCS: 96374; 99284; J1630

== ENCOUNTER 2023-01-08 03:33 | Emergency (ER) | payer OTHER ==
[~2023-01-08] VITALS: Ht 172.7 cm; Wt 81.0 kg
[~2023-01-08 03:33] MED LIST changes: +BUSP5TA PO
[2023-01-08] MEDS ORDERED: NS 1,000 ML IV ONE ×2 (03:55→06:30)
[2023-01-08] MEDS ORDERED: HALOPERIDOL 5MG/ML 1ML VIAL IV ONE (03:55)
[2023-01-08 04:34] LABS: BASO # 0.1 10^3/uL (0.0-0.2); BASO % 0.5 % (0.0-1.0); EOS # 1.1 10^3/uL (0.0-0.5); EOS % 7.2 % (0.0-3.0); HEMATOCRIT 42.8 % (42.0-52.0); HEMOGLOBIN 14.1 g/dl (13.5-17.5); LYMPH # 2.4 10^3/uL (1.5-5.0); LYMPH % 15.2 % (24.0-44.0); MEAN CORPUSCULAR HGB CONC 32.9 g/dl (32.0-36.5); MEAN CORPUSCULAR VOLUME 88.1 fl (80.0-96.0); MONO # 0.9 10^3/uL (0.0-0.8); MONO % 5.8 % (2.0-8.0); NEUTROPHILS # 11.2 10^3/uL (1.5-8.5); PLATELET COUNT, AUTOMATED 304 10^3/uL (150-450); RED BLOOD COUNT 4.86 10^6/uL (4.30-6.10); WHITE BLOOD COUNT 15.7 10^3/uL (4.0-10.0)
[2023-01-08 04:56] LABS: ALBUMIN 3.9 G/DL (3.2-5.2); ALKALINE PHOSPHATASE 77 U/L (46-116); ALT/SGPT 19 U/L (7.0-40); AST/SGOT 18 U/L (<34); BILIRUBIN,TOTAL 0.3 MG/DL (0.3-1.2); BLOOD UREA NITROGEN 9 MG/DL (9-23); CALCIUM LEVEL 9.1 MG/DL (8.5-10.1); CARBON DIOXIDE LEVEL 26 MMOL/L (20-31); CHLORIDE LEVEL 104 MMOL/L (98-107); CREATININE FOR GFR 1.11 MG/DL (0.70-1.30); GLOMERULAR FILTRATION RATE > 60.0 (>60); GLUCOSE, FASTING 111 MG/DL (60-100); MAGNESIUM LEVEL 1.7 MG/DL (1.8-2.4); POTASSIUM SERUM 3.9 MMOL/L (3.5-5.1); SODIUM LEVEL 140 MMOL/L (136-145)
[2023-01-08] MEDS ORDERED: MAGNESIUM OXIDE 400MG TAB (MAG-OX) PO ONE (06:30)
[2023-01-08] MEDS ORDERED: DICYCLOMINE 10 MG CAP PO ONE (06:35)
[2023-01-08 10:00] VITALS: BP 128/71; TEMP 98.3; O2SAT 97
== END 2023-01-08 10:26 | disposition home or self-care (01) ==
LOC: M ED 03:33
DX: R11.2 Nausea with vomiting, unspecified (principal); R10.9 Unspecified abdominal pain; J45.909 Unspecified asthma, uncomplicated; K90.0 Celiac disease; K58.9 Irritable bowel syndrome, unspecified; F17.200 Nicotine dependence, unspecified, uncomplicated; Z88.0 Allergy status to penicillin; Z91.030 Bee allergy status; Z91.040 Latex allergy status; Z79.899 Other long term (current) drug therapy; Z79.51 Long term (current) use of inhaled steroids; Z79.52 Long term (current) use of systemic steroids
CPT/HCPCS: 36415; 74021; 80053; 83605; 83735; 85025; 96374; 99284; J1630

== ENCOUNTER 2023-03-20 16:30 | Emergency (ER) | payer OTHER ==
[~2023-03-20] VITALS: Ht 160 cm; Wt 185.0 kg
[2023-03-20] MEDS ORDERED: NS 1,000 ML IV ONE ×2 (16:40→17:25)
[2023-03-20] MEDS ORDERED: HALOPERIDOL 5MG/ML 1ML VIAL IV ONE (16:40)
[2023-03-20 16:52] LABS: VENOUS BASE EXCESS 2.6 (-2.0-2.0); VENOUS HCO3 21.2 MMOL/L (23.0-27.0); VENOUS O2 SATURATION 99.3 % (60.0-80.0); VENOUS PARTIAL PRESSURE CO2 20.5 mmHg (38.0-50.0); VENOUS PARTIAL PRESSURE O2 143.8 mmHg (30.0-50.0); VENOUS PH 7.633 UNITS (7.330-7.430); VENOUS STANDARD HCO3 26.8 MMOL/L; VENOUS TOTAL CO2 21.9 MMOL/L (24.0-28.0)
[2023-03-20 16:53] LABS: BASO # 0.1 10^3/uL (0.0-0.2); BASO % 0.5 % (0.0-1.0); EOS # 0.9 10^3/uL (0.0-0.5); EOS % 6.1 % (0.0-3.0); HEMATOCRIT 42.2 % (42.0-52.0); HEMOGLOBIN 14.3 g/dl (13.5-17.5); LYMPH # 2.3 10^3/uL (1.5-5.0); LYMPH % 15.8 % (24.0-44.0); MEAN CORPUSCULAR HEMOGLOBIN 29.1 pg (27.0-33.0); MEAN CORPUSCULAR HGB CONC 33.9 g/dl (32.0-36.5); MEAN CORPUSCULAR VOLUME 85.9 fl (80.0-96.0); MONO # 0.6 10^3/uL (0.0-0.8); MONO % 4.4 % (2.0-8.0); NEUTROPHILS # 10.5 10^3/uL (1.5-8.5); NEUTROPHILS % 72.9 % (36.0-66.0); PLATELET COUNT, AUTOMATED 278 10^3/uL (150-450); RED BLOOD COUNT 4.91 10^6/uL (4.30-6.10); WHITE BLOOD COUNT 14.4 10^3/uL (4.0-10.0)
[2023-03-20 17:19] LABS: LIPASE 33 U/L (12-53)
[2023-03-20 17:25] LABS: ALBUMIN 4.3 G/DL (3.2-5.2); ALKALINE PHOSPHATASE 75 U/L (46-116); ALT/SGPT 21 U/L (7.0-40); AST/SGOT 16 U/L (<34); BILIRUBIN,DIRECT 0.1 MG/DL (<0.4); BILIRUBIN,TOTAL 0.3 MG/DL (0.3-1.2); BLOOD UREA NITROGEN 7 MG/DL (9-23); CALCIUM LEVEL 9.1 MG/DL (8.5-10.1); CARBON DIOXIDE LEVEL 21 MMOL/L (20-31); CHLORIDE LEVEL 107 MMOL/L (98-107); CREATININE FOR GFR 0.89 MG/DL (0.70-1.30); GLOMERULAR FILTRATION RATE > 60.0 (>60); GLUCOSE, FASTING 108 MG/DL (60-100); POTASSIUM SERUM 3.9 MMOL/L (3.5-5.1); SODIUM LEVEL 140 MMOL/L (136-145); TOTAL PROTEIN 7.3 G/DL (5.7-8.2)
[2023-03-20] MEDS ORDERED: METOCLOPRAMIDE INJ 10MG/2ML VIAL IV ONE (17:25)
[2023-03-20 19:01] VITALS: BP 156/103; TEMP 98.1; O2SAT 96
== END 2023-03-20 19:16 | disposition home or self-care (01) ==
LOC: M ED 16:30
DX: R11.15 Cyclical vomiting syndrome unrelated to migraine (principal); F12.10 Cannabis abuse, uncomplicated; Z11.52 Encounter for screening for COVID-19; Z88.1 Allergy status to other antibiotic agents; Z91.040 Latex allergy status
CPT/HCPCS: 80048; 80076; 82803; 83690; 85025; 87635; 93041; 96374; 96375; 99284; J1630; J2765

== ENCOUNTER 2023-04-19 01:27 | Emergency (ER) | payer OTHER ==
[~2023-04-19] VITALS: Ht 177.8 cm; Wt 90.9 kg
[2023-04-19] MEDS ORDERED: KETOROLAC 30 MG/ML 1ML VIAL IV ONE (01:30)
[2023-04-19] MEDS ORDERED: LORazepam 2 MG/ML 1ML VIAL IV STA (01:30)
[2023-04-19] MEDS ORDERED: PROMETHAZINE 25MG/ML 1ML VIAL IV ONE (01:30)
[2023-04-19] MEDS ORDERED: diphenhydrAMINE 50MG/ML VIAL IV ONE (01:30)
[2023-04-19] MEDS ORDERED: NS 1,000 ML IV ONE (01:30)
[2023-04-19] MEDS ORDERED: HALOPERIDOL 5MG/ML 1ML VIAL IV ONE (02:00)
[2023-04-19 02:12] LABS: BASO # 0.1 10^3/uL (0.0-0.2); BASO % 0.5 % (0.0-1.0); EOS # 0.7 10^3/uL (0.0-0.5); EOS % 4.2 % (0.0-3.0); HEMATOCRIT 40.9 % (42.0-52.0); HEMOGLOBIN 13.7 g/dl (13.5-17.5); LYMPH # 2.6 10^3/uL (1.5-5.0); MEAN CORPUSCULAR HEMOGLOBIN 29.5 pg (27.0-33.0); MEAN CORPUSCULAR HGB CONC 33.5 g/dl (32.0-36.5); MEAN CORPUSCULAR VOLUME 88.1 fl (80.0-96.0); MONO % 5.7 % (2.0-8.0); NEUTROPHILS # 13.1 10^3/uL (1.5-8.5); NEUTROPHILS % 74.1 % (36.0-66.0); PLATELET COUNT, AUTOMATED 269 10^3/uL (150-450); RED BLOOD COUNT 4.64 10^6/uL (4.30-6.10); WHITE BLOOD COUNT 17.6 10^3/uL (4.0-10.0)
[2023-04-19 02:17] LABS: LIPASE 30 U/L (12-53)
[2023-04-19 02:20] LABS: ALKALINE PHOSPHATASE 68 U/L (46-116); ALT/SGPT 15 U/L (7.0-40); AST/SGOT 22 U/L (<34); BILIRUBIN,DIRECT < 0.1 MG/DL (<0.4); BILIRUBIN,TOTAL 0.3 MG/DL (0.3-1.2); BLOOD UREA NITROGEN 7 MG/DL (9-23); CALCIUM LEVEL 9.1 MG/DL (8.5-10.1); CARBON DIOXIDE LEVEL 22 MMOL/L (20-31); CHLORIDE LEVEL 107 MMOL/L (98-107); CREATININE FOR GFR 0.83 MG/DL (0.70-1.30); GLOMERULAR FILTRATION RATE > 60.0 (>60); GLUCOSE, FASTING 128 MG/DL (60-100); POTASSIUM SERUM 3.8 MMOL/L (3.5-5.1); SODIUM LEVEL 136 MMOL/L (136-145); TOTAL PROTEIN 7.1 G/DL (5.7-8.2)
[2023-04-19] MEDS ORDERED: NS 2,730 ML in IV 1 EA IV ONE (04:45)
[2023-04-19 08:13] VITALS: BP 106/67; TEMP 98.3; O2SAT 98
== END 2023-04-19 08:17 | disposition home or self-care (01) ==
LOC: M ED 01:27
DX: F12.988 Cannabis use, unspecified with other cannabis-induced disorder (principal); Z88.1 Allergy status to other antibiotic agents; Z91.030 Bee allergy status; Z91.040 Latex allergy status
CPT/HCPCS: 80048; 80076; 83605; 83690; 85025; 93041; 96360; 96361; 96375; 99284; J1200; J1630; J1885; J2060; J2550

== ENCOUNTER 2023-05-10 04:24 | Emergency (ER) | payer OTHER ==
[~2023-05-10] VITALS: Ht 160 cm; Wt 65.9 kg
[2023-05-10] MEDS: HALOPERIDOL 5MG/ML 1ML VIAL IV ONE (07:44)
[2023-05-10] MEDS: NS 1,000 ML IV ONE ×2 (07:46→10:58)
[2023-05-10 07:47] LABS: BASO # 0.1 10^3/uL (0.0-0.2); BASO % 0.7 % (0.0-1.0); EOS # 0.4 10^3/uL (0.0-0.5); EOS % 2.1 % (0.0-3.0); HEMATOCRIT 41.2 % (42.0-52.0); HEMOGLOBIN 14.1 g/dl (13.5-17.5); LYMPH # 2.4 10^3/uL (1.5-5.0); LYMPH % 14.2 % (24.0-44.0); MEAN CORPUSCULAR HEMOGLOBIN 29.3 pg (27.0-33.0); MEAN CORPUSCULAR HGB CONC 34.2 g/dl (32.0-36.5); MEAN CORPUSCULAR VOLUME 85.7 fl (80.0-96.0); MONO # 0.5 10^3/uL (0.0-0.8); NEUTROPHILS # 13.4 10^3/uL (1.5-8.5); NEUTROPHILS % 79.5 % (36.0-66.0); PLATELET COUNT, AUTOMATED 340 10^3/uL (150-450); RED BLOOD COUNT 4.81 10^6/uL (4.30-6.10); WHITE BLOOD COUNT 16.9 10^3/uL (4.0-10.0)
[2023-05-10 08:22] LABS: LIPASE 27 U/L (12-53)
[2023-05-10 08:24] LABS: ALBUMIN 4.2 G/DL (3.2-5.2); ALKALINE PHOSPHATASE 71 U/L (46-116); ALT/SGPT 17 U/L (7.0-40); AST/SGOT 23 U/L (<34); BILIRUBIN,DIRECT 0.2 MG/DL (<0.4); BILIRUBIN,TOTAL 0.5 MG/DL (0.3-1.2); BLOOD UREA NITROGEN 12 MG/DL (9-23); CALCIUM LEVEL 9.3 MG/DL (8.5-10.1); CARBON DIOXIDE LEVEL 22 MMOL/L (20-31); CHLORIDE LEVEL 105 MMOL/L (98-107); CREATININE FOR GFR 0.86 MG/DL (0.70-1.30); GLOMERULAR FILTRATION RATE > 60.0 (>60); GLUCOSE, FASTING 130 MG/DL (60-100); POTASSIUM SERUM 3.9 MMOL/L (3.5-5.1); SODIUM LEVEL 137 MMOL/L (136-145); TOTAL PROTEIN 7.3 G/DL (5.7-8.2)
[2023-05-10] MEDS ORDERED: ISOVUE-370 76% 100ML VIAL As Ordered ONE (08:43)
[2023-05-10 09:14] LABS: HCG, SERUM QUALITATIVE NEGATIVE
[2023-05-10 10:24] VITALS: BP 157/93; TEMP 97.7; O2SAT 98
== END 2023-05-10 13:10 | disposition home or self-care (01) ==
LOC: M ED 04:24
DX: R10.9 Unspecified abdominal pain (principal); R11.2 Nausea with vomiting, unspecified; K27.9 Peptic ulcer, site unspecified, unspecified as acute or chronic, without hemorrhage or perforation; F12.10 Cannabis abuse, uncomplicated; Z88.1 Allergy status to other antibiotic agents; Z91.030 Bee allergy status; Z91.040 Latex allergy status; Z79.51 Long term (current) use of inhaled steroids; Z79.899 Other long term (current) drug therapy; Z79.52 Long term (current) use of systemic steroids
CPT/HCPCS: 74177; 80048; 80076; 83690; 84703; 85025; 96361; 96374; 99284; J1630; Q9967

== ENCOUNTER 2023-05-28 15:40 | Emergency (ER) | payer MEDICAID, OTHER ==
[~2023-05-28] VITALS: Ht 160 cm; Wt 86.4 kg
[2023-05-28 15:56] VITALS: TEMP 98
[2023-05-28] MEDS: KETOROLAC 30 MG/ML 1ML VIAL IV ONE (16:24)
[2023-05-28] MEDS: NS 1,000 ML IV SCH (16:24)
[2023-05-28] MEDS: HALOPERIDOL 5MG/ML 1ML VIAL IV ONE (16:24)
[2023-05-28 17:11] LABS: BASO # 0.1 10^3/uL (0.0-0.2); BASO % 0.4 % (0.0-1.0); EOS # 0.3 10^3/uL (0.0-0.5); EOS % 2.6 % (0.0-3.0); HEMATOCRIT 42.9 % (42.0-52.0); HEMOGLOBIN 13.8 g/dl (13.5-17.5); LYMPH # 2.7 10^3/uL (1.5-5.0); MEAN CORPUSCULAR HEMOGLOBIN 28.5 pg (27.0-33.0); MEAN CORPUSCULAR HGB CONC 32.2 g/dl (32.0-36.5); MEAN CORPUSCULAR VOLUME 88.5 fl (80.0-96.0); MONO # 0.7 10^3/uL (0.0-0.8); MONO % 5.7 % (2.0-8.0); NEUTROPHILS # 8.4 10^3/uL (1.5-8.5); PLATELET COUNT, AUTOMATED 284 10^3/uL (150-450); RED BLOOD COUNT 4.85 10^6/uL (4.30-6.10); WHITE BLOOD COUNT 12.1 10^3/uL (4.0-10.0)
[2023-05-28 17:30] LABS: LIPASE 24 U/L (12-53)
[2023-05-28 17:32] LABS: ALBUMIN 4.1 G/DL (3.2-5.2); ALKALINE PHOSPHATASE 67 U/L (46-116); ALT/SGPT 21 U/L (7.0-40); AST/SGOT 19 U/L (<34); BILIRUBIN,DIRECT 0.1 MG/DL (<0.4); BILIRUBIN,TOTAL 0.3 MG/DL (0.3-1.2); BLOOD UREA NITROGEN 8 MG/DL (9-23); CALCIUM LEVEL 8.7 MG/DL (8.5-10.1); CARBON DIOXIDE LEVEL 26 MMOL/L (20-31); CHLORIDE LEVEL 105 MMOL/L (98-107); CREATININE FOR GFR 0.81 MG/DL (0.70-1.30); GLOMERULAR FILTRATION RATE > 60.0 (>60); GLUCOSE, FASTING 115 MG/DL (60-100); POTASSIUM SERUM 3.5 MMOL/L (3.5-5.1); SODIUM LEVEL 139 MMOL/L (136-145); TOTAL PROTEIN 7.1 G/DL (5.7-8.2)
[2023-05-28 19:25] VITALS: O2SAT 98
[2023-05-28 19:30] VITALS: BP 116/69
== END 2023-05-28 20:00 | disposition home or self-care (01) ==
LOC: M ED 15:40 → EDBD 15:40 → M ED 20:00
DX: R11.15 Cyclical vomiting syndrome unrelated to migraine (principal); F31.9 Bipolar disorder, unspecified; F32.A Depression, unspecified; F41.9 Anxiety disorder, unspecified; F12.90 Cannabis use, unspecified, uncomplicated; Z88.0 Allergy status to penicillin; Z91.030 Bee allergy status; Z91.040 Latex allergy status; Z79.899 Other long term (current) drug therapy; Z79.51 Long term (current) use of inhaled steroids
CPT/HCPCS: 80048; 80076; 83690; 85025; 96361; 96374; 96375; 99284; J1630; J1885

== ENCOUNTER 2023-06-02 03:05 | Emergency (ER) | payer OTHER ==
[~2023-06-02] VITALS: Ht 160 cm; Wt 86.4 kg
[2023-06-02] MEDS: NS 1,000 ML IV ONE (04:18)
[2023-06-02 04:31] LABS: BASO % 0.2 % (0.0-1.0); EOS # 0.1 10^3/uL (0.0-0.5); EOS % 0.8 % (0.0-3.0); HEMATOCRIT 39.7 % (42.0-52.0); HEMOGLOBIN 13.3 g/dl (13.5-17.5); LYMPH # 2.4 10^3/uL (1.5-5.0); LYMPH % 17.1 % (24.0-44.0); MEAN CORPUSCULAR HEMOGLOBIN 28.7 pg (27.0-33.0); MEAN CORPUSCULAR HGB CONC 33.5 g/dl (32.0-36.5); MEAN CORPUSCULAR VOLUME 85.6 fl (80.0-96.0); MONO # 1.1 10^3/uL (0.0-0.8); MONO % 7.5 % (2.0-8.0); NEUTROPHILS # 10.4 10^3/uL (1.5-8.5); NEUTROPHILS % 73.9 % (36.0-66.0); PLATELET COUNT, AUTOMATED 359 10^3/uL (150-450); RED BLOOD COUNT 4.64 10^6/uL (4.30-6.10)
[2023-06-02] MEDS ORDERED: MIRT1TAB16 PO (04:32)
[2023-06-02 04:49] LABS: LIPASE 28 U/L (12-53)
[2023-06-02 04:52] LABS: ALBUMIN 3.7 G/DL (3.2-5.2); ALKALINE PHOSPHATASE 60 U/L (46-116); ALT/SGPT 22 U/L (7.0-40); AST/SGOT 16 U/L (<34); BILIRUBIN,DIRECT < 0.1 MG/DL (<0.4); BILIRUBIN,TOTAL 0.2 MG/DL (0.3-1.2); BLOOD UREA NITROGEN 21 MG/DL (9-23); CALCIUM LEVEL 8.7 MG/DL (8.5-10.1); CARBON DIOXIDE LEVEL 25 MMOL/L (20-31); CHLORIDE LEVEL 106 MMOL/L (98-107); CREATININE FOR GFR 0.77 MG/DL (0.70-1.30); GLOMERULAR FILTRATION RATE > 60.0 (>60); GLUCOSE, FASTING 108 MG/DL (60-100); SODIUM LEVEL 139 MMOL/L (136-145); TOTAL PROTEIN 6.7 G/DL (5.7-8.2)
[2023-06-02] MEDS: HALOPERIDOL 5MG/ML 1ML VIAL IV ONE (06:41)
[2023-06-02] MEDS ORDERED: MED REC IN PROGRESS XX SCH (09:00)
[2023-06-02 09:16] VITALS: BP 132/85; TEMP 97.9; O2SAT 97
[2023-06-02] MEDS ORDERED: DOCU100C16 PO (09:37)
[2023-06-02] MEDS ORDERED: CEFU1TAB22 PO (09:37)
[2023-06-02] MEDS ORDERED: ATOR40TA75 PO (09:37)
[2023-06-02] MEDS ORDERED: DOXY100T PO (09:37)
[2023-06-02] MEDS ORDERED: BUSP10TA79 PO (09:37)
[2023-06-02] MEDS ORDERED: HOME MED LIST COMPLETE! XX SCH (09:40)
== END 2023-06-02 10:05 | disposition home or self-care (01) ==
LOC: M ED 03:05
DX: R11.15 Cyclical vomiting syndrome unrelated to migraine (principal); E78.5 Hyperlipidemia, unspecified; K27.9 Peptic ulcer, site unspecified, unspecified as acute or chronic, without hemorrhage or perforation; F12.10 Cannabis abuse, uncomplicated; Z88.1 Allergy status to other antibiotic agents; Z91.030 Bee allergy status; Z91.040 Latex allergy status; Z79.899 Other long term (current) drug therapy; Z79.51 Long term (current) use of inhaled steroids; Z79.52 Long term (current) use of systemic steroids
CPT/HCPCS: 80048; 80076; 83690; 85025; 87486; 87581; 87633; 87798; 93041; 96361; 96374; 99284; J1630

== ENCOUNTER → 2023-06-09 | Outpatient (REF) | payer OTHER ==
[~2023-06-09] MED LIST changes: +ATOR40TA75 PO; +BUSP10TA79 PO; +CEFU1TAB22 PO; +DOCU100C16 PO; +DOXY100T PO; +MIRT1TAB16 PO
== END ==
LOC: M LAB REF 16:32
PROVIDERS: ATTEND Pediatrics
DX: J06.9 Acute upper respiratory infection, unspecified (principal)

== ENCOUNTER → 2023-06-13 | Outpatient (CLI) | payer OTHER | LOC: M RAD 13:13 | PROVIDERS: ATTEND Pediatrics | DX: Z01.818 Encounter for other preprocedural examination (principal) ==

== ENCOUNTER 2023-06-26 05:44 | Day surgery (SDC) | payer OTHER ==
[~2023-06-26] VITALS: Ht 160 cm; Wt 84.0 kg
[2023-06-26 06:25] LABS: HEMATOCRIT 43.1 % (42.0-52.0); HEMOGLOBIN 14.1 g/dl (13.5-17.5); MEAN CORPUSCULAR HEMOGLOBIN 28.4 pg (27.0-33.0); MEAN CORPUSCULAR HGB CONC 32.7 g/dl (32.0-36.5); MEAN CORPUSCULAR VOLUME 86.9 fl (80.0-96.0); PLATELET COUNT, AUTOMATED 309 10^3/uL (150-450); RED BLOOD COUNT 4.96 10^6/uL (4.30-6.10); WHITE BLOOD COUNT 10.9 10^3/uL (4.0-10.0)
[2023-06-26] MEDS ORDERED: LR 1,000 ML IV SCH (06:30)
[2023-06-26] MEDS ORDERED: propofoL 200 MG/20 ML VIAL As Ordered ONE (07:09)
[2023-06-26] MEDS ORDERED: ROCURONIUM BROMIDE 50MG/5ML VIAL As Ordered ONE (07:09)
[2023-06-26] MEDS ORDERED: LIDOCAINE 2% 100MG/5ML SDV (FOR ANES.) As Ordered ONE (07:09)
[2023-06-26] MEDS ORDERED: MIDAZOLAM INJ 2MG/2ML VIAL As Ordered ONE (07:10)
[2023-06-26] MEDS ORDERED: fentaNYL 100 MCG/2 ML INJECTION As Ordered ONE (07:10)
[2023-06-26] MEDS ORDERED: ceFAZolin 2 GM/D5W 50 ML IV BAG As Ordered ONE (08:01)
[2023-06-26] MEDS: ZOSYN 3.375GM VIAL As Ordered ONE (08:08)
[2023-06-26] MEDS: ceFAZolin SOD 2 GM in IV 1 EA IV ONE (08:08)
[2023-06-26] MEDS ORDERED: HYDROmorphone HCL 2MG/ML 1ML VIAL As Ordered ONE (08:43)
[2023-06-26] MEDS ORDERED: ACETAMINOPHEN 1000MG 100ML IV BAG As Ordered ONE (08:43)
[2023-06-26] MEDS ORDERED: ONDANSETRON 4MG 2ML VIAL As Ordered ONE (08:43)
[2023-06-26] MEDS ORDERED: PHENYLephrine 500MCG 5ML (100MCG/ML) SYRINGE As Ordered ONE (08:51)
[2023-06-26] MEDS: METHYLENE BLUE 0.5% (5MG/ML) 10 ML AMP (PROVAYBLUE) As Ordered ONE (09:09)
[2023-06-26] MEDS ORDERED: SUGAMMADEX SODIUM 500 MG/5 ML VIAL (BRIDION) As Ordered ONE (09:45)
[2023-06-26] MEDS ORDERED: MORPHINE 2 MG/ML 1ML VIAL IV PRN (09:55)
[2023-06-26] MEDS: ONDANSETRON 4MG 2ML VIAL IV PRN (10:11)
[2023-06-26] MEDS: oxyCODONE 5MG TAB PO PRN (10:33)
[2023-06-26] MEDS: fentaNYL 100 MCG/2 ML INJECTION IV PRN (10:34)
[2023-06-26] MEDS: METOCLOPRAMIDE INJ 10MG/2ML VIAL IV PRN (11:08)
[2023-06-26] MEDS: PROMETHAZINE 25MG/ML 1ML VIAL IV PRN (11:40)
[2023-06-26 12:45] VITALS: BP 135/84; TEMP 97.7; O2SAT 96
== END 2023-06-26 13:08 | disposition home or self-care (01) ==
LOC: M SDC 05:44
PROVIDERS: ATTEND Obstetrics & Gynecology
DX: N83.202 Unspecified ovarian cyst, left side (principal); N83.201 Unspecified ovarian cyst, right side; F64.9 Gender identity disorder, unspecified; E78.00 Pure hypercholesterolemia, unspecified; K58.9 Irritable bowel syndrome, unspecified; J45.909 Unspecified asthma, uncomplicated; F31.9 Bipolar disorder, unspecified; Z79.899 Other long term (current) drug therapy; G43.909 Migraine, unspecified, not intractable, without status migrainosus; Z88.0 Allergy status to penicillin; Z91.030 Bee allergy status; Z91.040 Latex allergy status
CPT/HCPCS: 36415; 58571; 81025; 85027; 86850; 86900; 86901; 88307; J0131; J0665; J0690; J1100; J1170; J2250; J2371; J2405; J2543; J2550; J2765; J3010; Q9968; S2900

== ENCOUNTER 2023-07-12 16:51 | Emergency (ER) | payer OTHER ==
[2023-07-12] MEDS: NS 1,000 ML IV ONE (17:25)
[2023-07-12] MEDS: HALOPERIDOL 5MG/ML 1ML VIAL IV ONE (17:26)
[2023-07-12 17:45] LABS: BASO % 0.4 % (0.0-1.0); EOS # 0.7 10^3/uL (0.0-0.5); EOS % 7.3 % (0.0-3.0); HEMATOCRIT 40.3 % (42.0-52.0); HEMOGLOBIN 13.5 g/dl (13.5-17.5); LYMPH # 1.4 10^3/uL (1.5-5.0); LYMPH % 14.4 % (24.0-44.0); MEAN CORPUSCULAR HEMOGLOBIN 27.9 pg (27.0-33.0); MEAN CORPUSCULAR HGB CONC 33.5 g/dl (32.0-36.5); MEAN CORPUSCULAR VOLUME 83.3 fl (80.0-96.0); MONO # 0.4 10^3/uL (0.0-0.8); MONO % 4.3 % (2.0-8.0); NEUTROPHILS # 7.3 10^3/uL (1.5-8.5); NEUTROPHILS % 73.4 % (36.0-66.0); PLATELET COUNT, AUTOMATED 351 10^3/uL (150-450); RED BLOOD COUNT 4.84 10^6/uL (4.30-6.10); WHITE BLOOD COUNT 9.9 10^3/uL (4.0-10.0)
[2023-07-12 17:49] LABS: LIPASE 25 U/L (12-53)
[2023-07-12 17:51] LABS: ALBUMIN 3.5 G/DL (3.2-5.2); ALKALINE PHOSPHATASE 69 U/L (46-116); ALT/SGPT 20 U/L (7.0-40); AST/SGOT 18 U/L (<34); BILIRUBIN,DIRECT < 0.1 MG/DL (<0.4); BILIRUBIN,TOTAL 0.2 MG/DL (0.3-1.2); BLOOD UREA NITROGEN 9 MG/DL (9-23); CALCIUM LEVEL 9.5 MG/DL (8.5-10.1); CARBON DIOXIDE LEVEL 26 MMOL/L (20-31); CHLORIDE LEVEL 105 MMOL/L (98-107); CREATININE FOR GFR 0.88 MG/DL (0.70-1.30); GLOMERULAR FILTRATION RATE > 60.0 (>60); GLUCOSE, FASTING 100 MG/DL (60-100); POTASSIUM SERUM 4.5 MMOL/L (3.5-5.1); SODIUM LEVEL 139 MMOL/L (136-145); TOTAL PROTEIN 6.8 G/DL (5.7-8.2)
[2023-07-12] MEDS ORDERED: ISOVUE-370 76% 100ML VIAL As Ordered ONE (18:01)
[2023-07-12] MEDS ORDERED: ONDA4TAB6 PO (19:50)
[2023-07-12 20:14] VITALS: BP 121/80; TEMP 97.9; O2SAT 95
== END 2023-07-12 20:19 | disposition home or self-care (01) ==
LOC: EDSEX 16:51 → EDBD 16:51 → M ED 16:51
DX: R11.15 Cyclical vomiting syndrome unrelated to migraine (principal); J45.909 Unspecified asthma, uncomplicated; F32.A Depression, unspecified; F41.9 Anxiety disorder, unspecified; F31.9 Bipolar disorder, unspecified; Z88.0 Allergy status to penicillin; Z88.1 Allergy status to other antibiotic agents; Z91.040 Latex allergy status; Z91.030 Bee allergy status; Z79.51 Long term (current) use of inhaled steroids; Z79.899 Other long term (current) drug therapy
CPT/HCPCS: 74177; 80048; 80076; 83690; 85025; 87507; 96374; 99284; J1630; Q9967

== ENCOUNTER → 2023-08-10 | Outpatient (REF) | payer OTHER ==
[2023-08-10 17:56] LABS: BASO # 0.1 10^3/uL (0.0-0.2); BASO % 0.6 % (0.0-1.0); EOS # 0.9 10^3/uL (0.0-0.5); EOS % 9.8 % (0.0-3.0); HEMATOCRIT 42.5 % (42.0-52.0); HEMOGLOBIN 13.6 g/dl (13.5-17.5); LYMPH # 2.3 10^3/uL (1.5-5.0); LYMPH % 25.7 % (24.0-44.0); MEAN CORPUSCULAR HEMOGLOBIN 27.5 pg (27.0-33.0); MONO # 0.6 10^3/uL (0.0-0.8); MONO % 6.8 % (2.0-8.0); NEUTROPHILS # 5.1 10^3/uL (1.5-8.5); NEUTROPHILS % 56.9 % (36.0-66.0); PLATELET COUNT, AUTOMATED 296 10^3/uL (150-450); RED BLOOD COUNT 4.94 10^6/uL (4.30-6.10)
[2023-08-10 18:25] LABS: CHOLESTEROL RISK RATIO 4.24 (<5); HDL CHOLESTEROL 48.3 MG/DL (>40); LDL CHOLESTEROL 143.9 MG/DL (<100); NON-HDL-C 156.7 MG/DL
== END ==
LOC: M LAB REF 16:37
PROVIDERS: ATTEND Pediatrics
DX: F64.0 Transsexualism (principal)

== ENCOUNTER 2023-08-27 11:38 | Emergency (ER) | payer OTHER ==
[~2023-08-27 11:38] MED LIST changes: +ONDA-282 PO; -ONDA4TAB6 PO
[2023-08-27 15:06] LABS: BASO # 0.1 10^3/uL (0.0-0.2); BASO % 0.4 % (0.0-1.0); EOS # 0.1 10^3/uL (0.0-0.5); EOS % 0.3 % (0.0-3.0); HEMATOCRIT 42.5 % (42.0-52.0); HEMOGLOBIN 13.9 g/dl (13.5-17.5); LYMPH # 1.5 10^3/uL (1.5-5.0); MEAN CORPUSCULAR HEMOGLOBIN 27.3 pg (27.0-33.0); MEAN CORPUSCULAR HGB CONC 32.7 g/dl (32.0-36.5); MEAN CORPUSCULAR VOLUME 83.5 fl (80.0-96.0); MONO # 0.9 10^3/uL (0.0-0.8); MONO % 4.7 % (2.0-8.0); NEUTROPHILS # 16.5 10^3/uL (1.5-8.5); NEUTROPHILS % 85.8 % (36.0-66.0); PLATELET COUNT, AUTOMATED 358 10^3/uL (150-450); RED BLOOD COUNT 5.09 10^6/uL (4.30-6.10); WHITE BLOOD COUNT 19.2 10^3/uL (4.0-10.0)
[2023-08-27] MEDS ORDERED: PROMETHAZINE 25MG/ML 1ML VIAL IV ONE (15:20)
[2023-08-27 15:39] LABS: ALBUMIN 4.1 G/DL (3.2-5.2); ALKALINE PHOSPHATASE 69 U/L (46-116); ALT/SGPT 29 U/L (7.0-40); AST/SGOT 42 U/L (<34); BILIRUBIN,DIRECT 0.1 MG/DL (<0.4); BILIRUBIN,TOTAL 0.4 MG/DL (0.3-1.2); BLOOD UREA NITROGEN 10 MG/DL (9-23); CALCIUM LEVEL 9.7 MG/DL (8.5-10.1); CARBON DIOXIDE LEVEL 24 MMOL/L (20-31); CHLORIDE LEVEL 106 MMOL/L (98-107); GLOMERULAR FILTRATION RATE > 60.0 (>60); GLUCOSE, FASTING 127 MG/DL (60-100); LIPASE 26 U/L (12-53); POTASSIUM SERUM 4.8 MMOL/L (3.5-5.1); SODIUM LEVEL 139 MMOL/L (136-145); TOTAL PROTEIN 7.4 G/DL (5.7-8.2)
[2023-08-27] MEDS: METOCLOPRAMIDE INJ 10MG/2ML VIAL IV ONE (15:40)
[2023-08-27] MEDS: NS 1,000 ML IV ONE (15:40)
[2023-08-27] MEDS: PROMETHAZINE 25MG/ML 1ML VIAL IM ONE (17:07)
[2023-08-27] MEDS: HALOPERIDOL LACTATE 5MG/ML VIAL IV ONE (18:21)
[2023-08-27 20:41] VITALS: BP 125/68; TEMP 99.6; O2SAT 98
[2023-08-27] MEDS ORDERED: NS 1,000 ML IV ONE (21:00)
== END 2023-08-27 21:13 | disposition left against medical advice (07) ==
LOC: M ED 11:38 → EDBD 11:38 → M ED 21:13
DX: F12.188 Cannabis abuse with other cannabis-induced disorder (principal); J45.909 Unspecified asthma, uncomplicated; Z88.0 Allergy status to penicillin; Z88.1 Allergy status to other antibiotic agents; Z91.040 Latex allergy status; Z91.030 Bee allergy status; Z79.51 Long term (current) use of inhaled steroids; Z79.899 Other long term (current) drug therapy; Z53.9 Procedure and treatment not carried out, unspecified reason
CPT/HCPCS: 36415; 74018; 80048; 80076; 83605; 83690; 85025; 96361; 96372; 96374; 96375; 99284; J1630; J2550; J2765

== ENCOUNTER 2023-10-19 09:15 | Day surgery (SDC) | payer OTHER ==
[~2023-10-19] VITALS: Ht 160 cm; Wt 87.6 kg
[~2023-10-19 09:15] MED LIST changes: +CETI-24 PO; +PROM12.56 PO
[2023-10-19] MEDS ORDERED: LIDOCAINE 2% 100MG/5ML SDV (FOR ANES.) As Ordered ONE (09:30)
[2023-10-19] MEDS ORDERED: propofoL 200 MG/20 ML VIAL As Ordered ONE (09:30)
[2023-10-19] MEDS: NS 1,000 ML IV ONE (09:34)
[2023-10-19 11:04] VITALS: BP 122/74; O2SAT 100
== END 2023-10-19 11:02 | disposition home or self-care (01) ==
LOC: M OPP 09:15
PROVIDERS: ATTEND Internal Medicine Gastroenterology
DX: K52.89 Other specified noninfective gastroenteritis and colitis (principal); K64.8 Other hemorrhoids; K57.30 Diverticulosis of large intestine without perforation or abscess without bleeding; R19.4 Change in bowel habit; K44.9 Diaphragmatic hernia without obstruction or gangrene; R11.2 Nausea with vomiting, unspecified; R14.0 Abdominal distension (gaseous); R10.9 Unspecified abdominal pain; J45.909 Unspecified asthma, uncomplicated; Z79.02 Long term (current) use of antithrombotics/antiplatelets; Z79.51 Long term (current) use of inhaled steroids; Z79.899 Other long term (current) drug therapy; Z88.0 Allergy status to penicillin; Z88.1 Allergy status to other antibiotic agents; Z91.030 Bee allergy status; Z91.040 Latex allergy status

== ENCOUNTER 2023-10-22 03:32 | Emergency (ER) | payer OTHER ==
[~2023-10-22] VITALS: Ht 165.1 cm; Wt 77.3 kg
[2023-10-22 06:43] LABS: BASO # 0.1 10^3/uL (0.0-0.2); BASO % 0.4 % (0.0-1.0); EOS # 0.1 10^3/uL (0.0-0.5); EOS % 0.8 % (0.0-3.0); HEMATOCRIT 39.9 % (42.0-52.0); HEMOGLOBIN 13.2 g/dl (13.5-17.5); LYMPH # 2.2 10^3/uL (1.5-5.0); MEAN CORPUSCULAR HEMOGLOBIN 27.9 pg (27.0-33.0); MEAN CORPUSCULAR HGB CONC 33.1 g/dl (32.0-36.5); MEAN CORPUSCULAR VOLUME 84.4 fl (80.0-96.0); MONO # 0.6 10^3/uL (0.0-0.8); MONO % 4.5 % (2.0-8.0); NEUTROPHILS # 9.8 10^3/uL (1.5-8.5); NEUTROPHILS % 76.8 % (36.0-66.0); PLATELET COUNT, AUTOMATED 316 10^3/uL (150-450); RED BLOOD COUNT 4.73 10^6/uL (4.30-6.10); WHITE BLOOD COUNT 12.8 10^3/uL (4.0-10.0)
[2023-10-22] MEDS: ONDANSETRON 4MG 2ML VIAL IV ONE (07:00)
[2023-10-22] MEDS: METOCLOPRAMIDE INJ 10MG/2ML VIAL IV ONE (07:00)
[2023-10-22] MEDS: CAPSAICIN 0.025% CR 60 GM TOP PRN (07:00)
[2023-10-22] MEDS: NS 1,000 ML IV ONE ×2 (07:00→09:16)
[2023-10-22 07:03] LABS: LIPASE 23 U/L (12-53)
[2023-10-22 07:06] LABS: ALBUMIN 4.1 G/DL (3.2-5.2); ALKALINE PHOSPHATASE 81 U/L (46-116); ALT/SGPT 32 U/L (7.0-40); AST/SGOT 27 U/L (<34); BILIRUBIN,TOTAL 0.3 MG/DL (0.3-1.2); BLOOD UREA NITROGEN 7 MG/DL (9-23); CALCIUM LEVEL 9.6 MG/DL (8.5-10.1); CARBON DIOXIDE LEVEL 23 MMOL/L (20-31); CHLORIDE LEVEL 108 MMOL/L (98-107); CREATININE FOR GFR 0.87 MG/DL (0.70-1.30); GLOMERULAR FILTRATION RATE > 60.0 (>60); GLUCOSE, FASTING 129 MG/DL (60-100); POTASSIUM SERUM 3.7 MMOL/L (3.5-5.1); SODIUM LEVEL 141 MMOL/L (136-145); TOTAL PROTEIN 7.4 G/DL (5.7-8.2)
[2023-10-22] MEDS: HALOPERIDOL LACTATE 5MG/ML VIAL IV STA (07:30)
[2023-10-22 07:36] LABS: APPEARANCE, URINE CLEAR (CLEAR); BACTERIA, URINE AUTO NEGATIVE (NEGATIVE); BILIRUBIN, URINE AUTO NEGATIVE (NEGATIVE); BLOOD, URINE BLOOD NEGATIVE (NEGATIVE); COLOR, URINE YELLOW (YELLOW); GLUCOSE, URINE (UA) AUTO NEGATIVE (NEGATIVE); KETONE, URINE AUTO 1+ mg/dL (NEGATIVE); LEUKOCYTE ESTERASE, URINE AUTO NEGATIVE (NEGATIVE); NITRITE, URINE AUTO NEGATIVE (NEGATIVE); PROTEIN, URINE AUTO 2+ mg/dL (NEGATIVE); RBC, URINE AUTO 1 /HPF (0-3); SPECIFIC GRAVITY URINE AUTO 1.019 (1.002-1.035); SQUAMOUS EPITHELIAL CELL UR AU 1 /HPF (0-6); UROBILINOGEN, URINE AUTO 0.2 mg/dL (0.0-2.0); WBC, URINE AUTO 1 /HPF (0-3)
[2023-10-22] MEDS ORDERED: DRAM1CHW PO (07:55)
[2023-10-22] MEDS: KETOROLAC 30 MG/ML 1ML VIAL IV ONE (08:10)
[2023-10-22] MEDS: GASTROGRAFIN SOLUTION 30ML PO SCH (09:16)
[2023-10-22] MEDS ORDERED: ISOVUE-370 76% 100ML VIAL As Ordered ONE (10:04)
[2023-10-22] MEDS ORDERED: CIPR-249 PO (11:49)
[2023-10-22] MEDS ORDERED: CIPROFLOXACIN 500MG TABLET PO ONE (11:50)
[2023-10-22] MEDS ORDERED: METR-265 PO (12:04)
[2023-10-22 12:07] VITALS: BP 130/71; TEMP 97.8; O2SAT 98
[2023-10-22] MEDS: CIPROFLOXACIN 500MG TABLET PO ONE (12:39)
[2023-10-22] MEDS: diphenhydrAMINE 50MG CAP PO ONE (12:42)
[2023-10-22] MEDS: metroNIDAZOLE (FLAGYL) 500MG TABLET PO ONE (12:43)
== END 2023-10-22 12:58 | disposition home or self-care (01) ==
LOC: M ED 03:32
DX: A09 Infectious gastroenteritis and colitis, unspecified (principal); K57.30 Diverticulosis of large intestine without perforation or abscess without bleeding; R11.2 Nausea with vomiting, unspecified; Z88.0 Allergy status to penicillin; Z88.1 Allergy status to other antibiotic agents; Z91.040 Latex allergy status; Z91.030 Bee allergy status; Z79.51 Long term (current) use of inhaled steroids; Z79.2 Long term (current) use of antibiotics; Z79.899 Other long term (current) drug therapy
CPT/HCPCS: 74177; 80053; 81001; 83690; 85025; 96361; 96374; 96375; 99284; J1630; J1885; J2405; J2765; Q9963; Q9967

== ENCOUNTER → 2023-11-10 | Outpatient (REF) | payer OTHER ==
[~2023-11-10] MED LIST changes: +DRAM1CHW PO; +METR-265 PO
[2023-11-10 17:21] LABS: BASO # 0.1 10^3/uL (0.0-0.2); BASO % 0.7 % (0.0-1.0); EOS % 12.5 % (0.0-3.0); HEMATOCRIT 45.4 % (42.0-52.0); HEMOGLOBIN 14.5 g/dl (13.5-17.5); LYMPH # 2.9 10^3/uL (1.5-5.0); LYMPH % 34.9 % (24.0-44.0); MEAN CORPUSCULAR HEMOGLOBIN 27.6 pg (27.0-33.0); MEAN CORPUSCULAR HGB CONC 31.9 g/dl (32.0-36.5); MEAN CORPUSCULAR VOLUME 86.3 fl (80.0-96.0); MONO # 0.5 10^3/uL (0.0-0.8); MONO % 5.9 % (2.0-8.0); NEUTROPHILS # 3.7 10^3/uL (1.5-8.5); NEUTROPHILS % 45.8 % (36.0-66.0); PLATELET COUNT, AUTOMATED 314 10^3/uL (150-450); RED BLOOD COUNT 5.26 10^6/uL (4.30-6.10); WHITE BLOOD COUNT 8.2 10^3/uL (4.0-10.0)
[2023-11-10 17:50] LABS: CHOLESTEROL RISK RATIO 4.68 (<5); HDL CHOLESTEROL 49.1 MG/DL (>40); LDL CHOLESTEROL 167.1 MG/DL (<100); NON-HDL-C 180.9 MG/DL
== END ==
LOC: M LAB REF 16:28
PROVIDERS: ATTEND Pediatrics
DX: F64.0 Transsexualism (principal)

== ENCOUNTER → 2023-11-25 | Outpatient (REF) | payer OTHER | LOC: M LAB REF 11:27 → EEVIPCON 11:27 | PROVIDERS: ATTEND Student in an Organized Health Care Education/Training Program | DX: L02.415 Cutaneous abscess of right lower limb (principal) ==

== ENCOUNTER 2024-01-26 10:42 | Emergency (ER) | payer OTHER ==
[~2024-01-26] VITALS: Ht 160 cm; Wt 90.9 kg
[2024-01-26] MEDS ORDERED: METOCLOPRAMIDE INJ 10MG/2ML VIAL IV ONE (13:15)
[2024-01-26] MEDS: ONDANSETRON 4MG 2ML VIAL IV ONE (13:44)
[2024-01-26 13:45] LABS: BASO # 0.1 10^3/uL (0.0-0.2); BASO % 0.4 % (0.0-1.0); EOS % 0.2 % (0.0-3.0); HEMATOCRIT 41.5 % (42.0-52.0); HEMOGLOBIN 13.9 g/dl (13.5-17.5); LYMPH # 1.9 10^3/uL (1.5-5.0); LYMPH % 9.7 % (24.0-44.0); MEAN CORPUSCULAR HEMOGLOBIN 27.9 pg (27.0-33.0); MEAN CORPUSCULAR HGB CONC 33.5 g/dl (32.0-36.5); MEAN CORPUSCULAR VOLUME 83.2 fl (80.0-96.0); MONO # 1.1 10^3/uL (0.0-0.8); MONO % 5.6 % (2.0-8.0); NEUTROPHILS % 83.1 % (36.0-66.0); PLATELET COUNT, AUTOMATED 318 10^3/uL (150-450); RED BLOOD COUNT 4.99 10^6/uL (4.30-6.10); WHITE BLOOD COUNT 19.3 10^3/uL (4.0-10.0)
[2024-01-26 14:13] LABS: ALBUMIN 4.2 G/DL (3.2-5.2); ALKALINE PHOSPHATASE 79 U/L (40-129); ALT/SGPT 22 U/L (7.0-40); AST/SGOT 39 U/L (<34); BILIRUBIN,DIRECT < 0.1 MG/DL (<0.4); BILIRUBIN,TOTAL 0.4 MG/DL (0.3-1.2); LIPASE 30 U/L (12-53)
[2024-01-26] MEDS ORDERED: ISOVUE-370 76% 100ML VIAL As Ordered ONE (14:31)
[2024-01-26 14:53] LABS: AMPHETAMINES LEVEL URINE NEGATIVE (NEGATIVE); BARBITURATES URINE NEGATIVE (NEGATIVE); BENZODIAZEPINES URINE NEGATIVE (NEGATIVE); COCAINE METABOLITE URINE NEGATIVE (NEGATIVE); METHADONE URINE NEGATIVE (NEGATIVE); OPIATES URINE NEGATIVE (NEGATIVE); PHENCYCLIDINE URINE NEGATIVE (NEGATIVE)
[2024-01-26] MEDS: HALOPERIDOL LACTATE 5MG/ML VIAL IV ONE (14:57)
[2024-01-26 15:01] LABS: CANNABINOIDS URINE POSITIVE (NEGATIVE)
[2024-01-26] MEDS: diphenhydrAMINE 50MG/ML VIAL IV STA (15:11)
[2024-01-26] MEDS: NS 1,000 ML IV ONE (15:56)
[2024-01-26] MEDS: PANTOPRAZOLE 40MG VIAL IV ONE (15:56)
[2024-01-26] MEDS ORDERED: OMEP-173 PO (17:13)
[2024-01-26 18:47] VITALS: BP 141/79; TEMP 99.4; O2SAT 96
== END 2024-01-26 18:49 | disposition home or self-care (01) ==
LOC: M ED 10:42
DX: R10.9 Unspecified abdominal pain (principal); R11.2 Nausea with vomiting, unspecified; F19.10 Other psychoactive substance abuse, uncomplicated; Z88.0 Allergy status to penicillin; Z88.1 Allergy status to other antibiotic agents; Z91.040 Latex allergy status; Z91.030 Bee allergy status; Z79.51 Long term (current) use of inhaled steroids; Z79.899 Other long term (current) drug therapy
CPT/HCPCS: 74177; 80047; 80076; 80307; 83605; 83690; 85025; 96361; 96374; 96375; 99284; J1200; J1630; J2405; J2470; Q9967

== ENCOUNTER → 2024-02-05 | Outpatient (CLI) | payer OTHER ==
[~2024-02-05] MED LIST changes: +OMEP-173 PO
[2024-02-05 13:18] LABS: BASO # 0.1 10^3/uL (0.0-0.2); BASO % 0.5 % (0.0-1.0); EOS # 0.8 10^3/uL (0.0-0.5); EOS % 8.3 % (0.0-3.0); HEMATOCRIT 45.8 % (42.0-52.0); HEMOGLOBIN 14.3 g/dl (13.5-17.5); LYMPH # 2.3 10^3/uL (1.5-5.0); LYMPH % 23.7 % (24.0-44.0); MEAN CORPUSCULAR HEMOGLOBIN 27.4 pg (27.0-33.0); MEAN CORPUSCULAR HGB CONC 31.2 g/dl (32.0-36.5); MEAN CORPUSCULAR VOLUME 87.9 fl (80.0-96.0); MONO # 0.6 10^3/uL (0.0-0.8); MONO % 5.9 % (2.0-8.0); NEUTROPHILS # 5.8 10^3/uL (1.5-8.5); NEUTROPHILS % 61.3 % (36.0-66.0); PLATELET COUNT, AUTOMATED 297 10^3/uL (150-450); RED BLOOD COUNT 5.21 10^6/uL (4.30-6.10); WHITE BLOOD COUNT 9.5 10^3/uL (4.0-10.0)
[2024-02-05 13:35] LABS: ALBUMIN 3.9 G/DL (3.2-5.2); ALKALINE PHOSPHATASE 86 U/L (40-129); ALT/SGPT 19 U/L (7.0-40); AST/SGOT 15 U/L (<34); BILIRUBIN,TOTAL 0.3 MG/DL (0.3-1.2); BLOOD UREA NITROGEN 11 MG/DL (9-23); CALCIUM LEVEL 9.6 MG/DL (8.5-10.1); CARBON DIOXIDE LEVEL 30 MMOL/L (20-31); CHLORIDE LEVEL 106 MMOL/L (98-107); CHOLESTEROL LEVEL 238 MG/DL (<200); CHOLESTEROL RISK RATIO 5.18 (<5); CREATININE FOR GFR 1.01 MG/DL (0.70-1.30); GLOMERULAR FILTRATION RATE > 60.0 (>60); GLUCOSE, FASTING 89 MG/DL (60-100); HDL CHOLESTEROL 45.9 MG/DL (>40); LDL CHOLESTEROL 174.3 MG/DL (<100); NON-HDL-C 192.1 MG/DL; POTASSIUM SERUM 4.2 MMOL/L (3.5-5.1); SODIUM LEVEL 142 MMOL/L (136-145); TOTAL PROTEIN 7.7 G/DL (5.7-8.2); TRIGLYCERIDES LEVEL 89 MG/DL (<150)
== END ==
LOC: M LAB 11:52
PROVIDERS: ATTEND Pediatrics
DX: L70.0 Acne vulgaris (principal)

== ENCOUNTER → 2024-05-11 | Outpatient (CLI) | payer OTHER ==
[2024-05-11 13:24] LABS: BASO % 0.5 % (0.0-1.0); EOS # 0.6 10^3/uL (0.0-0.5); EOS % 7.5 % (0.0-3.0); HEMATOCRIT 44.4 % (42.0-52.0); LYMPH # 2.7 10^3/uL (1.5-5.0); LYMPH % 32.1 % (24.0-44.0); MEAN CORPUSCULAR HGB CONC 31.5 g/dl (32.0-36.5); MEAN CORPUSCULAR VOLUME 85.5 fl (80.0-96.0); MONO # 0.6 10^3/uL (0.0-0.8); MONO % 7.4 % (2.0-8.0); NEUTROPHILS # 4.4 10^3/uL (1.5-8.5); NEUTROPHILS % 52.1 % (36.0-66.0); PLATELET COUNT, AUTOMATED 270 10^3/uL (150-450); RED BLOOD COUNT 5.19 10^6/uL (4.30-6.10); WHITE BLOOD COUNT 8.4 10^3/uL (4.0-10.0)
[2024-05-11 14:01] LABS: ALBUMIN 3.6 G/DL (3.2-5.2); ALKALINE PHOSPHATASE 86 U/L (40-129); ALT/SGPT 18 U/L (7.0-40); AST/SGOT 19 U/L (<34); BILIRUBIN,DIRECT < 0.1 MG/DL (<0.4); BILIRUBIN,TOTAL 0.3 MG/DL (0.3-1.2); CHOLESTEROL LEVEL 244 MG/DL (<200); CHOLESTEROL RISK RATIO 6.17 (<5); HDL CHOLESTEROL 39.5 MG/DL (>40); LDL CHOLESTEROL 177.1 MG/DL (<100); NON-HDL-C 204.5 MG/DL; THYROID STIMULATING HORMONE 2.795 uIU/ML (0.55-4.78); TOTAL PROTEIN 7.1 G/DL (5.7-8.2); TRIGLYCERIDES LEVEL 137 MG/DL (<150)
[2024-05-11 14:02] LABS: TESTOSTERONE 450 NG/DL (241-827)
[2024-05-11 14:15] LABS: HEMOGLOBIN A1c 5.3 % (4.0-6.0)
== END ==
LOC: M LAB 11:21
PROVIDERS: ATTEND Pediatrics
DX: F64.0 Transsexualism (principal)

== ENCOUNTER → 2024-07-07 | Outpatient (REF) | payer OTHER | LOC: M SFHCADAM 14:26 | PROVIDERS: ATTEND Nurse Practitioner Family | DX: L70.0 Acne vulgaris (principal); Z79.899 Other long term (current) drug therapy ==

== ENCOUNTER → 2024-09-28 | Outpatient (REF) | payer OTHER ==
[2024-09-28 14:38] LABS: BASO # 0.1 10^3/uL (0.0-0.2); BASO % 0.6 % (0.0-1.0); EOS # 0.8 10^3/uL (0.0-0.5); EOS % 8.4 % (0.0-3.0); LYMPH # 2.8 10^3/uL (1.5-5.0); LYMPH % 30.7 % (24.0-44.0); MONO # 0.6 10^3/uL (0.0-0.8); MONO % 6.1 % (2.0-8.0); NEUTROPHILS # 4.9 10^3/uL (1.5-8.5); NEUTROPHILS % 53.9 % (36.0-66.0); PLATELET COUNT, AUTOMATED 299 10^3/uL (150-450)
== END ==
LOC: M LAB REF 13:45
PROVIDERS: ATTEND Pediatrics
DX: F64.0 Transsexualism (principal)

== ENCOUNTER 2024-10-16 03:21 | Inpatient (IN) | payer OTHER ==
[~2024-10-16] VITALS: Ht 162.6 cm; Wt 97.7 kg
[2024-10-16 04:23] LABS: BASO # 0.1 10^3/uL (0.0-0.2); BASO % 0.4 % (0.0-1.0); EOS # 0.0 10^3/uL (0.0-0.5); EOS % 0.1 % (0.0-3.0); LYMPH # 1.3 10^3/uL (1.5-5.0); LYMPH % 9.8 % (24.0-44.0); MONO # 0.3 10^3/uL (0.0-0.8); MONO % 2.3 % (2.0-8.0); NEUTROPHILS # 11.9 10^3/uL (1.5-8.5); NEUTROPHILS % 87.0 % (36.0-66.0); PLATELET COUNT, AUTOMATED 296 10^3/uL (150-450)
[2024-10-16 04:55] LABS: ALT/SGPT 27 U/L (7.0-40); AST/SGOT 27 U/L (<34); CALCIUM LEVEL 9.3 MG/DL (8.5-10.1); CARBON DIOXIDE LEVEL 22 MMOL/L (20-31); CHLORIDE LEVEL 106 MMOL/L (98-107); CREATININE FOR GFR 1.03 MG/DL (0.70-1.30); GLOMERULAR FILTRATION RATE > 90.0 (>60); POTASSIUM SERUM 4.2 MMOL/L (3.5-5.1); SODIUM LEVEL 142 MMOL/L (136-145)
[2024-10-16] MEDS ORDERED: HALOPERIDOL LACTATE 5 MG/ML VIAL IV ONE (06:30)
[2024-10-16] MEDS: KETOROLAC 30 MG/ML 1 ML VIAL IV ONE (06:42)
[2024-10-16] MEDS: PROMETHAZINE 25MG/ML 1ML VIAL IV ONE (06:42)
[2024-10-16] MEDS: NS (Normal Saline) 0.9% 1,000 ML IV ONE ×2 (06:43→10:30)
[2024-10-16] MEDS: MORPHINE 4 MG/ML 1 ML VIAL IV PRN (07:40)
[2024-10-16] MEDS: GASTROGRAFIN SOLUTION 30ML PO SCH (08:13)
[2024-10-16] MEDS ORDERED: ENOXAPARIN 40 MG/0.4 ML SYRINGE (J1650 PER 10MG) SC SCH (09:00)
[2024-10-16] MEDS ORDERED: ISOVUE-370 76% 100 ML VIAL As Ordered ONE (09:32)
[2024-10-16] MEDS ORDERED: SYMB16INH INH (10:17)
[2024-10-16] MEDS ORDERED: AZEL1SPR3 NARES (10:17)
[2024-10-16] MEDS ORDERED: LATU1TAB PO (10:17)
[2024-10-16] MEDS ORDERED: EZET10TA21 PO (10:17)
[2024-10-16] MEDS ORDERED: MONT10TA97 PO (10:17)
[2024-10-16] MEDS ORDERED: HOME MED LIST COMPLETE! XX SCH (10:20)
[2024-10-16] MEDS ORDERED: KCL 10MEQ IN D5/0.45NS 1000ML 1,000 ML IV SCH (11:45)
[2024-10-16] MEDS ORDERED: ALBUTEROL 90 MCG/ACT 8 GM HFA INHALER INH PRN (11:45)
[2024-10-16] MEDS ORDERED: ACETAMINOPHEN 500 MG TAB PO PRN (11:45)
[2024-10-16] MEDS ORDERED: MORPHINE 2 MG/ML 1 ML VIAL IV PRN ×2 (11:45)
[2024-10-16] MEDS ORDERED: ONDANSETRON 4MG 2ML VIAL IV PRN (11:45)
[2024-10-16 12:00] LABS: AMPHETAMINES LEVEL URINE NEGATIVE (NEGATIVE); BARBITURATES URINE NEGATIVE (NEGATIVE); BENZODIAZEPINES URINE NEGATIVE (NEGATIVE); COCAINE METABOLITE URINE NEGATIVE (NEGATIVE); METHADONE URINE NEGATIVE (NEGATIVE); PHENCYCLIDINE URINE NEGATIVE (NEGATIVE)
[2024-10-16 12:06] LABS: CANNABINOIDS URINE POSITIVE (NEGATIVE); OPIATES URINE POSITIVE (NEGATIVE)
[2024-10-16 12:15] VITALS: BP 134/66; TEMP 98; O2SAT 96
[2024-10-16] MEDS ORDERED: LURASIDONE HCL 20 MG TAB PO SCH (18:00)
[2024-10-16] MEDS ORDERED: SYMBICORT 160/4.5MCG INHALER 6GM INH SCH (20:00)
[2024-10-17] MEDS ORDERED: EZETIMIBE 10 MG TABLET PO SCH (09:00)
[2024-10-17] MEDS ORDERED: MONTELUKAST 10 MG TAB PO SCH (09:00)
== END 2024-10-16 12:57 | disposition left against medical advice (07) | DRG 770 ==
LOC: M ED 03:21 → M ED INP 11:42
PROVIDERS: ADMIT Family Medicine; ATTEND Family Medicine
DX: F12.188 Cannabis abuse with other cannabis-induced disorder (principal); E73.9 Lactose intolerance, unspecified; R11.2 Nausea with vomiting, unspecified; R19.7 Diarrhea, unspecified; J45.909 Unspecified asthma, uncomplicated; F31.9 Bipolar disorder, unspecified; F41.9 Anxiety disorder, unspecified; F64.0 Transsexualism; Z87.890 Personal history of sex reassignment

== ENCOUNTER → 2024-10-31 | Outpatient (REF) | payer OTHER, MEDICAID ==
[~2024-10-31] MED LIST changes: +AZEL1SPR3 NARES; +EZET10TA21 PO; +LATU1TAB PO; +MONT10TA97 PO; +SYMB16INH INH
[2024-10-31 19:16] LABS: CHOLESTEROL LEVEL 205.0 MG/DL (<200); CHOLESTEROL RISK RATIO 4.86 (<5); LDL CHOLESTEROL 146.3 MG/DL (<100); NON-HDL-C 162.9 MG/DL; TRIGLYCERIDES LEVEL 83.0 MG/DL (<150)
[2024-10-31 19:19] LABS: TESTOSTERONE 933.0 NG/DL (241-827)
== END ==
LOC: M LAB REF 17:55
PROVIDERS: ATTEND Pediatrics
DX: F64.0 Transsexualism (principal); E78.00 Pure hypercholesterolemia, unspecified

== ENCOUNTER 2024-12-01 14:17 | Emergency (ER) | payer OTHER ==
[~2024-12-01] VITALS: Ht 160 cm; Wt 96.4 kg
[~2024-12-01 14:17] MED LIST changes: -EZET10TA21 PO; +EZET10TA57 PO
[2024-12-01] MEDS ORDERED: OMEP-173 (15:35)
[2024-12-01] MEDS: ONDANSETRON 4MG 2ML VIAL IV ONE (15:38)
[2024-12-01 15:59] LABS: BASO # 0.1 10^3/uL (0.0-0.2); BASO % 0.5 % (0.0-1.0); EOS # 0.4 10^3/uL (0.0-0.5); EOS % 2.3 % (0.0-3.0); LYMPH # 2.3 10^3/uL (1.5-5.0); LYMPH % 14.2 % (24.0-44.0); MONO # 0.8 10^3/uL (0.0-0.8); MONO % 4.9 % (2.0-8.0); NEUTROPHILS # 12.5 10^3/uL (1.5-8.5); NEUTROPHILS % 77.3 % (36.0-66.0); PLATELET COUNT, AUTOMATED 277 10^3/uL (150-450)
[2024-12-01 16:05] LABS: KETONE, URINE AUTO RFX NEGATIVE (NEGATIVE); LEUKOCYTE ESTERASE UR AUTO RFX NEGATIVE (NEGATIVE); MUCUS, URINE RFX SMALL (NEGATIVE); NITRITE, URINE AUTO RFX NEGATIVE (NEGATIVE); RBC, URINE AUTO RFX 1 /HPF (0-3); SQUAM EPITHELIAL CELL UR AURFX 3 /HPF (0-6); WBC, URINE AUTO RFX 0 /HPF (0-3)
[2024-12-01 16:17] LABS: ALT/SGPT 17.0 U/L (7.0-40); AST/SGOT 20.0 U/L (<34); CALCIUM LEVEL 9.7 MG/DL (8.5-10.1); CARBON DIOXIDE LEVEL 24.0 MMOL/L (20-31); CHLORIDE LEVEL 107.0 MMOL/L (98-107); CREATININE FOR GFR 1.11 MG/DL (0.70-1.30); GLOMERULAR FILTRATION RATE 89.4 (>60); POTASSIUM SERUM 4.1 MMOL/L (3.5-5.1); SODIUM LEVEL 144.0 MMOL/L (136-145)
[2024-12-01] MEDS: NS (Normal Saline) 0.9% 1,000 ML IV ONE (18:07)
[2024-12-01] MEDS: MORPHINE 4 MG/ML 1 ML VIAL IV ONE ×2 (18:08→20:26)
[2024-12-01] MEDS ORDERED: ISOVUE-370 76% 100 ML VIAL As Ordered ONE (18:47)
[2024-12-01] MEDS: diphenhydrAMINE 50 MG/ML VIAL IV ONE (19:17)
[2024-12-01] MEDS ORDERED: KETOROLAC 30 MG/ML 1 ML VIAL IV ONE (19:45)
[2024-12-01] MEDS ORDERED: CIPR250T3 PO (21:51)
[2024-12-01] MEDS ORDERED: METR-265 PO (21:51)
[2024-12-01] MEDS ORDERED: ONDA-282 PO (21:51)
[2024-12-01] MEDS: CIPROFLOXACIN 500 MG TABLET PO ONE (22:08)
[2024-12-01 22:25] VITALS: BP 117/74; TEMP 98.7; O2SAT 97
== END 2024-12-01 22:28 | disposition home or self-care (01) ==
LOC: EDBD 14:17 → M ED 15:13
DX: K52.9 Noninfective gastroenteritis and colitis, unspecified (principal); K42.9 Umbilical hernia without obstruction or gangrene; F12.10 Cannabis abuse, uncomplicated; Z88.0 Allergy status to penicillin; Z88.1 Allergy status to other antibiotic agents; Z88.8 Allergy status to other drugs, medicaments and biological substances; Z91.030 Bee allergy status; Z91.040 Latex allergy status; Z79.51 Long term (current) use of inhaled steroids; Z79.2 Long term (current) use of antibiotics; Z79.899 Other long term (current) drug therapy
CPT/HCPCS: 74177; 80048; 80076; 81001; 83690; 85025; 96361; 96374; 96375; 96376; 99284; J1200; J2405; J2550; J2919; Q9967

== ENCOUNTER 2025-03-06 10:32 | Emergency (ER) | payer OTHER ==
[~2025-03-06] VITALS: Ht 162.6 cm; Wt 97.0 kg
[~2025-03-06 10:32] MED LIST changes: +CIPR250T3 PO; +OMEP-173; -PROC5TAB57 PO; +PROC5TAB81 PO
[2025-03-06 10:40] VITALS: TEMP 97.6
[2025-03-06 11:30] LABS: BASO # 0.1 10^3/uL (0.0-0.2); BASO % 0.6 % (0.0-1.0); EOS # 0.6 10^3/uL (0.0-0.5); EOS % 3.4 % (0.0-3.0); LYMPH # 2.9 10^3/uL (1.5-5.0); LYMPH % 18.2 % (24.0-44.0); MONO # 1.0 10^3/uL (0.0-0.8); MONO % 6.0 % (2.0-8.0); NEUTROPHILS # 11.5 10^3/uL (1.5-8.5); NEUTROPHILS % 71.4 % (36.0-66.0); PLATELET COUNT, AUTOMATED 340 10^3/uL (150-450)
[2025-03-06 12:05] LABS: ALT/SGPT 26 U/L (7.0-40); AST/SGOT 50 U/L (<34); CALCIUM LEVEL 9.3 MG/DL (8.5-10.1); CARBON DIOXIDE LEVEL 22 MMOL/L (20-31); CHLORIDE LEVEL 106 MMOL/L (98-107); CREATININE FOR GFR 1.03 MG/DL (0.70-1.30); GLOMERULAR FILTRATION RATE > 90.0 (>60); POTASSIUM SERUM 5.5 MMOL/L (3.5-5.1); SODIUM LEVEL 141 MMOL/L (136-145)
[2025-03-06] MEDS: NS 0.9% IV ONE (12:44)
[2025-03-06] MEDS: KETOROLAC 30 MG/ML 1 ML VIAL IV ONE (12:44)
[2025-03-06] MEDS: [UNRECOGNIZED DRUG - OTHER] IV ONE (12:44)
[2025-03-06] MEDS: diphenhydrAMINE 50 MG/ML VIAL IV STA (12:44)
[2025-03-06] MEDS ORDERED: ISOVUE-370 76% 100 ML VIAL As Ordered ONE (14:12)
[2025-03-06] MEDS: MORPHINE 4 MG/ML 1 ML VIAL IV ONE (14:44)
[2025-03-06 15:30] VITALS: BP 146/79
[2025-03-06 15:35] LABS: AMPHETAMINES LEVEL URINE NEGATIVE (NEGATIVE); BARBITURATES URINE NEGATIVE (NEGATIVE); BENZODIAZEPINES URINE NEGATIVE (NEGATIVE); COCAINE METABOLITE URINE NEGATIVE (NEGATIVE); METHADONE URINE NEGATIVE (NEGATIVE)
[2025-03-06 15:36] LABS: OPIATES URINE NEGATIVE (NEGATIVE); PHENCYCLIDINE URINE NEGATIVE (NEGATIVE)
[2025-03-06 15:37] LABS: CANNABINOIDS URINE POSITIVE (NEGATIVE)
[2025-03-06 16:45] VITALS: O2SAT 100
[2025-03-06] MEDS: AZITHROMYCIN 250 MG TABLET PO ONE (16:54)
== END 2025-03-06 17:14 | disposition left against medical advice (07) ==
LOC: M ED 10:32
DX: A04.4 Other intestinal Escherichia coli infections (principal); E87.29 Other acidosis; R00.0 Tachycardia, unspecified; R11.2 Nausea with vomiting, unspecified; R19.7 Diarrhea, unspecified; K58.9 Irritable bowel syndrome, unspecified; F32.A Depression, unspecified; Z79.51 Long term (current) use of inhaled steroids; Z79.899 Other long term (current) drug therapy; Z79.890 Hormone replacement therapy; Z88.0 Allergy status to penicillin; Z88.1 Allergy status to other antibiotic agents; Z88.8 Allergy status to other drugs, medicaments and biological substances; Z91.030 Bee allergy status; Z91.040 Latex allergy status; Z53.9 Procedure and treatment not carried out, unspecified reason
CPT/HCPCS: 74176; 80047; 80048; 80076; 80307; 82150; 83605; 83690; 85025; 87507; 93005; 96361; 96374; 96375; 99285; J1200; J1885; J2550; J2765